=== PATIENT | female | born 1985 | race Caucasian/White ===

== ENCOUNTER 2017-11-20 08:45 | Day surgery (SDC) | payer OTHER, SELFPAY ==
[2017-11-17 14:58] LABS: Color, Urine Yellow (Yellow); Glucose, Dipstick Normal (Normal); Ketone-Dipstick 5 mg/dl (Negative); Leukocyte Esterase-Dipstick 25 /ul (Negative); Nitrite-Dipstick Negative (Negative); Occult Blood-Urine 10 /ul (Negative); Protein-Dipstick 15 mg/dl (Negative); Urine Bilirubin Dipstick Negative (Negative); Urine Clarity Cloudy (Clear); Urine Urobilinogen Normal (Normal)
[2017-11-17 15:06] LABS: Hematocrit 38.8 % (37-47); Hemoglobin 12.5 g/dl (12.0-15.0); Mean Corp Hgb Conc 32.2 g/gl (32-36); Mean Corpuscular Hgb 28.2 pg (27.0-32.0); Mean Corpuscular Volume 87.4 fL (81-99); Mean Platelet Vol. 10.4 fl (6.2-12.0); Platelet Count 273 K/mm3 (150-450); RBC Distribution Width CV 13.4 % (11.6-14.6); RBC Distribution Width SD 43.3 fl (35.1-43.9); Red Blood Count 4.44 M/mm3 (4.2-5.4); White Blood Count 5.2 K/mm3 (4.4-11.0)
[2017-11-17 15:08] LABS: Scan Indicated on CBC? Y/N NO
[2017-11-17 15:12] LABS: Mucous, Urine 2+ /hpf (<or=2+); Red Blood Cells-Urine 0-5 SEEN /hpf (0-5); Squamous Epithelial Cells - UA 50-100 SEEN /hpf (5-10); White Blood Cells 0-5 SEEN /hpf (0-5)
[2017-11-17 15:13] LABS: Bacteria 2+ /hpf (None Seen); Transitional Epithelial - Ur 0-5 SEEN /hpf (0-5)
[2017-11-17 15:26] LABS: International Normalized Ratio 1.1; Prothrombin Time (Protime)PT. 13.7 SECONDS (11.7-14.9)
[2017-11-17 15:27] LABS: Partial Thromboplast Time 31.7 Seconds (24.1-36.2)
[2017-11-17 15:48] LABS: Prolactin 8.1 ng/mL
[2017-11-17 16:19] LABS: AST(SGOT) 14 U/L (15-37); Alanine Aminotransfer ALT/SGPT 18 U/L (13-56); Albumin, Serum 4.1 g/dL (3.2-5.0); Alkaline Phosphatase 67 U/L (45-117); Bilirubin, Direct 0.12 mg/dL (0.00-0.30); Globulin 3.3 g/dL (2.2-4.2); Protein, Total 7.4 g/dL (6.4-8.2)
[2017-11-20] VITALS (7 sets, daily range): BP systolic 112–128; BP diastolic 70–87; PULSE 73–100; RESP 16–18; TEMP 36.4–36.7; O2SAT 96–100; BMI 24.3
--- NOTE | 2017-11-20 | MISC_PTH ---
PATIENT: ETHAN BAUGH LOC: [facility] [place] U[place][id number] AGE/SX: 31/F ROOM: RE11/20/[address]: Dr. Isa Robb MD : [id number] BED: DIS: 11/20/2017 SPEC #: [id number] RECD: 11/20/17 15:02 STATUS: JACQUE TIMO #: [id number] LISSA: 11/20/17 00:[address]: Isa Grimm DEPT: SURGICAL PATHOLOGY RECD BY: Antwon Romo ENTERED: 11/20/17 15:03 SP TYPE: [facility] DR: Sandy Orourke PA-C Tissues: A - Peritoneum, NOS B - Peritoneum, NOS Procedures: Surgery Specimen Level IV HEADER OPERATION: Diagnostic laparoscopy, treatment of endometriosis PRE-OP DIAGNOSIS: Suspect endometriosis TISSUE SUBMITTED: A ? Right cul-de-sac peritoneum, B ? Left uterosacral peritoneum MICROSCOPIC DIAGNOSIS A. Right cul-de-sac peritoneum, biopsy: Endometriosis. B. Left uterosacral peritoneum, biopsy: A piece of fibroadipose and fibroconnective tissue with mild chronic inflammation. Negative for endometriosis. LYUDMILA:nelson 11/21/17 MICROSCOPIC DESCRIPTION Slides are reviewed. GROSS DESCRIPTION A - Received in fixative is one container labeled with the patient's name and designated right cul-de-sac peritoneum. The specimen consists of three irregular fragments of pink-yellow soft tissue that in aggregate measure 1.5 x 1 x 0.2 cm. The specimen is totally submitted in one cassette. B - Received in fixative is one container labeled with the patient's name and designated left uterosacral peritoneum. The specimen consists of a single irregular fragment of pink-yellow soft tissue measuring 1.5 x 0.5 x 0.3 cm. The specimen is totally submitted in one cassette. / AM:nelson 11/20/17 TC:5 CPT: 13566 x2
[2017-11-20 09:06] LABS: Internal QC Validated? YES +Cl - CLEAR BKGD; Pregnancy, Urine Negative Negative
[2017-11-20] MEDS: Bupivacaine Mpf 0.5% 30 ML VIAL (11:15)
--- NOTE | 2017-11-20 11:15 | PCM.OPRPT ---
Problem List (1) Chronic pelvic pain in female Status: Acute (2) Endometriosis Status: Acute Report of Operation Date of Procedure: 11/20/17 Pre-Operative Diagnosis: Chronic pelvic pain, Dyspareunia, Endometriosis Post-Operative Diagnosis: Chronic pelvic pain, Dyspareunia, Endometriosis Surgery/Procedure Performed:: Diagnostic laparoscopy, surgical treatment of endometriosis with peritoneal biopsy woods overseer: Des Ku Type of Anesthesia:: General Anesthesiologist: Sebastián Jolley Specimen's removed: 1. Right culdesac peritoneal biopsy. 2. left uterosacral peritoneal biopsy Estimated Blood Loss (mL): 50 Fluids Replaced: 1000 mL Description of Procedure: Indications: Ms. Samuel is a 31-year-old 1 para 1001 with a history of long-standing chronic pelvic pain with acute worsening and accompanied dyspareunia. She was treated for acute pelvic inflammatory disease with partial response to antibiotics. Following counseling she opted to proceed with diagnostic laparoscopy to rule out endometriosis. Procedure: The patient was taken to the operating room and signed and was performed. She is placed in the dorsal supine position and induced under general anesthesia and intubated. She is then placed into dorsal lithotomy and her arms were tucked at her sides. An examination under anesthesia was performed. The perineum and abdomen were prepped and draped in sterile fashion. Straight catheterization of the bladder was performed. The patient was placed a high lithotomy weighted speculum placed into the vagina and the cervix visualized and grasped using single-tooth tenaculum. The uterus sounded to 9 cm. A Conn cannula was placed for uterine manipulation and secured to the tenaculum. The weighted speculum was removed from the vagina. The patient was placed into low lithotomy attention turned to the abdomen. An inferior umbilical incision was made using the scalpel. The Veress needle was placed with successful hanging drop test and no aspirate. The abdomen was insufflated to 15 mmHg. The Veress needle was removed and a 5 mm port was placed under laparoscopic guidance confirming entry to the abdomen, abdominal cavity. The patient was then placed into Trendelenburg. Her pubic incision was made followed by placement of a 5 mm port. The abdomen and pelvis were inspected. There were 2 areas of endometriotic lesions noted. First lesion in the right cul-de-sac, the second lesion at the left uterosacral ligament. I proceeded to create additional right and left lower quadrant incisions and placed 5 mm ports at those sites following transillumination. The posterior cul-de-sac was cleared of peritoneal fluid. The right posterior cul-de-sac peritoneum was grasped and incised using the laparoscopic anthony and a peritoneal biopsy was obtained with excision of the endometriotic lesion. Bleeding from the inferior excisional site was controlled using the monopolar grasper with improved hemostasis.. The specimen was removed via the 5 mm port. In similar fashion peritoneal biopsy was performed following sharp and blunt dissection of the left uterosacral lesion. There was clear visualization of the ureteric trajectory before, during and after this excision. This was also removed via a port. There was arteriole bleeding at the left excisional site which was controlled using the monopolar graspers medial to the uterosacral ligaments. The posterior cul-de-sac was irrigated and suctioned. Viki was placed at both additional sites for continued hemostasis. Laparoscopy was complete. The abdomen was desufflated the patient was given several large breaths to further expulsed the gas from the abdomen. The ports were removed from the abdomen. The skin was closed using 4-0 Monocryl followed by Steri-Strips and OpSite dressing. The right lower quadrant incision was oozing thus a total of 10 cc of 0.5% Sensorcaine was injected surrounding the site for tamponade with improvement of bleeding. An additional 10 cc were placed at the other incisions for further analgesia. She was turned to the vagina and the tenaculum was removed from the cervix and the tenaculum site was hemostatic. The patient placed into dorsal supine position, awakened, and extubated patient.. She will be transferred to the recovery room. The patient tolerated the procedure well. Sponge, needle counts were correct ?2. - Complications None - Admit VTE Documentation VTE Present on Admission: No VTE Mechan Device Prophylaxis: SCD's VTE Pharm Prophylaxis ordered?: No
--- NOTE | 2017-11-20 11:39 | PCM.DC ---
- Discharge Diagnoses Current Active Problems: Current Active and Chronic Problems Chronic pelvic pain in female (Acute) Endometriosis (Acute) Reason(s) for Visit for Discharge Instructions: Endometriosis You will use the following diet at home:: No restrictions Your food should be the consistency of: Regular Discharge Activity: Return to Normal Activity, May not drive while taking narcotic pain medications., May Shower, - - No tub bath for 1-2 weeks May resume sexual activity in: 4 weeks Lifting Restrictions: 10 lb Call your doctor if your incision/area has: Continuous Slow Oozing, Sudden Increased Bleeding, Increased Pain/ Swelling, Increased Redness Call your doctor if you observe: Fever of 101 or Higher, Inability to urinate, Inability to have a bowel movement, Using more than one pad per hour, Shortness of breath, Chest pain, Calf discomfort, Uncontrolled pain Suture Line Care: Avoid Pulling/Pushing Cleanse incision/area with: Soap & Water Additional Dressing/Incision Instructions:: Remove dressing over incisions in 24 hours. Remove steristrips on Friday11/24/17 Additional Instructions: Fill your prescription of Ibuprofen from the office. Take this every 6-8 hours for 48 hours, then take as needed according to the prescription. Allergies/Adverse Reactions: Allergies prednisone Allergy (Verified 11/14/17 09:14) Other ragweed pollen Allergy (Verified 11/14/17 09:14) Other Medications to take at Discharge Fluticasone Propionate [Flonase Allergy Relief] 9.9 ml NS DAILY 04/01/16 Omeprazole [Prilosec] 20 mg PO DAILY 04/01/16 Cetirizine HCl [Zyrtec] 10 mg PO QHS 11/14/17 Fluoxetine [Prozac] 20 mg PO QHS 11/14/17 Oxycodone [Oxyir] 5 mg PO Q6H PRN PRN 11/20/17 Primary Care Physician: Sandy Orourke PA-C [Primary Care Provider] - Please Follow Up With: Isa Kam MD When: 2-4 weeks
--- NOTE | 2017-11-20 11:44 | PCM.DC ---
- Discharge Diagnoses Current Active Problems: Current Active and Chronic Problems Chronic pelvic pain in female (Acute) Endometriosis (Acute) Reason(s) for Visit for Discharge Instructions: Endometriosis You will use the following diet at home:: No restrictions Your food should be the consistency of: Regular Discharge Activity: Return to Normal Activity, May not drive while taking narcotic pain medications., May Shower, - - No tub bath for 1-2 weeks May resume sexual activity in: 4 weeks Call your doctor if your incision/area has: Continuous Slow Oozing, Sudden Increased Bleeding, Increased Pain/ Swelling, Increased Redness Call your doctor if you observe: Fever of 101 or Higher, Inability to urinate, Inability to have a bowel movement, Using more than one pad per hour, Shortness of breath, Chest pain, Calf discomfort, Uncontrolled pain Suture Line Care: Avoid Pulling/Pushing Cleanse incision/area with: Soap & Water Additional Dressing/Incision Instructions:: Remove dressing over incisions in 24 hours. Remove steristrips on Friday11/24/17 Additional Instructions: Take your Ibuprofen, prescribed in the office, for 48 hours after surgery. Then take only as needed for pain. Allergies/Adverse Reactions: Allergies prednisone Allergy (Verified 11/14/17 09:14) Other ragweed pollen Allergy (Verified 11/14/17 09:14) Other Medications to take at Discharge Fluticasone Propionate [Flonase Allergy Relief] 9.9 ml NS DAILY 04/01/16 Omeprazole [Prilosec] 20 mg PO DAILY 04/01/16 Cetirizine HCl [Zyrtec] 10 mg PO QHS 11/14/17 Fluoxetine [Prozac] 20 mg PO QHS 11/14/17 Docusate Sodium [Colace] 100 mg PO BID PRN PRN #60 cap 11/20/17 Oxycodone [Oxyir] 5 mg PO Q6H PRN PRN 11/20/17 The following prescriptions were given: Docusate Sodium [Colace] 100 mg PO BID PRN PRN #60 cap PRN Reason: Constipation Primary Care Physician: Sandy Orourke PA-C [Primary Care Provider] - Please Follow Up With: Isa Kam MD When: 2-4 weeks
[2017-11-20] MEDS: HYDROcodone Bitartrate/Apap 5/325 Tablet PO (15:45)
== END 2017-11-20 15:53 | disposition home or self-care (01) ==
LOC: SDC 08:46 → AC 08:47
PROVIDERS: Family Provider Family Medicine; PCP Family Medicine; Visit Provider Obstetrics & Gynecology
PROC: (CPT 49320; principal; 2017-11-20 09:55)
DX: R10.2 Pelvic and perineal pain (principal); G89.29 Other chronic pain; N94.10 Unspecified dyspareunia; I10 Essential (primary) hypertension; K58.9 Irritable bowel syndrome, unspecified; K21.9 Gastro-esophageal reflux disease without esophagitis; F32.9 Major depressive disorder, single episode, unspecified; F41.9 Anxiety disorder, unspecified; Z79.899 Other long term (current) drug therapy; F17.210 Nicotine dependence, cigarettes, uncomplicated
CPT/HCPCS: 00840; 58662; 36415; 80076; 81001; 81025; 84146; 85027; 85610; 85730; 86850; 86900; 87086; 87088; 88305; J7120; J2405

== ENCOUNTER → 2018-06-11 14:32 | Outpatient (CLI) | payer SELFPAY ==
[2017-11-20 09:06] VITALS: BMI 24.3
[2018-06-11 17:54] LABS: Chlamydia Trachomatis by PCR Negative (Negative); Neisserai gonorrhoeae by PCR Negative (Negative); Probe Check PASS; Sample Adequacy Control PASS; Specimen Processing Control PASS
--- OUTSIDE RECORDS SUMMARY | 2018-08-06 20:12 | XMS RPT_ITS ---
:1985 Author Organization [place] Support Name Relationship Address Phone [facility] Unavailable [address] + [place] [address] SCADDEN, LUKE Unavailable [address] + [place] [address] MARLO QUICK Unavailable [address] + [address] [place] [address] NOT GIVEN Unavailable Unavailable Unavailable SCADDEN, LUKE Unavailable [id number] + [place] [address] SCADDEN, LUKE Unavailable [id number] [place] [address] SCADDEN, LUKE Unavailable [address] [facility] [facility] [address] + [place] [address] SPEEDY QUICK Unavailable Unavailable + [facility] Unavailable [address] + [place] [address] SCADDEN, LUKE Unavailable [address] + [place] [address] MARLO QUICK Unavailable [address] + [address] [place] [address] [facility] Unavailable [address] + [place] [address] SCADDEN, LUKE Unavailable [address] + [place] [address] MARLO QUICK Unavailable [address] + [address] [place] [address] NOT GIVEN Unavailable Unavailable Unavailable SCADDEN, LUKE Unavailable [address] + [place], [place] [phone] SCADDEN, LUKE Unavailable [address] Unavailable [place], [place] [phone] NOT GIVEN Unavailable Unavailable Unavailable SCADDEN, LUKE Unavailable [address] + [place], [place] [phone] SCADDEN, LUKE Unavailable [address] Unavailable [place] [phone] NOT GIVEN Unavailable Unavailable Unavailable SCADDEN, LUKE Unavailable [address] + [place], [place] [phone] SCADDEN, LUKE Unavailable [address] [place] [phone] NOT GIVEN Unavailable Unavailable Unavailable SCADDEN, LUKE Unavailable [address] + [place], [place] [phone] SCADDEN, LUKE Unavailable [address] Unavailable [place], [place] [phone] NOT GIVEN Unavailable Unavailable Unavailable SCADDEN, LUKE Unavailable [address] + [place], [place] [phone] SCADDEN, LUKE Unavailable [address] Unavailable [place], [place] [phone] Care Team Providers Name Role Phone WASHINGTON, SADIA Admitting Unavailable WASHINGTON, SADIA Attending Unavailable WASHINGTON, [place] Primary Care Unavailable WASHINGTON, SADIA Consulting Unavailable PROVIDER, UNKNOWN Consulting Unavailable PHIL, DR PIERRE Akbar Admitting Unavailable PHIL, DR PIERRE Akbar Attending Unavailable WASHINGTON, SADIA Referring Unavailable PHIL, DR PIERRE Akbar Primary Care Unavailable WASHINGTON, SADIA Consulting Unavailable PROVIDER, UNKNOWN Consulting Unavailable WASHINGTON, SADIA Admitting Unavailable WASHINGTON, SADIA Attending Unavailable WASHINGTON, SADIA Primary Care Unavailable WASHINGTON, SADIA Consulting Unavailable PROVIDER, UNKNOWN Consulting Unavailable WASHINGTON, SADIA Admitting Unavailable WASHINGTON, SADIA Attending Unavailable WASHINGTON, SADIA Primary Care Unavailable WASHINGTON, SADIA Consulting Unavailable PROVIDER, UNKNOWN Consulting Unavailable WASHINGTON, SADIA Admitting Unavailable WASHINGTON, SADIA Attending Unavailable WASHINGTON, SADIA Primary Care Unavailable WASHINGTON, SADIA Consulting Unavailable PROVIDER, UNKNOWN Consulting Unavailable WASHINGTON, SADIA Admitting Unavailable WASHINGTON, SADIA Attending Unavailable WASHINGTON, [place] Primary Care Unavailable HILLS, SADIA Consulting Unavailable PROVIDER, UNKNOWN Consulting Unavailable PRITCHETT, KEVIN Attending Unavailable Physician, PCP Unknown Primary Care Unavailable Isa Kam Attending Unavailable Negin, Isa Attending Unavailable Isa Kam Referring Unavailable Sadia Orourke CLIFFORD-Raffy Primary Care Unavailable Trung Olsen Attending Unavailable Sadia Orourke PA-C Primary Care Unavailable PROBLEMS PROBLEMS DATE TYPE CONDITION / CODE ATTENDING STATUS SOURCE 04/28/2018 Principle Urinary tract SADIA OROURKE Active [facility] Diagnosis infection, site [facility] not specified / Hospital N390(ICD-10) Repository 02/06/2018 Admitting Unknown / PRITCHETT, KEVIN Active [place] [facility] UNK(Unknown) Health System Repository 11/06/2017 Unknown Z39.1 - Encounter Miki Kam for care and [facility] examination of Hospital lactating mother / Repository Z39.1(ICD-10) 08/26/2017 Principle Dysuria / SADIA OROURKE Active [facility] Diagnosis R300(ICD-10) [facility] Repository 08/22/2017 Admitting Encounter for SADIA OROURKE Active [facility] Diagnosis screening [facility] mammogram for Hospital malignant neoplasm Repository of breast / Z1231(ICD-10) 08/22/2017 Principle Encounter for SADIA OROURKE Active [facility] Diagnosis screening [facility] mammogram for Hospital malignant neoplasm Repository of breast / Z1231(ICD-10) 08/01/2017 Principle Galactorrhea / SADIA OROURKE Active [facility] Diagnosis O926(ICD-10) [facility] Repository 08/01/2017 Admitting Galactorrhea / SADIA OROURKE Active [facility] Diagnosis O926(ICD-10) [facility] Repository 07/28/2017 Secondary Abdominal SADIA OROURKE Active [facility] Diagnosis distension [facility] (gaseous) / Hospital R140(ICD-10) Repository PROCEDURES PROCEDURES No Procedure Records FoundRESULTS RESULTS CT/NG [facility] BY PCR Collected: 06/11/2018 Status: F Source: [place] 1:00 PM [facility] TYPE CODE TESTS RESULT OUT OF RANGE REFERENCE UNITS LAB L8200.2100 Negative Normal Chlam Negative Trac PCR LAB L8200.2200 Negative Normal NG by Negative PCR Performed By: #### L8200.1999 #### [facility] [place], [address] Observed: 04/28/2018 Status: F Source: [place] CULTURE URINE 11:45 [facility] REPOSITORY CULTURE URINE _URINE CULTURE_ M I C R O B I O L O G Y R E P O R T FINAL Antimicrobial Susceptibility and Organism Identification Report Specimen Number : [id number] Requested : 04/28/18 Specimen Source : URINE Collected : 04/28/18 11:45 [facility] : OUTPATIENT Received : 04/28/18 11:45 Requesting Physician : PRISCILA OROURKE Patient/Specimen Tests and Comments Specimen Comments FINAL REPORT: URINE COLONY COUNT: [id number] CFU/CC >OR=TO 3 COLONY TYPES PROBABLE CONTAMINATION Tech : Source : URINE ID # : [id number] FINAL Report Date : / / : Collected : 04/28/18 11:45 05/01/18.1233.BKO. 04/30/18.1025.BKO. 05/01/18.1233.BKO.COMPLETE Performed By: #### [id number] #### [facility],[address] [place] [address] Observed: 02/14/2018 Status: F Source: [place] 8:02 PM HEALTH SYSTEM REPOSITORY [place] [address] Emergency Department Discharge Instructions DANELLE BAUGH , Please provide this information to your Primary Care/Specialist Name : DANELLE BAUGH Current Date : 02/14/2018 20:02:06 : 1985 12:00 PM Primary Care Physician: Physician, PCP Unknown Diagnosis : Hypokalemia; Seasonal allergies Follow-Up Instructions: DANELLE BAUGH has been given these follow-up instructions: FOLLOW-UP APPOINTMENTS: Provider: Specialty: Address: Date: [facility] [address] [address] (1) 3 to 4 days Comment: call for follow-up appointment. Return for fever, worsening symptoms, lightheaded dizziness, chest pain or difficulty breathing. Laboratory Orders: Name: Status: CBC with Differential Completed Basic Metabolic Panel Completed Urinalysis Manual POCT (CO) Completed Urine Test POCT (CO) Completed GFRaa Completed GFRbb Completed Radiology Orders: Name: Status: XR Chest 2 Views Completed Diagnostic Tests: Name: Status: ECG 12 Lead Completed Procedure(s) and Patient Education(s) : Allergies; Hypokalemia EMERGENCY SERVICES MEDICATION LIST Lista de Medicaciones de los Servicios de Emergencia Name DANELLE BAUGH MRN [facility]-[id number] [facility]# [id number] PLEASE READ THE FOLLOWING REGARDING YOUR MEDICATIONS Based on the information available during your visit we have given you the medication instructions below. Continue taking medications you took prior to your visit unless you have been told to change. Pl ease share this information with your own doctor. Carry a list of your medications with you in case of an emergency. Update it when medications are stopped, doses are changed, or new medications (includ ing aevp-rno-aqslitx products) are added. If you have any questions, check with your doctor. Por la informaci??n disponible eamon gerardo visita, las instrucciones de medicaci??n aparecen debajo. Favor de continuar tomando las medicaciones Ud. keven?? antes de gerardo visita por lo menos que hay cambios. Favor de compartir esta informaci??n con gerardo medico. Lleva kiah lista de medicaciones consigo por timo de emergenc??a. Actualiza la lista cuando Ud. edinson de ml las medicaciones, si cambian las dosis, o si hay nuevas medicaciones a??adidas (incluyendo medicaciones vendidas sin prescripci??n). Favor de preguntar a gerardo medico por cualquier can. THESE ARE THE MEDICATIONS YOU SHOULD BE TAKING potassium chloride (potassium chloride 10 mEq oral capsule, extended release) 1 Capsule By Mouth once a day for 5 Days. Refills: 0. MEDICATIONS GIVEN DURING MEDICAL VISIT dexamethasone 10 mg last dose given on 02/14/2018 at 17:50 Route: By Mouth Inject given Orally famotidine 20 mg last dose given on 02/14/2018 at 17:50 Route: By Mouth potassium chloride 40 mEq last dose given on 02/14/2018 at 20:00 Route: By Mouth Do Not Chew Or Crush
Take with meals and with a full glass of water or other beverage NON-MEDICATION PRESCRIPTION SCHEDULING PHONE NUMBER: MEDICATION CHANGE DETAILS (Not your Final Home Medication List) During the course of your visit, your home medication list was updated with the most current information. The details of those changes are shown below: NEW MEDICATIONS Printed Prescriptions potassium chloride (potassium chloride 10 mEq oral capsule, extended release) 1 Capsule By Mouth once a day for 5 Days. Refills: 0. Comment UPDATED MEDICATIONS None UNCHANGED MEDICATIONS None STOP TAKING THESE MEDICATIONS None DO NOT TAKE UNTIL YOU TALK TO YOUR DOCTOR None [place] [id number] Emergency Department Discharge Instructions Name: DANELLE BAUGH Current Date: 02/14/2018 20:02:06 : 1985 12:00 PM Primary Physician: Physician, PCP Unknown We would like to thank you for choosing [facility] for your emergency medical needs. We examined and treated you today on an emergency basis only. This was not a substitute for, or an effort to provide, complete medical care. In most cases, you must let your doctor (or the doctor we referred you to) check you again. Tell your doctor about any new or lasting problems. We cannot rec ognize and treat all injuries or illnesses in one emergency department visit. After you leave, you should follow the directions attached. Instructions for obtaining X-rays: When following up with your doctor, you may need to take copies of your x-rays that were done in the Emergency Department. If you didn't receive these upon your discharge from the emergency department, please call . When the final report becomes available and it is reviewed, the emergency department will attempt to contact you if there are any changes in your instructions. It is importan t that you leave accurate information with us on how to contact you. IF you cannot be contacted, YOU must contact the follow-up doctor that you were assigned to make sure that the final official x-ray r eport does not require a change in your treatment. Instructions for obtaining medical records: If you need a copy of your medical records for follow-up, please contact the Health Information Management Department at . Their office hours are 8 AM- 4:30 PM, Friday through Friday. Greg jasso note: Results are not immediately available. Please allow a minimum of 36 hours for documentation and results. If you were prescribed an antibiotic: Antibiotics are life-saving drugs and they need to be used properly. Your team might change your antibiotic because test results show that a different antibiotic would be better to treat your infection. Like all medications, antibiotics have side effects. Some can be serious. This includes the risk of getting an antibiotic-resistant infection later, which may be difficult to treat. Remember to take yo ur antibiotics as prescribed. If you have any questions please talk to your healthcare team. Seatbelts: There is no doubt that seatbelts save lives. Every day, people without seatbelts have more serious injuries. Have everyone buckle up, using age appropriate seatbelts or car seats, to reduce their risk of injury. Smoking: If you do smoke, we encourage you to stop. Smoking affects all aspects of your health and the health of those around you. Call the [employer] at 7-729-DNEY-[place] or the [employer] et[employer] at 0-164-LPI-4218 for more information. High blood pressure: Your screening blood pressure today was 122 mm Hg / . Hypertension (high blood pressure) is blood pressure over 120/80. People with hypertension should contact their primary care provider within 30 day s to follow up. Check your patient portal for additional blood pressure information. Immunizations: Immunization is a way to protect against deadly infections. Discuss this with your child's medical transcription supervisor, or Public Health Department. Your family practice doctor can determine if you need pneumonia or f alisa vaccine. The [facility] Department can be reached at . Domestic Violence: If you are a victim of domestic violence (physical, verbal, or emotional), you are not alone. Discuss this with your physician or a friend and call Choices Hotline ( for assistance and support. You are the most important factor in your recovery. Follow the provided instructions carefully. Take your medications as prescribed. Most importantly, see a doctor again as discussed. If you have problems that we have not discussed, call or visit your do ctor right away. If you do not have a primary care physician, we have provided one for you to follow up with. When you call for an appointment, please inform them that you were seen in the emergency dep artment and the date of your visit. If you are unable to reach your doctor and are still experiencing problems, return to the emergency department. For assistance finding a primary care physician, call the Physician Referral Line at . Suicide Hotline: Your mental and emotional well-being is important. If you are in a mental health crisis or are having thoughts of suicide, please call the nationwide suicide hotline, anytime day or night, at 8-780-371-ZUHN. Pharmacy Information: Below is a list of 24 hour pharmacies that we are aware of. We suggest that you call the specific pharmacy for their hours before traveling to a location. Hours may vary on holidays. [facility] [address], [place] [phone] [address] [place], [place] [address] [phone] [address], [place] [address] [phone] [address], [place] [phone] [address] [place], [place] [phone] [address], [place] [phone] [address] [place], [place] [phone] Take all medications as directed. If you need prescription assistance, contact the following agencies: ?? Partnership for Prescription Assistance at or www.pparx.org ?? [facility] at or www.[place]bestrx.org ?? www.[employer]quare.Indiegogo is a site with many valuable coupons Patient Education Materials DANELLE BAUGH has been given the following patient education materials: Allergies An allergy is an abnormal reaction to a substance by the body's defense system (immune system). Allergies can develop at any age. WHAT CAUSES ALLERGIES? An allergic reaction happens when the immune system mistakenly reacts to a normally harmless substance, called an allergen, as if it were harmful. The immune system releases antibodies to fight the subs tance. Antibodies eventually release a chemical called histamine into the bloodstream. The release of histamine is meant to protect the body from infection, but it also causes discomfort. An allergic reaction can be triggered by: ???Eating an allergen. ???Inhaling an allergen. ???Touching an allergen. WHAT TYPES OF ALLERGIES ARE THERE? There are many types of allergies. Common types include: ???Seasonal allergies. People with this type of allergy are usually allergic to substances that are only present during certain seasons, such as molds and pollens. ???Food allergies. ???Drug allergies. ???Insect allergies. ???Animal dander allergies. WHAT ARE SYMPTOMS OF ALLERGIES? Possible allergy symptoms include: ???Swelling of the lips, face, tongue, mouth, or throat. ???Sneezing, coughing, or wheezing. ???Nasal congestion. ???Tingling in the mouth. ???Rash. ???Itching. ???Itchy, red, swollen areas of skin (hives). ???Watery eyes. ???Vomiting. ???Diarrhea. ???Dizziness. ???Lightheadedness. ???Fainting. ???Trouble breathing or swallowing. ???Chest tightness. ???Rapid heartbeat. HOW ARE ALLERGIES DIAGNOSED? Allergies are diagnosed with a medical and family history and one or more of the following: ???Skin tests. ???Blood tests. ???A food diary. A food diary is a record of all the foods and drinks you have in a day and of all the symptoms you experience. ???The results of an elimination diet. An elimination diet involves eliminating foods from your diet and then adding them back in one by one to find out if a certain food causes an allergic reaction. HOW ARE ALLERGIES TREATED? There is no cure for allergies, but allergic reactions can be treated with medicine. Severe reactions usually need to be treated at a hospital. HOW CAN REACTIONS BE PREVENTED? The best way to prevent an allergic reaction is by avoiding the substance you are allergic to. Allergy shots and medicines can also help prevent reactions in some cases. People with severe allergic reac tions may be able to prevent a life-threatening reaction called anaphylaxis with a medicine given right after exposure to the allergen. This information is not intended to replace advice given to you by your health care provider. Make sure you discuss any questions you have with your health care provider. Document Released: 09/23/2003 Document Revised: 07/21/2015 Document Reviewed: 04/11/2015 [employer] Interactive Patient Education ?2015 [employer] Cardiovascular Hypokalemia Hypokalemia means that the amount of potassium in the blood is lower than normal.?Potassium is a chemical, called an electrolyte, that helps regulate the amount of fluid in the body. It also stimulates muscle contraction and helps nerves function properly.?Most of the body's potassium is inside of cells, and only a very small amount is in the blood. Because the amount in the blood is so small, minor changes can be life-threatening. CAUSES ???Antibiotics. ???Diarrhea or vomiting. ???Using laxatives too much, which can cause diarrhea. ???Chronic kidney disease. ???Water pills (diuretics). ???Eating disorders (bulimia). ???Low magnesium level. ???Sweating a lot. SIGNS AND SYMPTOMS ???Weakness. ???Constipation. ???Fatigue. ???Muscle cramps. ???Mental confusion. ???Skipped heartbeats or irregular heartbeat (palpitations). ???Tingling or numbness. DIAGNOSIS Your health care provider can diagnose hypokalemia with blood tests. In addition to checking your potassium level, your health care provider may also check other lab tests. TREATMENT Hypokalemia can be treated with potassium supplements taken by mouth or adjustments in your current medicines. If your potassium level is very low, you may need to get potassium through a vein (IV) and be monitored in the hospital. A diet high in potassium is also helpful. Foods high in potassium are: ???Nuts, such as peanuts and pistachios. ???Seeds, such as sunflower seeds and pumpkin seeds. ???Peas, lentils, and priest beans. ???Whole grain and bran cereals and breads. ???Fresh fruit and vegetables, such as apricots, avocado, bananas, cantaloupe, kiwi, oranges, tomatoes, asparagus, and potatoes. ???Ulster and tomato juices. ???Red meats. ???Fruit yogurt. HOME CARE INSTRUCTIONS ???Take all medicines as prescribed by your health care provider. ???Maintain a healthy diet by including nutritious food, such as fruits, vegetables, nuts, whole grains, and lean meats. ???If you are taking a laxative, be sure to follow the directions on the label. SEEK MEDICAL CARE IF: ???Your weakness gets worse. ???You feel your heart pounding or racing. ???You are vomiting or having diarrhea. ???You are diabetic and having trouble keeping your blood glucose in the normal range. SEEK IMMEDIATE MEDICAL CARE IF: ???You have chest pain, shortness of breath, or dizziness. ???You are vomiting or having diarrhea for more than 2 days. ???You faint. MAKE SURE YOU: ???Understand these instructions. ???Will watch your condition. ???Will get help right away if you are not doing well or get worse. This information is not intended to replace advice given to you by your health care provider. Make sure you discuss any questions you have with your health care provider. Document Released: 06/30/2006 Document Revised: 07/21/2015 Document Reviewed: 12/31/2013 [employer] Interactive Patient Education ?2016 [employer] <><><><><><><><><><><><><><><><><><><><><><><><><> Patient Visit Summary Signature DANELLE BAUGH has been given the following list of patient education materials, prescriptions and follow-up instructions: LUPIS Story ELIZABETH A, have received the above patient education materials/instructions and have verbalized understanding: Date Time Patient Signature Date Time Provider Signature DEPART SUMMARY Observed: 02/14/2018 Status: F Source: [facility] 8:02 PM HEALTH SYSTEM REPOSITORY EMERGENCY DEPARTMENT DISCHARGE SUMMARY PATIENT NAME:DANELLE BAUGH MRN: ([id number] AGE: 32 Years SEX: Female PHONE:[phone] DOS: 02/14/2018 5:05 PM : 1985 ATTENDING PHYSICIAN:Kevin Pritchett DO PCP: Physician, PCP Unknown CHIEF COMPLAINT: Possible allergic reaction x 1 week Allergies PredniSONE (Unknown) Problems No Problems Documented DISCHARGE DIAGNOSIS: Hypokalemia; Seasonal allergies DISCHARGE INSTRUCTIONS: Allergies; Hypokalemia ED PHYSICIAN DOCUMENTATION: DISPOSITION: Time of Departure From ER 02/14/2018 20:01 Discharge/Transfer From ER Home 01 MEDICATION LISTS: CURRENT MEDICATION LIST potassium chloride (potassium chloride 10 mEq oral capsule, extended release) 1 Capsule By Mouth once a day for 5 Days. Refills: 0. MEDICATIONS GIVEN DURING MEDICAL VISIT dexamethasone 10 mg last dose given on 02/14/2018 at 17:50 Route: By Mouth Inject given Orally famotidine 20 mg last dose given on 02/14/2018 at 17:50 Route: By Mouth potassium chloride 40 mEq last dose given on 02/14/2018 at 20:00 Route: By Mouth Do Not Chew Or Crush
Take with meals and with a full glass of water or other beverage LAB RESULTS: LABORATORY TESTS: Abnormal Lab Result(s): Date Order Results 02/14/2018 18:45 Specific [place] Urine POCT N 1.005 02/14/2018 18:45 pH Urine POCT N 6 02/14/2018 17:38 Potassium Level C 2.8 mMol/L 02/14/2018 17:38 BUN L 6 mg/dL 02/14/2018 17:38 Glucose Level H 180 mg/dL RADIOLOGY: RADIOLOGY RESULT(S) (Please contact Medical Records office for further information): 02/14/2018 18:03 XR Chest 2 Views EXAMINATION TYPE: XR Chest 2 Views DATE OF EXAM: 02/14/2018 6:03 PMHISTORY: ALLERGIC reaction.COMPARISON: NONENUMBER OF VIEWS: 2, FINDINGS:No focal airspace opacity. No pneumothorax. No significant pleura l effusion. The cardiomediastinal silhouette is within normal limits. Right convex curvature of the thoracic spine.IMPRESSION: No focal pulmonary consolidation or effusion.Pau Jolly thanks you for th e opportunity to care for your patient. Workstation ID: [id number] FOLLOW UP: FOLLOW-UP APPOINTMENTS: Provider: Specialty: Address: Date: [facility] [address] [address] (1) 3 to 4 days Comment: call for follow-up appointment. Return for fever, worsening symptoms, lightheaded dizziness, chest pain or difficulty breathing. XR CHEST 2 VIEWS Observed: 02/14/2018 Status: F Source: [facility] 6:03 PM HEALTH SYSTEM REPOSITORY EXAMINATION TYPE: XR Chest 2 Views DATE OF EXAM: 02/14/2018 6:03 PM HISTORY: ALLERGIC reaction. COMPARISON: NONE NUMBER OF VIEWS: 2, FINDINGS: No focal airspace opacity. No pneumothorax. No significant pleural effusion. The cardiomediastinal silhouette is within normal limits. Right convex curvature of the thoracic spine. IMPRESSION: No focal pulmonary consolidation or effusion. Pau Jolly thanks you for the opportunity to care for your patient. Workstation ID: [id number] - [id number] FINAL REPORT Dictated By: Harpal Melgar MD 02/14/2018 18:45 Assigned Physician: Harpal Melgar MD Reviewed and Electronically Signed By: Harpal Melgar MD 02/14/2018 18:47 Transcribed by: TONJA 02/14/2018 18:45 Technologist: QUOC CBC WITH DIFFERENTIAL Collected: 02/14/2018 Status: F Source: [facility] 5:38 PM HEALTH SYSTEM REPOSITORY TYPE CODE TESTS RESULT OUT OF REFERENCE UNITS RANGE LAB 18767-3(LO 40.0-70.0 % INC) Normal Neutrophil 60.3 LAB 17168-9(LO 80.0-97.0 FL INC) MCV Normal 84.8 LAB 18819-7(LO 6.2-12.1 FL INC) MPV Normal 8.8 LAB 55569-2(LO 0.0-2.0 % INC) Normal Basophil 0.6 LAB 704-7(LOIN 0.00-0.20 thou/mcL C) Normal Basophil 0.00 Absolute LAB 83144-8(LO 35.0-45.0 % INC) Normal Hematocrit 37.8 LAB 71394-2(LO 0.0-7.0 % INC) Normal Eosinophil 0.9 LAB 711-2(LOIN 0.00-0.70 thou/mcL C) Normal Eosinophil 0.10 Absolute LAB 70049-5(LO 142-424 thou/mcL INC) Normal Platelet Count 303 LAB 718-7(LOIN 12.0-16.0 gm/dL C) Normal Hemoglobin 12.8 LAB 35767-8(LO 0.0-12.0 % INC) Normal Monocyte 4.5 LAB 742-7(LOIN 0.00-0.90 thou/mcL C) Normal Monocyte 0.40 Absolute LAB 01645-7(LO 11.0-14.8 % INC) RDW Normal 13.2 LAB 12726-3(LO 22.0-44.0 % INC) Normal Lymphocyte 33.7 LAB 731-0(LOIN 1.00-4.80 thou/mcL C) Normal Lymphocyte 2.80 Absolute LAB 80517-6(LO 3.80-5.10 million/mcL INC) Red Normal Blood Cell 4.46 Count LAB 82289-5(LO 32.0-36.0 gm/dL INC) MCHC Normal 33.9 LAB 20335-5(LO 4.6-10.2 thou/mcL INC) WBC Normal Count 8.3 LAB 30351-7(LO 27.0-34.0 Picograms INC) MCH Normal 28.8 LAB 751-8(LOIN 1.80-7.70 thou/mcL C) Normal Neutrophil 5.00 Absolute Performed By: #### 08847-5 #### [facility], [address] [place] [address]. GFRAA Collected: 02/14/2018 Status: F Source: [facility] 5:38 PM HEALTH SYSTEM REPOSITORY TYPE CODE TESTS RESULT OUT OF RANGE REFERENCE UNITS LAB 29389-9(LO mL/min INC) GFR Normal Estimated >60 Result Comment: The MDRD equation has not been validated for those over 70 years, women, patients with serious co-morbid conditions, or with extremes of body size, muscle mass of nutritional status. Performed By: #### 69867-9, 17841-3d0, 47330-5 #### [facility], [address] [place] [address]. GFRBB Collected: 02/14/2018 Status: F Source: [facility] 5:38 PM HEALTH SYSTEM REPOSITORY TYPE CODE TESTS RESULT OUT OF RANGE REFERENCE UNITS LAB 06294-6(LO mL/min INC) GFR Normal Estimated Non >60 Performed By: #### 65674-5, 86627-4l8, 55612-0 #### [facility], [address] [place] [address]. BASIC METABOLIC PANEL Collected: 02/14/2018 Status: F Source: [facility] 5:38 PM HEALTH SYSTEM REPOSITORY TYPE CODE TESTS RESULT OUT OF RANGE REFERENCE UNITS LAB 2951-2(ÓSCAR 136-145 mMol/L NC) Normal Sodium Level 138 LAB 2823-3(ÓSCAR 3.6-5.1 mMol/L NC) Abnormal Alert Potassium Level 2.8 Result Comment: Critical value(s) on tests K called to and read-back by DR PERRY SAMUEL , at [place] [id number] time called 02/14/18 19:22 LAB 2075-0(LOINC) 98-107 mMol/L Chloride Normal Level 101 LAB 58068-2(LOINC) 8.9-10.3 mg/dL Calcium Normal Total 9.5 LAB 04314-5(LOINC) 70-110 mg/dL Glucose High Level 180 LAB 8-9(LOINC) 22-32 mMol/L Carbon Normal Dioxide Level 23 LAB 2160-0(LOINC) 0.66-1.30 mg/dL Normal Creatinine 0.77 LAB 98611-8(LOINC) 8-20 mg/dL Low BUN 6 LAB 61353-7(LOINC) 6.0-18.0 mMol/L Anion Normal Gap 14.0 Result Comment: PLEASE NOTE:The calculated Anion Gap(AGAP) does not include Potassium. Performed By: #### 05121-5, 39245-8l3, 62218-9 #### [facility], [address], [place]. ED PHYSICIAN NOTES Observed: 02/14/2018 Status: F Source: [facility] 5:22 PM HEALTH SYSTEM REPOSITORY Chief Complaint Possible allergic reaction x 1 week ED Assigned Provider/Time Time Seen: Perry Samuel CNP / 02/14/2018 17:08 History of Present Illness I introduced myself to the patient as the Nurse practitioner and informed the patient of my collaborating physician, Dr. Pritchett , who is available upon request. patient is a 32-year-old female who presents for evaluation of allergies. 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 For the past week she has had a scratchy throat and fullness in her ear s. She has been taking benadryl and zyrtec without relief. She has seen her PCP several days ago in regards to this. Today patient began to feel dizzy, nauseated and developed blurred vision. She fe lt as if she was going to pass out and therefore called 911. Patient states these symptoms are similar to when she has had an allergic reaction previously. EMS administered 0.2 mg of IM epi as well as 8 mg of Zofran. Patient now reports she feels jittery. She states that when she has allergic reaction like this the only thing that helps her is steroids. She denies headache, current visual changes, v omiting, chest pain, palpitations, shortness of breath, abdominal pain, dysuria, rash. She denies any swelling of the lips, tongue, or throat. She denies any difficulty breathing or difficulty swallowing. I have reviewed the nursing notes as well as social history and agree. REVIEW OF SYSTEMS Constitutional: [No fevers, chills or body aches] Eyes: [No visual changes] ENMT: [No sore throat, ear pain, runny nose, or congestion] Cardiovascular: [No palpitations] Respiratory: [No difficulty breathing or pain with inspiration. No cough] Gastrointestinal: [No abdominal pain. No nausea or vomiting. No diarrhea] Genitourinary: [No pain or burning with urination.] Musculoskeletal: [No pain or swelling in extremities] Integumentary: [No rashes] Neurological: [No numbness, tingling, or weakness] Psychological: [No depression or suicidal ideation] All other systems reviewed are negative - See HPI PHYSICAL EXAM: Vital Signs (First and Last Sets of This Visit): Date Route Temp Resp SBP/DBP Pulse O2 Sat O2 Flow O2 Delivery 02/14/18 17:11 Oral 98.8 18 146/ 90 103 100 - Room air 02/14/18 18:45 - - 16 122/ 83 88 100 - PULSE OX INTERPRETATION: The Pulse ox is [100 ], which is interpreted as [normal] Constitutional: [alert, well appearing, in no acute distress Psychiatric: Appropriate. Normal affect. Eyes: [PERRL, no scleral icterus] Ears: [TM's pearly kern bilaterally without erythema or effusion. External ear canals clear and dry] Nose: [Normal in appearance. boggy, non-erythematous nasal turbinates Mouth: [Moist mucous membranes. Normal phonation. Managing secretions. unremarkable oropharynx. No edema] Neck: [ trachea midline. No lymphadenopathy] Cardiovascular: [Regular rate and rhythm, no murmurs, rubs, gallops. No peripheral edema. Radial pulses are 3+ and equal bilaterally. Cap refill < 3 seconds] Respiratory: [Clear to auscultation bilaterally without wheezes, rhonchi, rales. Equal air exchange without accessory muscle use. No stridor or drooling] Gastrointestinal: [Soft without rigidity, guarding, or rebound tenderness. Non-distended and non-tender. No peritoneal signs] Skin: [Normal for age, no rash or lesions] Musculoskeletal: [Ambulatory without difficulty] Neurologic: [Awake, alert, answers questions appropriately without slurred speech, no focal deficits] PREVIOUS RECORDS REVIEWED: [ yes] DIFFERENTIAL DIAGNOSIS - INCLUDES BUT IS NOT LIMITED TO: [seasonal allergies, anaphylaxis, angioedema, electrolyte imbalance ] MEDICAL DECISION MAKING: [patient is a 32-year-old female who presents as detailed above. Afebrile nontoxic in appearance. No evidence of anaphylaxis or angioedema. patient is requesting steroids b ut does note a prednisone allergy. Will give Decadron. Workup pending. 02-14-2018 19:40: I reevaluated the patient. I encouraged her to continue these medications and follow-up with her PCP.he is resting comfortably. Her potassium is 2.8. She was given a dose here i n the department and will be discharged with a prescription. Her workup is unremarkable otherwise. I do not suspect acute anaphylaxis. symptoms are likely secondary to her seasonal allergies. Patient re ports she has been taking Mucinex, Benadryl, Zyrtec, Nasacort home. I encouraged her to continue these prescriptions and follow-up with her primary care provider. We discussed return precautions. Stable time of discharge and appropriate for outpatient management. DISPOSITION PLAN: Condition: [Stable]. Disposition: [Medically cleared for outpatient management], Discharged to Home Prescriptions:potassium chloride 10 mEq, By Mouth once a day, 5 Day(s), 5 Cap Patient Education: Hypokalemia, Allergies Follow up with: Provider: [facility] Specialty: Address: [address] [place] [address] (2) Date: 3 to 4 days Comment: call for follow-up appointment. Return for fever, worsening symptoms, lightheaded dizziness, chest pain or difficulty breathing. Counseled: [Patient]. FINAL DIAGNOSIS: [ 1.seasonal allergies 2. Near syncope Assessment/Plan Hypokalemia Seasonal allergies Orders: potassium chloride, Take 1 Cap, PO, Daily, # 5 Cap, 0 Refill(s) Problem List/Past Medical History Ongoing No qualifying data Historical No qualifying data Medications Home No active home medications ED Administered Medications Prescriptions No active Prescriptions Allergies PredniSONE (Unknown) Social History Tobacco No qualifying data available. Lab Results CHEMISTRY est crcl ibw (ml/min)-rx: 99.03 chloride level: 101 carbon dioxide level: 23 potassium level: 2.8 (Critical) Ref Range: 3.6 - 5.1 sodium level: 138 anion gap: 14.0 bun: 6 (Low) Ref Range: 8 - 20 glucose level: 180 (High) Ref Range: 70 - 110 creatinine: 0.77 calcium total: 9.5 gfr estimated non amer: >60 gfr estimated : >60 HEMATOLOGY wbc count: 8.3 red blood cell count: 4.46 hemoglobin: 12.8 hematocrit: 37.8 mcv: 84.8 mch: 28.8 mchc: 33.9 rdw: 13.2 platelet count: 303 mpv: 8.8 neutrophil absolute: 5.00 lymphocyte absolute: 2.80 monocyte absolute: 0.40 eosinophil absolute: 0.10 basophil absolute: 0.00 neutrophil: 60.3 lymphocyte: 33.7 monocyte: 4.5 eosinophil: 0.9 basophil: 0.6 POINT OF CARE TESTING urine clarity poct -clinic: Clear (Normal) glucose urine poct: Negative (Normal) bilirubin urine poct: Negative (Normal) ketones urine poct: Negative (Normal) specific gravity urine poct: 1.005 blood urine poct: Negative (Normal) ph urine poct: 6 protein urine poct: Negative (Normal) nitrite urine poct: Negative (Normal) leukocytes urine poct: Negative (Normal) test poct: Negative test poct -clinic: Negative urine color poct -clinic: Straw (Normal) IMAGING RESULTS: Emergency Physician Interpretation: Radiologist Xray Interpretation: Interpretation XR Chest 2 Views 18:47:30 IMPRESSION: No focal pulmonary consolidation or effusion. Pau Jolly thanks you for the opportunity to care for your patient. Workstation ID: [id number] - [id number] EKG INTERPRETATIONS: I am acting as a scribe for the EKG interpretation performed by [ ] Time: 1725 Rate: 102- since tachycardia. Normal axis. No ST or T-wave changes to suggest acute ischemia. Orders placed Laboratory CBC with Differential Jimmie GONZALEZ [facility] February 14, 2018 17:17 Completed BMP (Basic Metabolic Panel) Jimmie GONZALEZ [facility] February 14, 2018 17:17 Completed Urinalysis Manual POCT (CO) Jimmie GONZALEZ [facility] February 14, 2018 17:17 Completed POC Urine Test (CO) Jimmie GONZALEZ [facility] February 14, 2018 17:17 Completed GFRAF Jimmie GONZALEZ [facility] February 14, 2018 17:49 Completed GFRNAF Jimmie GONZALEZ [facility] February 14, 2018 17:49 Completed Xray CXR 2 Views Jimmie GONZALEZ [facility] February 14, 2018 17:18 Completed EKG / Respiratory / Ancillary EKG Jimmie GONZALEZ [facility] February 14, 2018 17:17 Completed PRE-ARRIVAL FORM Observed: 02/14/2018 Status: F Source: [facility] 5:06 PM HEALTH SYSTEM REPOSITORY Pre-Arrival Summary Name: 30, Current Date: 02/14/2018 17:06:09 EDT Gender: Date of : Age: Pre-Arrival Type: EMS ETA: 02/14/2018 17:26:00 EDT Primary Care Physician: Presenting Problem: Pre-Arrival User: Junaid Beck RN Referring Source: Location: PreArrival Emergency Department Pre Arrival Form EMS: 28 PHYSICIAN REFERRAL: Reason for Visit: 32F, allergic reaction, Vital Signs: 138/80, 120, 100% Medications Given: 0.3 epi IM, zofran 4 mg PO, Comments: DISCHARGE INSTRUCTION Observed: 11/20/2017 Status: F Source: [place] 11:45 AM [facility] [place] [facility] Medical Records Department [address] [place] [address] Instructions for Home/Discharge Instructions 11/20/17 1144 MR#: [id number] Acct: [id number] Name: DANELLE BAUGH Rep #: [id number] : 1985 31 From: Isa Robb MD PCP: Sadia Orourke PA-C Status: REG [facility]C - Discharge Diagnoses Current Active Problems: Current Active and Chronic Problems Chronic pelvic pain in female (Acute) Endometriosis (Acute) Reason(s) for Visit for Discharge Instructions: Endometriosis You will use the following diet at home:: No restrictions Your food should be the consistency of: Regular Discharge Activity: Return to Normal Activity, May not drive while taking narcotic pain medications., May Shower, - - No tub bath for 1-2 weeks May resume sexual activity in: 4 weeks Call your doctor if your incision/area has: Continuous Slow Oozing, Sudden Increased Bleeding, Increased Pain/ Swelling, Increased Redness Call your doctor if you observe: Fever of 101 or Higher, Inability to urinate, Inability to have a bowel movement, Using more than one pad per hour, Shortness of breath, Chest pain, Calf discomfort, Uncontrolled pain Suture Line Care: Avoid Pulling/Pushing Cleanse incision/area with: Soap AND Water Additional Dressing/Incision Instructions:: Remove dressing over incisions in 24 hours. Remove steristrips on Friday11/24/17 Additional Instructions: Take your Ibuprofen, prescribed in the office, for 48 hours after surgery. Then take only as needed for pain. Allergies/Adverse Reactions: Allergies prednisone Allergy (Verified 11/14/17 09:14) Other ragweed pollen Allergy (Verified 11/14/17 09:14) Other Medications to take at Discharge Fluticasone Propionate [Flonase Allergy Relief] 9.9 ml NS DAILY 04/01/16 Omeprazole [Prilosec] 20 mg PO DAILY 04/01/16 Cetirizine HCl [Zyrtec] 10 mg PO QHS 11/14/17 Fluoxetine [Prozac] 20 mg PO QHS 11/14/17 Docusate Sodium [Colace] 100 mg PO BID PRN PRN #60 cap 11/20/17 Oxycodone [Oxyir] 5 mg PO Q6H PRN PRN 11/20/17 The following prescriptions were given: Docusate Sodium [Colace] 100 mg PO BID PRN PRN #60 cap PRN Reason: Constipation Primary Care Physician: Sadia Orourke PA-C [Primary Care Provider] - Please Follow Up With: Isa Kam MD When: 2-4 weeks 11/20/17 1145 <Electronically signed by Isa Kam MD> Date Isa Kam MD CC: ZACH Orourke DISCHARGE INSTRUCTION Observed: 11/20/2017 Status: F Source: [place] 11:42 AM [facility] Medical Records Department [address] [place] [address] Instructions for Home/Discharge Instructions 11/20/17 1139 MR#: [id number] Acct: [id number] Name: DANELLE BAUGH Rep #: [id number] : 1985 31 From: Isa Robb MD PCP: Sadia Orourke PA-C Status: REG [facility] - Discharge Diagnoses Current Active Problems: Current Active and Chronic Problems Chronic pelvic pain in female (Acute) Endometriosis (Acute) Reason(s) for Visit for Discharge Instructions: Endometriosis You will use the following diet at home:: No restrictions Your food should be the consistency of: Regular Discharge Activity: Return to Normal Activity, May not drive while taking narcotic pain medications., May Shower, - - No tub bath for 1-2 weeks May resume sexual activity in: 4 weeks Lifting Restrictions: 10 lb Call your doctor if your incision/area has: Continuous Slow Oozing, Sudden Increased Bleeding, Increased Pain/ Swelling, Increased Redness Call your doctor if you observe: Fever of 101 or Higher, Inability to urinate, Inability to have a bowel movement, Using more than one pad per hour, Shortness of breath, Chest pain, Calf discomfort, Uncontrolled pain Suture Line Care: Avoid Pulling/Pushing Cleanse incision/area with: Soap AND Water Additional Dressing/Incision Instructions:: Remove dressing over incisions in 24 hours. Remove steristrips on Friday11/24/17 Additional Instructions: Fill your prescription of Ibuprofen from the office. Take this every 6-8 hours for 48 hours, then take as needed according to the prescription. Allergies/Adverse Reactions: Allergies prednisone Allergy (Verified 11/14/17 09:14) Other ragweed pollen Allergy (Verified 11/14/17 09:14) Other Medications to take at Discharge Fluticasone Propionate [Flonase Allergy Relief] 9.9 ml NS DAILY 04/01/16 Omeprazole [Prilosec] 20 mg PO DAILY 04/01/16 Cetirizine HCl [Zyrtec] 10 mg PO QHS 11/14/17 Fluoxetine [Prozac] 20 mg PO QHS 11/14/17 Oxycodone [Oxyir] 5 mg PO Q6H PRN PRN 11/20/17 Primary Care Physician: Sadia Orourke PA-C [Primary Care Provider] - Please Follow Up With: Isa Kam MD When: 2-4 weeks 11/20/17 7772 <Electronically signed by Isa Kam MD> Date Isa Kam MD CC: ZACH Orourke; Mani Quintana MD OPERATIVE REPORT Observed: 11/20/2017 Status: F Source: [place] 11:34 AM [facility] [place] [facility] Medical Records Department [address] [place] [address] Operative Report 11/20/17 1115 MR#: [id number] Acct: [id number] Name: DANELLE BAUGH Rep #: [id number] : 1985 31 From: Isa Robb MD PCP: Sadia Orourke PA-C Status: REG [facility] [place] Location: [place] [address] Problem List (1) Chronic pelvic pain in female Status: Acute (2) Endometriosis Status: Acute Report of Operation Date of Procedure: 11/20/17 Pre-Operative Diagnosis: Chronic pelvic pain, Dyspareunia, Endometriosis Post-Operative Diagnosis: Chronic pelvic pain, Dyspareunia, Endometriosis Surgery/Procedure Performed:: Diagnostic laparoscopy, surgical treatment of endometriosis with peritoneal biopsy grain receiver: Des Ku Type of Anesthesia:: General Anesthesiologist: Sebastián Jolley Specimen's removed: 1. Right culdesac peritoneal biopsy. 2. left uterosacral peritoneal biopsy Estimated Blood Loss (mL): 50 Fluids Replaced: 1000 mL Description of Procedure: Indications: Ms. Baugh is a 31-year-old 1 para 1001 with a history of long-standing chronic pelvic pain with acute worsening and accompanied dyspareunia. She was treated for acute pelvic inflammatory disease with partial response to antibiotics. Following counseling she opted to proceed with diagnostic laparoscopy to rule out endometriosis. Procedure: The patient was taken to the operating room and signed and was performed. She is placed in the dorsal supine position and induced under general anesthesia and intubated. She is then placed into dorsal lithotomy and her arms were tucked at her sides. An examination under anesthesia was performed. The perineum and abdomen were prepped and draped in sterile fashion. Straight catheterization of the bladder was performed. The patient was placed a high lithotomy weighted speculum placed into the vagina and the cervix visualized and grasped using single-tooth tenaculum. The uterus sounded to 9 cm. A Conn cannula was placed for uterine manipulation and secured to the tenaculum. The weighted speculum was removed from the vagina. The patient was placed into low lithotomy attention turned to the abdomen. An inferior umbilical incision was made using the scalpel. The Veress needle was placed with successful hanging drop test and no aspirate. The abdomen was insufflated to 15 mmHg. The Veress needle was removed and a 5 mm port was placed under laparoscopic guidance confirming entry to the abdomen, abdominal cavity. The patient was then placed into Trendelenburg. Her pubic incision was made followed by placement of a 5 mm port. The abdomen and pelvis were inspected. There were 2 areas of endometriotic lesions noted. First lesion in the right cul-de-sac, the second lesion at the left uterosacral ligament. I proceeded to create additional right and left lower quadrant incisions and placed 5 mm ports at those sites following transillumination. The posterior cul-de-sac was cleared of peritoneal fluid. The right posterior cul-de-sac peritoneum was grasped and incised using the laparoscopic anthony and a peritoneal biopsy was obtained with excision of the endometriotic lesion. Bleeding from the inferior excisional site was controlled using the monopolar grasper with improved hemostasis.. The specimen was removed via the 5 mm port. In similar fashion peritoneal biopsy was performed following sharp and blunt dissection of the left uterosacral lesion. There was clear visualization of the ureteric trajectory before, during and after this excision. This was also removed via a port. There was arteriole bleeding at the left excisional site which was controlled using the monopolar graspers medial to the uterosacral ligaments. The posterior cul-de-sac was irrigated and suctioned. Viki was placed at both additional sites for continued hemostasis. Laparoscopy was complete. The abdomen was desufflated the patient was given several large breaths to further expulsed the gas from the abdomen. The ports were removed from the abdomen. The skin was closed using 4-0 Monocryl followed by Steri-Strips and OpSite dressing. The right lower quadrant incision was oozing thus a total of 10 cc of 0.5% Sensorcaine was injected surrounding the site for tamponade with improvement of bleeding. An additional 10 cc were placed at the other incisions for further analgesia. She was turned to the vagina and the tenaculum was removed from the cervix and the tenaculum site was hemostatic. The patient placed into dorsal supine position, awakened, and extubated patient.. She will be transferred to the recovery room. The patient tolerated the procedure well. Sponge, needle counts were correct 2. - Complications None - Admit VTE Documentation VTE Present on Admission: No VTE Mechan Device Prophylaxis: SCD's VTE Pharm Prophylaxis ordered?: No 11/20/17 1134 <Electronically signed by Isa Kam MD> Date Isa Kam MD CC: ZACH Orourke; Isa Kam MD Signed ,URINE Collected: 11/20/2017 Status: F Source: [place] 8:55 AM [facility] [place] TYPE CODE TESTS RESULT OUT OF REFERENCE UNITS RANGE LAB L400.8000 Negative Normal HCGUQUAL Negative Result Comment: Very dilute urine specimens, as indicated by a low specific gravity, may not contain accounts payable representative levels of hCG. If is still suspected, a first morning urine specimen should be collected 48 hours later and tested. Performed By: #### [id number] #### [facility] [address] [place], [address] MISCELLANEOUS SPECIMEN Observed: 11/20/2017 Status: F Source: [place] 12:00 AM [facility] [place] [place] Patient: DANELLE BAUGH : 1985 (/) Acct Num: [id number] Phys: Negin BOWLES,Summer Unit Num: [id number] Loc: [facility] Specimen: [id number] Received: 11/20/17 1502 Spec Type: [facility] TISSUES TISSUES: A. Peritoneum, NOS B. Peritoneum, NOS GROSS DESCRIPTION A - Received in fixative is one container labeled with the patient's name and designated right cul-de-sac peritoneum. The specimen consists of three irregular fragments of pink-yellow soft tissue that in aggregate measure 1.5 x 1 x 0.2 cm. The specimen is totally submitted in one cassette. B - Received in fixative is one container labeled with the patient's name and designated left uterosacral peritoneum. The specimen consists of a single irregular fragment of pink-yellow soft tissue measuring 1.5 x 0.5 x 0.3 cm. The specimen is totally submitted in one cassette. / AM:nelson 11/20/17 TC:5 CPT: 87948 x2 HEADER OPERATION: Diagnostic laparoscopy, treatment of endometriosis PRE-OP DIAGNOSIS: Suspect endometriosis TISSUE SUBMITTED: A Right cul-de-sac peritoneum, B Left uterosacral peritoneum MICROSCOPIC DESCRIPTION Slides are reviewed. MICROSCOPIC DIAGNOSIS A. Right cul-de-sac peritoneum, biopsy: Endometriosis. B. Left uterosacral peritoneum, biopsy: A piece of fibroadipose and fibroconnective tissue with mild chronic inflammation. Negative for endometriosis. SJ:nelson 11/21/17 Signed Олег Alvarez 11/21/17 <signature on file> Performed By: #### PMISC #### [facility] [address] [place], [place], [address] URINALYSIS, COMPLETE Collected: 11/17/2017 Status: F Source: [place] 2:30 PM [facility] Order Comment: How was Urine Obtained? CLEAN CATCH TYPE CODE TESTS RESULT OUT OF REFERENCE UNITS RANGE LAB L400.3000 Yellow COLOR Normal Yellow LAB L400.3050 Clear CLARITY Normal Cloudy LAB L400.3200 Normal mg/dl GLUCOSE, UR Normal Normal LAB L400.3300 Negative mg/dL BILIRUBIN Normal URINE Negative LAB L400.3400 Negative mg/dl KETONE UR High 5 LAB L400.3465 1.002-1.030 SP.GR. Normal DIPSTX 1.020 LAB L400.3550 5.0 - 8.0 pH UR Normal 6.0 LAB L400.3600 Negative mg/dl PROT DIPSTX High 15 LAB L400.3700 Normal mg/dl UROBILI Normal Normal LAB L400.3750 Negative NITRITE UR Normal Negative LAB L400.3780 Negative /ul OCCULT High BLOOD-UR 10 LAB L400.3800 Negative /ul LEUK High ESTERASE 25 LAB L400.4050 0-5 /hpf WBC Normal 0-5 SEEN LAB L400.4100 0-5 /hpf RBC-UA Normal 0-5 SEEN LAB L400.4150 5-10 /hpf SQUAM EPI Normal 50-100 SEEN LAB L400.4300 None Seen /hpf BACTERIA Normal 2+ LAB L400.4350 <or=2+ /hpf MUCUS, Normal URINE 2+ LAB L400.4200 0-5 /hpf Normal TRANSITIONAL EP 0-5 SEEN Performed By: #### L400.0001 #### [facility] [address] [place], [place], [id number] CBC-COMPLETE BLOOD CNT Collected: 11/17/2017 Status: F Source: [place] DIFF 2:30 PM [facility] TYPE CODE TESTS RESULT OUT OF RANGE REFERENCE UNITS LAB L100.1000 4.4-11.0 K/mm3 Normal WBC 5.2 LAB L100.1200 4.2-5.4 M/mm3 Normal RBC 4.44 LAB L100.1300 12.0-15.0 g/dl Normal HGB 12.5 LAB L100.1400 37-47 % Normal HCT 38.8 LAB L100.1500 81-99 fL Normal MCV 87.4 LAB L100.1600 27.0-32.0 pg Normal MCH 28.2 LAB L100.1700 32-36 g/gl Normal MCHC 32.2 LAB L100.1810 11.6-14.6 % Normal RDW CV 13.4 LAB L100.1820 35.1-43.9 fl Normal RDW SD 43.3 LAB L100.1900 150-450 K/mm3 Normal PLT 273 LAB L100.2000 6.2-12.0 fl Normal MPV 10.4 Performed By: #### L100.0500 #### [facility] [address] [place], [place], [id number] PROLACTIN Collected: 11/17/2017 Status: F Source: [place] 2:30 PM [facility] Order Comment: PLEASE ADD LIVER TO BLOOD FROM 11-17-17 TYPE CODE TESTS RESULT OUT OF RANGE REFERENCE UNITS LAB L3100.5420 ng/mL Normal PROLACTIN 8.1 Result Comment: NORMAL REFERENCE RANGES FEMALE NON- 2.2 - 30.3 ng/mL 8.1 - 347.6 ng/mL POST-MENOPAUSAL 0.7 - 31.5 ng/mL MALE 2.5 - 17.4 ng/mL NEW TEST METHOD AND REFERENCE RANGES DECEMBER 02, 2011 Performed By: #### L3100.5420, L500.3400 #### [facility] [address] [place], [place], [address] LIVER PROFILE Collected: 11/17/2017 Status: F Source: [place] 2:30 PM [facility] Order Comment: PLEASE ADD LIVER TO BLOOD FROM 11-17-17 TYPE CODE TESTS RESULT OUT OF RANGE REFERENCE UNITS LAB L501.1500 6.4-8.2 g/dL Normal T PROT 7.4 LAB L501.1800 3.2-5.0 g/dL Normal ALB 4.1 LAB L501.1950 2.2-4.2 g/dL Normal GLOB 3.3 LAB L501.4100 15-37 U/L Low AST 14 LAB L501.4305 45-117 U/L Normal ALK P 67 LAB L501.4405 13-56 U/L Normal ALT 18 LAB L501.4600 0.20-1.00 mg/dL Normal T BILI 0.70 LAB L501.4700 0.00-0.30 mg/dL Normal D BILI 0.12 Performed By: #### L3100.5420, L500.3400 #### [facility] [address] [place], [place], [address] TYPE AND SCREEN Collected: 11/17/2017 Status: F Source: [place] 2:30 PM [facility] Order Comment: Surgery Date: 11/20/17 Hx of Preganancy in last 3 Months No Ever experience any problems with transfusion(s)? N Hx of Transfusion in last 3 Months N Reason for Type AND Screen/Red Cells: SURGERY SURGICAL PROCEDURE: 83010 TYPE CODE TESTS RESULT OUT OF RANGE REFERENCE UNITS LAB B10.0800 O Normal BLOOD TYPE GEL POSITIVE LAB B100.4000 Normal Antibody NEGATIVE Screen Performed By: #### B101.7475 #### [facility] [address] [facility] [place], [address] PROTHROMBIN TIME W/INR Collected: 11/17/2017 Status: F Source: [place] 2:30 PM [facility] TYPE CODE TESTS RESULT OUT OF RANGE REFERENCE UNITS LAB L300.4150 11.7-14.9 SECONDS Normal PROTIME 13.7 LAB L300.4200 Normal INR 1.1 Performed By: #### L300.3900, L300.4310 #### [facility] [address] [place], [address] PARTIAL THROMBOPLAST Collected: 11/17/2017 Status: F Source: [place] TIME 2:30 PM [facility] TYPE CODE TESTS RESULT OUT OF RANGE REFERENCE UNITS LAB L300.4310 24.1-36.2 Seconds Normal PTT 31.7 Performed By: #### L300.3900, L300.4310 #### [facility] [address] [place], [address] Observed: 11/17/2017 Status: F Source: [place] CULTURE, URINE 2:30 PM [facility] Urine Culture ORGANISM 1: Mixed Gram Positive Organisms [place] Count 11,000-25,000 MIX CULTURE Mixed contaminants. Submit a new specimen if indicated. Performed By: #### M100.0650 #### [facility] [address] [facility] [place], [address] Observed: 08/26/2017 Status: F Source: [place] CULTURE URINE 12:01 PM [facility] REPOSITORY CULTURE URINE _URINE CULTURE_ M I C R O B I O L O G Y R E P O R T FINAL Antimicrobial Susceptibility and Organism Identification Report Specimen Number : [id number] Requested : 08/26/17 Specimen Source : URINE Collected : 08/26/17 12:01 Aggarwal of Isolation : OUTPATIENT Received : 08/26/17 12:01 Requesting Physician : PRISCILA OROURKE Patient/Specimen Tests and Comments Specimen Comments FINAL REPORT: NO GROWTH AT 48 HOURS Tech : Source : URINE ID # : [id number] FINAL Report Date : / / : Collected : 08/26/17 12:01 08/29/17.1147.BKO. 08/28/17.1053.BKO. 08/29/17.1147.BKO.COMPLETE Performed By: #### [id number] #### [facility],[address] [place] [address] MAMM DIGITAL BILAT Observed: 08/22/2017 Status: F Source: [place] 10:[address] [address] Patient: DANELLE BAUGH Phone#: : 1985 Age: 31 Gender: F Pt. Type: Out Account: [id number] Location: [facility] Ordering: SADIA WASHINGTON Exam Date: 08/22/2017/9:46 Family Phys: SADIA OROURKE Charge Code: [id number] Physician: [place] Order #: [id number] DLP Dose#: PROCEDURE: MAMM BILAT DIGITAL DIAGNOSTIC WITH CAD COMPARISON: [facility], BREAST BILAT COMPLETE, 08/01/2017, 13:48. INDICATIONS: Galactorrhea BREAST COMPOSITION: Heterogeneously dense, which could obscure small masses (51-75% glandular). FINDINGS: DIAGNOSTIC CATEGORY 1--NEGATIVE ASSESSMENT. RIGHT BREAST: No significant suspicious finding. An intramammary lymph node is seen lateral breast. LEFT BREAST: No significant suspicious finding. RECOMMENDATIONS: CLINICAL EVALUATION. No abnormality to correspond to the ultrasound finding. Please refer to ultrasound report regarding six-month followup left breast ultrasound. PLEASE NOTE: A NORMAL MAMMOGRAM DOES NOT EXCLUDE THE POSSIBILITY OF BREAST CANCER. A CLINICALLY SUSPICIOUS PALPABLE LUMP SHOULD BE BIOPSIED. THIS FACILITY UTILIZES A REMINDER SYSTEM TO ENSURE THAT ALL PATIENTS RECEIVE REMINDER LETTERS FOR APPOINTMENTS. THIS INCLUDES REMINDERS FOR ROUTINE MAMMOGRAMS, DIAGNOSITC MAMMOGRAMS, OR OTHER BREAST IMAGING INTERVENTIONS WHEN APPROPRIATE. THIS PATIENT WILL BE PLACED IN THE APPROPRIATE REMINDER SYSTEM. Dictated by: Janice Gabriel MD on 08/22/2017 at 13:05 Approved by: Janice Gabriel MD on 08/22/2017 at 13:05 BREAST BILAT Observed: 08/01/2017 Status: F Source: [place] COMPLETE 2:[address] [address] Patient: DANELLE BAUGH Phone#: : 1985 Age: 31 Gender: F Pt. Type: Out Account: [id number] Location: 052 Ordering: [facility] Exam Date: 08/01/2017/13:48 Family Phys: [facility] Charge Code: [id number] Physician: [place] Order #: [id number] DLP Dose#: PROCEDURE: ULTRASOUND BREAST BILAT COMPARISON: None. INDICATIONS: Galactorrhea TECHNIQUE: Breast ultrasound was performed, with evaluation focusing on all four quadrants. FINDINGS: DIAGNOSTIC CATEGORY 3--PROBABLY BENIGN FINDING. THE FOLLOWING FINDING(S) HAS A HIGH PROBABILITY OF A BENIGN ETIOLOGY: RIGHT BREAST: Typical-appearing lymph node at the 11 o'clock position. LEFT BREAST: Solid appearing mass with likely benign morphology, hyperechoic echotexture, mid-breast depth, 17 x 10 x 21. The echo pattern is mildly heterogeneous. Etiologies include fibroadenolipoma galactocele with debris. Mammographic evaluation is indicated for differentiation and would be best obtained and the patient is no longer lactating. RECOMMENDATIONS: ADDITIONAL MAMMOGRAPHIC VIEWS REQUIRED: LEFT BREAST. This obtained with the patient is no longer lactating. SIX MONTH FOLLOW-UP ULTRASOUND: LEFT BREAST. PLEASE NOTE: A NORMAL MAMMOGRAM DOES NOT EXCLUDE THE POSSIBILITY OF BREAST CANCER. A CLINICALLY SUSPICIOUS PALPABLE LUMP SHOULD BE BIOPSIED. Dictated by: Yeny Alaniz MD on 08/01/2017 at 17:28 Continued Report - Page 2 of 2 Patient: DANELLE BAUGH Phone#: : 1985 Age: 31 Gender: F Pt. Type: Out Account: [id number] Location: 052 Ordering: [facility] Exam Date: 08/01/2017/13:48 Family Phys: SADIA HILLS Charge Code: [id number] Physician: [place] Order #: [id number] DLP Dose#: Approved by: Yeny Alaniz MD on 08/01/2017 at 17:28 EMERGENCY DEPARTMENT Observed: 07/31/2017 Status: F Source: [place] SUMMARY 3:37 PM [facility] EMERGENCY DEPARTMENT SUMMARY NAME NUMBER SEX AGE ADMIT DISC TYPE MED.RECORD# LUPIS Herrera [id number] F 31 07/23/17 07/23/17 E.RMin [id number] ROOM:ER-C DATE OF :1985 PHYSICIAN NO.:[id number] PHYSICIAN NAME:BREE Villarreal M.D. PHYSICIAN:PRISCILA OROURKE CHIEF COMPLAINT: 1. Abdominal pain. 2. Breast drainage. 3. Headache. HISTORY OF PRESENT ILLNESS: The patient states that she has not felt well for 2 to 3 days since yesterday, and particularly today has had abdominal pressure. Additionally, she is complaining of some milky breast drainage that she has had over the last couple of weeks. She has seen her family doctor, and has had negative tests both at home and at the office, but continues to complain of breast discomfort and milky drainage. She has nausea and worsening abdominal pain, though no fever. She is not complaining of diarrhea or urinary symptoms. Additionally, she has constant headache that seems to be getting a little bit worse. No cough, congestion, or shortness of breath. She saw her primary care provider recently, and she had a negative test, negative thyroid levels. She did have a prolactin level which is pending. PAST MEDICAL HISTORY: Significant for irritable bowel syndrome, otherwise negative. PAST SURGICAL HISTORY: She has had previous . ALLERGIES: Prednisone. SOCIAL HISTORY: She is and lives at home. 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 She does not smoke. REVIEW OF SYSTEMS: As mentioned above. No underlying heart or lung disease. No significant weight change. No bleeding disorders. PHYSICAL EXAMINATION: This is a 31-year-old generally healthy appearing nontoxic female who does not appear in any acute distress. Her skin is pink, warm, and dry. HEENT: All within normal limits. Neck is supple without JVD. Lungs are clear without crackles or wheezes. Cardiac exam is regular rhythm without any ectopy, murmurs, gallops, or rubs. Abdomen is soft, minimal diffuse tenderness, but no guarding or rebound. No masses. She moves all extremities appropriately without any focal weaknesses. Good peripheral pulses. Good capillary refill. Vital signs: Blood pressure 130/88, pulse 72, respirations 16, and temperature 97.8. DIAGNOSTIC DATA: A number of laboratory studies were obtained. These included negative serum test. CRP was negligible at less than 0.1. CMP was all within normal limits. Lipase was normal. Urinalysis did show 6 to 10 WBCs with 1+ bacteria with a few WBCs casts. CBC was completely normal. I did proceed to get an abdominal CT, and that was negative. EMERGENCY DEPARTMENT COURSE AND TREATMENT: O2 saturation was 98%. IV of normal saline was placed. She was given Zofran, Toradol, and morphine. She also gives a history of galactorrhea and the cause of this is quite unclear. She does have a prolactin level pending. DIAGNOSES: 1. Abdominal pain, likely secondary to urinary tract infection. 2. Galactorrhea, cause unclear. PLAN/DISPOSITION: I gave her a prescription for Bactrim and some [place] for pain, work slip to be off for the next 1 to 2 days. She is to follow up with her family doctor in 2 to 4 days for a recheck, returning if symptoms worsen. D: Pierre Villarreal MD TD: 15:30 JOB #: [id number] Electronically signed by: BREE Villarreal M.D. 07/31/17 15:37 Transcribed by: morris 07/24/2017 11:08 ELECTRONICALLY SIGNED BY: BREE Villarreal M.D. 07/31/17 15:37 CT ABDOMEN/PELVIS W Observed: 07/23/2017 Status: F Source: [facility] 2:11 PM [place] [address] Patient: DANELLE BAUGH Phone#: : 1985 Age: 31 Gender: F Pt. Type: ER Account: [id number] Location: 05 Ordering: PIERRE VILLARREAL Exam Date: 07/23/2017/13:51 Family Phys: SADIA OROURKE Charge Code: [id number] Physician: [place] Order #: [id number] DLP Dose#: PROCEDURE: CT ABDOMEN/PELVIS WITH CONTRAST COMPARISON: [facility], CT, ABDOMEN/PELVIS W CON, 04/27/2014, 1:37. INDICATIONS: Pelvic pain TECHNIQUE: After obtaining the patient's consent, CT images were created with non-ionic intravenous contrast material. All CT scans at this facility use dose modulation, iterative reconstruction, and/or weight based dosing when appropriate to reduce radiation dose to as low as reasonably achievable. IV CONTRAST: Omnipaque 350,80ml TOTAL DOSE: 10.2 CTDIvol(mGy) FINDINGS: LIVER: Normal. No enlargement, atrophy, abnormal density, or significant focal lesion. BILIARY: Normal. No visible dilatation or calcification. PANCREAS: Normal. No lesion, fluid collection, ductal dilatation, or atrophy. SPLEEN: Normal. No enlargement or focal lesion. KIDNEYS: Normal. No mass, obstruction, or calcification. ADRENALS: Normal. No mass or enlargement. AORTA/VASCULAR: Normal. No aneurysm or dissection. RETROPERITONEUM: Normal. No mass or adenopathy. BOWEL/MESENTERY: Normal. No visible mass, obstruction, or bowel wall thickening. ABDOMINAL WALL: A small umbilical hernia with fat is present. Continued Report - Page 2 of 2 Patient: DANELLE BAUGH Phone#: : 1985 Age: 31 Gender: F Pt. Type: ER Account: [id number] Location: [facility] Ordering: PIERRE VILLARREAL Exam Date: 07/23/2017/13:51 Family Phys: [facility] Charge Code: [id number] Physician: [place] Order #: [id number] DLP Dose#: URINARY BLADDER: Normal. No visible focal wall thickening, lesion, or calculus. PELVIC NODES: Normal. No adenopathy. PELVIC ORGANS: Normal. No visible mass. Pelvic organs appropriate for patient age. BONES: Mild curvature of the lumbar spine to the left is present. LUNG BASES: Normal. No visible pulmonary or pleural disease. OTHER: Negative. CONCLUSION: No acute disease. Dictated by: Yeny Alaniz MD on 07/23/2017 at 14:18 Approved by: Yeny Alaniz MD on 07/23/2017 at 14:18 URINALYSIS Collected: 07/23/2017 Status: F Source: [place] 1:13 PM [facility] REPOSITORY TYPE CODE TESTS RESULT OUT OF REFERENCE UNITS RANGE LAB URINALYSIS (LOINC) URINALYSIS Result Comment: URINALYSIS LAB Specimen Type(LOINC) Specimen Type Clean catch LAB Color(LOINC) NORMAL: YELLOW Color yellow LAB Clarity(LOINC) NORMAL: CLEAR Clarity sl.cloudy LAB ph(LOINC) NORMAL: 5.0-8.0 ph 6.5 LAB Protein(LOINC) NORMAL: NEGATIVE Protein NEG LAB Glucose(LOINC) NORMAL: NORMAL Glucose NORM LAB Ketone(LOINC) NORMAL: NEGATIVE Ketone NEG LAB Bilirubin(LOINC) NORMAL: NEGATIVE Bilirubin NEG LAB Blood(LOINC) NORMAL: NEGATIVE Blood Abnormal 10 LAB Urobilinog(LOINC) NORMAL: NORMAL Urobilinog NORM LAB Sp [place](LOINC) NORMAL: 1.010-1.030 Sp [place] 1.010 LAB Nitrite(LOINC) NORMAL: NEGATIVE Nitrite NEG LAB Leukocytes(LOINC) NORMAL: NEGATIVE Leukocytes Abnormal 100 LAB Microscopic(LOINC ) Microscopic SEE BELOW Result Comment: MICROSCOPIC LAB Wbc(LOINC) 0-5/hpf Wbc 6-10 LAB Rbc(LOINC) 0-3/hpf Rbc 0-5 LAB Casts(LOINC) Casts SEE BELOW Result Comment: FEW WBC CASTS LAB Crystals(LOINC) Crystals NONE LAB Amorphous(LOINC) NONE Amorphous LAB Bacteria(LOINC) Bacteria 1+ LAB Epi Cells(LOINC) Epi Cells MODERATE LAB Mucous(LOINC) Mucous NONE LAB Yeast(LOINC) Yeast NONE Performed By: #### [id number] #### [facility],[address] [place] [address] Observed: 07/23/2017 Status: F Source: [facility] CULTURE URINE 1:13 PM [facility] REPOSITORY CULTURE URINE _URINE CULTURE_ M I C R O B I O L O G Y R E P O R T FINAL Antimicrobial Susceptibility and Organism Identification Report Specimen Number : [id number] Requested : 07/23/17 Specimen Source : CLEAN CATCH URINE Collected : 07/23/17 13:13 Aggarwal of Isolation : Emergency Room Received : 07/23/17 13:13 Requesting Physician : WILNER CALL Patient/Specimen Tests and Comments Specimen Comments FINAL REPORT: URINE COLONY COUNT: > THAN 100,000 CFU/CC GRAM POSITIVE COCCI STREPTOCOCCUS VIRIDANS GROUP Tech : Source : CLEAN CATCH URINE ID # : [id number] FINAL Report Date : / / : Collected : 07/23/17 13:13 07/27/17.1130.BKO. 07/26/17.1110.BKO. 07/27/17.1130.BKO.COMPLETE Performed By: #### [id number] #### [facility],[address] [place] [address] CBC Collected: 07/23/2017 Status: F Source: [facility] 1:00 PM [facility] REPOSITORY TYPE CODE TESTS RESULT OUT OF RANGE REFERENCE UNITS LAB CBC(LOINC) CBC Result Comment: CBC-COMPLETE BLOOD COUNT LAB WBC(LOINC) 4.5 - 10.8 x 10EE3/UL WBC 7.4 LAB RBC(LOINC) 4.10 - x 10EE6/UL 5.30 RBC 4.57 LAB HEMOGLOBIN(LOINC) 12.0 - g/dl 16.0 HEMOGLOBIN 12.7 LAB HEMATOCRIT(LOINC) 34.0 - % 46.0 HEMATOCRIT 38.6 LAB MCV(LOINC) 80 - 99 fl MCV 84 LAB MCH(LOINC) 27 - 33 pg MCH 28 LAB MCHC(LOINC) 32 - 36 X10 3 MCHC 33 LAB RDW/CV(LOINC) 12.0 - % 15.6 RDW/CV 15.0 LAB PLATELET(LOINC) 150 - 450 x10EE3/UL PLATELET 289 LAB MPV(LOINC) 6.6 - 10.5 fl MPV 9.1 Result Comment: AUTOMATED DIFFERENTIAL LAB NEUT %(LOINC) 46.0 - 76.0 % NEUT % 59.9 LAB LYMPH %(LOINC) 20.0 - 45.0 % LYMPH % 31.8 LAB MONOS %(LOINC) 0.0 - 10.0 % MONOS % 6.4 LAB EO %(LOINC) 0.0 - 7.0 % EO % 1.0 LAB BASO %(LOINC) 0.0 - 2.0 % BASO % 0.9 LAB Lymph #(LOINC) 0.80 - 2.80 x10EE3/U L Lymph # 2.30 LAB Neut #(LOINC) 1.50 - 7.10 x10EE3/U L Neut # 4.40 LAB Pope #(LOINC) 0.20 - 1.00 x10EE3/U L Pope # 0.50 LAB EO #(LOINC) 0.00 - 0.50 x10EE3/U L EO # 0.10 LAB Baso #(LOINC) 0.00 - 0.10 x10EE3/U L Baso # 0.10 LAB MANUAL DIFF(LOINC) MANUAL DIFF N/A LAB MORPHOLOGY(LOINC ) MORPHOLOGY N/A Result Comment: {CD] Performed By: #### [id number] #### [facility],[address] [place] [address] SERUM QUAL Collected: 07/23/2017 Status: F Source: [facility] 1:00 PM [facility] REPOSITORY TYPE CODE TESTS RESULT OUT OF REFERENCE UNITS RANGE LAB NEGATIVE SER(LOINC) SER NEGATIVE LAB INTERNAL QC(LOINC) INTERNAL QC PASS LAB EXTERNAL QC DONE?(LOINC) EXTERNAL QC YES DONE? Performed By: #### [id number] #### [facility],[address] [place] [address] CMP WITH EGFR Collected: 07/23/2017 Status: F Source: [place] 1:00 PM [facility] REPOSITORY TYPE CODE TESTS RESULT OUT OF RANGE REFERENCE UNITS LAB CMP with eGFR(LOINC) CMP with eGFR Result Comment: COMPREHENSIVE METABOLIC PANEL LAB SODIUM(LOINC) 136 - 145 mmol/l SODIUM 138 LAB POTASSIUM(LOINC) 3.5 - 5.1 mmol/L POTASSIUM 3.9 LAB CHLORIDE(LOINC) 98 - 107 mmol/L CHLORIDE 102 LAB CO2(LOINC) 21.0 - mmol/L 31.0 CO2 27.4 LAB GLUCOSE(LOINC) 74 - 106 mg/dl GLUCOSE 81 LAB BUN(LOINC) 6 - 20 mg/dl BUN 11 LAB CREATININE(LOINC) 0.6 - 1.2 mg/dl CREATININE 0.7 LAB AST/SGOT(LOINC) 13 - 39 U/L AST/SGOT 13 LAB ALK PHOS(LOINC) 38 - 126 U/L ALK PHOS 55 LAB CALCIUM(LOINC) 8.6 - mg/dl 10.2 CALCIUM 8.9 LAB TOTAL 6.4 - 8.3 g/dl PROTEIN(LOINC) TOTAL PROTEIN 7.4 LAB ALBUMIN(LOINC) 3.4 - 4.8 g/dL ALBUMIN 4.7 LAB GLOBULIN(LOINC) 1.5 - 3.8 G/DL GLOBULIN 2.7 LAB A/G RATIO(LOINC) 0.9 - 1.6 A/G High RATIO 1.7 LAB TOTAL BILI(LOINC) 0.0 - 1.5 mg/dl TOTAL BILI 0.3 LAB B/C RATIO(LOINC) 0 - 30 ratio B/C RATIO 16 LAB ALT/SGPT(LOINC) 8 - 35 U/L ALT/SGPT 11 LAB ANION GAP(LOINC) 10 - 20 mmol/L ANION GAP 13 LAB AGE(LOINC) years AGE 31 LAB eGFR(LOINC) 60 - 999 ML/MINUTE eGFR >60 LAB eGFR(AA)(LOINC) 60 - 999 ML/MINUTE eGFR(AA) >60 Result Comment: ACCORDING TO THE NATIONAL KIDNEY DISEASE EDUCATION PROGRAM(NKDE), A NORMAL eGFR IS A VALUE GREATER THAN OR EQUAL TO 60 ML/MIN/1.73 SQ METERS. CHRONIC KIDNEY DISEASE: <60mL/MIN/1.73 SQ METERS KIDNEY FAILURE: <15mL/MIN/1.73 SQ METERS THIS TEST SHOULD ONLY BE USED FOR PATIENTS 18 YEARS OF AGE AND OLDER. Performed By: #### [id number] #### [place] [id number] LIPASE Collected: 07/23/2017 Status: F Source: [facility] 1:00 PM [facility] REPOSITORY TYPE CODE TESTS RESULT OUT OF REFERENCE UNITS RANGE LAB LIPASE(LOIN 18.0 - 51.0 U/L C) Low LIPASE 17.0 Performed By: #### [id number] #### [place] [id number] C-REACTIVE PROTEIN Collected: 07/23/2017 Status: F Source: [facility] 1:00 [facility] REPOSITORY TYPE CODE TESTS RESULT OUT OF RANGE REFERENCE UNITS LAB CRP(LOINC) 0.00 - 1.00 mg/dl CRP <0.10 Performed By: #### [id number] #### [address] [address] PREG SERUM QUANT Collected: 07/22/2017 Status: F Source: [place] 11:31 AM [facility] REPOSITORY TYPE CODE TESTS RESULT OUT OF REFERENCE UNITS RANGE LAB HCG mIU/mL QUANTITATI VE(LOINC) HCG QUANTITATIVE 0.52 Result Comment: Reference Range: Male: <5 Female: Non: <5 1 - 7 days : 5 - 50 1 - 2 weeks: 50 - 500 2 - 3 weeks: 100 - 5000 3 - 4 weeks: 500 - 10,000 4 - 5 weeks: 1000 - 50,000 5 - 6 weeks: 10,000 - 100,000 6 - 8 weeks: 15,000 - 200,000 2 - 3 months: 10,000 - 100,000 2ND TRIMESTER 3000-50,000 3RD TRIMESTER 1000-50,000 Performed By: #### [id number] #### [address] [address] T4-FREE (FREE Collected: 07/22/2017 Status: F Source: [facility] THYROXINE) 11:31 [facility] REPOSITORY TYPE CODE TESTS RESULT OUT OF RANGE REFERENCE UNITS LAB T4 0.61 - 1.12 ng/dl FREE(LOINC) T4 FREE 0.83 Result Comment: *SPECIMENS FROM PATIENTS WHO ARE UNDERGOING BIOTIN THERAPY AND/OR INGESTING BIOTIN SUPPLEMENTS MAY HAVE FALSE HIGH RESULTS. Performed By: #### [id number] #### [place] [address] TSH Collected: 07/22/2017 Status: F Source: [facility] 11:31 [facility] TYPE CODE TESTS RESULT OUT OF RANGE REFERENCE UNITS LAB TSH(LOINC) 0.34 - 5.60 uIU/ml TSH 0.56 Performed By: #### [id number] #### [facility],[address] [place], [place] [id number] T3, FREE Collected: 07/22/2017 Status: F Source: [facility] 11:31 [facility] TYPE CODE TESTS RESULT OUT OF RANGE REFERENCE UNITS LAB T3, FREE(LOINC) T3, FREE Result Comment: _T3, FREE_ T3, FREE Reported: 07/26/2017 02:36 Status=F TEST RESULT FLAG RANGE UNITS T3, FREE 3.0 2.3-4.2 pg/mL 07/26/17.0249.rfl.COMPLETE.AMRR .3051-0 Test Performed by [employer], [employer] [facility], [address] [place] [address] Nicko Robb M.D., Ph.D., Director of Laboratories , CLIA [id number] Performed By: #### [id number] #### [facility],[address] [place] [address] PROLACTIN Collected: 07/22/2017 Status: F Source: [place] 11:31 AM [facility] REPOSITORY TYPE CODE TESTS RESULT OUT OF REFERENCE UNITS RANGE LAB PROLACTIN( LOINC) PROLACTIN Result Comment: _PROLACTIN_ PROLACTIN Reported: 07/26/2017 02:38 Status=F TEST RESULT FLAG RANGE UNITS PROLACTIN 12.3 ng/mL 07/26/17.0251.rfl.COMPLETE.AMRR .2842-3 Unable to flag abnormal result(s), please refer to reference range(s) below: Reference range(s): Adult Males (>18 years): 2.0 - 18.0 ng/mL Adult Females (>18 years): - Non-: 3.0 - 30.0 ng/mL - : 10.0 - 209.0 ng/mL - Post-Menopausal: 2.0 - 20.0 ng/mL Test Performed by [employer], [employer] [facility], [address] [place] [address] Nicko Robb M.D., Ph.D., Director of Laboratories , CLIA [id number] Performed By: #### [id number] #### [facility],[address] [place] [address] ALLERGIES ALLERGIES DATE TYPE / CODE NAME / CODE REACTION SEVERITY SOURCE 11/14/2017 Drug prednisone/F006 Other Unknown [place] Allergy/397006571(S 097835(RXNORM) [facility] Hospital Repository 11/14/2017 Drug ragweed Other Unknown [place] Allergy/988452221(S pollen/[id number] [facility] Hospital Repository Miscellaneous No Known Drug Moderate [facility] Allergy/540626004(S Allergies (Severity [facility]) Modifier) Hospital (Qualifier Repository Value) ENCOUNTERS ENCOUNTERS ADMIT/DISCHARGE ACCOUNT NUMBER ADMITTING ENCOUNTER LOCATION SOURCE CLASS 06/11/2018 [id number] General acute hospital ding:LABSPEC Repository 04/28/2018/04/28/[id number] Repository 02/14/2018/02/15/20 [id number] Emergency [address] ng:EDS Repository 11/20/2017/11/21/[id number] ding:SDCRoom Repository : AC14 11/07/2017 [id number] General acute hospital ding:LAB.FUT Repository URE 08/26/2017/08/26/[id number] Repository 08/22/2017/08/22/[id number] Repository 08/01/2017/08/01/[id number] Repository 07/28/2017/07/28/[id number] Repository 07/23/2017/07/23/[id number] PHIL Emergency [address] [place] [address] Room: ERBed: [facility] Repository PAYERS PAYERS ENCOUNTER GUARANTOR PAYER SUBSCRIBER SOURCE 06/11/2018 DANELLE A Primary Insurance:SELF NOT GIVENUNK [place] [id number] TR PAY [address] Number: Effective Hospital [id number]: (330) Date:2018-06-11 Repository [phone] () 04/28/2018 DANELLE A Primary RONA Soria SCADDENDOB: Insurance:[facility]: [facility] [id number] [facility] [id number] Hospital [facility] Number: [address] Repository [facility], [id number] [address] [place] [address] 78[address]Zlx: Date:Plan Name:PI [id number] (HP) 02/14/2018 DANELLE A Primary Insurance:[facility] RONA SCADDENDOB: Pau Jolly SCADDENDOB: [facility] Number: [id number] [id number]: [id number] Repository Date:2018-02-11 - ()Tel: [phone] () Name:[facility] [address] [place] [phone]: 11/20/2017 DANELLE A Primary RONA SCADDENDOB: [place] [id number] SR Insurance:[facility] [id number] [address] [address]Sfl: Number: Repository [phone] [id number] [id number] () Date:[id number] [address], [place] [address]OD: 11/20/2017 Secondary NOT GIVENUNK [place] Insurance:SELF PAY [facility] Number: Effective Repository Date:2017-11-10 11/07/2017 Danelle Primary Danelle [place] [id number] Insurance:AULTCAREPoli ScaddenDOB: [address] Number: [id number], [id number] Repository in [address]Npv: Date:0061-92-06OW [address] [place] [address] () [phone]: 11/07/2017 Secondary NOT GIVENUNK [place] Insurance:SELF PAY [facility] Number: Effective Repository Date:2017-11-06 08/26/2017 DANELLE A Primary RONA Soria SCADDENDOB: Insurance:UNITED SCADDENDOB: [facility] [id number] [place] [address] [id number] Hospital SR Number: [address] [id number] 6[facility] [address]Zbh: Date:Plan Name: [id number] () 08/22/2017 DANELLE A Primary RONA Soria SCADDENDOB: Insurance:UNITED SCADDENDOB: [facility] [id number] HEALTHCARE [id number] Hospital SR OUTPATIENTPolicy [address] [place] [address], Number: [id number] [address]Wbw: [id number] Date:Plan Name:VERNON () 08/01/2017 DANELLE Herrera Primary RONA Soria SCADDENDOB: Insurance:UNITED SCADDENDOB: [facility] [id number] Hospital SR Number: [address] [place] [address] [id number] [place] [address]Uzt: Date:Plan Name:[facility] [id number] () 07/28/2017 DANELLE Herrera Primary RONA Soria SCADDENDOB: Insurance:UNITED SCADDENDOB: [facility] [id number] [place] [address] [id number] Hospital SR Number: [address], [id number] [facility] [address]Sfa: Date:Plan Name: [id number] () 07/23/2017 DANELLE Soria SCADDENDOB: Insurance:[employer]AN[employer]UC[place] SCADDENDOB: [facility] [id number] [facility] [id number] [facility] [address] Number: [address] [place] [address] [id number] [address] [place] [address]Ndz: Date:Plan Name:PI [id number] ()
== END ==
PROVIDERS: Family Provider Family Medicine; PCP Family Medicine; Visit Provider Obstetrics & Gynecology
DX: Z11.3 Encounter for screening for infections with a predominantly sexual mode of transmission (principal)
CPT/HCPCS: 87491; 87591

== ENCOUNTER → 2018-07-09 14:54 | Outpatient (CLI) | payer SELFPAY ==
[2017-11-20 09:06] VITALS: BMI 24.3
[2018-07-09 16:49] LABS: Amphetamine Urine VISTA NEGATIVE (<1000 ng/mL); Barbiturate Urine VISTA NEGATIVE (< 200 ng/mL); Benzodiazepine Urine VISTA NEGATIVE (< 200 ng/mL); Cocaine Urine VISTA NEGATIVE (< 300 ng/mL); Color, Urine Yellow (Yellow); Ecstacy Urine VISTA NEGATIVE (< 500 ng/mL); Glucose, Dipstick Normal (Normal); Ketone-Dipstick Negative (Negative); Leukocyte Esterase-Dipstick 100 /ul (Negative); Methadone Urine VISTA NEGATIVE (< 300 ng/mL); Nitrite-Dipstick Negative (Negative); Occult Blood-Urine Negative /ul (Negative); PCP Urine VISTA NEGATIVE (< 25 ng/mL); Protein-Dipstick Negative (Negative); Specific Gravity, Urine 1.005 (1.002-1.030); THC Urine VISTA NEGATIVE (< 50 ng/mL); Urine Bilirubin Dipstick Negative (Negative); Urine Clarity Cloudy (Clear); Urine Urobilinogen Normal (Normal); Vista UDS pH Range 6
[2018-07-09 16:52] LABS: Thyroid Stim Hormone (TSH) 0.22 uIU/mL (0.358-3.74)
[2018-07-09 17:04] LABS: Absolute Lymphocyte Count 2.03 X10^3/ul (0.83-4.51); Absolute Neutrophil Count 7.5 X10^3/uL (2.0-7.7); Basophil# 0.03 X10^3/uL; Basophil% 0.3 % (0-1); Eosinophil# 0.06 X10^3/uL; Eosinophils% 0.6 % (0-5); Hematocrit 38.2 % (37-47); Hemoglobin 12.8 g/dl (12.0-15.0); Lymphocyte # 2.03 X10^3/ul (4.0); Lymphocyte % 19.8 % (19-41); Mean Corp Hgb Conc 33.5 g/gl (32-36); Mean Corpuscular Hgb 28.6 pg (27.0-32.0); Mean Corpuscular Volume 85.5 fL (81-99); Mean Platelet Vol. 11.1 fl (6.2-12.0); Monocyte% 5.8 % (0-10); Neutrophil # 7.52 X10^3/uL (2.7-7.7); Neutrophil % 73.3 % (47-70); Platelet Count 310 K/mm3 (150-450); RBC Distribution Width CV 13.6 % (11.6-14.6); RBC Distribution Width SD 41.9 fl (35.1-43.9); Red Blood Count 4.47 M/mm3 (4.2-5.4); White Blood Count 10.3 K/mm3 (4.4-11.0)
[2018-07-09 17:20] LABS: POSITIVE COUNT NO; POSITIVE DIFFERENTIAL NO; POSITIVE MORPHOLOGY NO
[2018-07-09 17:51] LABS: HIV - WCH Non-Reactive (Nonreactive); Rubella IgG 125.6 IU/mL
[2018-07-10 03:23] LABS: Prenatal RPR NONREACTIVE (NONREACTIVE)
[2018-07-12 13:39] LABS: HEPATITIS B SURFACE AG Negative (Negative); Hep C Antibodies 0.2 s/co ratio (0.0-0.9)
== END ==
LOC: LABSPEC 14:54 → WOBLAB 14:59
PROVIDERS: Visit Provider Obstetrics & Gynecology
DX: Z34.81 Encounter for supervision of other normal pregnancy, first trimester (principal)
CPT/HCPCS: 36415; 80307; 81002; 84443; 85025; 86703; 86762; 86803; 87340

== ENCOUNTER → 2018-09-28 15:14 | Outpatient (CLI) | payer SELFPAY | PROVIDERS: Visit Provider Obstetrics & Gynecology | DX: O23.42 Unspecified infection of urinary tract in pregnancy, second trimester (principal); Z3A.00 Weeks of gestation of pregnancy not specified | CPT/HCPCS: 87086; 87088 ==

== ENCOUNTER → 2018-11-16 15:18 | Outpatient (CLI) | payer SELFPAY ==
[2017-11-20 09:06] VITALS: BMI 24.3
[2018-11-16 15:43] LABS: Hematocrit 33.9 % (37-47); Hemoglobin 10.8 g/dl (12.0-15.0); Mean Corp Hgb Conc 31.9 g/gl (32-36); Mean Corpuscular Hgb 27.1 pg (27.0-32.0); Mean Corpuscular Volume 85.2 fL (81-99); Mean Platelet Vol. 10.3 fl (6.2-12.0); Platelet Count 268 K/mm3 (150-450); RBC Distribution Width CV 13.9 % (11.6-14.6); RBC Distribution Width SD 42.1 fl (35.1-43.9); Red Blood Count 3.98 M/mm3 (4.2-5.4); White Blood Count 11.3 K/mm3 (4.4-11.0)
[2018-11-16 15:44] LABS: Scan Indicated on CBC? Y/N NO
[2018-11-16 16:06] LABS: Glucose Challenge Gest 1H 50g 118 mg/dL (70-140)
[2018-11-16 16:45] LABS: Fetal Fibronectin POSITIVE
== END ==
PROVIDERS: Visit Provider Obstetrics & Gynecology
DX: Z34.83 Encounter for supervision of other normal pregnancy, third trimester (principal)
CPT/HCPCS: 36415; 82731; 82950; 85027

== ENCOUNTER 2019-02-03 06:20 | Inpatient (IN) | payer MEDICAID, SELFPAY ==
[2019-02-02 22:38] VITALS: BMI 37.1
[2019-02-02] MEDS: 0.9% Saline Lock 10 ML Syringe IV (23:57)
[2019-02-03] VITALS (19 sets, daily range): BP systolic 119–139; BP diastolic 61–94; PULSE 81–112; RESP 14–16; TEMP 36.1–36.4; O2SAT 96–100
[2019-02-03] MEDS: Acetaminophen 500 MG Tablet 1000 MG PO (00:15)
[2019-02-03 00:25] LABS: Hematocrit 34.3 % (37-47); Mean Corp Hgb Conc 32.1 g/dL (32-36); Mean Corpuscular Hgb 26.8 pg (27.0-32.0); Mean Corpuscular Volume 83.7 fL (81-99); Mean Platelet Vol. 11.1 fl (6.2-12.0); Platelet Count 236 K/mm3 (150-450); RBC Distribution Width CV 15.9 % (11.6-14.6); RBC Distribution Width SD 47.3 fl (35.1-43.9); White Blood Count 12.3 K/mm3 (4.4-11.0)
[2019-02-03 00:27] LABS: Partial Thromboplast Time 26.4 Seconds (24.1-36.2); Prothrombin Time (Protime)PT. 13.1 SECONDS (11.7-14.9)
[2019-02-03 00:29] LABS: AST(SGOT) 14 U/L (15-37); Alanine Aminotransfer ALT/SGPT 13 U/L (13-56); Creatinine, Serum 0.56 mg/dL (0.55-1.02); EST Glomerular Filtration Rate 135 mL/min (>60); Est Glom Filt Rate - Afr Amer 164 mL/min (>60); Estimated Creatinine Clearance 141.55 ml/min; Uric Acid 5.6 mg/dL (2.6-6.0)
[2019-02-03 01:50] LABS: Protein, Urine (Random) 7.4 mg/dL (<11.9); Protein:Creat Ratio 265 mg/g CRE (0-200)
[2019-02-03] MEDS: Lactated Ringers 1,000 ML 999 ML IV (06:59)
[2019-02-03] MEDS: Lactated Ringers 1,000 ML 150 ML IV (08:04)
[2019-02-03] MEDS: Sodium Citrate/Citric Acid 30 ML UDC PO (08:05)
--- NOTE | 2019-02-03 09:23 | OP.PCM_ITS ---
Delivery Classification: MARGOT Final TERRA: 02/13/19 Gestational age: 38 Weeks and 4 Days Indications: -Induced Hypertension, Prior Section Description of Procedure: Surgeon: Trung Olsen MD, FACOG Finisher Special Stocks: WESTLEY Ding Anesthesia: Luzma Ortiz CRNA Anesthesia: Spinal with Duramorph Pre-op Diagnosis: -Induced Hypertension, Prior Section Post-Op Diagnosis: -Induced Hypertension, Prior Section Procedure: Repeat Low Transverse Cervical Caesarean Section Findings: Viable female with Apgars of 9/9 in occiput anterior presentation with clear amniotic fluid and normal three-vessel placenta. Indication: This is a 33-year-old who presents for her second at 38w4d weeks gestation. care has otherwise been remarkable for a prior with severe -induced hypertension. She presented to labor and delivery last evening with neurologic symptoms and elevated blood pressure which normalized after observation. However, her neurologic symptoms of ringing the ears and headache improved but still persisted. PIH labs were okay except uric acid was elevated. Given these symptoms it was decided to proceed with mara arean section today rather than as scheduled next Friday. The patient has been counseled regarding the risk and indications of this procedure including the possibility of bleeding infection and injury to surrounding structures such as bowel bladder. All questions were answered. Procedure: Patient was taken to the operating room where after spinal anesthesia was placed, the patient was prepped and draped in usual sterile fashion and a Toribio catheter was placed. The abdomen was entered through the patient's prior Pfannenstiel incision and peritoneum was entered bluntly. After developing a b ladder flap on the lower uterine segment a low transverse incision was made on the uterus and head was easily delivered onto the operative field the nose mouth and oropharynx were bulb suctioned. Subsequently a viable female infant was born with Apgars of 9/9. The was noted to cry move all extremities vigorously on the operative field. The umbilical cord was doubly clamped and ligated and infant handed to the nursery personnel who were present for the delivery. Placenta was delivered and noted to be 3 vessels and normal. Uterus was exteriorized and remaining placental tissue was removed. The uterus was then closed in 2 layers first with running locked 0 Vicryl suture followed by a second imbricating layer with 0 Vicryl suture. 0 Vicryl suture was then used in a horizontal mattress interrupted fashion to affect final hemostasis of the uterine incision line. Normal fallopian tubes and ovaries were visualized and the uterus was returned to the pelvis. Hemostasis was noted and rectus abdominis muscles were reapproximated in the midline with interrupted Number 0 Vicryl suture in a horizontal mattress fashion. Fascia was closed with running Number 1 PDS Strata fix suture. Subcutaneous tissue was irrigated with copious amounts of saline solution and then closed with running 3-0 Vicryl suture. Skin was closed with 4-0 monocryl suture in a running subcuticular fashion. Steri strips, telfa, and tape were placed across the incision. The patient tolerated the procedure well and was taken to the recovery room in satisfactory condition. Sponge, needle, and instrument counts were all reportedly correct. EBL was less than 500 cc. Cefotan 2 gms IV was given prior to the procedure. Spicemen to Pathology: None Complications: None Amniotic Fluid Description: Clear Placenta Disposition: [facility] Drain: Toribio to straight drain Fluids Replaced: Crystalloid Cord Entanglement: None Cord Vessel Description: 3 Vessels Esitmated Blood Loss (ml): 500 cc Pre-op Antibiotic Given: Cefotan 2gm IV x1 Pt instructed on risks of surgery: Bleeding, Infection, Injury to surrounding structure(s) including bowel and bladder Complications: None - Admit VTE Documentation VTE Present on Admission: Yes VTE Mechan Device Prophylaxis: SCD's
--- NOTE | 2019-02-03 09:28 | DCINST_ITS ---
Discharge Diet: No Restrictions Discharge Activity: May not drive while taking narcotic pain medications., May Shower, May Take a Tub Bath May resume sexual activity in: 4-6 weeks Lifting Restrictions: 20 pounds Additional Activity Instructions:: Nothing in the vagina for 4-6 weeks. You may return to work/school in 6 weeks. Call your doctor if your incision/area has: Continuous Slow Oozing, Sudden Increased Bleeding, Increased Pain/ Swelling, Increased Redness, Foul Smelling Discharge Call your doctor if you observe: Fever of 101 or Higher, Inability to urinate, Inability to have a bowel movement, Using more than one pad per hour Additional Instructions: If you experience any of the following, contact your healthcare provider. * Bleeding that soaks a pad every hour for 2 hours * Fever 100.4 or higher * Unrelieved incision or abdominal pain * Swelling, redness, discharge or bleeding from your incision or episiotomy site * Your incision begins to separate * Problems urinating (including inability to urinate or burning while urinating). * Visual changes * Severe headache * Flu-like symptoms * Pain or redness in one of both of your breasts * Pain, warmth, tenderness or swelling in your legs, especially the calf area * Frequent nausea and vomiting * Symptoms of depression or anxiety If you experience any of the following, call 911 or go to the nearest Emergency Room. * Chest pain * Problems breathing * Seizure activity * Partial or complete paralysis of a body part, slurred speech, weakness or drooping of the face, or a sudden inability to walk or hold your balance Allergies/Adverse Reactions: Allergies prednisone Allergy (Verified 02/02/19 22:39) Swelling hallucinations, swelling ragweed pollen Allergy (Verified 02/02/19 22:39) Other carries epi pen, shuts down my brain. Medications to take at Discharge Fluticasone Propionate [Flonase Allergy Relief] 9.9 ml NS DAILY 04/01/16 Omeprazole [Prilosec] 20 mg PO DAILY 04/01/16 Fluoxetine [Prozac] 20 mg PO QHS 11/14/17 Amoxicillin 500 mg PO BID 02/02/19 DiphenhydrAMINE [Benadryl] 25 mg PO QHS PRN PRN 02/02/19 Vits [Prenatabs FA] 1 tab PO DAILY 07/23/19 Docusate Sodium [Colace] 100 mg PO BID PRN PRN #60 cap 02/03/19 Oxycodone [Oxyir] 5 mg PO Q6H PRN PRN 7 Days #20 tab 02/03/19 The following prescriptions were given: Docusate Sodium [Colace] 100 mg PO BID PRN PRN #60 cap PRN Reason: Constipation Prescription Printed Oxycodone [Oxyir] 5 mg PO Q6H PRN PRN 7 Days #20 tab PRN Reason: Severe Pain (6-04/22) Prescription Printed Follow-Up: Call to make an appointment with your doctor for an incision check in 1-2 weeks. You will also need a 6 week post- follow up appointment. Test results from this visit will be discussed in further detail at your follow- up appointment, if applicable. Please Follow Up With: Trung Olsen MD - [phone] When: Call to make an appointment for an incision check in 2 weeks.
[2019-02-03] MEDS: Oxytocin 30 units/NS 500 ml 30 UNITS/500 ML IV.SOLN 167 UNITS IV (09:49)
[2019-02-03] MEDS: Lactated Ringers 1,000 ML 100 ML IV ×2 (13:13→23:36)
[2019-02-03] MEDS: DiphenhydrAMINE 25 MG Capsule PO (13:54)
[2019-02-03] MEDS: Ondansetron 4 MG/2 ML Vial IV (14:54)
[2019-02-03] MEDS: Ketorolac 30 MG/ML Syringe IV ×2 (16:44→22:09)
[2019-02-03] MEDS: FLUoxetine 20 MG Capsule PO (22:15)
[2019-02-04] VITALS (9 sets, daily range): BP systolic 120–151; BP diastolic 72–82; PULSE 88–107; RESP 16–18; TEMP 36.1–36.9; O2SAT 97–100
[2019-02-04] MEDS: Acetaminophen 500 MG Tablet 1000 MG PO (01:04)
[2019-02-04] MEDS: Ketorolac 30 MG/ML Syringe IV ×4 (03:36→21:50)
[2019-02-04] MEDS: DiphenhydrAMINE 25 MG Capsule PO (03:36)
[2019-02-04 04:51] LABS: Hematocrit 29.7 % (37-47); Hemoglobin 9.7 g/dL (12.0-15.0); Mean Corp Hgb Conc 32.7 g/dL (32-36); Mean Corpuscular Hgb 27.3 pg (27.0-32.0); Mean Corpuscular Volume 83.7 fL (81-99); Mean Platelet Vol. 10.8 fl (6.2-12.0); Platelet Count 191 K/mm3 (150-450); RBC Distribution Width CV 16.3 % (11.6-14.6); RBC Distribution Width SD 48.8 fl (35.1-43.9); Red Blood Count 3.55 M/mm3 (4.2-5.4); White Blood Count 12.5 K/mm3 (4.4-11.0)
[2019-02-04] MEDS: Fluticasone 0.05% 1 SPRAY NASAL.SRY 2 SPRAY NASAL (09:52)
[2019-02-04] MEDS: Pantoprazole Sodium 20 MG Tablet PO (09:52)
--- NOTE | 2019-02-04 12:05 | CASEMGMT ---
Social Work Assessment Labor and Delivery Unit Date of Referral: 02/04/19 Time of Referral: 7:50am Referred by: Dr. Trung Olsen Date of Intervention: 02/04/19 Time of Intervention: 11:30am Reason for referral: hx PPD History obtained from: FORena, VILMA Household Composition: SANAZ ESPARZA, son Jean Claude who is almost 3 and 2 dogs, and now Joseph, daughter born yesterday Parent/Guardian status: VILMA and SANAZ have custody of both children Medical History: MOB: chronic pelvic pain, endometriosis, induced hypertension, para 4, 3. Son born in 2016. Baby: Born 02/03/19, 9:52am, 38.4 weeks, 3585 grams. Apgars 9 and 9. 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 SANAZ was in [employer]. Financial Status: VILMA has not worked for about a year but does plan to go back to work, thinking about getting real estate license. SANAZ works in the [employer]. He has not been working the last few months--last worked in [place], was sent home and told they would call him back in a couple of weeks as they were running out of money. They did not call him to return. SANAZ does have an opportunity in [place] coming up soon but is hoping a job in [place] or [place] comes up first. SANAZ reports they have savings and do not have financial concerns. Their biggest concern was insurance and they have [place] at this time. Supplies: Parents report having all supplies including crib, pack n play, diapers, care seat, clothing, bottles, formula. Parents plan to bottle feed and use soy due to milk allergies. Childcare/Caregivers: Parents care for their children, have a lot of support of extended family as well. Though SANAZ does travel for work, this does not seem to add stress, as this has been the norm for the family for years. Programs/Agencies involved: JFS for insurance. They do not have WIC, do not qualify for it and do not feel they need it either. Children Services/Legal Issues: Parents report no involvement with Children's Services, no legal issues at this time. Behavioral Health Issues: Mental Health History: VILMA reports depression after last , is on Prozac and an antianxiety med and these have helped her, did not go off of them during and she states feels better already after having this child compared to after having Gunbryce in 2016. MOB not in counseling and does not feel she needs it at this time. MOB and FOB report that SANAZ's mom actually works at [employer] and is a counselor. FOB reports no mental health concerns. MOB reports to have a lot of support now and this she feels is very helpful. Substance Abuse History: MOB and FOB deny any substance abuse issues. No tox screens on MOB or baby completed Safety: No safety concerns at this time. Family/Social Stressors: Other than SANAZ being unemployed at present, MOB and FOB report no stressors at this time. Support Systems: MOB reports her mother is supportive, FOB reports his parents are supportive. MOB explains they live in [place] and it's a small community, they have multiple friends also who are very supportive. Depression and Anxiety/Shaken baby/Safe Sleeping: SW gave information on all of these topics and reviewed w/parents. SW emphasized information on and reviewed symptoms to be aware of, as VILMA had after her last baby was born. Again, MOB reports to already be feeling better compared to after giving last time. She reports staying on meds has probably been helpful. SW reiterated if she is having more symptoms that counseling may be an option for her--gave her a list of counseling agencies and a [facility] Resource list. SW explained that [facility] does have a 24 hour hotline if needed. Because ASNAZ's mother works at [employer] she seemed hesitant to get involved with [facility]. SW explained that they are two different agencies, however [facility] is another agency that could be considered if needed, if counseling needed and she doesn't want [facility]. MOB states understanding. Assessment: SW spoke w/both MOB and FOB. MOB holding baby, appropriate, seems capable of caring for baby. Both had good eye contact, easily engaged in conversation, appropriate. FOB and MOB both seem very aware of risk of and seem aware of warning signs. In addition to information listed, SW also gave parents information on [facility] and parent support groups. Plan: Baby Jake to go home w/MOB and FOB at discharge. No further social service concerns, SW available should any concerns arise. YUMI Lantigua
[2019-02-04] MEDS: oxyCODONE 5 MG Tablet PO ×2 (12:49→18:11)
--- NOTE | 2019-02-04 18:14 | PCM.PN.OB ---
Subjective: Patient without complaints. Tolerating diet well. Positive flatus. Pain well controlled. - Physical Exam Vital Signs Temp Pulse Resp BP Pulse Ox 97.6 F L 95 18 151/82 H 98 02/04/19 13:45 02/04/19 13:45 02/04/19 13:45 02/04/19 13:45 02/04/19 13:45 Oxygen Delivery Method Room Air Weight: 237 lb 7.005 oz Body Mass Index (BMI) 37.1 Intake and Output for Last 24 Hours 02/02/19 02/03/19 02/04/19 23:59 23:59 23:59 Intake Total 1500 / 1500 2714 / 2714 Output Total 800 / 800 3250 / 3250 Balance 700 / 700 -536 / -536 Laboratory Tests Past 24 Hrs 02/04/19 04:40 WBC 12.5 H RBC 3.55 L Hgb 9.7 L Hct 29.7 L MCV 83.7 MCH 27.3 MCHC 32.7 RDW Std Deviation 48.8 H RDW Coeff of Masha 16.3 H Plt Count 191 MPV 10.8 Wound is clean, dry, intact. Good urine output. Minimal vaginal bleeding. Medical Necessity - Tobacco Use Smoking Status: Former smoker Assessment/Plan Doing well postoperative day #1 status post repeat . Continuing present care. Denies any -induced hypertension symptoms.
[2019-02-04] MEDS: 0.9% Saline Lock 10 ML Syringe IV ×2 (21:50→21:52)
[2019-02-04] MEDS: FLUoxetine 20 MG Capsule PO (21:50)
[2019-02-05] VITALS: BP 130/64
[2019-02-05] MEDS: oxyCODONE 5 MG Tablet PO ×3 (00:03→11:27)
[2019-02-05 02:00] VITALS: BP 135/84; PULSE 88; RESP 18; TEMP 36.6
[2019-02-05] MEDS: Ketorolac 30 MG/ML Syringe IV ×2 (04:03→09:46)
[2019-02-05] MEDS: 0.9% Saline Lock 10 ML Syringe IV ×3 (04:03→09:46)
--- NOTE | 2019-02-05 08:02 | PCM.PN.OB ---
Subjective: Patient without complaints. Tolerating diet well. Pain well controlled. Positive flatus. Ready to go home today. - Physical Exam Vital Signs Temp Pulse Resp BP Pulse Ox 97.9 F 88 18 135/84 H 98 02/05/19 02:00 02/05/19 02:00 02/05/19 02:00 02/05/19 02:00 02/04/19 13:45 Oxygen Delivery Method Room Air Weight: 237 lb 7.005 oz Body Mass Index (BMI) 37.1 Intake and Output for Last 24 Hours 02/03/19 02/04/19 02/05/19 23:59 23:59 23:59 Intake Total 1500 / 1500 2714 / 2714 Output Total 800 / 800 3250 / 3250 Balance 700 / 700 -536 / -536 Wound is clean, dry, intact. Good urine output. Blood pressures have remained stable. No PIH signs. Medical Necessity - Tobacco Use Smoking Status: Former smoker Assessment/Plan Doing well postoperative day #2 status post repeat for PIH. Will release to home with routine instructions. Patient to call with any PIH symptoms or increasing blood pressures per her own monitoring. Follow-up in 2 weeks in 6 weeks.
[2019-02-05 08:27] VITALS: BP 123/75; PULSE 93; RESP 16; TEMP 36.4; O2SAT 96
[2019-02-05] MEDS: Fluticasone 0.05% 1 SPRAY NASAL.SRY 2 SPRAY NASAL (08:40)
[2019-02-05] MEDS: Acetaminophen 500 MG Tablet 1000 MG PO (08:41)
[2019-02-05] MEDS: Pantoprazole Sodium 20 MG Tablet PO (08:41)
[2019-02-05] MEDS: Ondansetron ODT 4 MG Tablet PO (11:26)
--- NOTE | 2019-02-10 16:04 | NURSING ---
On follow up phone call mother states has had headache and some blurred vision. She had history of elevated bp. She was instructed to call Dr Olsen office and go in to get bp checked.
== END 2019-02-05 11:55 | disposition home or self-care (01) | DRG 540 ==
LOC: WPOUT 06:23
PROVIDERS: Admitting Provider Obstetrics & Gynecology; Visit Provider Obstetrics & Gynecology
DX: O34.211 Maternal care for low transverse scar from previous cesarean delivery (principal); O13.4 Gestational [pregnancy-induced] hypertension without significant proteinuria, complicating childbirth; O99.344 Other mental disorders complicating childbirth; F32.9 Major depressive disorder, single episode, unspecified; Z87.891 Personal history of nicotine dependence; Z87.440 Personal history of urinary (tract) infections; Z86.2 Personal history of diseases of the blood and blood-forming organs and certain disorders involving the immune mechanism; Z79.899 Other long term (current) drug therapy; Z3A.38 38 weeks gestation of pregnancy; Z37.0 Single live birth
CPT/HCPCS: 36415; 59025; 59050; 82565; 82570; 84156; 84450; 84460; 84550; 85027; 85610; 85730; 86850; 86900; 99218; J7120; A4216; G0378; J2405

== ENCOUNTER → 2019-03-16 16:00 | Outpatient (CLI) | payer MEDICAID, SELFPAY ==
[2019-02-02 22:38] VITALS: BMI 37.1
[2019-03-19 12:07] LABS: HPV Reflexed? NOT INDICATED
== END ==
PROVIDERS: Visit Provider Obstetrics & Gynecology
DX: Z12.4 Encounter for screening for malignant neoplasm of cervix (principal)
CPT/HCPCS: 87624; 88175; G0145

== ENCOUNTER → 2019-06-03 13:46 | Outpatient (CLI) | payer MEDICAID, BC, SELFPAY ==
[2019-02-02 22:38] VITALS: BMI 37.1
== END ==
PROVIDERS: Visit Provider Obstetrics & Gynecology
DX: R30.0 Dysuria (principal)
CPT/HCPCS: 87086

== ENCOUNTER 2019-07-12 08:28 | Day surgery (SDC) | payer BC, MEDICAID, SELFPAY ==
[2019-02-02 22:38] VITALS: BMI 37.1
--- NOTE | 2019-07-05 15:37 | EKG12_ITS ---
Test Reason : PRE OP Blood Pressure : / mmHG Vent. Rate : 078 BPM Atrial Rate : 078 BPM P-R Int : 160 ms QRS Dur : 086 ms QT Int : 416 ms P-R-T Axes : 035 017 016 degrees QTc Int : 474 ms Normal sinus rhythm Normal ECG Confirmed by BRITTANY BOWLES, EDSON ([id number]), greeting card editor TATUM HAYDEN ([id number]) on 07/06/2019 9:44:10 AM Referred By: Trung Olsen Confirmed By:EDSON SOTO MD
[2019-07-05 15:52] LABS: Hematocrit 37.4 % (37-47); Hemoglobin 11.9 g/dL (12.0-15.0); Mean Corp Hgb Conc 31.8 g/dL (32-36); Mean Corpuscular Hgb 27.2 pg (27.0-32.0); Mean Corpuscular Volume 85.6 fL (81-99); Mean Platelet Vol. 10.9 fl (6.2-12.0); Platelet Count 293 K/mm3 (150-450); RBC Distribution Width CV 13.2 % (11.6-14.6); RBC Distribution Width SD 41.2 fl (35.1-43.9); Red Blood Count 4.37 M/mm3 (4.2-5.4); White Blood Count 7.5 K/mm3 (4.4-11.0)
[2019-07-05 16:00] LABS: Internal QC Validated? YES +Cl - CLEAR BKGD; Pregnancy, Serum, hCG Quali. NEGATIVE Negative
[2019-07-05 16:02] LABS: International Normalized Ratio 1.1; Prothrombin Time (Protime)PT. 13.5 SECONDS (11.7-14.9)
[2019-07-05 16:03] LABS: Partial Thromboplast Time 30.6 Seconds (24.1-36.2)
[2019-07-05 16:07] LABS: AST(SGOT) 18 U/L (15-37); Alanine Aminotransfer ALT/SGPT 28 U/L (13-56); Albumin, Serum 4.5 g/dL (3.2-5.0); Alkaline Phosphatase 86 U/L (45-117); Anion Gap 6 (5-15); BUN 7 mg/dL (7-18); BUN/Creat Ratio 11.1 RATIO (10-20); Bilirubin, Direct 0.09 mg/dL (0.00-0.30); Calcium,Total 9.6 mg/dL (8.5-10.1); Chloride 106 mmol/L (98-107); Creatinine, Serum 0.63 mg/dL (0.55-1.02); EST Glomerular Filtration Rate 116 mL/min (>60); Est Glom Filt Rate - Afr Amer 141 mL/min (>60); Globulin 3.3 g/dL (2.2-4.2); Glucose 96 mg/dL (74-106); Potassium 3.8 mmol/L (3.5-5.1); Protein, Total 7.8 g/dL (6.4-8.2); Sodium Level 140 mmol/L (136-145)
--- NOTE | 2019-07-10 10:27 | PCM.HP.BLA ---
History and Physical Date of Admission: 07/12/19 Surgical History and Physical Danelle Samuel, a 33 year old female 2 0 0 0 2, presents for RAVH/BSO on July 12, 2019 at 10:40. -- Dyspareunia; Lower Pelvic Discomfort; Endometriosis -- Raw feeling in vulva area and pelvic pain/discomfort. Adds she feels bloated alot and all these symptoms seem to be around the time of her menses. Reports this seems to be a recurrent problem and she is so tired of it. She is having a lot of pain. Pain radiates down her legs. Endometriosis pain/discomfort she has been dealing with since she was 16 yrs old. Menometrorrhagia, and dyspareunia which has been ongoing for yrs. Pt relates the pain is excruciating with intercourse. Recurrent pelvic/vaginal pain and bloating and extreme pain with intercourse. Danelle characterizes the quality sharp pelvic pain pain w/intercourse. Severity is moderate and not improving. MEDICATIONS HISTORY: Current medications prescribed by our practice are: 1. tramadol 50 mg tablet, 1 po q 6 hr prn severe pain Patient is also takin. Prozac 40 mg capsule, One pill by mouth once a day ALLERGIES: Nkda, NKDA, Prednisone, Depression, Oxycodone, Shortness of breath, ragweed pollen and Anaphylaxis Infections - Recurrent UTI, and Vaginal infections and Chicken pox childhood Illnesses - depression, anxiety, IBS, gastritis, hiatal hernia Accidents - no injuries of consequence Hospitalizations - see surgery and Childbirth Review of Systems: GENERAL - Denies fever, or chills SKIN - Denies skin changes EYES - Denies visual changes EARS - Denies difficulty hearing NOSE - Denies nasal congestion or bleeding MOUTH - Denies sore throat or difficulty swallowing NECK - Denies pain or swelling RESPIRATORY - Denies shortness of breath or wheezing CARDIOVASCULAR - Denies palpitations or chest pain GASTROINTESTINAL - Denies nausea, vomiting, diarrhea, constipation GENITOURINARY - Denies dysuria, frequency of urination, incontinence of urine MUSCULOSKELETAL - Denies joint or muscle pain NEUROLOGICAL - Denies localized numbness or weakness PSYCHIATRIC - Denies depression or anxiety ENDOCRINE - Denies heat or cold intolerance, weight loss or gain HEMATO-IMMUNOLOGIC - Denies excesive bleeding with cuts SOCIAL HISTORY: Alcohol Use - denies drinking Smoking - occasional--advised to quit Diet - balanced Diet Lifestyle - moderate stress lifestyle and Exercise - active Seat Belt Use - always Employer - [employer] Illicit Drug Use - denies use of street drugs Sexual Activity - Residence - lives with Place of - [place], [place] Spouse-Sig Other Name - Maverick Samuel Spouse-Sig Other Occupation - [employer] Spouse-Sig Other Phone No - [phone] cell Children Name(s) - Jean Claude(16), Jake ('19) Control - Vasectomy FAMILY HISTORY: Mother: DM II. Maternal Grandmother: Brain cancer. Maternal Grandfather: Bladder cancer. MENSTRUAL HISTORY: LMP Known?- YesAmount/Duration - excess amount, Regularity - Irregular, Frequency - variable days, LMP - 06/14/19, Age Onset Menarche - 19 PAST PREGNANCIES: Total Pregnancies - 2; Full Term Pregnancies - 2; Premature - 0; Abortions, Induced - 0; Abortions, Spontaneous - 0; Ectopics - 0; Multiple Births - 0; Living Children - 2 SURGICAL HISTORY: 1. endoscopy, colonoscopy 2. [place] Teeth extraction, 2010 3. 04/03/2016 ; Sirisha Rosa M.D. 4. 02/03/2019 ; Trung Olsen M.D. 5. 11/20/2017 Dx laparoscopy, surgical treatment of endometriosis with peritoneal biopsy ; Isa Robb MD - PHYSICAL EXAM BP- 120/90 Sitting, Right arm, regular cuff Temp- 97.9 Taken Orally Weight- 183.42810 lbs Height- 67.00 inch BMI:28.82 CONSTITUTIONAL - NAD, well nourished, and well developed SKIN - No rash, lesions, or ulcers HEENT - normocephalic, atraumatic, sclerae anicteric LUNGS - CTA x2 without wheezes, crackles or rales CARDIAC - Regular rate and rhythm without rubs, murmurs, or gallops BREAST - No dominant masses, no tenderness, no axillary adenopathy, no nipple discharge, no skin changes ABDOMEN - Without hepatosplenomegaly, distention, masses, rebound, or guarding; normal bowel sounds; no hernias, + lower abdominal tenderness EXTREMITIES - No edema or calf tenderness NEUROLOGICAL - normal gait, normal balance, normal motor PSYCHIATRIC - A and O to time, place, person, mood and affect External Genital Vagina - non-tender without lesions Urethra/Urethral Meatus - non-tender Bladder - non-tender Vagina - vaginal ortega are pink and moist without loss of rugae and no evidence of atropy Cervix - +cervical motion tenderness with uterosacral tenderness has normal size and features without evident lesions Uterus - 5-6 cm in size, mobile and tender Adnexa - clear without masses or tenderness ASSESSMENT/PLAN: Endometriosis, Unspecified Severe and recurrent endometriosis. Multiple options for treatment already tried such as OCPs, IUD, surgery, . Done with childbearing and desires to proceed with hysterectomy. Plan RAVH/BSO. Discussed RBAs including need for superintendent terminal HRT and possibility of surgery not helping with her pain and dyspareunia.
[2019-07-12] VITALS (11 sets, daily range): BP systolic 108–128; BP diastolic 64–78; PULSE 73–107; RESP 15–24; TEMP 36.8–37.3; O2SAT 93–100; BMI 28.6
[2019-07-12 08:56] LABS: Internal QC Validated? YES +Cl - CLEAR BKGD; Pregnancy, Urine Negative Negative
[2019-07-12] MEDS: Lactated Ringers 1,000 ML 100 ML IV ×2 (09:08→09:10)
--- NOTE | 2019-07-12 10:11 | PCM.OPRPT ---
Report of Operation Date of Procedure: 07/12/19 Pre-Operative Diagnosis: Dyspareunia; Lower Pelvic Discomfort; Endometriosis Post-Operative Diagnosis: Dyspareunia; Lower Pelvic Discomfort; Endometriosis Surgery/Procedure Performed:: Robotic Assisted Vaginal Hysterectomy and Bilateral Salpingo-Oophorectomy Description of Surgical Findings:: 10 cm uterus with normal-appearing fallopian tubes and ovaries. 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 She has known endometriosis. The patient does not desire future childbearing. Conservative measures have not been helpful. The patient has been counseled regarding the risks, benefits and alternatives of this procedure including the possibility of bleeding, infection, and injury to surrounding structures such as bowel bladder and all questions were answered. She understands that with BSO she may need to be on HRT for an indefinite period of time. Procedure: Pt taken to the operating room where, after induction of general anesthesia, the patient was prepped and draped in the usual sterile fashion and placed on a non-slip Huggy-u-vac device. Trendelenburg test was satisfactory. Bladder was drained of urine with a Toribio catheter which was left in place. Anterior cervix grasped and cervix was dilated to about 3-4 mm. Uterus sounded to 9 cms. 0-Vicryl suture was placed at the 3:00 and 9:00 position of the cervix. A small Advincula Senior Sales Associate Uterine Manipulator was then placed in the uterus and attention was turned to the laparoscopic portion of the procedure. Ropivocaine 0.5% was injected approximately 2-3 cm superior to the umbilicus and an 8 mm robotic camera port was introduced directly with intraperitoneal placement confirmed with CO2 insufflation. 8 mm robotic side ports were introduced under direct visualization approximately 11 cm lateral and 2 cm inferior to the umbilical port. A 5 mm left upper quadrant port was introduced and airseal insufflation with CO2 was started. The above findings were noted. Robot was docked without difficulty and attention turned to the robotic portion of the procedure. Approximately 30 cc of Ropivicaine was used. Bilateral infundibulopelvic ligaments/mesosalpinx were ligated with 35 jordan bipolar coagulation to the level of the round ligament. The posterior aspect of the cervix was identified and then opened for about 1 cm using 25 watt monopolar cautery identifying the uterine manipulating device which had been placed vaginally. Bladder flap was opened and divided to the level of the round ligaments using monopolar cautery. Progressive bites were then ligated on each side of the cervix with 35 jordan bipolar cautery to the uterine arteries. The anterior vaginal mucosa was entered and cervix circumscribed with monopolar cautery. Uterus and attached tubes and ovaries were removed through the vagina. Vaginal cuff was closed first with 0-Vicryl Vesta stitches placed at each angle followed by closure of the mid-cuff with 0-Monocryl V-lock suture in two layers. Pelvis was copiously irrigated with saline and the right and left ureter was noted to peristalse. Some Viki was placed across the vaginal cuff to help with postoperative hemostasis due to some oozing especially on the left side. Robot was undocked and trocars were removed with as much gas as possible. Incisions were closed with 4-0 Monocryl subcuticular sutures and incisions covered with steri-strips. The patient tolerated the procedure well and was taken to the recovery room in satisfactory condition. Sponge, instruments and needle counts were all correct. There were no apparent complications of the surgery. Cefotan 2 gms IV was given prior to the procedure. Estimated Blood Loss: Minimal Specimen to Pathology: Uterus and bilateral fallopian tubes and ovaries Grafts/Implants Used: None - Complications None - Admit VTE Documentation VTE Present on Admission: Yes VTE Mechan Device Prophylaxis: SCD's VTE Pharm Prophylaxis ordered?: Yes
--- NOTE | 2019-07-12 10:40 | HYST_PTH ---
PATIENT: ETHAN BAUGH LOC: [facility] [place] U#:[id number] AGE/SX: 33/F ROOM: RE07/12/[address]: Dr. Trung Olsen MD : 1985 BED: DIS: 07/13/2019 SPEC #: [id number] RECD: 07/12/19 13:53 STATUS: JACQUE REQ #: [id number] LISSA: 07/12/19 10:[address]: Trung Olsen DEPT: SURGICAL PATHOLOGY RECD BY: Kelly Francisco ENTERED: 07/12/19 14:21 SP TYPE: HYSTERECT OTHR DR: MD Sandy Ryan PA-C Tissues: Uterus, NOS Procedures: Surgery Specimen Level V HEADER OPERATION: Robotic assisted vaginal hysterectomy, bilateral salpingo-oophorectomy PRE-OP DIAGNOSIS: Dyspareunia, lower pelvic discomfort, endometriosis TISSUE SUBMITTED: Uterus, cervix, bilateral fallopian tubes, bilateral ovaries MICROSCOPIC DIAGNOSIS Uterus, hysterectomy: Cervix - mild chronic inflammation. Endometrium - secretory endometrium. Myometrium - no pathologic change. Right ovary - hemorrhagic corpus luteal cysts. Right fallopian tube - benign paratubal cyst. Left ovary and fallopian tube - tubo-ovarian adhesions and follicular and corpus luteal cysts. AM:nelson 07/13/19 MICROSCOPIC DESCRIPTION Slides are reviewed. GROSS DESCRIPTION Received in fixative is one container labeled with the patient's name and designated uterus. The specimen consists of a uterus with attached cervix and attached right and left fallopian tubes and ovaries. The uterus with cervix measures 9 x 6 x 4 cm and weighs 90 gm. The ectocervix is oval in contour. The endocervical canal measures 3.8 cm in length and is grossly unremarkable. The triangular endometrial cavity measures 4 x 3.3 cm. The velvety, light de la cruz endometrium measures up to 0.2 cm in thickness. The myometrium measures 2 cm in average thickness and is free of mass lesions. A smooth, glistening right cystic ovary measures 3.8 x 3.5 x 2.5 cm. The external surface does not contain excrescences or papillations. The external surface is inked in black ink. Serial sections reveal multiple cysts ranging in size from 0.2 to 1.5 cm and containing clear to bloody fluid. The adjacent right fallopian tube measures 6.5 cm in length and 0.7 cm in average diameter. A normal fimbriated end is present. No tubo-ovarian adhesions are seen. The left ovary is similar in appearance to the right ovary and measures 3.5 x 2 x 2 cm. The fallopian tube is similar in appearance to the right fallopian tube measuring 5.5 cm in length and 0.5 cm in average diameter. The fallopian tube is adherent to the ovary along greater than 90% of its length. A normal fimbriated end of the fallopian tube is visible. The external surface of the ovary and the adherent fallopian tube is inked in blue ink. Serial sections of the ovary likewise reveal multiple cysts containing clear to bloody fluid. The cysts range in size from 0.2 to 0.8 cm in greatest dimension. Complaint Clerk sections are submitted in ten cassettes as follows: 1 - anterior cervix, 2 - posterior cervix, 3 & 4 - anterior endometrium/myometrium wall, 5 & 6 - posterior endometrium/myometrium, 7 & 8 - right ovary and fallopian tube, 9 & 10 - left ovary and fallopian tube. / AM:nelson 07/12/19 TC:5 CPT: 39167
[2019-07-12] MEDS: Ropivacaine 0.5% 30 ML Vial (10:55)
--- NOTE | 2019-07-12 12:20 | PCM.DC.VHY ---
Discharge Diet: No Restrictions Discharge Activity: Return to Normal Activity, May not drive while taking narcotic pain medications., May Shower, May Take a Tub Bath May resume sexual activity in: 6-8 weeks Call your doctor if your incision/area has: Continuous Slow Oozing, Sudden Increased Bleeding, Increased Pain/ Swelling, Increased Redness, Foul Smelling Discharge Call your doctor if you observe: Fever of 101 or Higher, Inability to urinate, Inability to have a bowel movement, Using more than one pad per hour Allergies/Adverse Reactions: Allergies lactose Allergy (Verified 07/12/19 08:48) Food Allergy prednisone Allergy (Verified 07/12/19 08:48) Swelling hallucinations, swelling ragweed pollen Allergy (Verified 07/12/19 08:48) Other carries epi pen, shuts down my brain. Medications to take at Discharge Fluoxetine [Prozac] 40 mg PO QHS 11/14/17 DiphenhydrAMINE [Benadryl] 25 mg PO QHS PRN PRN 02/02/19 Vits [Prenatabs FA] 1 tab PO DAILY 02/02/19 Pantoprazole Sodium [Protonix] 40 mg PO BID 07/05/19 Phenylephrine HCl [Sudafed PE] 10 mg PO PRN PRN 07/05/19 Docusate Sodium [Colace] 100 mg PO BID PRN PRN 1 Days #60 cap 07/12/19 Estradiol 2 mg PO DAILY #100 tab 07/12/19 Oxycodone [Oxyir] 5 mg PO Q6H PRN PRN 7 Days #14 tab 07/12/19 The following prescriptions were given: Docusate Sodium [Colace] 100 mg PO BID PRN PRN 1 Days #60 cap PRN Reason: Constipation Transmission Status: Received by [facility] Estradiol 2 mg PO DAILY #100 tab Transmission Status: Received by [facility] Oxycodone [Oxyir] 5 mg PO Q6H PRN PRN 7 Days #14 tab PRN Reason: Pain Score 6-10/10 Transmission Status: Received by [facility] Primary Care Physician: Sandy Orourke PA-C [Primary Care Provider] - Test Results: Test results from this visit will be discussed in further detail at your follow-up appointment, if applicable. Please Follow Up With: Trung Olsen MD When: 2-3 weeks
[2019-07-12] MEDS: Dextrose 5%-Lactated Ringers 1,000 ML 150 ML IV ×2 (14:54→21:40)
[2019-07-12] MEDS: Ketorolac 30 MG/ML Syringe IV ×2 (15:04→20:23)
[2019-07-12] MEDS: Pantoprazole Sodium 40 MG Tablet PO ×2 (15:36→21:40)
[2019-07-12] MEDS: oxyCODONE 5 MG Tablet PO ×2 (15:37→20:23)
[2019-07-12] MEDS: Ondansetron 4 MG/2 ML Vial IV (17:45)
[2019-07-12] MEDS: Enoxaparin 30 MG/0.3 ML Syringe SC (18:41)
[2019-07-12] MEDS: 0.9% Saline Lock 10 ML Syringe IV ×2 (20:23→22:01)
[2019-07-12] MEDS: FLUoxetine 20 MG Capsule 40 MG PO (21:39)
[2019-07-12] MEDS: HYDROmorphone 0.5 MG/0.5 ML SYRINGE IV (22:01)
[2019-07-12] MEDS: DiphenhydrAMINE 25 MG Capsule PO (23:48)
[2019-07-13] MEDS: Ketorolac 30 MG/ML Syringe IV ×2 (01:50→08:09)
[2019-07-13] MEDS: oxyCODONE 5 MG Tablet PO ×3 (01:50→11:56)
[2019-07-13 04:00] VITALS: BP 137/85; PULSE 90; RESP 16; TEMP 37.3; O2SAT 97
[2019-07-13] MEDS: 0.9% Saline Lock 10 ML Syringe IV (05:05)
[2019-07-13] MEDS: HYDROmorphone 0.5 MG/0.5 ML SYRINGE IV (05:05)
[2019-07-13 05:14] LABS: Hematocrit 33.2 % (37-47); Hemoglobin 10.7 g/dL (12.0-15.0); Mean Corp Hgb Conc 32.2 g/dL (32-36); Mean Corpuscular Hgb 27.9 pg (27.0-32.0); Mean Corpuscular Volume 86.7 fL (81-99); Mean Platelet Vol. 10.3 fl (6.2-12.0); Platelet Count 209 K/mm3 (150-450); RBC Distribution Width CV 13.9 % (11.6-14.6); RBC Distribution Width SD 43.5 fl (35.1-43.9); Red Blood Count 3.83 M/mm3 (4.2-5.4); White Blood Count 10.8 K/mm3 (4.4-11.0)
[2019-07-13 05:28] LABS: Creatinine, Serum 0.73 mg/dL (0.55-1.02); EST Glomerular Filtration Rate 99 mL/min (>60); Est Glom Filt Rate - Afr Amer 120 mL/min (>60); Estimated Creatinine Clearance 108.59 ml/min
[2019-07-13 07:00] VITALS: O2SAT 97
--- NOTE | 2019-07-13 07:29 | PN.OBGYN_ITS ---
Subjective: Patient without complaints. Tolerating diet well. Positive flatus. Pain marginally controlled per patient. - Physical Exam Vitals/I&O's: Vital Signs Temp Pulse Resp BP Pulse Ox 99.1 F 90 16 137/85 H 97 07/13/19 04:00 07/13/19 04:00 07/13/19 04:00 07/13/19 04:00 07/13/19 04:00 Oxygen Flow Rate (L/min) 2 Oxygen Delivery Method Room Air Weight: 182 lb 15.739 oz Body Mass Index (BMI) 28.6 Intake and Output for Last 24 Hours 07/11/19 07/12/19 07/13/19 23:59 23:59 23:59 Intake Total 6223.33 / 7063.33 2040 / 2040 Output Total 1350 / 3550 2700 / 2700 Balance 4873.33 / 3513.33 -660 / -660 Comment: Wound CDI. Good urine output. Hemoglobin and creatinine okay. Laboratory Results 07/12/19 08:45: Urine Test Negative 07/13/19 05:05: WBC 10.8, RBC 3.83 L, Hgb 10.7 L, Hct 33.2 L, MCV 86.7, MCH 27.9, MCHC 32.2, RDW Std Deviation 43.5, RDW Coeff of Masha 13.9, Plt Count 209, MPV 10.3 07/13/19 05:05: Creatinine 0.73, Estim Creat Clear Calc 108.59, Est GFR (MDRD) Af Amer 120, Est GFR (MDRD) Non-Af 99 Current Medications Acetaminophen (Tylenol) 1,000 mg PO Q8H PRN PRN PRN Reason: Pain Score 1-3/10 or Fever Diphenhydramine HCl (Benadryl) 25 mg PO QHS PRN PRN PRN Reason: ALLERGIES Last Admin: 07/12/19 23:48 Dose: 25 mg Documented by: Docusate Sodium (Colace) 100 mg PO BID PRN PRN PRN Reason: Constipation Estrogens Conjugated (Premarin) 1.25 mg PO DAILYCM LUIS E Fluoxetine HCl (Prozac) 40 mg PO QHS LUIS E Last Admin: 07/12/19 21:39 Dose: 40 mg Documented by: Hydromorphone HCl (Dilaudid Inj) 0.5 mg IV Q3H PRN PRN PRN Reason: PAIN 4-10/10 Last Admin: 07/13/19 05:05 Dose: 0.5 mg Documented by: Sodium Chloride () 250 mls @ 15 mls/hr IV .[id number] PRN PRN Reason: Saline Flush Ketorolac Tromethamine (Toradol) 30 mg IV Q6H [facility] Stop: 07/17/19 14:01 Last Admin: 07/13/19 01:50 Dose: 30 mg Documented by: Non-Formulary Medication (Phenylephrine Hcl [Sudafed Pe]) 10 mg PO PRN PRN PRN Reason: CONGESTION Ondansetron HCl (Zofran) 4 mg IV Q4H PRN PRN PRN Reason: NAUSEA Last Admin: 07/12/19 17:45 Dose: 4 mg Documented by: Oxycodone HCl (Oxyir) 5 mg PO Q4H PRN PRN PRN Reason: Pain Score 4-10/10 Last Admin: 07/13/19 01:50 Dose: 5 mg Documented by: Pantoprazole Sodium (Protonix) 40 mg PO BID [facility] Last Admin: 07/12/19 21:40 Dose: 40 mg Documented by: Simethicone (Mylicon) 80 mg PO PCHS [facility] Last Admin: 07/12/19 21:44 Dose: 80 mg Documented by: Sodium Chloride () 10 - 40 ml IV UD PRN PRN Reason: SALINE FLUSH Last Admin: 07/13/19 05:05 Dose: 20 ml Documented by: Medical Necessity - Tobacco Use Smoking Status: Current some day smoker Tobacco Use: Cigarettes Assessment/Plan Doing well postoperative day #1 status post robotic assisted vaginal hysterectomy and bilateral salpingo-oophorectomy. Will release to home with routine instructions.
[2019-07-13] MEDS: Estrogens,Conj. 1.25 MG Tablet PO (08:09)
[2019-07-13 10:00] VITALS: BP 120/74; PULSE 96; RESP 16; TEMP 36.6; O2SAT 99
[2019-07-13] MEDS: Pantoprazole Sodium 40 MG Tablet PO (10:39)
[2019-07-13] MEDS: Acetaminophen 500 MG Tablet 1000 MG PO (10:44)
== END 2019-07-13 12:45 | disposition home or self-care (01) ==
LOC: SDC 08:29 → AC 08:29 → ICU 07-13 10:41
PROVIDERS: Anesthesiology; Family Provider Family Medicine; PCP Family Medicine; Referring Provider Obstetrics & Gynecology; Visit Provider Obstetrics & Gynecology
PROC: 0UT94ZZ Resection of Uterus, Percutaneous Endoscopic Approach (ICD-10-PCS; CPT 58571; principal; 2019-07-12 10:20)
DX: N72 Inflammatory disease of cervix uteri (principal); N80.9 Endometriosis, unspecified; N92.1 Excessive and frequent menstruation with irregular cycle; N83.8 Other noninflammatory disorders of ovary, fallopian tube and broad ligament; N83.11 Corpus luteum cyst of right ovary; N83.12 Corpus luteum cyst of left ovary; N94.10 Unspecified dyspareunia; K58.9 Irritable bowel syndrome, unspecified; G25.81 Restless legs syndrome; F32.9 Major depressive disorder, single episode, unspecified; F41.9 Anxiety disorder, unspecified; F17.210 Nicotine dependence, cigarettes, uncomplicated; Z88.5 Allergy status to narcotic agent; Z88.8 Allergy status to other drugs, medicaments and biological substances; Z79.899 Other long term (current) drug therapy; Z87.440 Personal history of urinary (tract) infections
CPT/HCPCS: 00840; 58571; 36415; 80048; 80076; 81025; 82565; 84703; 85027; 85610; 85730; 86850; 86900; 86901; 88307; 93005; 99251; J7120; A4216; G0463; J2405

== ENCOUNTER → 2019-09-06 16:43 | Outpatient (CLI) | payer BC, MEDICAID, SELFPAY ==
[2019-07-12 14:30] VITALS: BMI 28.6
== END ==
PROVIDERS: PCP Family Medicine; Referring Provider Obstetrics & Gynecology; Visit Provider Obstetrics & Gynecology
DX: N39.0 Urinary tract infection, site not specified (principal)
CPT/HCPCS: 87077; 87086; 87088; 87186

== ENCOUNTER → 2020-09-28 14:04 | Outpatient (CLI) | payer BC, MEDICAID, SELFPAY ==
[2019-07-12 14:30] VITALS: BMI 28.6
== END ==
LOC: WOBLAB 14:07
PROVIDERS: PCP Family Medicine; Visit Provider Obstetrics & Gynecology
DX: R30.0 Dysuria (principal)
CPT/HCPCS: 87086; 87088

== ENCOUNTER → 2021-07-03 | Outpatient (CLI) | payer BC, MEDICAID, SELFPAY | END | disposition home or self-care (01) | LOC: LABSPEC 16:05 | PROVIDERS: PCP Family Medicine; Visit Provider Obstetrics & Gynecology | DX: Z11.3 Encounter for screening for infections with a predominantly sexual mode of transmission (principal) ==

== ENCOUNTER → 2022-01-10 | Outpatient (CLI) | payer MEDICAID, SELFPAY | END | disposition home or self-care (01) | PROVIDERS: PCP Family Medicine; Visit Provider Obstetrics & Gynecology | DX: N76.0 Acute vaginitis (principal) ==

== ENCOUNTER → 2024-01-19 | Outpatient (CLI) | payer OTHER, SELFPAY | END | disposition home or self-care (01) | LOC: LABSPEC 16:19 | PROVIDERS: PCP Family Medicine; Referring Provider Physician Assistant; Visit Provider Physician Assistant | DX: N89.8 Other specified noninflammatory disorders of vagina (principal) | CPT/HCPCS: 87491; 87591 ==

== ENCOUNTER 2025-02-17 20:49 | Emergency (ER) | payer BC, SELFPAY ==
[2025-02-17 20:50] VITALS: BP 131/80; PULSE 94; RESP 18; TEMP 36.6; O2SAT 100; BMI 25.7
--- NOTE | 2025-02-17 22:47 | EX.ED.DYSGE1 ---
HPI History of Present Illness Chief Complaint: Numb/Ting Narrative Narrative: Patient is a 39-year-old female with no known significant past medical history who presents to the emergency department chief complaint of right shoulder and arm pain. States that back on January 14 she fell on a slip and slide and injured herself. States that she developed a hematoma and had to have evacuation surgery. States that she had a large hematoma behind her pec muscle on the right and her left implant flipped. States that her implants were intact however noted that they evacuated the hematoma repair at her pec muscle and noted that she has had some pain in the right arm. States that originally she had an ultrasound scheduled of her right upper extremity however the person in [place] was unable to perform this until Friday she talked with her surgeon and they advised her to go to the emergency department to have this performed as they are concerned there could be a clot in her right upper arm. Patient denies any history of this. PFSH PFSH Home Medications ?Medication ?Instructions ?Recorded ?Last Taken ?Type fluoxetine 20 mg capsule 40 mg PO QHS anxiety 11/14/17 02/02/19 18:00 History 20 mg diphenhydramine HCl 25 mg capsule 25 mg PO QHS PRN PRN Allergies 02/02/19 02/02/19 18:00 History 25 mg vits,calcium no.78-iron 1 tab PO DAILY vitamin 02/02/19 02/02/19 18:00 History fumarate-folic acid 29 mg-1 mg 1 tab tablet pantoprazole 40 mg tablet,delayed 40 mg PO BID GERD 07/05/19 Unknown History release phenylephrine HCl 10 mg tablet 10 mg PO PRN PRN Congestion 07/05/19 Unknown History estradiol 2 mg tablet 2 mg PO DAILY #100 tabs 07/12/19 Unknown Rx cefixime 400 mg capsule 800 mg (2 x 400 mg) PO ONCE #2 caps 01/19/24 Unknown Rx Allergy/AdvReac Type Severity Reaction Status Date / Time lactose Allergy Food Verified 02/17/25 20:52 Allergy prednisone Allergy Swelling Verified 02/17/25 20:52 ragweed pollen Allergy Other Verified 02/17/25 20:52 Social History Smoking Status: Current some day smoker ROS ROS ED ROS Narrative Constitutional: Denies any fevers, chills, headache Eyes: Denies change in vision double vision blurry vision Cardiovascular: Denies chest pain Respiratory: Denies shortness of breath Abdomen: Denies nausea vomit diarrhea Neurological: Complains of right upper extremity numbness and tingling states this has been going on however is progressively worsening Musculoskeletal: Complains of right arm pain/shoulder pain Skin: Denies any new rashes or lesions states that she has been checking her incisions daily twice a day and these are healing well EXAM Physical Exam Narrative Exam Narrative: General: Patient lying in bed rest comfortably did not appear to be acute distress Head: Atraumatic, normocephalic Eyes: PERRL bilaterally, EOMI bilaterally, no conjunctival injection noted Neck: Soft, supple, trachea midline Cardiovascular: Regular rate and rhythm Respiratory: Clear to auscultation bilaterally Abdomen: Soft, nondistended, nontender to palpation Musculoskeletal: Compartments soft and compressible in the bilateral upper extremities Extremities: +4/5 strength noted in the right upper extremity when compared to the left however states that this secondary to her pain, radial pulses +2/4 in the bilateral extremities Neurological: Patient following commands knew that she was at [facility] year is 2024 sensation slightly diminished in her median, ulnar, radial and axillary nerve distribution in the right when compared to the left states that this is not new has been going on Skin: Warm, dry, Const Vital Signs: 02/17/25 20:50 Temperature 98 F Temperature Source Oral Pulse Rate 94 Respiratory Rate 18 Blood Pressure 131/80 H Blood Pressure Mean 97 Pulse Ox 100 Oxygen Delivery Method Room Air MDM MDM MDM Narrative Medical decision making narrative: Patient is a 39-year-old female who presented to the emergency department the chief complaint of right shoulder pain, numbness and tingling in the right upper extremity and concern for a blood clot in her arm as noted above. On the differential diagnosis include but not limited to cervical radiculopathy, proximal humerus fracture, rotator cuff tear, superficial venous thrombosis, DVT. Ultrasound was ordered however ultrasound called and notified me that they are not trained in upper extremities and this has to be done in the outpatient setting. Patient's x-ray of her shoulder and cervical spine reviewed by myself and by radiology which showed no acute fractures or dislocations or listhesis. Went in and discussed results with the patient she will be given a prescription/order for outpatient ultrasound of her right upper extremity. She is advised that she will need to return for this. Patient is requesting something for pain as she is on Percocet scheduled and states that she has not had any of her pain medication while she is given [place] here in the emergency department. She was advised to return with worsening symptoms or concerns. She is agreeable this plan all question concerns answered she was discharged home in stable condition. Radiography Diagnostic Testing: Clinical Impression(s) from Imaging Studies Cervical Spine X-Ray 02/17/25 22:55 IMPRESSION: No acute findings Disclaimer: Reading Location: [place] [address] Shoulder X-Ray 02/17/25 22:55 IMPRESSION: No acute findings Reading Location: [place] [address] Discharge Plan Triage Chief Complaint: Numb/Ting ED Provider: Semaj Odell Dx/Rx/DC Orders Clinical Impression: Pain in right shoulder, History of repair of pectoralis muscle tear, History of breast augmentation Prescriptions: No Action cefixime 400 mg capsule 800 mg PO ONCE Qty: 2 0RF fluoxetine 20 MG capsule 40 mg PO QHS diphenhydramine HCl 25 MG capsule 25 mg PO QHS PRN PRN (Reason: Allergies) [id number] 1 TABLET tablet 1 tab PO DAILY pantoprazole 40 MG tablet 40 mg PO BID phenylephrine HCl 10 MG tablet 10 mg PO PRN PRN (Reason: Congestion) estradiol 2 MG tablet 2 mg PO DAILY Qty: 100 4RF Other Ambulatory Orders: Venous Duplex US, Unilateral (Stat) Facility: [facility] - Location: [facility] Ordered By: Dr. Semaj Odell Primary Care Provider: Sandy Orourke Referrals: Sandy Orourke PA-C [Primary Care Provider] - Activity Restrictions/Additional Instructions: Return to the hospital for your duplex ultrasound of your arm to rule out any blood clots. Your x-rays of your neck and shoulder do not show any acute findings. Return with worsening symptoms or any concerns. Print Language: Bel[place]ian Disposition Disposition: Home, Self Care
[2025-02-17 22:49] VITALS: PULSE 75; RESP 14; O2SAT 98
--- NOTE | 2025-02-17 22:55 | RAD_ITS ---
PROCEDURE: SHOULDER MIN 2 VIEWS 02/17/2025 REASON FOR EXAM: PAIN TECHNIQUE: SHOULDER MIN 2 VIEWS Laterality: Right COMPARISON: No FINDINGS: No fracture, dislocation, soft tissue injury. RAD/Shoulder min 2 Views IMPRESSION: No acute findings Reading Location: [place] [address]
--- NOTE | 2025-02-17 22:55 | RAD_ITS ---
PROCEDURE: CERV SPINE 4 OR 5 VIEWS 02/17/2025 REASON FOR EXAM: FALL, PAIN TECHNIQUE: CERV SPINE 4 OR 5 VIEWS COMPARISON: No FINDINGS: Mild cervicothoracic scoliosis. No fracture or dislocation. No soft tissue or apical pathology. RAD/Cerv Spine 4 or 5 Views IMPRESSION: No acute findings Disclaimer: Reading Location: [place] [address]
--- OUTSIDE RECORDS SUMMARY | 2025-02-17 23:15 | XMS RPT_ITS | CCD ---
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 Name Role Phone Herscher PA-, [place] Primary Care Provider SPIKE WILHELM Referring Unavailable [facility] Primary Care Unavailable BRE BROWN Attending Unavailable SELF, SELF Referring Unavailable [facility] Primary Care Unavailable BRE BROWN Attending Unavailable NAYELI IRVIN Admitting Unavailable [facility] Primary Care Unavailable IRVINNAYELI Referring Unavailable NAYELI IRVIN Attending Unavailable [facility] Primary Care Unavailable BRE BROWN Referring Unavailable [facility] Referring Unavailable [facility] Primary Care Unavailable Nimesh Smith Attending Unavailable Bienvenido PA, Nimesh Attending Unavailable [facility] Primary Care Unavailable Nimesh Smith Referring Unavailable NONE NONE, NONE~[id number] NONE Consulting Unavailable CLARY NOEL MD Admitting Unavailable [facility]~[id number], [facility] Primary Care Unavailable CLARY NOEL MD Attending Unavailable NONE, NONE Consulting Unavailable CLARY NOEL MD Consulting Unavailable BERT BOWLES, DR MEANS Consulting Unavaila [facility], SANDY Crandall Consulting [id number] Primary Care Unavailable BERT BOWLES DR~[id number] CLARY Admitting Unavailable BERT BOWLES, ~[id number] CLARY Attending Unavailable [place] PA-C, SANDY Crandall Consulting Unavailab DR CLARY Brown MD Consulting Unavaila radha NOEL MD, DR MEANS Consulting Unavaila [facility] PA-C~[id number], [facility] Primary Care Unavailable BERT BOWLES DR~[id number] CLARY Admitting Unavailable BERT BOWLES DR~[id number] CLARY Attending Unavailable DR CLARY NOEL MD Consulting Unavailpaula NOEL MD, DR MEANS Consulting Unavaila ble FREDY DOTACO Consulting Unavailabl e [place] PA-C~[id number], [facility] Primary Care Unavailable PRITCHETT DO~[id number], PIRTCHETT LAURA K Attending Unavailable PRITCHETT DO~[id number], PRITCHETT LAURA K Admitting Unavailable FREDY DOTACO Consulting Unavailabl e [place] PA-C, SANDY Crandall Consulting Unavailab le [place] PA-C, SANDY Crandall Consulting Unavailab le PRITCHETT DO, LAURA K Consulting Unavailable PRITCHETT DO, LAURA K Consulting Unavailable [facility]~[id number], [facility] Primary Care Unavailable CLARY NOEL MD Admitting Unavailable NONE NONE, NONE~[id number] NONE Consulting Unavailable CLARY NOEL MD Attending Unavailable NONE, NONE Consulting Unavailable CLARY NOEL MD Consulting Unavailable BERT BOWLES, DR MEANS Consulting UnavailCLARY Hester MD Admitting Unavailable [facility]~[id number], [facility] Karley Primary Care Unavailable CLARY NOEL MD Attending Unavailable [facility], SANDY Crandall Consulting Unavailab [facility] PA-C, SANDY Crandall Consulting UnavailCLARY Galvan MD Consulting Unavailable DR CLARY NOEL MD Consulting Unavaila ble NONE NONE, NONE~[id number] NONE Consulting Unavailable CLARY NOEL MD Admitting Unavailable CLARY NOEL MD Attending Unavailable [facility] [place]~[id number], [facility] [place] Primary Care Unavailable NONE, NONE Consulting Unavailable CLARY NOEL MD Consulting Unavailable DR CLARY NOEL MD Consulting Unavaila ble [facility]~[id number], [place] SANDY D Primary Care Unavailable AMENA NEWTON CRNA Consulting Unavailab le BERNIE DO~[id number], BERNIE Castro Admitting Unavailable BERNIE DO~[id number], BERNIE Castro Attending Unavailable AMENA NEWTON CRNA Consulting Unavailab eliz MCNEAL MD, RICH Miguel Consulting Unavailable FREDIS BOWLES, RICH Miguel Consulting Unavailable [place] PA-C, SANDY Crandall Consulting Unavailab le [place] PA-C, SANDY Crandall Consulting Unavailab le BERNIE DO, BRITTANY L Consulting Unavailable BERNIE DO, BRITTANY L Consulting Unavailable CLARY NOEL MD Consulting Unavailable BERT BOWLES, DR MEANS Consulting Unavaila JAN Soto MD Admitting Unavailable JAN CESPEDES MD Primary Care Unavailable JAN CESPEDES MD Attending Unavailable DELPHIA, SANDY Consulting Unavailable DELPHIA, SANDY Referring Unavailable PROVIDER, UNKNOWN Consulting Unavailable [place]IA, SANDY Admitting Unavailable DELPHIA, SANDY Primary Care Unavailable DELPHIA, SANDY Consulting Unavailable DELPHIA, SANDY Attending Unavailable PROVIDER, UNKNOWN Consulting Unavailable DELPHIA, SANDY Admitting Unavailable [place], SANDY Primary Care Unavailable DELPHIA, SANDY Consulting Unavailable DELPHIA, SANDY Attending Unavailable PROVIDER, UNKNOWN Consulting Unavailable ERNESTO CARDONA DO Admitting Unavailable ERNESTO CARDONA DO Primary Care Unavailable ERNESTO CARDONA DO Attending Unavailable DELPHIA, SANDY Consulting Unavailable [place], SANDY Referring Unavailable PROVIDER, UNKNOWN Consulting Unavailable Herscher Sandy SERRANO Primary Care Provider UBALDO BETANCOURT Attending [facility] [place] Primary Care Unavailable RIVERA RING Admitting Unavailable Allergies Allergy Classification Reported Allergen(s) Allergy Type Date of Onset Reaction(s) Facility (1 source) Lactose Drug Allergy 07-12-20 19 Food Allergy [facility] Work Phone: (5 sources) predniSONE; Translations: [PREDNISONE] Drug Allergy 07-12-20 19 Hallucinations [facility] (2 sources) Ragweed pollen; Translations: [ragweed pollen] Allergy to substance 07-12-20 19 Other [facility] Repository (2 sources) prednisoLONE Drug Allergy 09-20-19 23 Shortness of Breath, Hallucination [facility] (1 source) Lactose Drug Allergy 01-19-20 24 [facility] Rep[facility] (1 source) predniSONE Drug Allergy 01-19-20 24 [facility] Repository (1 source) predniSONE Drug Allergy [facility] Repository (1 source) prednisoLONE Drug Allergy [facility] Repository Medications Current Medications Medication Drug Class(es) Dates Sig (Normalized) Sig (Original) 8 hr acetaminophen 650 mg extended release oral tablet (2 sources) Start: 11-06-2022 End: 11-10-2022 take 1 tablet by mouth every six hours acetaminophen 650 MG Tab CR Take 1 tablet by mouth every 6 hours for 16 doses. Alternate with ibuprofen doses every 3 hours. 16 tablet 0 11/06/2022 11/10/2022 Active Start: 11-06-2022 End: 11-06-2022 take 1 tablet by mouth every four hours as needed Acetaminophen (TYLENOL) tablet 650 mg acetaminophen 325 mg / HYDROcodone bitartrate 5 mg oral tablet (3 sources) Opioid Agonist take 1 tablet by mouth every four hours as needed for pain HYDROcodone-acetaminophen (NORCO) 5-325 mg per tablet Take 1 (one) tablet by mouth every 4 (four) hours as needed for pain . Active [id number] actuat albuterol 0.09 mg/actuat metered dose inhaler (1 source) beta2-Adrenergi c Agonist take 1 puff(s) by inhalation every six hours as needed Albuterol 108 (90 Base) MCG/ACT Aero Soln inhaler Inhale 1 puff every 6 hours as needed for Shortness of Breath. 0 Active apple cider vinegar 1000 mg oral tablet (1 source) take 1000 mg by mouth at bedtime APPLE CIDER VINEGAR PO Take 1,000 mg by mouth at bedtime. 0 Active diindolylmethane-her bal drugs 50-50 mg cap (3 sources) take 1 capsule by mouth once daily in the evening diindolylmethane-herbal drugs 50-50 mg cap Take 1 capsule by mouth every evening . Active diphenhydrAMINE hydrochloride 25 mg oral capsule (4 sources) Histamine-1 Receptor Antagonist Start : 02-02 take 1 capsule by mouth once daily as needed diphenhydrAMINE (BENADRYL) 25 mg capsule Take 1 (one) capsule (25 mg total) by mouth nightly as needed . 02/02/2019 Active estradiol 2 mg oral tablet (3 sources) Estrogen Start : 07-12 take 2 mg by mouth once daily Estradiol Active 2 MG PO DAILY July 12, 2019 1:00am FLUoxetine 40 mg oral capsule (3 sources) Serotonin Reuptake Inhibitor Start : 09-28 take 1 capsule by mouth at bedtime FLUoxetine 40 MG capsule Take 1 capsule by mouth at bedtime. 0 09/28/2022 Active Start: 11-14-2017 take 40 mg by mouth at bedtime Fluoxetine Active 40 MG PO AT BEDTIME November 14, 2017 12:00am fluticasone propionate 0.05 mg/actuat metered dose nasal spray (1 source) Corticosteroid fluticasone 50 MCG/ACT Suspension nasal spray 2 sprays by Nasal route at bedtime. 0 Active ibuprofen 600 mg oral tablet (1 source) Nonsteroidal Anti-inflammatory Drug Start: 11-07-19 End: 11-11-19 take 1 tablet by mouth every six hours Ibuprofen 600 MG tablet Take 1 tablet by mouth every 6 hours for 16 doses. Alternate with acetaminophen doses every 3 hours. 16 tablet 0 11/06/2022 11/10/2022 Active Misc. Devices Misc (1 source) oxyCODONE hydrochloride 5 mg oral tablet (4 sources) Opioid Agonist Start: 11-07-19 End: 11-10-19 take 1 tablet by mouth every six hours as needed for pain oxyCODONE 5 MG tablet Indications: Umbilical hernia without obstruction and without gangrene Take 1 tablet by mouth every 6 hours as needed for Severe Pain for up to 3 days. 6 tablet 0 11/06/2022 11/09/2022 Active Start: 11-06-2022 End: 11-06-2022 take 1 tablet by mouth every four hours as needed oxyCODONE (ROXICODONE) tablet 5 mg Start: 07-12-2019 End: 07-19-2019 take 5 mg by mouth every six hours as needed Oxycodone Discontinued 5 MG PO EVERY 6 HOURS NEEDED 14 7 July 12, 2019 July 19, 2019 1:08am Start: 02-03-2019 End: 02-13-2019 take 5 mg by mouth every six hours as needed Oxycodone Discontinued 5 MG PO EVERY 6 HOURS NEEDED 20 7 February 03, 2019 February 13, 2019 12:08am pantoprazole 40 mg delayed release oral tablet (3 sources) Proton Pump Inhibitor Start: 08-18-2022 Pantoprazole [address] tablet DR 1 tablet at bedtime. 0 08/18/2022 Active Start: 07-05-2019 take 40 mg by mouth twice daily Pantoprazole Active 40 MG PO TWICE A DAY July 05, 2019 1:00am phenylephrine hydrochloride 10 mg oral tablet (1 source) alpha-1 Adrenergic Agonist Start: 07-05-2019 Phenylephrine Hcl Active 10 MG PO NEEDED July 05, 2019 1:00am Vit,Flqf56-Cogb-Lwj ic (1 source) Start: 02-02-2019 take 1 tablet by mouth once daily Vit,Sptc27-Lwby-Mq lic Active 1 TABLET PO DAILY February 02, 2019 12:00am progesterone 200 mg oral capsule (3 sources) Progesterone take 1 capsule by mouth once daily progesterone (PROMETRIUM) 200 MG capsule Take 1 (one) capsule (200 mg total) by mouth nightly . Active 24 hr venlafaxine 37.5 mg extended release oral capsule (3 sources) Serotonin and Norepinephrine Reuptake Inhibitor Start: 01-12-2025 take 1 capsule by mouth once daily in the evening venlafaxine (EFFEXOR-XR) 37.5 MG 24 hr capsule Take 1 (one) capsule (37.5 mg total) by mouth every evening . 01/12/2025 Active Completed/Discontinued Medications Medication Drug Class(es) Dates Sig (Normalized) Sig (Original) Acetaminophen / oxyCODONE (1 source) Opioid Agonist Start: 11-06-2022 End: 11-06-2022 take 1 tablet by mouth every four hours as needed oxyCODONE-acetamin ophen (PERCOCET) 5-325 MG per tablet 1 tablet calcium chloride 0.0014 meq/ml / potassium chloride 0.004 meq/ml / sodium chloride 0.103 meq/ml / sodium lactate 0.028 meq/ml injectable solution (1 source) Start: 11-06-2022 End: 11-06-2022 Lactated ringers IV solution docusate sodium 100 mg oral capsule (1 source) Start: 07-12-2019 End: 07-13-2019 take 100 mg by mouth twice daily as needed Docusate Sodium Discontinued 100 MG PO TWICE DAILY NEEDED 60 1 July 12, 2019 1:00am July 13, 2019 1:08am 1 ml fentaNYL 0.05 mg/ml injection (1 source) Opioid Agonist Start: 11-06-2022 End: 11-06-2022 fentaNYL Citrate (PF) (SUBLIMAZE) injection 25 mcg HYDROmorphone (DILAUDID) injection 0.2 mg (1 source) Start: 11-06-2022 End: 11-06-2022 HYDROmorphone (DILAUDID) injection 0.2 mg HYDROmorphone (DILAUDID) injection 0.5 mg (1 source) Start: 11-06-2022 End: 11-06-2022 take 0.5 mg intravenously every three hours as needed HYDROmorphone (DILAUDID) injection 0.5 mg 2 ml ondansetron 2 mg/ml injection (2 sources) Serotonin-3 Receptor Antagonist Start: 11-06-2022 End: 11-06-2022 take 4 mg intravenously every four hours as needed Ondansetron 4mg/2ml (ZOFRAN) injection 4 mg 1 ml promethazine hydrochloride 25 mg/ml injection (1 source) Phenothiazine Start: 11-06-2022 End: 11-06-2022 take 12.5 mg intravenously every six hours as needed Promethazine (PHENERGAN) injection 12.5 mg traMADol hydrochloride 50 mg oral tablet (1 source) Opioid Agonist Start: 07-05-2019 End: 07-12-2019 take 50 mg by mouth every six hours as needed Tramadol Discontinued 50 MG PO EVERY 6 HOURS NEEDED July 05, 2019 1:00am July 12, 2019 1:18pm Problems Active Problems Problem Classification Problem Date Documented Da te Episodic/Chronic Endometriosis (1 source) Endometriosis (clinical); Translations: [Endometriosis, unspecified] Chronic Menopausal disorders (3 sources) Menopausal and female climacteric states; Translations: [MENOPAUSAL FE CLIMACTERIC STATES] Onset: 04-13-2024 Chronic Nonmalignant breast conditions (5 sources) Hematoma of right breast; Translations: [Other specified disorders of breast] Onset: 02-08-2025 02-08-2025 Episodic Other female genital disorders (1 source) Other specified noninflammatory disorders of vagina; Translations: [Other specified noninflammatory disorders of vagina] Onset: 01-29-2024 Episodic Other gastrointestinal disorders (1 source) Disorder of abdominal wall; Translations: [Intra-abdominal and pelvic swelling, mass and lump, unspecified site] Episodic Unclassified (1 source) ENDOMETR RT UTEROSACRAL LG UNS DEP; Translations: [ENDOMETR RT UTEROSACRAL LG UNS DEP] Onset: 10-03-2023 Urinary tract infections (3 sources) Urinary tract infection, site not specified; Translations: [UTI SITE NOT SPECIFIED] Onset: 01-29-2024 Episodic Past or Other Problems Problem Classification Problem Date Documented Da te Episodic/Chronic Abdominal hernia (4 sources) Umbilical hernia; Translations: [Umbilical hernia without obstruction or gangrene] Onset: 11-28-2022 Episodic Abdominal pain (4 sources) Chronic pelvic pain of female; Translations: [Pelvic and perineal pain] Onset: 08-18-2023 Episodic Appendicitis and other appendiceal conditions (1 source) Appendicular concretions; Translations: [APPENDICULAR CONCRETIONS] Onset: 10-03-2023 Episodic Genitourinary symptoms and ill-defined conditions (1 source) Unspecified symptoms and signs involving the genitourinary system; Translations: [Unspecified symptoms and signs involving the genitourinary system] Onset: 08-30-2024 Episodic Immunizations and screening for infectious disease (1 source) Encounter for screening for human papillomavirus (HPV); Translations: [ENC SCREENING HUMAN PAPILLOMAVIRUS] Onset: 08-29-2023 Episodic Other aftercare (2 sources) Encounter for other specified surgical aftercare; Translations: [Encounter for other specified surgical aftercare] Onset: 11-28-2022 Episodic Other gastrointestinal disorders (2 sources) Intra-abdominal and pelvic swelling, mass and lump, unspecified site; Translations: [Intra-abdominal and pelvic swelling, mass and lump, unspecified site] Onset: 10-10-2022 Episodic Other screening for suspected conditions (not mental disorders or infectious disease) (7 sources) Encounter for screening mammogram for malignant neoplasm of breast; Translations: [Other specified abnormal findings of blood chemistry] Onset: 08-28-2023 Episodic Results Test Name Value Interpretation Reference Range Facility CBCon 02-08-2025 AUTO NRBC 0.0 % Normal [facility] Comment on above: Performed By: #### [id number] #### [facility] [address] [place], [place] [id number] Vinny Dennis M.D. [id number] AUTO NRBC ABS COUNT 0.00 K/mcL Normal 0.00-0.00 [facility] Comment on above: Performed By: #### [id number] #### [facility] [address] [place], [place] [id number] Vinny Dennis M.D. [id number] Erythrocyte distribution width (RBC) [Ratio] 13.3 % Normal 11.6-14.8 [facility] Comment on above: Performed By: #### [id number] #### [facility] [address] [place], [place] [id number] Vinny Dennis M.D. [id number] Hematocrit (Bld) [Volume fraction] 40.7 % Normal 36.0-46.0 [facility] Comment on above: Performed By: #### [id number] #### [facility] [address] [place] [address] Vinny Dennis M.D. [id number] Hemoglobin (Bld) [Mass/Vol] 13.0 g/dL Normal 12.0-16.0 [facility] Comment on above: Performed By: #### [id number] #### [facility] [address] [place] [address] Vinny Dennis M.D. [id number] MCH (RBC) [Entitic mass] 29.7 pg Normal 26.0-34.0 [facility] Comment on above: Performed By: #### [id number] #### [facility] [address] [place], [place] [id number] Vinny Dennis M.D. [id number] MCV (RBC) [Entitic vol] 92.9 fL Normal 80.0-100.0 [facility] Comment on above: Performed By: #### [id number] #### [facility] [address] [place] [address] Vinny Dennis M.D. [id number] MEAN CORPUSCULAR HEMOGLOBIN CONC 31.9 g/dL Normal 31.0-37.0 [facility] Comment on above: Performed By: #### [id number] #### [facility] [address] [place], [place] [id number] Vinny Dennis M.D. [id number] Platelet mean volume (Bld) [Entitic vol] 10.3 fL Normal 9.4-12.4 [facility] Comment on above: Performed By: #### [id number] #### [facility] [address] [place] [id number] Vinny Dennis M.D. [id number] Platelets (Bld) [#/Vol] 324 10*3/uL Normal 150-400 [facility] Comment on above: Performed By: #### [id number] #### [facility] [address] [place] [address] Vinny Dennis M.D. [id number] RBC (Bld) [#/Vol] 4.38 10*6/uL Normal 4.00-5.20 [facility] Comment on above: Performed By: #### [id number] #### [facility] [address] [place] [address] Vinny Dennis M.D. [id number] WBC (Bld) [#/Vol] 7.13 10*3/uL Normal 4.50-11.00 [facility] Comment on above: Performed By: #### [id number] #### [facility] [address] [place] [address] Vinny Dennis M.D. [id number] CBC panel Auto (Bld)on 02-08 Erythrocyte distribution width (RBC) [Entitic vol] 13.3 % 11.6 - 14.8 % [facility] Hematocrit (Bld) [Volume fraction] 40.7 % 36.0 - 46.0 % [facility] Hemoglobin (Bld) [Mass/Vol] 13 g/dL 12.0 - 16.0 g/dL [facility] MCH (RBC) [Entitic mass] 29.7 pg 26.0 - 34.0 pg [facility] MCHC (RBC) [Mass/Vol] 31.9 g/dL 31.0 - 37.0 g/dL [facility] MCV (RBC) [Entitic vol] 92.9 fL 80.0 - 100.0 fL [facility] Nucleated RBC (Bld) [#/Vol] 0 10*3/uL [facility] Nucleated RBC/100 WBC (Bld) [Ratio] 0 % [facility] Platelet mean volume (Bld) [Entitic vol] 10.3 fL 9.4 - 12.4 fL [facility] Platelets (Bld) [#/Vol] 324 10*3/uL [facility] RBC (Bld) [#/Vol] 4.38 10*6/uL [facility] WBC (Bld) [#/Vol] 7.13 10*3/uL [facility] H AND Enrique 02-08-2025 H AND P Danelle Baugh 1985 Encounter Diagnoses Name Primary? Hematoma of right breast Yes Pre-op examination Preop cardiovascular exam Procedure: Right Breast Exploration and Evacuation of Hematoma, Possible Implant Replacement Surgeon: Dr. Ring PCP: Sandy Orourke PA-C Cardiology: None Date of Procedure: 02/09/25 PREOPERATIVE HISTORY AND PHYSICAL EXAMINATION DATE OF SERVICE 02/08/2025 ASSESSMENT 1. Right breast hematoma. 2. Asthma. 3. Environmental allergies. 4. History of -induced hypertension. 5. Scoliosis. 6. Migraine headaches. 7. Gastroesophageal reflux disease. 8. Constipation. 9. Depression. 10. Anxiety. 11. Postoperative nausea and vomiting. 12. Previous tobacco use. 1. ASA = 2 . 2. RCRI = 0 (Score/Risk of Major Cardiac Outcomes - 0/0.4%, 1/0.9%, 2/2.4%, 3 or more/>5.4%. This may overestimate the cardiac risks in lower risk procedures and underestimate the risks in vascular procedures. This study has been externally validated.) with 0 modified risk factors. 3. Caprini Score = 5 . (Score/Risk of Symptomatic VTE = 0/<0.5%, 1-2/1.5%, 3-4/3.0%, 5 or greater/6% or greater). 4. Apfel Score = . (Score/Risk of PONV = 0/10%, 1/21%, 2/39%, 3/61%, 4/79%) This score has been externally validated. Plan: 1. The patient falls into an acceptable cardiac risk for category for their planned procedure per 2023 ACC Guidelines and Recommendations. 2. Endocarditis prophylaxis is not required per 2017 ACC/AHA Guidelines and Recommendations. 3. Avoid/limit perioperative hypothermia. 4. Perioperative thromboembolic prophylaxis is recommended per the 2019 [place] [employer] Hemat[employer] Guidelines for Management of VTE: Prevention of VTE in Surgical Hospitalized Patients (or 2019 ACCP Guidelines and Recommendations, or 2011 AAOS Guidelines for orthopedic procedures, or 2008 RIANA Guidelines for neurosurgical procedures). 5. The patient's head of the bed should be elevated to 30 degrees post-operatively unless contraindicated by the procedure. 6. The patient has been advised to discontinue NSAID's and alternative medicines (Vitamins, herbals, etc.) seven days prior to surgery. Perioperative management of the patient's antiplatelet therapy is recommended per the 2023 ACC/AHA Guidelines - Focused Update on Duration of Dual Antiplatelet Therapy in Patient's With Coronary Artery Disease or in accordance with their grounds restoration specialist's recommendations. 7. The patient may use appropriate amounts of acetaminophen pre-operatively for pain management if not allergic and if no history of liver disease. 8. The patient was advised to follow the current [facility] guidelines regarding fluid intake after midnight and to take any recommended medications on the morning of surgery with a sip of water. 9. Ordered laboratory tests will be reviewed pre-operatively and any pertinent abnormalities needing to be addressed will be communicated through Quick Notes. 10. Post-operative spirometry/volurex, deep breathing maneuvers, and early ambulation is recommended if not contraindicated by the procedure. 11. This report will be made available to the requesting surgeon through the electronic medical records. 1. The patient does not meet criteria for the initiation of perioperative beta-blockers per 2017 ACC Guidelines and Recommendations. 1. The patient denies . 1. The patient was advised to alert anesthesia on the day of surgery of their tendency toward post-operative nausea and vomiting/motion sickness. 2. Perioperative nebulizers can be used as needed. PREOPERATIVE HISTORY AND PHYSICAL EXAMINATION DATE OF SERVICE 02/08/2025 HISTORY OF PRESENT ILLNESS Ms. Baugh is a very pleasant, non, 39-year-old white female with multiple medical problems who presents today for a preoperative consultation and risk stratification at the request of Dr. Ring for a planned right breast exploration with evacuation of hematoma and possible implant replacement on 02/09/2025. The patient reports she is not . The patient denies a history of hypertension, hyperlipidemia, diabetes, renal insufficiency, cerebrovascular disease, coronary artery disease, peripheral vascular disease, or valvular heart disease. The patient reports having a history of -induced hypertension but has not had any issues since that point in time. The patient states she is not known to snore excessively when she sleeps and does not necessarily appear to be at risk for sleep apnea based on her statements today. The patient denies a history of MASLD. Not listed in her medical history below is a history of allergies and allergy-induced asthma. The patient states she has not required the use of steroids nor has she been hospitalized for asthma within the last year. The patient's lung exam is clear today with a room air pulse oximeter of 99%. The patient states she did smoke up (more content not included)... Normal [facility] ED MED ADMINISTRATION DETAIL on 01-15-2025 ED MED ADMINISTRATION DETAIL Personal Secretary Medication Administration Record [address] [place] [address] [id number] 01/14/2025 Patient: DANELLE BAUGH Sex: Female : 1985 Age: 39y MEASUREMENTS: Wt: 69.4 kg, Ht/Filiberto: 67.0 in, BMI: 23.96 ALLERGIES: Amoxicillin, Levaquin, prednisone Medication Ordered Medication Administration Date/Time IV NS 0.9 % 1000 21:01/14 IV NS 0.9 % 1000 mL started in bag#1 1000 mL at Started mL at 125 mL/hr 125 mL/hr via Site# 1. Allergies verified and confirmed 5 rights. Via 21:01/14/2025 (NOW x1) IV pump. IV patency established. IV site checked: no pain, redness, Michelle Chase R.N. or swelling. IV flushed thoroughly pre-medication administration. Stopped Information reviewed with patient including reason for taking this 02:01/15/2025 medication, signs of allergic reaction and precautions. Verbalizes Sheri Chapman R.N. understanding. - 21: Michelle Chase R.N. Scanned 02:01/15 Medication Discontinued: bag #1 infused upon discharge. Total amount infused: 1000 mL. IV patency established. IV site checked: no pain, redness, or swelling. IV flushed thoroughly post-medication administration. - 02:04 Sheri Chapman R.N. HYDROmorphone 21:01/14 HYDROmorphone (Dilaudid) IVP 0.5 mg given via Given (Dilaudid) IVP 0.5 Site# 1. Allergies verified and confirmed 5 rights. IV patency 21:01/14/2025 mg (NOW x1, HIGH established. IV site checked: no pain, redness, or swelling. IV Michelle Chase R.N. ALERT flushed thoroughly pre-medication administration. Information Scanned MEDICATION) reviewed with patient including reason for taking this medication, signs of allergic reaction and precautions. Verbalizes understanding. Medication Wastage: 0.5 mg wasted. - 21:07 Michelle Chase R.N. 1 of 3 Personal Secretary Medication Ordered Medication Administration Date/Time Ondansetron IVP 4 21:01/14 Ondansetron IVP 4 mg given via Site# 1. Allergies Given mg (NOW x1) verified and confirmed 5 rights. IV patency established. IV site 21:01/14/2025 checked: no pain, redness, or swelling. IV flushed thoroughly Michelle Chase R.N. pre-medication administration. Information reviewed with patient Scanned including reason for taking this medication, signs of allergic reaction and precautions. Verbalizes understanding. - 21: Michelle Chase R.N. HYDROmorphone 22:01/14 HYDROmorphone (Dilaudid) IVP 0.5 mg given via Given (Dilaudid) IVP 0.5 Site# 1. Allergies verified and confirmed 5 rights. IV patency 22:01/14/2025 mg (NOW x1, HIGH established. IV site checked: no pain, redness, or swelling. IV Michelle Chase R.N. ALERT flushed thoroughly pre-medication administration. Information Scanned MEDICATION) reviewed with patient including reason for taking this medication, signs of allergic reaction and precautions. Verbalizes understanding. Medication Wastage: 0.5 mg wasted. - 22:11 Michelle Chase R.N. HYDROmorphone 22:58 01/14 HYDROmorphone (Dilaudid) IVP 0.5 mg given via Given (Dilaudid) IVP 0.5 Site# 1. Allergies verified and confirmed 5 rights. IV patency 22:58 01/14/2025 mg (NOW x1, HIGH established. IV site checked: no pain, redness, or swelling. IV Michelle Chase R.N. ALERT flushed thoroughly pre-medication administration. Information Scanned MEDICATION) reviewed with patient including reason for taking this medication, signs of allergic reaction and precautions. Verbalizes understanding. Medication Wastage: 0.5 mg wasted. - 22:59 Michelle Chase R.N. KetorOLAC 23:40 01/14 KetorOLAC (Toradol) IVP 15 mg given via Site# 1. Given (Toradol) IVP 15 mg Allergies verified and confirmed 5 rights. IV patency established. IV 23:40 01/14/2025 (NOW x1) site checked: no pain, redness, or swelling. IV flushed thoroughly Sheri Chapman R.N. pre-medication administration. IVP given by nurse. Information Scanned reviewed with patient. Verbalizes understanding. Medication Wastage: 15 mg wasted. - 23:41 Sheri Chapman R.N. 2 of 3 Personal Secretary Medication Ordered Medication Administration Date/Time HYDROmorphone 00:09 01/15 HYDROmorphone (Dilaudid) IVP 1 mg given via Site# Given (Dilaudid) IVP 1 mg 1. Allergies verified and confirmed 5 rights. IV patency established. 00:09 01/15/2025 (NOW x1, HIGH IV site checked: no pain, redness, or swelling. IV flushed thoroughly Campbell Quinonez R.N. ALERT pre-medication administration. IVP given by nurse. Information Scanned MEDICATION) reviewed with patient including reason for taking this medication. Verbalizes understanding. - 00:14 Campbell Quinonez R.N. Ondansetron IVP 4 01:31 01/15 Ondansetron IVP 4 mg given via Site# 1. Allergies Given mg (NOW x1) verified and confirmed 5 rights. IV patency established. IV site 01:01/15/2025 checked: no pain, redness, or swelling. IV flushed thoroughly Sheri Chapman R.N. pre-medication administration. IVP (more content not included)... Normal [facility] ED NURSES CLINICAL NOTEon ED NURSES CLINICAL NOTE Nurse Narrative Nurse Clinical Narrative [facility] [address] [place] [address] [id number] 01/14/2025 20:38:00 [id number] Sex[facility] Female : 1985 Age: 39y Disposition: Discharge to Home Disposition Decision Time: 01:20 01/15/2025 Departure Time: 03:12 01/15/2025 TRIAGE Arrived by private vehicle. Historian: (patient). Primary physician (Danyell Orourke). Triage time: 20:42 01/14/2025. Acuity: LEVEL 3. Chief Complaint: (Patient believes that her popped her right breast implant.). This started today. Onset. (Approximately 1.5hrs ago). ( Patient jumped down a slip and slid and felt her implant rupture.). SEPSIS SCREEN: NEGATIVE. SIRS criteria negative: heart rate greater than 90. -- 20:49 01/14/25 EDT Michelle Chase R.N. 20:45 01/14/25. BP: 165/103 MAP: 124. HR: 103. RR: 16. O2 saturation: 96% on room air. Temperature: 97.6 F (oral). Pain level now 10/10. Describes the pain as throbbing. (Right Breast). -- 20:45 01/14/25 EDT Michelle Chase R.N. Measurements: 20:48 01/14/25 Wt: 69.4 kg, Ht/Filiberto: 67.0 in, BMI: 23.96 -- 20:48 01/14/25 RIGOT Michelle Chase R.N. Medications: Progesterone SR Capsule: TAKE ONE CAPSULE BY MOUTH NIGHTLY AT THE same time WITH a full GLASS of water -- 20:50 01/14/25 RIGOT Michelle Chase R.N. 1 of 5 Nurse Narrative venlafaxine ER 37.5 mg capsule,extended release 24 hr -- 20:50 01/14/25 RIGOT Michelle Chase R.N. Allergies: prednisone -- 20:44 01/14/25 EDT Michelle Chase R.N. Levaquin -- 20:44 01/14/25 EDT Michelle Chase R.N. Amoxicillin -- 20:44 01/14/25 EDT Michelle Chase R.N. Problems: Hypertension -- 20:46 01/14/25 EDT Michelle Chase R.N. Endometriosis -- 20:46 01/14/25 EDT Michelle Chase R.N. Asthma -- 20:46 01/14/25 EDT Michelle Chase R.N. Surgeries: -- 20:44 01/14/25 EDT Michelle Chase R.N. Hysterectomy -- 20:44 01/14/25 EDT Michelle Chase R.N. Breast Augmentation -- 20:44 01/14/25 EDT Michelle Chase R.N. Appendectomy -- 20:47 01/14/25 EDT Michelle Chase R.N. Cholecystectomy -- 20:47 01/14/25 EDT Michelle Chase R.N. History 20:42 01/14/25. SOCIAL HX: Light tobacco smoker (cigarette)- less than 1/2 a pack per day. Occasional drug use: marijuana. Recently used drugs days ago. No alcohol use. The patient has not traveled outside the [place] Infectious disease exposure: No infectious disease exposure. ABUSE ASSESSMENT: The patient answered yes to the question(s) Do you feel safe in your home? and no to the question(s) Are you afraid to go home?. SELF HARM ASSESSMENT: Self harm assessment was performed. The patient answered no to the question(s) Have you recently felt down, depressed, or hopeless? and Do you have thoughts of harming or killing yourself?. FALL RISK ASSESSMENT: Fall risk assessment completed. No risk factors identified. -- 20:49 01/14/25 EDT Michelle Chase R.N. 2 of 5 Nurse Narrative Interventions 20:42 01/14/25. Advanced care plan discussed with patient. Patient does not have advanced directive. -- 20:49 01/14/25 SAVI Chase R.N. PHYSICAL ASSESSMENT 21:10 01/14/25. GENERAL / NEURO / PSYCH: Alert. Oriented X 4. Appears in no acute distress. HEENT: Pupils equal, round and reactive to light. RESPIRATORY: Respirations not labored. Breath sounds within normal limits. CVS: Right breast area : swelling (Measured at 31cm x 35cm). Normal sinus rhythm noted. GI / : Abdomen soft and nontender. SKIN: Skin intact. Skin is warm and dry. -- 21:44 01/14/25 EDT Michelle Chase R.N. NURSING PROGRESS NOTES 21:01/14/25. IV NS 0.9 % 1000 mL started in bag#1 1000 mL at 125 mL/hr via Site# 1. Allergies verified and confirmed 5 rights. Via IV pump. IV patency established. IV site checked: no pain, redness, or swelling. IV flushed thoroughly pre-medication administration. Information reviewed with patient including reason for taking this medication, signs of allergic reaction and precautions. Verbalizes understanding. -- 21:01/14/25 EDT Michelle Chase R.N. 21:01/14/25. Ondansetron IVP 4 mg given via Site# 1. Allergies verified and confirmed 5 rights. IV patency established. IV site checked: no pain, redness, or swelling. IV flushed thoroughly pre-medication administration. Information reviewed with patient including reason for taking this medication, signs of allergic reaction and precautions. Verbalizes understanding. -- :01/14/25 EDT Michelle Chase R.N. 21:01/14/25. HYDROmorphone (Dilaudid) IVP 0.5 mg given via Site# 1. Allergies verified and confirmed 5 rights. IV patency established. IV site checked: no pain, redness, or swelling. IV flushed thoroughly pre-medication administration. Information reviewed with patient including reason for taking this medication, signs of allergic reaction and precautions. Verbalizes understanding. Medication Wastage: 0.5 mg (more content not included)... Normal [facility] ED ORDER SHEET (CPOE ONLY)on 01-15-2025 ED ORDER SHEET (CPOE ONLY) Order Sheet Order Sheet [address] [place] [address] [id number] 01/14/2025 Patient: DANELLE BAUGH Sex: Female : 1985 Age: 39y MEASUREMENTS: Wt: 69.4 kg, Ht/Filiberto: 67.0 in, BMI: 23.96 ALLERGIES: Amoxicillin, Levaquin, prednisone MEDICATION/IV/DRIP/FLUID ORDERS Order Description Priority Entered Acknowledged Completed IV NS 0.9 %1000 mL at 125 20:53 01/14/2025 20:54 21:05 mL/hr (NOW x1) Ernesto Cardona D.O. 01/14/2025 01/14/2025 Michelle Gallardo, R.N. R.N. HYDROmorphone (Dilaudid) 20:54 01/14/2025 20:55 21:07 IVP0.5 mg (NOW x1, HIGH Karley Abdul.O. 01/14/2025 01/14/2025 ALERT MEDICATION) Michelle Gallardo, Vickie.N. R.N. Ondansetron IVP4 mg (NOW x1) 20:54 01/14/2025 20:55 21:07 Danyell AbdulO. 01/14/2025 01/14/2025 Michelle Gallardo, R.N. R.N. HYDROmorphone (Dilaudid) 21:59 01/14/2025 22:00 22:11 IVP0.5 mg (NOW x1, HIGH Karley Abdul.O. 01/14/2025 01/14/2025 ALERT MEDICATION) Michelle Gallardo, Vickie.N. R.N. 1 of 3 Order Sheet Reason for ordering with alerts: Clinical consideration given --21:59 01/14/2025 Danyell AbdulOMin HYDROmorphone (Dilaudid) 22:54 01/14/2025 22:55 22:59 IVP0.5 mg (NOW x1, HIGH Karley Abdul.O. 01/14/2025 01/14/2025 ALERT MEDICATION) Michelle Gallardo, Vickie.N. R.N. Reason for ordering with alerts: Clinical consideration given --22:54 01/14/2025 Karley Abdul.O. KetorOLAC (Toradol) IVP15 mg 23:35 01/14/2025 23:41 (NOW x1) Ernesto Cardona D.O. 01/14/2025 Sheri Chapman R.N. Reason for ordering with alerts: Clinical consideration given --23:35 01/14/2025 Ernesto Cardona D.O. HYDROmorphone (Dilaudid) 00:04 01/15/2025 00:06 00:14 IVP1 mg (NOW x1, HIGH ALERT Ernesto Cardona D.O. 01/15/2025 01/15/2025 MEDICATION) Campbell Dash R.N. RMinNMin Reason for ordering with alerts: Clinical consideration given --00:04 01/15/2025 Ernesto Cardona D.O. Ondansetron IVP4 mg (NOW x1) 01:28 01/15/2025 01:33 Ernesto Cardona D.O. 01/15/2025 Sheri Chapman R.N. Reason for ordering with alerts: Clinical consideration given --01:28 01/15/2025 Ernesto Cardona D.O. OxyCODONE-APAP 5-325 01:57 01/15/2025 02:03 (Percocet) PO1 tab (NOW x1, Ernesto Cardona D.O. 01/15/2025 HIGH ALERT MEDICATION) Sheri Chapman R.N. Reason for ordering with alerts: Clinical consideration given --01:57 01/15/2025 Ernesto Cardona D.O. LAB ORDERS 2 of 3 Order Sheet Order Description Priority Entered Acknowledged Collected Completed CBC w Diff Stat Stat 20:53 01/14/2025 20:53 01/14/2025 21:29 01/14/2025 John Abdul Katelyn Horst, Parth. R.N. CMP Stat Stat 20:53 01/14/2025 20:53 01/14/2025 21:29 01/14/2025 John Abdul Katelyn Horst, R.N. R.N. HCG, Qual Serum Stat Stat 20:53 01/14/2025 20:53 01/14/2025 21:29 01/14/2025 John Abdul Katelyn Horst, R.NMin RKristal DIAGNOSTIC STUDY ORDERS Order Description Priority Entered Acknowledged Completed CT Chest/Abd/Pelvis w Cont Stat 20:53 01/14/2025 20:53 22:00 Stat Ernesto Cardona D.O. 01/14/2025 01/14/2025 Michelle Gallardo R.N. RKristal Order Comments: 20:53 01/14/2025: Status: Not . Ernesto Cardona D.O. Reason for Study: Trauma/Injury STAFF ORDERS Order Description Priority Entered Acknowledged Collected Completed [Electronically signed by Ernesto Cardnoa D.O. (01/15/2025 04:02 EDT)] 3 of 3 Normal [facility] ED PHYSICIAN CLINICAL REPORT on 01-15-2025 ED PHYSICIAN CLINICAL REPORT Narrative Physician Clinical Narrative [address] [place] [address] [id number] 01/14/2025 20:38:00 Patient: DANELLE BAUGH Sex: Female : 1985 Age: 39y Disposition: Discharge to Home Disposition Decision Time: 01:20 01/15/2025 Departure Time: 03:12 01/15/2025 Measurements Wt: 69.4 kg, Ht/Filiberto: 67.0 in, BMI: 23.96 Initial Vital Sign Measured Time BP MAP HR RR O2Sat ETCO2 Temp Pain GCS RTS 20:45 01/14/2025 165/103 124 103 16 96% RA 97.6 F 10 Time Seen: 20:40 01/14/2025. Arrived- By private vehicle. Historian- patient. HISTORY OF PRESENT ILLNESS Chief Complaint: Injury to CHEST. Location of injuries- chest (Struck right chest going down the slip and slide today.). The injury occurred today. [place]. The patient complains of moderate pain. REVIEW OF SYSTEMS SKIN: No laceration. : No bladder dysfunction. GI: No nausea or vomiting. RESPIRATORY: No difficulty breathing. EYES: No loss of vision. CVS: The patient has had chest pain. EARS: No hearing loss. NEUROLOGICAL: No numbness, weakness or headache. Status: Not . 1 of 10 Narrative PAST HISTORY See nurses notes. Asthma Endometriosis Hypertension Surgeries: Appendectomy Breast Augmentation Cholecystectomy Hysterectomy Medications: Progesterone SR Capsule: TAKE ONE CAPSULE BY MOUTH NIGHTLY AT THE same time WITH a full GLASS of water venlafaxine ER 37.5 mg capsule,extended release 24 hr Allergies: Amoxicillin Levaquin prednisone SOCIAL HISTORY Never smoker. No alcohol use or drug use. ADDITIONAL NOTES The nursing notes have been reviewed. PHYSICAL EXAM Appearance: Alert. Oriented X3. No acute distress. Head: Head non-tender. No swelling of head. Eyes: Pupils equal, round and reactive to light. EOM intact. 2 of 10 Narrative ENT: No dental injury. Pharynx normal. Neck: Painless ROM. Non-tender. CVS: Heart sounds normal. Pulses normal. Abdomen: No visible injury. Soft and nontender. Bowel sounds normal. No mass. Back: No tenderness. ROM normal. Skin: Skin warm and dry. Extremities: Normal inspection. Pelvis stable. Extremities atraumatic. No lower extremity edema. Neuro: Oriented X 3. No motor deficit. No sensory deficit. LABS, X-RAYS, AND EKG Chest CT: (Moderate sized hematoma noted to surround the right breast implant. Stranding identified in the soft tissue surrounding hematoma consistent with post traumatic edema. The right breast implant appears intact. The left breast implant also appears intact. No pulmonary contusion. Intact thoracic aorta. No thoracic aortic aneurysm or dissection. No pulmonary embolus. No pneumomediastinum. Minimal atelectasis at the right lung base. No acute fracture dislocation.). The study was interpreted by the radiologist. Interpretation time: 00:41 01/15/2025. CT Abdomen, Pelvis: No solid organ injury identified in the abdomen and pelvis. Cholecystectomy. Fluid-filled distended bladder. Fatty infiltration of the liver. No acute process seen in the spleen pancreas adrenal glands and kidneys. Surgical clips in the right lower quadrant suggestive of prior appendectomy. Hysterectomy. No free air or free fluid. No abscess or hematoma of the peritoneal cavity. No acute foreign body. Abdomen - pelvic CT performed with IV contrast. The study was interpreted by the radiologist. Interpretation time: 00:41 01/15/2025. Laboratory Tests: CBC + DIFF Final LISSA: 01/14/2025 19:05:00 EDT MsgRcvd: 01/14/2025 21:51 EDT Lab Test Result Reference Status Received Comments 01/14/2025 21:51 CBC-COMPLETE CBC + DIFF Final EDT BLOOD COUNT 01/14/2025 21:51 WBC 9.3 x 10/UL 4.5 - 10.8 Final EDT 3 of 10 Narrative Lab Test Result Reference Status Received Comments 01/14/2025 21:51 RBC 4.40 x 10/UL 4.10 - 5.30 Final EDT 01/14/2025 21:51 HEMOGLOBIN 13.8 g/dl 12.0 - 16.0 Final EDT 01/14/2025 21:51 HEMATOCRIT 38.8 % 34.0 - 46.0 Final EDT 01/14/2025 21:51 MCV 88 fl 80 - 99 Final EDT 01/14/2025 21:51 MCH 31 pg 27 - 33 Final EDT 01/14/2025 21:51 MCHC 36 X10 3 32 - 36 Final EDT 01/14/2025 21:51 RDW/CV 13.5 % 12.0 - 15.6 Final EDT 01/14/2025 21:51 PLATELET 299 x10/UL 150 - 450 Final EDT 01/14/2025 21:51 AUTOMATED MPV 8.1 fl 6.6 - 10.5 Final EDT DIFFERENTIAL 01/14/2025 21:51 NEUT % 69.7 % 46.0 - 76.0 Final EDT 01/14/2025 21:51 LYMPH % 23.6 % 20.0 - 45.0 Final EDT 01/14/2025 21:51 MONOS % 5.5 % 0.0 - 10.0 Final EDT 01/14/2025 21:51 EO % 1.0 % 0.0 - 7.0 Final EDT 4 of 10 Narrative Lab Test Result Reference Status Received Comments 01/14/2025 21:51 BASO % 0.3 % 0.0 - 2.0 Final EDT 01/14/2025 21:51 Lymph # 2.18 x10/UL 0.80 - 2.80 Final EDT 01/15/20 (more content not included)... Normal [facility] ED SUPER BILLon 01-15-2025 ED SUPER BILL Superbill [address] [address] [id number] 01/14/2025 Patient: DANELLE BAUGH Sex: Female : 1985 Age: 39y Facility Professional Category Item Description Code Code Quantity Fee Total Drugs Normal Saline 740680 1 $0.00 $0.00 1000cc (477584) Nurse/E/M EMERGENCY 200196 1 $0.00 $0.00 DEPT VISIT HIGH SEVERITYFUNCJ (41592-94) Nurse/IV/IM/Infusions Hydration 197199 5 $0.00 $0.00 additional hour (09432) Nurse/IV/IM/Infusions IVP additional 291851 2 $0.00 $0.00 push (43648) Nurse/IV/IM/Infusions IVP initial (77583) 702709 1 $0.00 $0.00 Nurse/IV/IM/Infusions IVP same med 829577 4 $0.00 $0.00 (31 min apart) (24318) Grand $0.00 Total Providers 1 of 2 [facility] Ernesto Cardona D.O. Chief Complaint Injury to CHEST. Principal Diagnosis Single hematoma to the right breast. Discharge instructions for. ICD-10 Codes S20.01xA: Contusion of right breast, initial encounter 2 of 2 [facility] ED VISIT SUMMARYon ED VISIT SUMMARY Visit Overview Visit Overview [address] [address] [id number] 01/14/2025 Patient: DANELLE BAUGH Sex: Female : 1985 Age: 39y 01/15/2025 07:08 AM EDT ED Arrival:20:38 01/14/2025 EDT Status:not Recent Travel:no Language:eng Adv Directive:No Isolation Status: Ethnicity:N Fall Risk:no risk Infectious Disease Exposure:no Measurements:5'7 / 170.2 Self-Harm Status:risk Sepsis Screen:negative cm 153.0 lb / 69.4 kg Chief Complaint:(Approximately 1.5hrs ago), (Danyell Herscher), (Patient believes that her popped her right breast implant.), and (Patient jumped down a slip and slid and felt her implant rupture.) ALLERGIES Amoxicillin Levaquin prednisone HOME MEDICATIONS 3 Visit Overview Progesterone SR Capsule: TAKE ONE CAPSULE BY MOUTH NIGHTLY AT THE same time WITH a full GLASS of water venlafaxine ER 37.5 mg capsule,extended release 24 hr PAST MEDICAL HISTORY / PROBLEMS Asthma Endometriosis Hypertension See nurses notes PAST SURGICAL HISTORY Appendectomy Breast Augmentation Cholecystectomy Hysterectomy SOCIAL HISTORY Smoking status: Yes Alcohol use: No Drug use: Yes ED COURSE MEDICATIONS GIVEN IN EMERGENCY DEPARTMENT 21:03 01/14/25 IV NS 0.9 % 1000 mL 125 mL/hr 21:05 01/14/25 Ondansetron IVP 4 mg 21:07 01/14/25 HYDROmorphone (Dilaudid) IVP 0.5 mg 22:11 01/14/25 HYDROmorphone (Dilaudid) IVP 0.5 mg 22:58 01/14/25 HYDROmorphone (Dilaudid) IVP 0.5 mg 23:40 01/14/25 KetorOLAC (Toradol) IVP 15 mg 00:09 01/15/25 HYDROmorphone (Dilaudid) IVP 1 mg 01:31 01/15/25 Ondansetron IVP 4 mg 02:02 01/15/25 OxyCODONE-APAP 5-325 (Percocet) PO 1 tab IV SITE INFORMATION 2 of 3 Visit Overview INTAKE OUTPUT Total Urine 1000 mL TOTAL OUTPUT 1000 mL REASSESMENT (most recent) 21:42 01/14/25. ( Patient given warm blanket). VITAL SIGNS First Vitals Last Vitals Temp 20:45 01/14/25 97.6 F Temp 01:01/15/25 BP 20:45 01/14/25 165/103 BP 01:01/15/25 121/71 HR 20:45 01/14/25 103 HR 01:01/15/25 98 RR 20:01/14/25 16 RR 01:01/15/25 O2 Sat 20:01/14/25 96% RA O2 Sat 01:01/15/25 Pain 20:45 01/14/25 10 Pain 01:01/15/25 ETCO2 20:45 01/14/25 ETCO2 01:23 01/15/25 GCS 20:45 01/14/25 GCS 01:23 01/15/25 RTS 20:45 01/14/25 RTS 01:23 01/15/25 PROCEDURES NURSING INTERVENTIONS LABS / STUDIES LABS / STUDIES ORDERED CBC w Diff CMP CT Chest/Abd/Pelvis w Cont HCG, Qual Serum CLINICAL IMPRESSION SINGLE HEMATOMA TO THE RIGHT BREAST. DISCHARGE INSTRUCTIONS FOR 3 of 3 Normal [facility] ED VITALS FLOW SHEETon 01-15 ED VITALS FLOW SHEET Vitals Vital Sign Flow Sheet [facility] [address] [place] [address] [id number] 01/14/2025 Patient: DANELLE BAUGH Sex: Female : 1985 Age: 39y Measurements Wt: 69.4 kg, Ht/Filiberto: 67.0 in, BMI: 23.96 Measured Time BP MAP HR RR O2Sat ETCO2 Temp Pain GCS RTS 01:23 01/15/2025 121/71 87 98 01:08 01/15/2025 123/85 97 103 00:53 01/15/2025 124/78 87 105 00:38 01/15/2025 123/79 85 92 00:23 01/15/2025 121/78 86 88 00:23 01/15/2025 92 100% 00:18 01/15/2025 94 100% 00:13 01/15/2025 105 100% 00:08 01/15/2025 113/75 84 90 00:08 01/15/2025 91 98% 00:03 01/15/2025 88 98% 23:58 01/14/2025 92 99% 23:53 01/14/2025 112/70 84 89 23:53 01/14/2025 90 97% 23:48 01/14/2025 93 99% 1 of 3 Vitals Measured Time BP MAP HR RR O2Sat ETCO2 Temp Pain GCS RTS 23:43 01/14/2025 103 99% 23:38 01/14/2025 131/87 95 109 23:38 01/14/2025 107 96% 23:33 01/14/2025 99 99% 23:28 01/14/2025 97 99% 23:23 01/14/2025 106/71 82 91 23:23 01/14/2025 93 98% 23:18 01/14/2025 96 98% 23:13 01/14/2025 98 99% 23:08 01/14/2025 129/82 91 92 23:08 01/14/2025 93 97% 23:03 01/14/2025 96 97% 22:58 01/14/2025 99 99% 22:57 01/14/2025 123/89 96 96 22:53 01/14/2025 90 97% 22:38 01/14/2025 130/89 98 108 22:38 01/14/2025 109 99% 22:33 01/14/2025 104 98% 22:28 01/14/2025 102 98% 22:23 01/14/2025 146/87 94 101 22:23 01/14/2025 96 95% 22:18 01/14/2025 101 98% 22:13 01/14/2025 100 98% 21:43 01/14/2025 96 95% 21:38 01/14/2025 136/88 104 94 2 of 3 Vitals Measured Time BP MAP HR RR O2Sat ETCO2 Temp Pain GCS RTS 21:38 01/14/2025 97 96% 21:33 01/14/2025 95 100% 21:23 01/14/2025 164/104 115 99 21:23 01/14/2025 98 100% 21:18 01/14/2025 103 97% 21:13 01/14/2025 99 97% 20:45 01/14/2025 165/103 124 103 16 96% RA 97.6 F 10 3 of 3 Normal [facility] CBC + DIFFon 01-14-2025 Baso # 0.02 x10EE3/UL Normal 0.00 - 0.10 [facility] Comment on above: Performed By: #### [id number] #### [facility],[address] [place] [address] Basophils/100 WBC (Bld) 0.3 % Normal 0.0 - 2.0 [facility] Comment on above: Performed By: #### [id number] #### [facility],[address] [place] [id number] CBC + DIFF Normal [facility] Comment on above: Result Comment: CBC- COMPLETE BLOOD COUNT Performed By: #### [id number] #### [facility],[address] [place] [id number] EO # 0.09 x10EE3/UL Normal 0.00 - 0.50 [facility] Comment on above: Performed By: #### [id number] #### [facility],[address] [place] [id number] Eosinophils/100 WBC (Bld) 1.0 % Normal 0.0 - 7.0 [facility] Comment on above: Performed By: #### 2 14220 #### [facility],[address] [place], [place] [id number] Erythrocyte distribution width (RBC) [Ratio] 13.5 % Normal 12.0 - 15.6 [facility] Comment on above: Performed By: #### 2 81853 #### [facility],[address] [place] [address] 84861 Hematocrit (Bld) [Volume fraction] 38.8 % Normal 34.0 - 46.0 [facility] Comment on above: Performed By: #### 2 56391 #### [facility],[address] [place] [address] 64630 Hemoglobin (Bld) [Mass/Vol] 13.8 g/dL Normal 12.0 - 16.0 [facility] Comment on above: Performed By: #### 2 38685 #### [facility],[address] [place] [address] 94090 Lymph # 2.18 x10EE3/UL Normal 0.80 - 2.80 [facility] Comment on above: Performed By: #### 2 95670 #### [facility],[address] [place] [address] 20727 Lymphocytes/100 WBC (Bld) 23.6 % Normal 20.0 - 45.0 [facility] Comment on above: Performed By: #### 2 07848 #### [facility],[address] [place] [address] MANUAL DIFF N/A Normal [facility] Comment on above: Performed By: #### 2 32655 #### [facility],[address] [place] [address] MCH (RBC) [Entitic mass] 31 pg Normal 27 - 33 [facility] Comment on above: Performed By: #### 2 13561 #### [facility],[address] [place] [address] MCHC 36 X10 3 Normal 32 - 36 [facility] Comment on above: Performed By: #### 2 65924 #### [facility],[address] [place] [address] MCV (RBC) [Entitic vol] 88 fL Normal 80 - 99 [facility] Comment on above: Performed By: #### 2 40214 #### [facility],[address] [place] [address] [place]osa # 0.51 x10EE3/UL Normal 0.20 - 1.00 [facility] Comment on above: Performed By: #### 2 24987 #### [facility],[address] [place] [address] MONOS % 5.5 % Normal 0.0 - 10.0 [facility] Comment on above: Performed By: #### 2 66914 #### [facility],[address] [place], [place] [id number] Morphology Tai (Bld) [Interp] N/A Normal [facility] Comment on above: Performed By: #### 2 50654 #### [facility],[address] [place] [address] Neut # 6.44 x10EE3/UL Normal 1.50 - 7.10 [facility] Comment on above: Performed By: #### 2 02716 #### [facility],[address] [place] [address] 11442 Neutrophils/100 WBC (Bld) 69.7 % Normal 46.0 - 76.0 [facility] Comment on above: Performed By: #### 2 39750 #### [facility],[address] [place] [address] 93841 PLATELET 299 x10EE3/UL Normal 150 - 450 [facility] Comment on above: Performed By: #### 2 59452 #### [facility],[address] [place] [address] 00233 Platelet mean volume (Bld) [Entitic vol] 8.1 fL Normal 6.6 - 10.5 [facility] Comment on above: Result Comment: AUTO MATED DIFFERENTIAL Performed By: #### 2 23859 #### [facility],[address] [place] [address] 28812 RBC 4.40 x 10EE6/UL Normal 4.10 - 5.30 [facility] Comment on above: Performed By: #### 2 95879 #### [facility],[address] [place] [address] 12273 WBC 9.3 x 10EE3/UL Normal 4.5 - 10.8 [facility] Comment on above: Performed By: #### 2 77667 #### [facility],[address] [place] [address] 67759 CMP with eGFRon 01-14-2025 AGE 39 years Normal [facility] Comment on above: Performed By: #### 2 75702 #### [facility],[address] [place] [address] 01774 Albumin [Mass/Vol] 4.4 g/dL Normal 3.4 - 5.0 [facility] Comment on above: Performed By: #### 2 59556 #### [facility],[address] [place] [address] 88675 Albumin/Globulin [Mass ratio] 1.4 {ratio} Normal 0.9 - 1.6 [facility] Comment on above: Performed By: #### 2 99318 #### [facility],[address] [place] [address] 01714 ALK PHOS 59 U/L Normal 46 - 116 [facility] Comment on above: Performed By: #### 2 87752 #### [facility],[address] [place] [address] 61228 ALT [Catalytic activity/Vol] 26 U/L Normal 16 - 63 [facility] Comment on above: Performed By: #### 2 19084 #### [facility],[address] [place] [address] 69377 Anion gap [Moles/Vol] 17 mmol/L Normal 10 - 20 [facility] Comment on above: Performed By: #### 2 80255 #### [facility],[address] [place], [place] [id number] AST [Catalytic activity/Vol] 14 U/L Normal 13 - 39 [facility] Comment on above: Performed By: #### 2 19053 #### [facility],[address] [place] [address] 22733 B/C RATIO 13 ratio Normal 0 - 30 [facility] Comment on above: Performed By: #### 2 19963 #### [facility],[address] [place] [address] 28312 Bilirubin [Mass/Vol] 0.7 mg/dL Normal 0.2 - 1.0 [facility] Comment on above: Performed By: #### 2 11889 #### [facility],[address] [place] [address] 27098 Calcium [Mass/Vol] 8.9 mg/dL Normal 8.5 - 10.1 [facility] Comment on above: Performed By: #### 2 88499 #### [facility],[address] [place] [address] 81230 Chloride [Moles/Vol] 95 mmol/L Low 98 - 107 [facility] Comment on above: Performed By: #### 2 17133 #### [facility],[address] [place] [address] 31380 CMP with eGFR Normal [facility] Comment on above: Result Comment: COMP REHENSIVE METABOLIC PANEL Performed By: #### 2 76275 #### [facility],[address] [place], [place] [id number] CO2 [Moles/Vol] 24.7 mmol/L Normal 21.0 - 32.0 [facility] Comment on above: Performed By: #### 2 03774 #### [place] [id number] Creatinine [Mass/Vol] 0.60 mg/dL Normal 0.55 - 1.02 [facility] Comment on above: Performed By: #### 2 55932 #### [facility],[address] [place], [place] [address] GFR/1.73 sq M.predicted among non-blacks MDRD (S/P/Bld) [Vol rate/Area] mL/min/{1.73_m2} Normal 60 - 999 [facility] Comment on above: Performed By: #### 2 58550 #### [place] [id number] Result Comment: ACCO RDING TO THE NATIONAL KIDNEY DISEASE EDUCATION PROGRAM(NKDE), A NORMAL eGFR IS A VALUE GREATER THAN OR EQUAL TO 60 ML/MIN/1.73 SQ METERS. CHRONIC KIDNEY DISEASE: <60mL/MIN/1.73 SQ METERS KIDNEY FAILURE: <15mL/MIN/1.73 SQ METERS THIS TEST SHOULD ONLY BE USED FOR PATIENTS 18 YEARS OF AGE AND OLDER. Globulin (S) [Mass/Vol] 3.2 g/dL Normal 1.5 - 3.8 [facility] Comment on above: Performed By: #### 2 52160 #### [place] [id number] Glucose [Mass/Vol] 84 mg/dL Normal 74 - 106 [facility] Comment on above: Performed By: #### 2 03671 #### [facility],[address] [place] [address] 66069 Potassium [Moles/Vol] 3.2 mmol/L Low 3.5 - 5.1 [facility] Comment on above: Performed By: #### 2 49217 #### [facility],[address] [place] [address] 03499 Protein [Mass/Vol] 7.6 g/dL Normal 6.4 - 8.2 [facility] Comment on above: Performed By: #### 2 19431 #### [facility],[address] [place] [address] 12570 Sodium [Moles/Vol] 133 mmol/L Low 136 - 145 [facility] Comment on above: Performed By: #### 2 81775 #### [facility],[address] [place] [address] 84017 Urea nitrogen [Mass/Vol] 8 mg/dL Normal 7 - 18 [facility] Comment on above: Performed By: #### 2 11302 #### [facility],[address] [place] [address] CHEST/ABD/PELVIS C+on CT CHEST/ABD/PELVIS C+ [place] [address] Patient: DANELLE BAUGH Phone#: : 1985 Age: 39 Gender: F Pt. Type: ER Account: [id number] Location: 2 Ordering: ERNESTO CARDONA Exam Date: 01/14/2025/21:53 Family Phys: SANDY OROURKE Charge Code: [id number] Physician: Coryell Order #: [id number] Dose#: 13.8 PROCEDURE: CT CHEST/ABD/PELVIS W COMPARISON: None. INDICATIONS: Right breast injury. TECHNIQUE: After obtaining the patient's consent, CT images were obtained with intravenous contrast material. All CT scans at this facility use dose modulation, iterative reconstruction, and/or weight based dosing when appropriate to reduce radiation dose to as low as reasonably achievable. IV CONTRAST: Omnipaque 350,ml CHEST DOSE: 6.5 CTDIvol(mGy) ABDOMEN DOSE: 7.3 CTDIvol(mGy) FINDINGS: LUNGS: Normal. No visible pulmonary disease. VASCULATURE: Normal. No visible pulmonary arterial thrombus or attenuation. ONESIMO: Normal. No mass or adenopathy. MEDIASTINUM: Normal. No mass or adenopathy. CARDIAC: Normal. No enlargement, pericardial thickening, or significant calcification. PLEURA: Normal. No mass or effusion. CHEST WALL: Bilateral breast implants are present. Implants appear to be intact. There is large hematoma surrounding the right breast implant. Subcutaneous fat stranding is present. LIVER: Normal. No enlargement, atrophy, abnormal density, or significant focal lesion. BILIARY: Normal. No visible dilatation or calcification. PANCREAS: Normal. No lesion, fluid collection, ductal dilatation, or atrophy. SPLEEN: Normal. No enlargement or focal lesion. KIDNEYS: Normal. No mass, obstruction, or calcification. ADRENALS: Normal. No mass or enlargement. AORTA/VASCULAR: Normal. No aneurysm or dissection. RETROPERITONEUM: Normal. No mass or adenopathy. Continued Report - Page 2 of 2 Patient: DANELLE BAUGH Phone#: : 1985 Age: 39 Gender: F Pt. Type: ER Account: [id number] Location: 052 Ordering: ERNESTO CARDONA Exam Date: 01/14/2025/21:53 Family Phys: [facility] Charge Code: [id number] Physician: Coryell Order #: [id number] Dose#: 13.8 BOWEL/MESENTERY: Normal. No visible mass, obstruction, or bowel wall thickening. ABDOMINAL WALL: Normal. No mass or hernia. URINARY BLADDER: Normal. No visible focal wall thickening, lesion, or calculus. PELVIC NODES: Normal. No adenopathy. PELVIC ORGANS: Normal. No visible mass. Pelvic organs appropriate for patient age. BONES: Normal. No bony lesion or fracture. OTHER: Negative. CONCLUSION: 1. Bilateral breast implants. Large hematoma is present surrounding the right breast implant. Subcutaneous fat stranding is present. Dictated by: Yeny Alaniz MD on 01/15/2025 at 11:19 Approved by: Yeny Alaniz MD on 01/15/2025 at 11:22 [facility] SERUM QUALon 01-14 EXTERNAL QC DONE? YES Normal [facility] Comment on above: Performed By: #### 2 20753 #### [place] [address] INTERNAL QC PASS Normal [facility] Comment on above: Performed By: #### 2 26504 #### [place] [address] SER Negative Normal NEGATIVE [facility] Comment on above: Performed By: #### 2 54869 #### [place] [address] URINE CULTURE [CCL]on 2024 Bacteria identified Cx Nom (U) URCUL See Results Below See Below CULTURE, URINE NORMAL UROGENITAL AMIE 10,000 -<50,000 CFU/ml Normal urogenital amie SOURCE: Urine (Nonspecific) [facility] [address] [place] [address] Homero Brenner III, M.D. [id number] SEND TO IC NO Normal [facility] Comment on above: Performed By: #### 2 12648 #### [place] [id number] CBC (NO DIFF)on 04-14-2024 CBC panel Auto (Bld) Normal [facility] Comment on above: Result Comment: CBC( WITHOUT DIFFERENTIAL) Performed By: #### 2 29773 #### [facility],[address] [place], [place] [id number] Erythrocyte distribution width (RBC) [Ratio] 14.0 % Normal 12.0 - 15.6 [facility] Comment on above: Performed By: #### 2 34854 #### [facility],[address] [place] [address] Hematocrit (Bld) [Volume fraction] 41.8 % Normal 34.0 - 46.0 [facility] Comment on above: Performed By: #### 2 96744 #### [facility],[address] [place] [address] Hemoglobin (Bld) [Mass/Vol] 13.8 g/dL Normal 12.0 - 16.0 [facility] Comment on above: Performed By: #### 2 88432 #### [facility],[address] [place] [address] MCH (RBC) [Entitic mass] 29 pg Normal 27 - 33 [facility] Comment on above: Performed By: #### 2 89566 #### [facility],[address] [place] [address] MCHC 33 X10 3 Normal 32 - 36 [facility] Comment on above: Performed By: #### 2 04682 #### [facility],[address] [place], [place] [id number] MCV (RBC) [Entitic vol] 88 fL Normal 80 - 99 [facility] Comment on above: Performed By: #### 2 58397 #### [facility],[address] [place], [place] [id number] PLATELET 312 x10EE3/UL Normal 150 - 450 [facility] Comment on above: Performed By: #### 2 83850 #### [facility],[address] [place], [place] [id number] Platelet mean volume (Bld) [Entitic vol] 8.1 fL Normal 6.6 - 10.5 [facility] Comment on above: Performed By: #### 2 95080 #### [facility],[address] [place], [place] [address] RBC 4.77 x 10EE6/UL Normal 4.10 - 5.30 [facility] Comment on above: Performed By: #### 2 12543 #### [facility],[address] [place] [address] 30629 WBC 7.8 x 10EE3/UL Normal 4.5 - 10.8 [facility] Comment on above: Performed By: #### 2 34641 #### [facility],[address] [place] [address] 07891 CMP with eGFRon 04-14-2024 AGE 38 years Normal [facility] Comment on above: Performed By: #### 2 75277 #### [facility],[address] [place] [address] 35341 Albumin [Mass/Vol] 4.2 g/dL Normal 3.4 - 5.0 [facility] Comment on above: Performed By: #### 2 03206 #### [facility],[address] [place] [address] 23689 Albumin/Globulin [Mass ratio] 1.2 {ratio} Normal 0.9 - 1.6 [facility] Comment on above: Performed By: #### 2 08879 #### [facility],[address] [place] [address] 91450 ALK PHOS 68 U/L Normal 46 - 116 [facility] Comment on above: Performed By: #### 2 10287 #### [facility],[address] [place] [address] 80753 ALT [Catalytic activity/Vol] 18 U/L Normal 16 - 63 [facility] Comment on above: Performed By: #### 2 55025 #### [facility],[address] [place] [address] 17217 Anion gap [Moles/Vol] 12 mmol/L Normal 10 - 20 [facility] Comment on above: Performed By: #### 2 54089 #### [facility],[address] [place] [address] 19059 AST [Catalytic activity/Vol] 10 U/L Low 13 - 39 [facility] Comment on above: Performed By: #### 2 48303 #### [facility],[address] [place] [address] 06749 B/C RATIO 15 ratio Normal 0 - 30 [facility] Comment on above: Performed By: #### 2 40082 #### [facility],[address] [place] [address] 50943 Bilirubin [Mass/Vol] 0.3 mg/dL Normal 0.2 - 1.0 [facility] Comment on above: Performed By: #### 2 21424 #### [facility],[address] [place] [address] 67298 Calcium [Mass/Vol] 8.9 mg/dL Normal 8.5 - 10.1 [facility] Comment on above: Performed By: #### 2 13290 #### [facility],[address] [place] [address] 42540 Chloride [Moles/Vol] 100 mmol/L Normal 98 - 107 [facility] Comment on above: Performed By: #### 2 19945 #### [facility],[address] [place] [address] 86245 CMP with eGFR Normal [facility] Comment on above: Result Comment: COMP REHENSIVE METABOLIC PANEL Performed By: #### 2 22613 #### [facility],[address] [place] [address] 00568 CO2 [Moles/Vol] 28.8 mmol/L Normal 21.0 - 32.0 [facility] Comment on above: Performed By: #### 2 69685 #### [facility],[address] [place] [address] 06498 Creatinine [Mass/Vol] 0.59 mg/dL Normal 0.55 - 1.02 [facility] Comment on above: Performed By: #### 2 81849 #### [facility],[address] [place] [address] 46138 GFR/1.73 sq M.predicted among non-blacks MDRD (S/P/Bld) [Vol rate/Area] mL/min/{1.73_m2} Normal 60 - 999 [facility] Comment on above: Performed By: #### 2 31557 #### [facility],[address] [place] [address] 58464 Result Comment: ACCO RDING TO THE NATIONAL KIDNEY DISEASE EDUCATION PROGRAM(NKDE), A NORMAL eGFR IS A VALUE GREATER THAN OR EQUAL TO 60 ML/MIN/1.73 SQ METERS. CHRONIC KIDNEY DISEASE: <60mL/MIN/1.73 SQ METERS KIDNEY FAILURE: <15mL/MIN/1.73 SQ METERS THIS TEST SHOULD ONLY BE USED FOR PATIENTS 18 YEARS OF AGE AND OLDER. Globulin (S) [Mass/Vol] 3.6 g/dL Normal 1.5 - 3.8 [facility] Comment on above: Performed By: #### 2 08117 #### [facility],[address] [place] [address] 58546 Glucose [Mass/Vol] 100 mg/dL Normal 74 - 106 [facility] Comment on above: Performed By: #### 2 50320 #### [facility],[address] [place] [address] 70720 Potassium [Moles/Vol] 3.5 mmol/L Normal 3.5 - 5.1 [facility] Comment on above: Performed By: #### 2 40791 #### [facility],[address] [place] [address] 46830 Protein [Mass/Vol] 7.8 g/dL Normal 6.4 - 8.2 [facility] Comment on above: Performed By: #### 2 18003 #### [facility],[address] [place] [address] 08213 Sodium [Moles/Vol] 137 mmol/L Normal 136 - 145 [facility] Comment on above: Performed By: #### 2 37901 #### [facility],[address] [place] [address] 18892 Urea nitrogen [Mass/Vol] 9 mg/dL Normal 7 - 18 [facility] Comment on above: Performed By: #### 2 95126 #### [facility],[address] [place] [address] 41095 CORONAVIRUS (SARS) ANTIGEN T ESTon 04-14-2024 EXTERNAL QC DONE? YES Normal [facility] Comment on above: Performed By: #### 2 76222 #### [facility],[address] [place] [address] 23487 INTERNAL CONTROL PASS Normal [facility] Comment on above: Performed By: #### 2 28000 #### [facility],[address] [place] [address] 97814 SARS ANTIGEN Negative Normal NORMAL: NEGATIVE [facility] Comment on above: Performed By: #### 2 21825 #### [facility],[address] [place] [address] 60876 SEND TO ? NO Normal [facility] Comment on above: Result Comment: SARS -CoV-2 THIS TEST IS BEING USED UNDER THE FDA EUA PROCEDURE. THIS ASSAY HAS BEEN VALIDATED AT [facility] FOR USE WITH NASAL AND NASOPHARYNGEAL SWAB SPECIMENS. INTERPRETIVE DATA TEST RESULTS SHOULD ALWAYS BE CONSIDERED IN THE CONTEXT OF CLINICAL OBSERVATIONS AND EPIDEMIOLOGICAL DATA IN MAKING FINAL DIAGNOSIS AND PATIENT MANAGEMENT DECISIONS. PATIENT MANAGEMENT SHOULD FOLLOW CURRENT CDC GUIDELINES. THE [place] SARS ANTIGEN GRIFFIN DOES NOT DIFFERENTIATE BETWEEN SARS-CoV & SARS-CoV-2. A POSITIVE TEST RESULT INDICATES THE PRESENCE OF SARS-CoV-2 NUCLEOCAPSID PROTEIN ANTIGEN, AND THE PATIENT IS INFECTED WITH THE VIRUS AND PRESUMED TO BE CONTAGIOUS. A NEGATIVE TEST RESULT FOR THIS TEST MEANS THAT SARS-CoV-2 NUCLEOCAPSID PROTEIN ANTIGEN WAS NOT PRESENT IN THE SPECIMEN ABOVE THE LIMIT OF DETECTION. HOWEVER, A NEGATIVE RESULT DOES NOT RULE OUT COVID-19 AND SHOULD NOT BE USED THE SOLE BASIS FOR TREATMENT OR PATIENT MANAGEMENT DECISIONS. A NEGATIVE RESULT DOES NOT EXCLUDE THE POSSIBILITY OF COVID-19. NEGATIVE RESULTS, FROM PATIENTS WITH SYMPTOM ONSET BEYOND FIVE DAYS, SHOULD BE TREATED PRESUMPTIVE AND CONFIRMATION WITH A MOLECULAR ASSAY, IF NECESSARY, FOR PATIENT MANAGEMENT, MAY BE PERFORMED. WHEN DIAGNOSTIC TESTING IS NEGATIVE, THE POSSIBLILTY OF A FALSE NEGATIVE RESULT SHOULD BE CONSIDERED IN THE CONTEXT OF A PATIENT'S RECENT EXPOSURES AND THE PRESENCE OF CLINICAL SIGNS AND SYMPTOMS CONSISTENT WITH COVID-19. THE POSSIBILITY OF A FALSE NEGATIVE RESULT SHOULD ESPECIALLY BE CONSIDERED IF THE PATIENT'S RECENT EXPOSURES OR CLINICAL PRESENTATION INDICATE THAT COVID-19 IS LIKELY, AND DIAGNOSTIC TESTS FOR OTHER CAUSES OF ILLNESS (e.g., OTHER RESPIRATORY ILLNESS) ARE NEGATIVE. IF COVID-19 IS STILL SUSPECTED BASED ON EXPOSURE HISTORY TOGETHER WITH OTHER CLINICAL FINDINGS, RE-TESTING SHOULD BE CONSIDERED BY HEALTHCARE PROVIDERS IN CONSULTATION WITH PUBLIC HEALTH AUTHORITIES. Performed By: #### 2 00774 #### [facility],[address] [place] [address] CT BRAIN W/O CONTRASTon 10-0 CT BRAIN W/O CONTRAST [place] [address] Patient: DANELLE BAUGH Phone#: : 1985 Age: 38 Gender: F Pt. Type: ER Account: [id number] Location: 052 Ordering: DR. JAN CESPEDES Exam Date: 04/14/202419:01 Family Phys: [facility] Charge Code: [id number] Physician: Coryell Order #: [id number] Dose#: 52.3 PROCEDURE: CT BRAIN WITHOUT CONTRAST COMPARISON: None. INDICATIONS: Headache. TECHNIQUE: CT images were obtained without contrast material. All CT scans at this facility use dose modulation, iterative reconstruction, and/or weight based dosing when appropriate to reduce radiation dose to as low as reasonably achievable. IV CONTRAST: No IV contrast used,0ml TOTAL DOSE: 52.3 CTDIvol(mGy) FINDINGS: CEREBRUM: No edema, hemorrhage, mass, or inappropriate atrophy. CEREBELLUM: No edema, hemorrhage, mass, or inappropriate atrophy. BRAINSTEM: No edema, hemorrhage, mass, or inappropriate atrophy. CSF SPACES: Ventricles, cisterns, and sulci are appropriate for age. No hydrocephalus, subarachnoid hemorrhage, or mass. SKULL: No mass or other significant visible lesion. SINUSES: Limited views demonstrate no significant mucosal thickening or fluid. ORBITS: Limited views are unremarkable. OTHER: Negative. CONCLUSION: 1. No appreciable acute intracranial abnormality. Note: An acute ischemic event may not be initially evident on CT. Dictated by: Janice Garrido MD on 04/15/2024 at 9:22 Approved by: Janice Garrido MD on 04/15/2024 at 9:27 Normal [facility] DHEA SULFATEon 04-14-2024 DHEA-Sulfate 164.0 ug/dL Normal 57.3-279.2 [facility] Comment on above: Performed By: #### U GEEE #### [facility] [address] [place] [address] [employer] - [facility] CLIA [id number] ESTRADIOLon 04-14-2024 Estradiol 97.5 pg/mL Normal [facility] Comment on above: Result Comment: Adul t Female Range Follicular phase 12.5 - 166.0 Ovulation phase 85.8 - 498.0 Luteal phase 43.8 - 211.0 Postmenopausal <6.0 - 54.7 1st trimester 215.0 - >4300.0 [facility] ECLIA methodology Performed By: #### U KAMINI #### [facility] [address] [address] [employer] - [facility] CLIA [id number] RESPIRATORY PANEL PCR (POM)o n 04-14-2024 ADENOVIRUS Negative Normal NORMAL: NEGATIVE [facility] Comment on above: Performed By: #### 2 33659 #### [facility],[address] [place] [address] B. HOLMESII Negative Normal NORMAL: NEGATIVE [facility] Comment on above: Performed By: #### 2 78602 #### [facility],[address] [place] [address]677 B. PARAPERTUSSIS Negative Normal NORMAL: NEGATIVE [facility] Comment on above: Performed By: #### 2 61205 #### [facility],[address] [place] [address]8732 B. PERTUSSIS Negative Normal NORMAL: NEGATIVE [facility] Comment on above: Performed By: #### 2 21963 #### [facility],[address] [place] [address] 21107 H. METAPNEUMOVIRUS Negative Normal NORMAL: NEGATIVE [facility] Comment on above: Performed By: #### 2 57561 #### [facility],[address] [place] [address] 52172 Influenza A Negative Normal NORMAL: NEGATIVE [facility] Comment on above: Performed By: #### 2 33361 #### [facility],[address] [place] [address] 80126 INFLUENZA A H1 Negative Normal NORMAL: NEGATIVE [facility] Comment on above: Performed By: #### 2 72647 #### [facility],[address] [place] [address],[facility] [address] INFLUENZA A H3 Negative Normal NORMAL: NEGATIVE [facility] Comment on above: Performed By: #### 2 54853 #### [facility],[address] [place] [address] 95789 Influenza B Negative Normal NORMAL: NEGATIVE [facility] Comment on above: Performed By: #### 2 26831 #### [facility],1 [facility] [address] PARAINFLUENZA 1 Negative Normal NORMAL: NEGATIVE [facility] Comment on above: Performed By: #### 2 81710 #### [facility],1 [facility] [place] [address] PARAINFLUENZA 2 Negative Normal NORMAL: NEGATIVE [facility] Comment on above: Performed By: #### 2 46614 #### [facility],1 [facility] [place] [address] PARAINFLUENZA 3 Negative Normal NORMAL: NEGATIVE [facility] Comment on above: Performed By: #### 2 45532 #### [facility],[address] [place] [address] [place] [address] PARAINFLUENZA 4 Negative Normal NORMAL: NEGATIVE [facility] Comment on above: Performed By: #### 2 30184 #### [facility],[address] [place] [address]153 RESPIRATORY PANEL PCR (POM) Normal [facility] Comment on above: Result Comment: RESP IRATORY PANEL FLEX PCR Performed By: #### 2 74315 #### [facility],[address] [place] [address] RHINOVIRUS Negative Normal NORMAL: NEGATIVE [facility] Comment on above: Performed By: #### 2 55137 #### [facility],[address] [place] [address] 45415 RSV A Negative Normal NORMAL: NEGATIVE [facility] Comment on above: Performed By: #### 2 27710 #### [facility],[address] [place] [address] 54171 RSV B Negative Normal NORMAL: NEGATIVE [facility] Comment on above: Performed By: #### 2 74710 #### [facility],[address] [place] [address] 52311 SEND TO ? NO Normal [facility] Comment on above: Result Comment: THIS ASSAY HAS BEEN VALIDATED IN THE [facility] FOR USE WITH NASOPHARYNGEAL SPECIMENS IN [facility]. INTERPRETIVE DATA THE [employer] RESPIRATORY PATHOGENS FLEX NUCLEIC ACID TEST (RP FLEX) IS A MULTIPLEXED QUALITATIVE TEST INTENDED FOR THE SIMULTANEOUS DETECTION AND IDENTIFICATION OF MULTIPLE VIRAL AND BACTERIAL NUCLEIC ACIDS IN NASOPHARYNGEAL SWABS (SODIUM CHLORITE OPERATOR) OBTAINED FROM INDIVIDUALS SUSPECTED OF RESPIRATORY TRACT INFECTION. THE TEST IS PERFORMED ON THE AUTOMATED [employer] SYSTEM UTILIZING REVERSE PHYSICIAN GENERAL PRACTICE (RT), POLYMERASE CHAIN REACTION (PCR), AND MICROARRAY HYBRIDIZATION TO DETECT GENE SEQUENCES OF THE FOLLOWING ORGANISM TYPES AND SUBTYPES: ADENOVIRUS, HUMAN METAPNEUMOVIRUS,INFLUENZA A,INFLUENZA A (SUBTYPE H1), INFLUENZA A (SUBTYPE H3), INFLUENZA B,PARAINFLUENZA 1,PARAINFLUENZA 2, PARAINFLUENZA 3, PARAINFLUENZA 4, RESPIRATORY SYNCYTIAL VIRUS A,RESPIRATORY SYNCYTIAL VIRUS B, RHINOVIRUS,BORDETELLA PARAPERTUSSIS/BRONCHISEPTICA,BORDETELLA HOLMESII,AND BORDETELLA PERTUSSIS. DETECTING AND IDENTIFYING SPECIFIC VIRAL AND BACTERIAL NUCLEIC ACIDS FROM INDIVIDUALS EXHIBITING SIGNS AND SYMPTOMS OF RESPIRATORY INFECTION AIDS IN THE DIAGNOSIS OF RESPIRATORY INFECTION, IF USED IN CONJUNCTION WITH OTHER CLINICAL AND LABORATORY FINDINGS. THE RESULTS OF THIS TEST SHOULD NOT BE USED THE SOLE BASIS FOR DIAGNOSIS, TREATMENT, OR PATIENT MANAGEMENT DECISIONS. NEGATIVE RESULTS IN THE PRESENCE OF A RESPIRATORY ILLNESS DO NOT PRECLUDE RESPIRATORY INFECTION AND MAY BE DUE TO INFECTION WITH PATHOGENS THAT ARE NOT DETECTED BY THIS TEST OR LOWER RESPIRATORY TRACT INFECTION THAT IS NOT DETECTED BY AN SODIUM CHLORITE OPERATOR SPECIMEN. CONVERSELY, POSITIVE RESULTS DO NOT RULE-OUT INFECTION OR CO-INFECTION WITH ORGANISMS NOT DETECTED BY RP FLEX. THE AGENT(S) DETECTED MAY NOT BE THE DEFINITE CAUSE OF DISEASE. THE USE OF ADDITIONAL LABORATORY TESTING AND CLINICAL PRESENTATION MAY BE NECESSARY TO ESTABLISH A FINAL DIAGNOSIS OF RESPIRATORY INFECTION. CLINICAL EVALUATION INDICATES A LOWER SENSITIVITY SPECIFIC TO RP FLEX FOR THE DETECTION OF RHINOVIRUS. IF INFECTION WITH RHINOVIRUS IS SUSPECTED, NEGATIVE SAMPLES SHOULD BE CONFIRMED USING AN ALTERNATIVE METHOD. PERFORMANCE CHARACTERISTICS FOR INFLUENZA A WERE ESTABLISHED WHEN INFLUENZA A/H1 (2008 PANDEMIC) AND A/H3 WERE THE PREDOMINANT INFLUENZA A VIRUSES IN CIRCULATION. RP FLEX MAY NOT DETECT NOVEL INFLUENZA A STRAINS. IF INFECTION WITH A NOVEL INFLUENZA A VIRUS IS SUSPECTED BASED ON CURRENT CLINICAL AND EPIDEMIOLOGICAL SCREENING CRITERIA RECOMMENDED BY PUBLIC HEALTH AUTHORITIES, SPECIMENS SHOULD BE COLLECTED WITH APPROPRIATE INFECTION CONTROL PRECAUTIONS USED SPECIFICALLY FOR NOVEL VIRULENT INFLUENZA VIRUSES AND SENT TO APPROPRIATE HEALTH AUTHORITIES FOR TESTING. VIRAL CULTURE SHOULD NOT BE ATTEMPTED IN THESE CASES UNLESS A BIOSAFETY LEVEL (BSL) 3+ FACILITY IS AVAILABLE TO RECEIVE AND CULTURE SPECIMENS. Performed By: #### 2 70935 #### [facility],[address] [place] [address] 41612 T3, FREE [CCL]on 04-14-2024 Free T3 [Mass/Vol] 2.8 pg/mL Normal 2.3-4.1 [facility] Comment on above: Result Comment: [facility] [address] [place] [address] Homero Brenner III, M.D. [id number] Performed By: #### 2 28596 #### [facility],[address] [place] [address] 17050 TESTOSTERONE, TOTALon 2023 Testosterone [Mass/Vol] 142 ng/dL High 8-60 [facility] Comment on above: Performed By: #### U KAMINI #### [facility] [address] [place] [address] [employer] - [employer] OWEN [id number] THYROGLOBULIN AB [CCL]on Thyroglobulin Ab, Serum <0.9 Normal <4.0 [facility] Comment on above: Result Comment: The Thyroglobulin Antibody test was performed using the [employer] DXI paramagnetic particle chemiluminescent immunoassay method. Results obtained with different assay methods or kits cannot be used interchangeably. [facility] [address] [place] [address] Homero Brenner III, M.D. [id number] Performed By: #### 2 44592 #### [facility],[address] [place] [address] 62295 THYROID PEROXIDASE Abon Thyroid Peroxidase (TPO) Ab <9 Normal 0-34 [facility] Comment on above: Performed By: #### U KAMINI #### [facility] [address] [facility] [place] [address] [employer] - [facility] [id number] TROPONIN I, HIGH SENSITIVITY on 04-14-2024 HS TROPONIN <4.0 Normal 0.0 - 51.4 [facility] Comment on above: Performed By: #### 2 98454 #### [facility],[address] [place] [address] 79475 TSHon 04-14-2024 TSH Qn 0.52 m[IU]/L Normal 0.35 - 3.74 [facility] Comment on above: Performed By: #### 2 63600 #### [facility],[address] [place] [address] 73033 FREE T4on 04-13-2024 Free T4 [Mass/Vol] 1.18 ng/dL Normal 0.76-1.46 [facility] Comment on above: Performed By: #### U KAMINI #### [facility] [address] [place] [address] [employer] - [employer] MARTINEZIA [id number] GLUCOSEon 04-13-2024 Glucose [Mass/Vol] 82 mg/dL Normal 74-106 [facility] Comment on above: Performed By: #### U RINE #### [facility] [address] [facility] [place] [address] [employer] - [employer] OWEN [id number] HbA1c Calc (Bld) [Mass fract ion]on 04-13-2024 Average glucose Estimated from glycated hemoglobin (Bld) [Mass/Vol] 103 mg/dL Normal 68-125 [facility] Comment on above: Performed By: #### U RINE #### [address] [place] [address] [employer] - [employer] OWEN [id number] HA1C A1C INTERPRETATION % A1c (NGSP) Interpretation 3.8 - 6.4 Non-Diabetic Range 5.7 - 6.4 Prediabetic >6.5 Action Suggested The eAG (estimated average glucose) is an estimation of one?s average blood glucose level, calculated based on A1C test results, reported using the same units (mg/dL) seen on blood glucose meters. Normal [facility] Comment on above: Performed By: #### U RINE #### [address] [place] [address] [employer] - [employer] OWEN [id number] HbA1c (Bld) [Mass fraction] 5.2 %A1C Normal 4.2-6.3 [facility] Comment on above: Performed By: #### U RINE #### [address] [place] [address] [employer] - [employer] OWEN [id number] TSH DL <= 0.05 mIU/L Qnon TSH Qn 0.412 uIU/mL Normal 0.358-3.740 [facility] Comment on above: Performed By: #### U RINE #### [address] [place] [address] [employer] - [employer] OWEN [id number] T4-FREE (FREE THYROXINE)on 0 04-12-2024 Free T4 [Mass/Vol] 0.84 ng/dL Normal 0.76 - 1.46 [facility] Comment on above: Result Comment: P otential of falsely elevated results when biotin concentrations are > 10 ng/mL. Performed By: #### 2 78584 #### [facility],[address] [place] [address] TSHon 04-12-2024 TSH Qn 0.54 m[IU]/L Normal 0.35 - 3.74 [facility] Comment on above: Performed By: #### 2 85706 #### [facility],[address] [place] [address] CHLAM GONORRHEA and TRICH NA Aon 02-03-2024 Chlamydia by MELVI Negative Normal Negative [facility] Comment on above: Performed By: #### U RINE #### [place] [address] [employer] [facility] [place] [id number] Gonococcus by MELVI Negative Normal Negative [facility] Comment on above: Performed By: #### U RINE #### [address] [place] [address] [employer] - [facility] BRAYDEN [id number] Trich vag by MELVI Negative Normal Negative [facility] Comment on above: Performed By: #### U RINE #### [address] [place] [address] [employer] - [employer] Womackjose cruz OWEN [id number] CULTURE URINEon 01-31-2024 CULTURE URINE COLONY COUNT = ZERO COLONY FORMING UNITS, ML ISOL NO GROWTH OBSERVED AFTER 1 DAY NO PATHOGENS GROWN AFTER 2 DAYS Normal [facility] Comment on above: Performed By: #### U RINE #### [address] [address] [employer] - [employer] CLIA [id number] URINALYSISon 01-29-2024 Bacteria LM Ql (Urine sed) Normal TRACE [facility] Comment on above: Performed By: #### U RINE #### [address] [place] [address] [employer] [facility] CLIA [id number] Bilirubin (U) [Mass/Vol] Negative Normal NEGATIVE [facility] Comment on above: Performed By: #### U RINE #### [facility] [address] [address] [employer] - [place] [id number] Clarity (U) CLEAR Normal CLEAR [facility] Comment on above: Performed By: #### U RINE #### [facility] [address] [address] [employer] - [place] [id number] Color (U) YELLOW Normal YELLOW [facility] Comment on above: Performed By: #### U RINE #### [facility] [address] [address] [employer] - [place] [id number] Glucose Test strip (U) [Mass/Vol] Negative Normal NEGATIVE [facility] Comment on above: Performed By: #### U RINE #### [facility] [address] [place] [address] [employer] - [place] [id number] HMICRO MICROSCOPIC Normal [facility] Comment on above: Performed By: #### U RINE #### [facility] [address] [address] [employer] - [facility] [id number] Hyaline casts (Urine sed) [#/Area] Normal 0-8 [facility] Comment on above: Performed By: #### U RINE #### [facility] [address] [address] [employer] - [facility] [id number] Ketones (U) [Mass/Vol] Negative Normal NEGATIVE [facility] Comment on above: Performed By: #### U RINE #### [facility] [address] [address] [employer] - [place] [id number] Leukocyte esterase Qn (U) Negative Normal TRACE [facility] Comment on above: Performed By: #### U RINE #### [facility] [address] [address] [employer] - [employer] MARTINEZIA [id number] Nitrite Ql (U) Negative Normal NEGATIVE [facility] Comment on above: Performed By: #### U RINE #### [facility] [address] [facility] [place] [address] [employer] - [employer]ilin OWEN [id number] pH (U) 7.0 [pH] Normal 5.5-7.5 [facility] Comment on above: Performed By: #### U RINE #### [place] [address] [facility]. [place] [address] [employer] - [employer]ilin MARTINEZIA [id number] Protein (U) [Mass/Vol] Negative Normal NEGATIVE [facility] Comment on above: Performed By: #### U RINE #### [address] [place] [address] [employer] - [employer]ilin MARTINEZIA [id number] RBC (U) [#/Vol] Negative Normal NEGATIVE [facility] Comment on above: Performed By: #### U RINE #### [facility] [address] [facility] [place] [address] [employer] - [employer] OWEN [id number] RBC LM.HPF (Urine sed) [#/Area] Normal 0-4 [facility] Comment on above: Performed By: #### U RINE #### [facility] [address] [facility] [place] [address] [employer] - [employer] MARTINEZIA [id number] Specific gravity (U) [Rel density] 1.020 Normal 1.010-1.035 [facility] Comment on above: Performed By: #### U RINE #### [facility] [address] [facility] [place] [address] [employer] - [employer] OWEN [id number] SQUAMOUS EPITHELIALS Normal 0-5 [facility] Comment on above: Performed By: #### U RINE #### [facility] [address] [facility] [place] [address] [employer] - [employer]ilin MARTINEZIA [id number] Urobilinogen Qn (U) 0.2 {Joselito'U}/dL Normal <=1.0 [facility] Comment on above: Performed By: #### U RINE #### [facility] [address] [place] [address] [employer] - Ailin Womackjose cruz OWEN [id number] WBC LM.HPF (Urine sed) [#/Area] Normal 0-5 [facility] Comment on above: Performed By: #### U RINE #### [facility] [address] [facility] [place] [address] [employer] - [employer]ilin OWEN [id number] M8200.2100on 01-19-2024 M8200.2100 Negative Normal [facility] Comment on above: Performed By: #### M 8200.2200, M8200.2100 #### [facility] [address] [facility] [address] M8200.2200on 01-19-2024 M8200.2200 Negative Normal [facility] Comment on above: Performed By: #### M 8200.2200, M8200.2100 #### [facility] [address] [facility] [address]15[address] Urgent Care Visit Reporton 0 01-19-2024 Urgent Care Visit Report [facility] [address] [facility], [address] [place], [place] [address] OFFICE VISIT Date of Service: 01/19/24 MR#: [id number] Acct: [id number] Name: DANELLE BAUGH Rep #: [id number] : 1985 Provider: CLIFFORD Weems Age/Sex: 38/F Location: [facility] Status: Signed Intake Vital Signs 01/19/24 07:27 Height 1.7 m Weight: 75.296 kg BMI 25.9 BP 117/79 Blood Pressure Location Lt brachial Position Sitting Pulse 74 Pulse Source Monitor Temp 98.2 F Temp Source Temporal Pulse Oximetry (%) 99 Intake Visit Reasons: STD CHECK Chief Complaint: urethral discharge Allergies lactose Allergy (Verified 01/19/24 07:28) Food Allergy prednisone Allergy (Verified 01/19/24 07:28) Swelling ragweed pollen Allergy (Verified 01/19/24 07:28) Other Medications ???Medication ???Instructions ???Recorded ???Confirmed ???Type fluoxetine 20 mg capsule 40 mg PO QHS anxiety 11/14/17 01/19/24 History diphenhydramine HCl 25 mg capsule 25 mg PO QHS PRN PRN Allergies 02/02/19 01/19/24 History vits,calcium no.78-iron 1 tab PO DAILY vitamin 02/02/19 01/19/24 History fumarate-folic acid 29 mg-1 mg tablet pantoprazole 40 mg tablet,delayed 40 mg PO BID GERD 07/05/19 01/19/24 History release phenylephrine HCl 10 mg tablet 10 mg PO PRN PRN Congestion 07/05/19 01/19/24 History estradiol 2 mg tablet 2 mg PO DAILY #100 tabs 07/12/19 01/19/24 Rx cefixime 400 mg capsule 800 mg (2 x 400 mg) PO ONCE #2 caps 01/19/24 01/19/24 Rx doxycycline hyclate 100 mg capsule 100 mg PO Q12H 7 days #14 caps 01/19/24 01/19/24 Rx PFSH Social History Smoking Status: Current some day smoker HPI HPI Chief Complaint: urethral discharge Details: DANELLE BAUGH, is a 38 F who presents to the office today for urethral discharge. She is here with her who has similar symptoms. These began after they had a new sex partner. She primarily complains of urethral burning all the time, not with urination, and yellow discharge. She has no rashes or lesions. She has some chills, no fever. She also has a cough and sore throat. The new partner has no known STIs but has had some abnormal vaginal bleeding. ROS Const Constitutional: Positive for chills; No fatigue or fever(s) ENT ENT: Positive for sore throat Resp Respiratory: Positive for cough Genitourinary-Female: Positive for other (urethral burning, discharge); No genital lesions or genital itching Endo Endocrine: No fatigue Exam Const General: cooperative, healthy appearing, comfortable, no acute distress, well developed and well groomed Nutritional Appearance: average body habitus and well nourished Orientation: alert, awake and oriented x3 HENMT Throat: posterior oropharynx normal, tonsils normal and uvula midline Resp Effort Inspection: normal respiratory effort, able to speak in complete sentences, symmetric chest movement and cough Auscultation: Bilateral: Clear to Auscultation Cardio Rate: regular rate Rhythm: regular rhythm Heart Sounds: no murmurs Coding Level of Care Code Off vis,new,level 3 Diagnoses Urethral discharge R36.9 Assessment and Plan Assessment and Plan (1) Urethral discharge: Status: Acute Plan: has similar symptoms and both began after they had a new sex partner. At this time send out urine for GC/CT testing. I have explained that we do not do pelvic exams here. is also hav ing a urethral swab for Trich. At this time Start doxy / cefixime. If trich comes back positive will start flagyl. F/u [facility] for screening for other STIs. Orders: Orders Chlamydia/Neisseria PCR Today N89.8 - Other specified noninflammatory disorders of vagina Medications: New doxycycline hyclate 100 mg PO Q12H 7 days 14 caps 0RF cefixime 800 mg (2 x 400 mg) PO ONCE 2 caps 0RF 01/19/24 0841 Date Nimesh Bienvenido Guzmanignyelitza Signature: Date (if applicable) CC: Normal [facility] SURG PATH REQUESTon 09-26-19 Case Report Normal [facility] Comment on above: Result Comment: Surg ical Pathology Report Case: [id number] Authorizing Provider: Brittany Kingston DO Collected: 09/26/2023 10:18 AM Ordering Location: [facility] Received: 09/26/2023 11:22 AM Pathologist: Ailin Tanner DO Specimen: APPENDIX Performed By: #### S URGP #### [facility] (DEFAULT) [address] [address] Clinical History Clinical History: Ri ght lower quadrant pain, fecalith of appendix. [facility] Comment on above: Performed By: #### S URGP #### [facility] (DEFAULT) [address] [address] [address] [facility] Comment on above: Result Comment: The specimen is received in one properly labeled container with the patient's name and accession number. A. The specimen is designated appendix and consists of a vermiform appendix that measures 5.7 cm in length and ranges from 0.9 cm proximally to 0.5 cm distally. The proximal margin is stapled. A small amount of attached lobulated adipose tissue is identified on the outer surface of the appendix. Cut sections through the appendix show dilation of the proximal third of the appendix by impacted fecal material that spans the length of 1.8 cm of the appendix. No evidence of an appendiceal mass or fecalith is identified by gross examination. RS 2 Summary of Cassettes: A1, bisected appendiceal tip and shaved appendiceal margin; A2, outside medical sales representative cross sections of proximal and mid portions of the appendix Lab Use Only: JobID [id number] Grosser for this case was: Sammy Arias MD Performed By: #### S URGP #### [facility] (DEFAULT) [address] [address] Microscopic Description A microscopic examination was performed. [facility] Comment on above: Performed By: #### S URGP #### [facility] (DEFAULT) [address] [address] Pathologic Diagnosis [facility] Comment on above: Result Comment: A. A ppendix, appendectomy: Benign appendix without active inflammation Fibrous obliteration of the appendiceal tip Performed By: #### S URGP #### [facility] (DEFAULT) [address] [address] Professional Interpretation Performed at: [facility] Comment on above: Result Comment: [place] [address] - [facility] For Immediate Release [facility] Yes 1330 [address] [place], [place] [address] Performed By: #### S URGP #### [facility] ([facility]) [address] [place] [address] THIN PREP with HPVon 024 . . Normal [facility] Comment on above: Result Comment: Perf ormed at: WB Performed By: #### T PH #### Performed for [facility] [address] [place] [address] DIAGNOSIS: Comment Normal [facility] Comment on above: Result Comment: NEGA TIVE FOR INTRAEPITHELIAL LESION OR MALIGNANCY. Performed at: WB Performed By: #### T PH #### Performed for [place] [address] [place] [address] HPV Aptima Negative Normal Negative [facility] Comment on above: Result Comment: This nucleic acid amplification test detects fourteen high-risk HPV types (16,18,31,33,35,39,45,51,52,56,58,59,66,68) without differentiation. Performed at: =G Performed By: #### T PH #### Performed for [address] [place] [address] Note: Comment Normal [facility] Comment on above: Result Comment: The Pap smear is a screening test designed to aid in the detection of premalignant and malignant conditions of the uterine cervix. It is not a diagnostic procedure and should not be used as the sole means of detecting cervical cancer. Both false-positive and false-negative reports do occur. . Performed at: WB Performed By: #### T PH #### Performed for [place] [address] [place] [address] Performed by: Comment Normal [facility] Comment on above: Result Comment: Smita Moncada, Patient Admitting Clerk (ASCP) Performed at: WB Performed By: #### T PH #### Performed for [address] [place] [address] Specimen adequacy: Comment Normal [facility] Comment on above: Result Comment: Sati sfactory for evaluation. No endocervical component is identified. Performed at: WB Performed By: #### T PH #### Performed for [facility] [address] [place], [place] [address] Test Methodology: Comment Normal [facility] Comment on above: Result Comment: This liquid based ThinPrep(R) pap test was screened with the use of an image guided system. Performed at: WB Performed By: #### T PH #### Performed for [facility] [address] [place], [place] [address] ESTRADIOLon 08-29-2023 Estradiol 110.0 pg/mL Normal [facility] Comment on above: Result Comment: Adul t Female Range Follicular phase 12.5 - 166.0 Ovulation phase 85.8 - 498.0 Luteal phase 43.8 - 211.0 Postmenopausal <6.0 - 54.7 1st trimester 215.0 - >4300.0 Padma ECLIA methodology Performed By: #### 5 7021-8 #### [facility] [address] [place] [address] [employer] CLIA [id number] PROGESTERONEon 08-29-2023 Progesterone 1.3 ng/mL Normal [facility] Comment on above: Result Comment: Foll icular phase 0.1 - 0.9 Luteal phase 1.8 - 23.9 Ovulation phase 0.1 - 12.0 First trimester 11.0 - 44.3 Second trimester 25.4 - 83.3 Third trimester 58.7 - 214.0 Postmenopausal 0.0 - 0.1 Performed By: #### 5 7021-8 #### [facility] [address] [place] [address] [employer] CLIA [id number] PROLACTINon 08-29-2023 Prolactin 9.1 ng/mL Normal 4.8-33.4 [facility] Comment on above: Performed By: #### 5 7021-8 #### [facility] [address] [place] [address] [employer] CLIA [id number] TESTOSTERONE, TOTALon 2023 Testosterone [Mass/Vol] 219 ng/dL High 8-60 [facility] Comment on above: Performed By: #### 5 7021-8 #### [facility] [address] [place] [address] [employer] [id number] FREE T4on 08-28-2023 Free T4 [Mass/Vol] 0.85 ng/dL Normal 0.76-1.46 [facility] Comment on above: Performed By: #### 3 024-7, 22487-6 #### [facility] [address] [place] [address] [employer] [id number] TSH DL <= 0.05 mIU/L Qnon TSH Qn 0.731 uIU/mL Normal 0.358-3.740 [facility] Comment on above: Performed By: #### 3 024-7, 67932-0 #### [address] [place] [address] [employer] [id number] CBC W Auto Differential pane l (Bld)on 08-11-2023 Basophils (Bld) [#/Vol] 0.05 10*3/uL Normal <=0.70 [facility] Comment on above: Performed By: #### 5 7021-8 #### [address] [place] [address] [employer] [id number] Basophils/100 WBC (Bld) 0.9 % Normal <=2.0 [facility] Comment on above: Performed By: #### 5 7021-8 #### [facility] [address] [place] [address] [employer] MARTINE[employer]IA [id number] Eosinophils (Bld) [#/Vol] 0.07 10*3/uL Normal <=0.70 [facility] Comment on above: Performed By: #### 5 7021-8 #### [address] [place] [address] [employer] [id number] Eosinophils/100 WBC (Bld) 1.3 % Normal <=10.0 [facility] Comment on above: Performed By: #### 5 7021-8 #### [facility] [address] [facility] [place] [address] [employer] [id number] Erythrocyte distribution width (RBC) [Entitic vol] 41.1 fL Normal 36.4-46.3 [facility] Comment on above: Performed By: #### 5 7021-8 #### [address] [place] [address] [employer] [id number] Hematocrit (Bld) [Volume fraction] 40.3 % Normal 37.0-47.0 [facility] Comment on above: Performed By: #### 5 7021-8 #### [address] [place] [address] [employer] CLIA [id number] Hemoglobin (Bld) [Mass/Vol] 13.8 g/dL Normal 12.0-16.0 [facility] Comment on above: Performed By: #### 5 7021-8 #### [address] [place] [address] [employer] CLIA [id number] Immature granulocytes (Bld) [#/Vol] 0.02 10*3/uL Normal <=0.10 [facility] Comment on above: Performed By: #### 5 7021-8 #### [address] [place] [address] [employer] CLIA [id number] Immature granulocytes/100 WBC (Bld) 0.40 % Normal <=1.50 [facility] Comment on above: Performed By: #### 5 7021-8 #### [address] [place] [address] [employer] CLIA [id number] Lymphocytes (Bld) [#/Vol] 1.92 10*3/uL Normal 1.20-3.40 [facility] Comment on above: Performed By: #### 5 7021-8 #### [address] [place] [address] [employer] [id number] Lymphocytes/100 WBC (Bld) 36.4 % Normal 20.0-40.0 [facility] Comment on above: Performed By: #### 5 7021-8 #### [address] [place] [address] [employer] [id number] MCH (RBC) [Entitic mass] 28.6 pg Normal 27.0-31.0 [facility] Comment on above: Performed By: #### 5 7021-8 #### [address] [place] [address] [employer] [id number] MCHC (RBC) [Mass/Vol] 34.2 g/dL Normal 32.0-36.0 [facility] Comment on above: Performed By: #### 5 7021-8 #### [address] [place] [address] [employer] [id number] MCV (RBC) [Entitic vol] 83.6 fL Normal 80.0-100.0 [facility] Comment on above: Performed By: #### 5 7021-8 #### [address] [place] [address] [employer] [id number] Monocytes (Bld) [#/Vol] 0.39 10*3/uL Normal 0.10-0.60 [facility] Comment on above: Performed By: #### 5 7021-8 #### [address] [place] [address] [employer] [id number] Monocytes/100 WBC (Bld) 7.4 % Normal <=8.0 [facility] Comment on above: Performed By: #### 5 7021-8 #### [address] [place] [address] [employer] [id number] Neutrophils (Bld) [#/Vol] 2.83 10*3/uL Normal 1.40-6.50 [facility] Comment on above: Performed By: #### 5 7021-8 #### [facility] [address] [place] [address] [employer] [id number] Neutrophils/100 WBC (Bld) 53.6 % Normal 50.0-70.0 [facility] Comment on above: Performed By: #### 5 7021-8 #### [facility] [address] [place] [address] [employer] [id number] Nucleated RBC (Bld) [#/Vol] 0.00 10*3/uL Normal <=0.10 [facility] Comment on above: Performed By: #### 5 7021-8 #### [facility] [address] [place] [address] [employer] [id number] Platelet mean volume (Bld) [Entitic vol] 10.5 fL Normal 9.0-13.0 [facility] Comment on above: Performed By: #### 5 7021-8 #### [facility] [address] [place] [address] [employer] [id number] Platelets (Bld) [#/Vol] 293 10*3/uL Normal 130-400 [facility] Comment on above: Performed By: #### 5 7021-8 #### [facility] [address] [place] [address] [employer] [id number] RBC (Bld) [#/Vol] 4.82 10*6/uL Normal 4.00-6.30 [facility] Comment on above: Performed By: #### 5 7021-8 #### [facility] [address] [place] [address] [employer] [id number] WBC (Bld) [#/Vol] 5.28 10*3/uL Normal 4.80-10.80 [facility] Comment on above: Performed By: #### 5 7021-8 #### [facility] [address] [place], [place] [address] [employer] [id number] CT [facility] ABDOMEN AND PELVIS WITH CONTRAST EXAM: CT ABDOMEN AND PELVIS WITH CONTRAST REASON FOR EXAM: Female, 37 years, Right lower quadrant pain. TECHNIQUE: Computed tomography of the abdomen and pelvis is performed in the axial projection from the lung bases to the pubic symphysis. Sagittal and coronal reconstructed images are performed. Dose reduction techniques were achieved by using automated exposure control and/or adjustment of mA and/or KVP according to patient size and/or use of iterative reconstruction technique. A total of 75 mL Isovue-370 IV contrast was given. Study was performed without oral contrast. COMPARISON: None. FINDINGS: Lung bases: The lung bases are clear. There is no pleural effusion. The visualized portions of the heart are unremarkable. There is partial visualization of bilateral breast prostheses. Liver: The liver is normal. Gallbladder: The gallbladder has been removed. Spleen: The spleen is normal. Pancreas: The pancreas is normal. Adrenal glands: The adrenal glands are normal bilaterally. Right kidney: The kidney is normal in size. There is no renal calculus or hydronephrosis. Left kidney: The kidney is normal in size. There is no renal calculus or hydronephrosis. Stomach: The stomach is normal. Small bowel: The small bowel is normal. Large bowel: The colon is normal. Appendix: There is a 3 to 4 mm appendicolith at the appendiceal base. The remainder of the appendix is unremarkable. No periappendiceal inflammatory changes. Aorta: The aorta is normal. IVC: The IVC is normal. Retroperitoneum: Normal retroperitoneum. Bladder: The bladder is normal. Pelvic organs: The uterus is absent, consistent with hysterectomy. Abdominal wall: Normal abdominal wall. Osseous structures: Normal bony structures. IMPRESSION: No bowel obstruction or acute renal pathology. Postoperative changes of cholecystectomy and hysterectomy. There is a 3 to 4 mm appendicolith at the base of the appendix. No evidence for acute appendicitis. Normal [facility] Comprehensive metabolic 2000 panelon 08-11-2023 Albumin [Mass/Vol] 4.1 g/dL Normal 3.4-5.0 [facility] Comment on above: Performed By: #### 2 4323-8, LIPASE #### [facility] [address] [place] [address] [employer] CLIA [id number] ALP [Catalytic activity/Vol] 75 U/L Normal 50-136 [facility] Comment on above: Performed By: #### 2 4323-8, LIPASE #### [facility] [address] [place] [address] [employer] CLIA [id number] ALT [Catalytic activity/Vol] 19 U/L Normal 14-59 [facility] Comment on above: Performed By: #### 2 4323-8, LIPASE #### [place] [address] [place] [address] [employer] CLIA [id number] Anion gap [Moles/Vol] 3.0 mmol/L Normal <=15.0 [facility] Comment on above: Performed By: #### 2 4323-8, LIPASE #### [facility] [address] [place] [address] [employer] CLIA [id number] AST [Catalytic activity/Vol] 10 U/L Low 15-37 [facility] Comment on above: Performed By: #### 2 4323-8, LIPASE #### [facility] [address] [place] [address] [employer] CLIA [id number] Bilirubin [Mass/Vol] 0.4 mg/dL Normal 0.2-1.0 [facility] Comment on above: Performed By: #### 2 4323-8, LIPASE #### [facility] [address] [place] [address] [employer] CLIA [id number] Calcium [Mass/Vol] 9.2 mg/dL Normal 8.5-10.1 [facility] Comment on above: Performed By: #### 2 4323-8, LIPASE #### [facility] [address] [place] [address] [employer] CLIA [id number] Chloride [Moles/Vol] 105 mmol/L Normal 98-107 [facility] Comment on above: Performed By: #### 2 4323-8, LIPASE #### [facility] [address] [place] [address] [employer] CLIA [id number] CO2 [Moles/Vol] 29 mmol/L Normal 21-32 [facility] Comment on above: Performed By: #### 2 4323-8, LIPASE #### [facility] [address] [place] [address] [employer] [id number] Creatinine [Mass/Vol] 0.66 mg/dL Normal 0.51-0.95 [facility] Comment on above: Performed By: #### 2 4323-8, LIPASE #### [facility] [address] [place] [address] [employer] [id number] GFR/1.73 sq M.predicted MDRD (S/P/Bld) [Vol rate/Area] mL/min/{1.73_m2} Normal >=59 [facility] Comment on above: Performed By: #### 2 4323-8, LIPASE #### [facility] [address] [place] [address] [employer] CLIA [id number] Glucose [Mass/Vol] 101 mg/dL Normal 74-106 [facility] Comment on above: Performed By: #### 2 4323-8, LIPASE #### [facility] [address] [place] [address] [employer] [id number] HGFR GLOMERULAR FILTRATIO N RATE INTERPRETATION~The eGFR is calculated using the MDRD equation.~This equation has been validated in patients with chronic kidney disease;~however, it underestimates the GFR in healthy patients with GFR's over 60 mL/min.~The equation is not valid in children under the age of 18.~NOTE: Criteria for Chronic Kidney Disease:~ ~1. Kidney damage for at least three months, as defined~by structural or functional abnormalities of the kidney,~with or without decreased glomerular filtration rate, manifested by either:~* Pathological abnormalities or~* Markers of Kidney damage, including abnormalities in~the composition of the blood or urine or abnormalities in imaging tests.~ ~2. GFR <60 mL/min/1.73 m squared for at least three months, with or without kidney damage.~ Normal [facility] Comment on above: Performed By: #### 2 4323-8, LIPASE #### [facility] [address] [place] [address] [employer] CLIA [id number] Potassium [Moles/Vol] 3.6 mmol/L Normal 3.5-5.1 [facility] Comment on above: Performed By: #### 2 4323-8, LIPASE #### [facility] [address] [place] [address] [employer] [id number] Protein [Mass/Vol] 7.5 g/dL Normal 6.4-8.2 [facility] Comment on above: Performed By: #### 2 4323-8, LIPASE #### [facility] [address] [place] [address] [employer] [id number] Sodium [Moles/Vol] 137 mmol/L Normal 136-145 [facility] Comment on above: Performed By: #### 2 4323-8, LIPASE #### [facility] [address] [place] [address] [employer] CLIA [id number] Urea nitrogen [Mass/Vol] 7 mg/dL Normal 7-17 [facility] Comment on above: Performed By: #### 2 4323-8, LIPASE #### [facility] [address] [place] [address] [employer] [facility] CLIA [id number] LIPASEon 08-11-2023 LIPASES 19 U/L Normal 13-75 [facility] Comment on above: Performed By: #### 2 4323-8, LIPASE #### [facility] [address] [place] [address] [employer] [id number] URINALYSIS with reflex to CU LTUREon 08-11-2023 Bacteria LM Ql (Urine sed) Normal TRACE [facility] Comment on above: Performed By: #### U AR #### [facility] [address] [place] [address] [employer] [id number] Performed for [facility] [address] [place] [address] Bilirubin (U) [Mass/Vol] Negative Normal NEGATIVE [facility] Comment on above: Performed By: #### U AR #### [facility] [address] [place] [address] [employer] [id number] Performed for [facility] [address] [place] [address] Clarity (U) Slightly Cloudy Abnormal CLEAR [facility] Comment on above: Performed By: #### U AR #### [facility] [address] [place] [address] [employer] [id number] Performed for [facility] [address] [place] [address] Color (U) YELLOW Normal YELLOW [facility] Comment on above: Performed By: #### U AR #### [facility] [address] [place] [address] [employer] [id number] Performed for [facility] [address] [place] [address] Glucose Test strip (U) [Mass/Vol] Negative Normal NEGATIVE [facility] Comment on above: Performed By: #### U AR #### [facility] [address] [place] [address] [employer] [id number] Performed for [facility] [address] [place], [place] [address] HMICRO MICROSCOPIC Normal [facility] Comment on above: Performed By: #### U AR #### [facility] [address] [place], [place] [address] [employer] [id number] Performed for [facility] [address] [place], [place] [address] Hyaline casts (Urine sed) [#/Area] Normal 0-8 [facility] Comment on above: Performed By: #### U AR #### [facility] [address] [place], [place] [address] [employer] [id number] Performed for [facility] [address] [place], [place] [address] Ketones (U) [Mass/Vol] Negative Normal NEGATIVE [facility] Comment on above: Performed By: #### U AR #### [facility] [address] [place], [place] [address] [employer] [id number] Performed for [facility] [address] [place], [place] [address] Leukocyte esterase Qn (U) Negative Normal TRACE [facility] Comment on above: Performed By: #### U AR #### [facility] [address] [place], [place] [address] [employer] [id number] Performed for [facility] [address] [place], [place] [address] Nitrite Ql (U) Negative Normal NEGATIVE [facility] Comment on above: Performed By: #### U AR #### [facility] [address] [place], [place] [address] [employer] [id number] Performed for [facility] [address] [place], [place] [address] pH (U) 6.5 [pH] Normal 5.5-7.5 [facility] Comment on above: Performed By: #### U AR #### [facility] [address] [place] [address] [employer] [id number] Performed for [facility] [address] [place], [place] [address] Protein (U) [Mass/Vol] Negative Normal NEGATIVE [facility] Comment on above: Performed By: #### U AR #### [facility] [address] [place], [place] [address] [employer] [id number] Performed for [facility] [address] [place], [place] [address] RBC (U) [#/Vol] Negative Normal NEGATIVE [facility] Comment on above: Performed By: #### U AR #### [facility] [address] [place], [place] [address] [employer] [id number] Performed for [facility] [address] [place], [place] [address] RBC LM.HPF (Urine sed) [#/Area] Normal 0-4 [facility] Comment on above: Performed By: #### U AR #### [facility] [address] [place], [place] [address] [employer] [id number] Performed for [facility] [address] [place], [place] [address] Specific gravity (U) [Rel density] 1.019 Normal 1.010-1.035 [facility] Comment on above: Performed By: #### U AR #### [facility] [address] [place], [place] [address] [employer] [id number] Performed for [facility] [address] [place], [place] [address] SQUAMOUS EPITHELIALS Normal 0-5 [facility] Comment on above: Performed By: #### U AR #### [facility] [facility] [address] [place], [place] [address] Crib Pad Maker - Ailin OWEN [id number] Performed for [facility] [address] [place], [place] [address] Urobilinogen Qn (U) 0.2 {Joselito'U}/dL Normal <=1.0 [facility] Comment on above: Performed By: #### U AR #### [facility] [address] [place], [place] [address] Crib Pad Maker - Ailin MARTINEZIA [id number] Performed for [facility] [address] [place], [place] [address] WBC LM.HPF (Urine sed) [#/Area] Normal 0-5 [facility] Comment on above: Performed By: #### U AR #### [facility] [address] [place] [address] Crib Pad Maker - Ailin MARTINEZIA [id number] Performed for [facility] [address] [place] [address] VIRAL RESPIRATORY PANELon Adenovirus Not detected Normal NOT DETECTED [facility] Comment on above: Performed By: #### R ESPIRA #### [facility] [address] [place] [address] Crib Pad Maker - Ailin MARTINEZIA [id number] Performed for [facility] [address] [place] [address] B parapertussis Not detected Normal NOT DETECTED [facility] Comment on above: Performed By: #### R ESPIRA #### [facility] [address] [place] [address] Crib Pad Maker - Ailin OWEN [id number] Performed for [facility] [address] [place], [place] [address] B pertussis Not detected Normal NOT DETECTED [facility] Comment on above: Performed By: #### R ESPIRA #### [facility] [address] [place] [address] Crib Pad Maker - Ailin MARTINEZIA [id number] Performed for [facility] [address] [place] [address] Chlamydia pneumoniae Not detected Normal NOT DETECTED [facility] Comment on above: Performed By: #### R ESPIRA #### [facility] [address] [place] [address] Crib Pad Maker - Ailin Womack CLIA [id number] Performed for [facility] [address] [place], [place] [address] CORONAVIRUS 229E Not detected Normal NOT DETECTED [facility] Comment on above: Performed By: #### R ESPIRA #### [facility] [address] [place], [place] [address] Crib Pad Maker [facility] CLIA [id number] Performed for [facility] [address] [place], [place] [address] CORONAVIRUS HKU1 Not detected Normal NOT DETECTED [facility] Comment on above: Performed By: #### R ESPIRA #### [facility] [address] [place], [place] [address] Crib Pad Maker [facility] CLIA [id number] Performed for [facility] [address] [place], [place] [address] CORONAVIRUS NL63 Not detected Normal NOT DETECTED [facility] Comment on above: Performed By: #### R ESPIRA #### [facility] [address] [place], [place] [address] Crib Pad Maker - Ailin MARTINEZIA [id number] Performed for [facility] [address] [place], [place] [address] CORONAVIRUS OC43 Not detected Normal NOT DETECTED [facility] Comment on above: Performed By: #### R ESPIRA #### [facility] [address] [place], [place] [address] Crib Pad Maker - Ailin MARTINEZIA [id number] Performed for [facility] [address] [place], [place] [address] HPCR TESTING PERFORMED BY PCR METHODOLOGY Normal [facility] Comment on above: Performed By: #### R ESPIRA #### [facility] [address] [place], [place] [address] Crib Pad Maker [facility] CLIA [id number] Performed for [facility] [address] [place], [place] [address] HPCRB TEST PERFORMED USING BIOFIRE Normal [facility] Comment on above: Performed By: #### R ESPIRA #### [facility] [address] [place], [place] [address] Crib Pad Maker - Ailin MARTINEZIA [id number] Performed for [facility] [address] [place], [place] [address] Human Metapneumoviru Not detected Normal NOT DETECTED [facility] Comment on above: Performed By: #### R ESPIRA #### [facility] [address] [place], [place] [address] Crib Pad Maker - Ailin Womack CLIA [id number] Performed for [facility] [address] [place], [place] [address] Influenza A Not detected Normal NOT DETECTED [facility] Comment on above: Performed By: #### R ESPIRA #### [facility] [address] [place], [place] [address] Crib Pad Maker - Ailinmendez Womack CLIA [id number] Performed for [facility] [address] [place], [place] [address] Influenza A / H1 Normal NOT DETECTED [facility] Comment on above: Performed By: #### R ESPIRA #### [facility] [address] [place], [place] [address] Crib Pad Maker - Ailin Womack CLIA [id number] Performed for [facility] [address] [place], [place] [address] Influenza A / H3 Normal NOT DETECTED [facility] Comment on above: Performed By: #### R ESPIRA #### [facility] [address] [place], [place] [address] Crib Pad Maker - Ailin Womack CLIA [id number] Performed for [facility] [address] [place], [place] [address] Influenza A H1-2009 Normal NOT DETECTED [facility] Comment on above: Performed By: #### R ESPIRA #### [facility] [address] [place], [place] [address] Crib Pad Maker - Ailin Womack CLIA [id number] Performed for [facility] [address] [place], [place] [address] Influenza B Not detected Normal NOT DETECTED [facility] Comment on above: Performed By: #### R ESPIRA #### [facility] [address] [place], [place] [address] Crib Pad Maker - Ailin MARTINEZIA [id number] Performed for [facility] [address] [place], [place] [address] Mycoplasma pneumonia Not detected Normal NOT DETECTED [facility] Comment on above: Performed By: #### R ESPIRA #### [facility] [address] [place], [place] [address] Crib Pad Maker - Ailin MARTINEZIA [id number] Performed for [facility] [address] [place], [place] [address] Parainfluenza 1 Not detected Normal NOT DETECTED [facility] Comment on above: Performed By: #### R ESPIRA #### [facility] [address] [place] [address] Crib Pad Maker - Ailin MARTINEZIA [id number] Performed for [facility] [address] [place] [address] Parainfluenza 2 Not detected Normal NOT DETECTED [facility] Comment on above: Performed By: #### R ESPIRA #### [facility] [address] [place] [address] Crib Pad Maker - Ailin Womack CLIA [id number] Performed for [facility] [address] [place], [place] [address] Parainfluenza 3 Not detected Normal NOT DETECTED [facility] Comment on above: Performed By: #### R ESPIRA #### [facility] [address] [place], [place] [address] Crib Pad Maker - Aliin Womack CLIA [id number] Performed for [facility] [address] [place], [place] [address] Parainfluenza 4 Not detected Normal NOT DETECTED [facility] Comment on above: Performed By: #### R ESPIRA #### [facility] [address] [place], [place] [address] Crib Pad Maker - SmartRx[employer] CLIA [id number] Performed for [facility] [address] [place], [place] [address] Rhinovirus Not detected Normal NOT DETECTED [facility] Comment on above: Performed By: #### R ESPIRA #### [facility] [address] [place], [place] [address] Crib Pad Maker - Ailin MARTINEZIA [id number] Performed for [facility] [address] [place], [place] [address] RSV Ag Ql (Nose) Not detected Normal NOT DETECTED [facility] Comment on above: Performed By: #### R ESPIRA #### [facility] [address] [place], [place] [address] Crib Pad Maker - Ailin OWEN [id number] Performed for [facility] [address] [place], [place] [address] SARS-CoV-2 (COVID-19) RNA MELVI+probe Ql (Unsp spec) Not detected Normal NOT DETECTED [facility] Comment on above: Performed By: #### R ESPIRA #### [facility] [address] [place], [place] [address] Crib Pad Maker - Ailin OWEN [id number] Performed for [facility] [address] [place], [place] [address] Final Surgical Pathology Rep [facility] 06-17-2022 Final Surgical Pathology Report . Pathology Reports Accession: Collected Date/Time: Received Date/Time: Pathologist: [id number] 06/12/2022 14:23 EST 06/13/2022 14:23 EST LELO LESTER MD Final Surgical Pathology Report DIAGNOSIS: GALLBLADDER, CHOLECYSTECTOMY SPECIMEN - MILD CHRONIC CHOLECYSTITIS. COMMENT: [facility] - [id number] CLINICAL INFORMATION: BILIARY DYSKINESIA Procedure: LAPAROSCOPIC CHOLECYSTECTOMY & INDICATED PROCEDURES SPECIMEN: A GALLBLADDER GROSS DESCRIPTION: A. Received in formalin, labeled with the patients name, Case #[id number], and gallbladder Dimensions-6.2 x 3 x 2 cm Cystic duct/pericystic duct lymph node-patent, no lymph node Serosal surface-green, smooth Luminal contents-dark green liquid bile and no calculi Mucosal surface-green stained, velvety Wall thickness-0.2 -0.3 cm RS- 1 Dictated by RIVERA BARRON MICROSCOPIC DESCRIPTION: Slides reviewed. Electronically Signed by Pathology Report verified by [facility] LELO LESTER Sign out Date: 06/17/2022 11:18 Performing Lab: [facility], [address] [place] [id number] [facility] Pathology Dept Normal [facility] ([place]) No Panel Informationon 01-10 Miscellaneous Test See comment [facility] [place]: Comment on above: TEST RESULT LIMITSNu Swab Vaginitis (VG)Bacterial Vaginosis, NAAAtopobium vaginae Low - 0 ScoreBVAB 2 Low - 0 ScoreMegasphaera 1 Low - 0 ScoreTotal Score, add three scores Calculate total score by adding the 3 individual bacterialvaginosis (BV) marker scores together. Total score isinterpreted as follows:Total score 0-1: Indicates the absence of BV.Total score 2: Indeterminate for BV. Additional clinical data should be evaluated to establish a diagnosis.Total score 3-6: Indicates the presence of BV.This test was developed and its performance characteristicsdetermined by [facility]. It has not been cleared or approvedby the Food and Drug Administration.Tiff albicans, MELVI A, Negative NegativeCandida glabrata, MELVI A, Negative NegativeTrich vag by EMLVI Negative NegativeCommentsA: This test was developed and its performance characteristics determined by [facility]. It has not been cleared or approved by the Food and DrugAdministration. TESTING PERFORMED AT [facility]. ORIGINAL REPORT ON FILE IN LAB CONTAINS ADDITIONAL TEST SITE INFORMATION. __ SARS CoV 2 RNA(COVID 19), QU ALITATIVE [facility] 02-28-2021 SARS CoV 2 RNA Not detected Normal NOT DETECTED [facility] Comment on above: Result Comment: A Not Detected result means that SARS-CoV-2 RNA was not present in the specimen above the limit of detection. A Not Detected result does not rule out the possibility of COVID-19 and should not be used as the sole basis for treatment or patient management decisions. If COVID-19 is still suspected, based on exposure history together with other clinical findings, re-testing should be considered in the context of clinical observations and epidemiological data for patient management decisions. Test Method: Nucleic Acid Amplification Test including reverse agricultural equipment design engineer polymerase chain reaction (RT-PCR and agricultural equipment design engineer mediated amplification (TMA). The test method meets the [place] Centers for Disease Control and prevention (CDC) pre departure and arrival requirement for viral test for COVID-19 dated August 10, 2020. Testing requirements for traveling may change with time. The patient is responsible for determining the test requirements for each nation while they are traveling. This test has been authorized by the FDA under an Emergency Use Authorization (EUA) for use by authorized laboratories. Please review the Fact Sheets and FDA authorized labeling available for health care providers and patients using the following websites: https://www.[employer]/home/Covid-19/HCP/NAAT/fact-sheet2 https://www.[employer]/home/Covid-19/Patients/NAAT/ fact-sheet2 Due to the current public health emergency, [facility] is accepting samples from appropriate clinical sources collected using wide variety of swabs and transport media for COVID-19. Not detected test results derived from specimens received in non- commercially manufactured viral collection kits or those not yet authorized by FDA for COVID-19 testing should be cautiously evaluated and take extra precautions such as such as additional clinical monitoring, including collection of an additional specimen. Additional information about COVID-19 can be found at the [employer] [facility] website: [email or web address]. Performed By: #### 3 [id number] #### [facility] [address] Crib Pad Maker: Slade Soto MD CBC (INCLUDES DIFF/PLT)on Basophils (Bld) [#/Vol] 0.069 10*3/uL Normal 0-200 [facility] Comment on above: Performed By: #### 8 10, 479, 2475, 04247, 30689 #### [facility], [address] [place], [place] [id number] Crib Pad Maker: Slade Soto MD Basophils/100 WBC (Bld) 0.9 % Normal [facility] Comment on above: Performed By: #### 8 97, 899, 4799, 60860, 69890 #### [facility] [address], [address] [place] [address] Crib Pad Maker: Slade Soto MD Eosinophils (Bld) [#/Vol] 0.031 10*3/uL Normal 15-500 [facility] Comment on above: Performed By: #### 8 66, 899, 6399, 82061, 78527 #### [facility]-[place] [address], [address] [place] [address] Crib Pad Maker: Slade Soto MD Eosinophils/100 WBC (Bld) 0.4 % Normal [facility] Comment on above: Performed By: #### 8 66, 899, 6399, 66595, 56186 #### [facility]-[place] [address], [address] [place] [address] Crib Pad Maker: Slade Soto MD Erythrocyte distribution width (RBC) [Ratio] 13.4 % Normal 11.0-15.0 [facility] Comment on above: Performed By: #### 8 66, 899, 6399, 48326, 01337 #### [facility]-[place] [address] [address] , [address] [place] [address] Crib Pad Maker: Slade Soto MD Hematocrit (Bld) [Volume fraction] 38.7 % Normal 35.0-45.0 [facility] Comment on above: Performed By: #### 8 66, 899, 6399, 91638, 48920 #### [facility]-[place] [address] [address] , [address] [place] [address] Crib Pad Maker: Slade Soto MD Hemoglobin (Bld) [Mass/Vol] 12.9 g/dL Normal 11.7-15.5 [facility] Comment on above: Performed By: #### 8 66, 899, 6399, 38013, 83096 #### [facility]-[place] [address], [address] [place] [address] Crib Pad Maker: Slade Soto MD Lymphocytes (Bld) [#/Vol] 1.771 10*3/uL Normal 850-3900 [facility] Comment on above: Performed By: #### 8 66, 899, 6399, 55906, 606[address] #### [facility] [address], [address] [place] [address] Crib Pad Maker: Slade Soto MD Lymphocytes/100 WBC (Bld) 23.0 % Normal [facility] Comment on above: Performed By: #### 8 66, 899, 6399, 11626, 95417 #### [facility] [address], [address] [place] [address] Crib Pad Maker: Slade Soto MD MCH (RBC) [Entitic mass] 28.2 pg Normal 27.0-33.0 [facility] Comment on above: Performed By: #### 8 66, 899, 6399, 99805, 18243 #### [facility] [address], [address] [place] [address] Crib Pad Maker: Slade Soto MD MCHC (RBC) [Mass/Vol] 33.3 g/dL Normal 32.0-36.0 [facility] Comment on above: Performed By: #### 8 66, 899, 6399, 22017, 03927 #### [facility] [address], [address] [place] [address] Crib Pad Maker: Slade Soto MD MCV (RBC) [Entitic vol] 84.7 fL Normal 80.0-100.0 [facility] Comment on above: Performed By: #### 8 66, 899, 6399, 89881, 59167 #### [facility] [address], [address] [place] [address] Crib Pad Maker: Slade Soto MD Monocytes (Bld) [#/Vol] 0.339 10*3/uL Normal 200-950 [facility] Comment on above: Performed By: #### 8 66, 899, 6399, 92789, 87544 #### [facility] [address], [address] [place] [address] Crib Pad Maker: Slade Soto MD Monocytes/100 WBC (Bld) 4.4 % Normal [facility] Comment on above: Performed By: #### 8 66, 899, 6399, 87129, 24085 #### [facility] [address], [address] [place] [address] Crib Pad Maker: Slade Soto MD Neutrophils (Bld) [#/Vol] 5.49 10*3/uL Normal 8336-4568 [facility] Comment on above: Performed By: #### 8 66, 899, 6399, 78011, 02033 #### [facility]-[place] [address] , [address] [place] [address] Crib Pad Maker: Slade Soto MD Neutrophils/100 WBC (Bld) 71.3 % Normal [facility] Comment on above: Performed By: #### 8 66, 899, 6399, 83443, 17224 #### [facility]-[address] , [address] [place] [address] Crib Pad Maker: Slade Soto MD Platelet mean volume (Bld) [Entitic vol] 11.0 fL Normal 7.5-12.5 [facility] Comment on above: Performed By: #### 8 66, 899, 6399, 68150, 33163 #### [facility]-[place] [address] , [address] [place] [address] Crib Pad Maker: Slade Soto MD Platelets (Bld) [#/Vol] 317 10*3/uL Normal 140-400 [facility] Comment on above: Performed By: #### 8 66, 899, 6399, 81385, 70954 #### [facility] [address] , [address] [place] [address] Crib Pad Maker: Slade Soto MD RBC (Bld) [#/Vol] 4.57 10*6/uL Normal 3.80-5.10 [facility] Comment on above: Performed By: #### 8 66, 899, 6399, 72767, 44086 #### [facility]-[place] [address], [address] [place] [address] Crib Pad Maker: Slade Soto MD WBC (Bld) [#/Vol] 7.7 10*3/uL Normal 3.8-10.8 [facility] Comment on above: Performed By: #### 8 66, 899, 6399, 75015, 25832 #### [facility]-[address], [address] [place] [address] Crib Pad Maker: Slade Soto MD T3, FREE 07-06-2020 Free T3 [Mass/Vol] 2.6 pg/mL Normal 2.3-4.2 [facility] Comment on above: Performed By: #### 8 66, 899, 6399, 93462, 99876 #### [facility]-[address], [address] [place] [address] Crib Pad Maker: lSade Soto MD T4, FREE 07-06-2020 Free T4 [Mass/Vol] 1.0 ng/dL Normal 0.8-1.8 [facility] Comment on above: Performed By: #### 8 66, 899, 6399, 10932, 11857 #### [facility]-[address], [address] [place] [address] Crib Pad Maker: Slade Soto MD THYROID PEROXIDASE ANTIBODIE [facility] 07-06-2020 THYROID PEROXIDASE ANTIBODIES <1 Normal <9 [facility] Comment on above: Performed By: #### 8 66, 899, 6399, 05908, 07533 #### [facility] [address] Crib Pad Maker: Slade Soto MD TSHon 07-06-2020 TSH Qn 0.91 m[IU]/L Normal [facility] Comment on above: Result Comment: Refe rence Range > or = 20 Years 0.40-4.50 Ranges First trimester 0.26-2.66 Second trimester 0.55-2.73 Third trimester 0.43-2.91 Performed By: #### 8 66, 899, 6399, 52853, 64444 #### [facility] [address] Crib Pad Maker: Slade Soto MD VITAMIN B12on 07-06-2020 Cobalamin (Vitamin B12) [Mass/Vol] 354 pg/mL Normal 200-1100 [facility] Comment on above: Result Comment: Please Note: Although the reference range for vitamin B12 is 200-1100 pg/mL, it has been reported that between 5 and 10% of patients with values between 200 and 400 pg/mL may experience neuropsychiatric and hematologic abnormalities due to occult B12 deficiency; less than 1% of patients with values above 400 pg/mL will have symptoms. Performed By: #### 9 27 #### [facility], [address] [place] [id number] Crib Pad Maker: Slade Soto MD VITAMIN D,25-OH,TOTAL,IAon 1 09-06-2019 VITAMIN D,25-OH,TOTAL,IA 22 ng/mL Low 30-100 [facility] Comment on above: Result Comment: Cheryl min D Status 25-OH Vitamin D: Deficiency: <20 ng/mL Insufficiency: 20 - 29 ng/mL Optimal: > or = 30 ng/mL For 25-OH Vitamin D testing on patients on D2-supplementation and patients for whom quantitation of D2 and D3 fractions is required, the Quest[facility]ure[facility](TM) 25-OH VIT D, (D2,D3), LC/MS/MS is recommended: order code 81241 (patients >2yrs). See Note 1 Note 1 For additional information, please refer to http://education.KeyEffx/faq/QHC284 (This link is being provided for informational/ educational purposes only.) Performed By: #### 8 66, 899, 3073, 15304, 46419 #### [facility]-[address], [address] [place] [address] Crib Pad Maker: Slade Soto MD Coronavirus 2019on 0 COVID 19 Result TOP WADDY Normal Negative for COVID19 (SARS CoV2) by PCR. [facility] Comment on above: Result Comment: Nega tive for This test was developed and its performance characteristics determined by [facility]'s [facility]. [facility] [place]. This test has been authorized by FDA under an Emergency Use Authorization (EUA). This test has been validated in accordance with the FDA's Guidance Document Policy for Diagnostics Testing in Laboratories Certified to Perform High Complexity Testing under CLIA prior to Emergency use Authorization for Coronavirus Disease 2019 during the Public Health Emergency issued on September 11, 2019. COVID19 (SARS This test was developed and its performance characteristics determined [facility] [place]. This test has been authorized by FDA under an Emergency Use Authorization (EUA). This test has been validated in accordance with the FDA's Guidance Document Policy for Diagnostics Testing in Laboratories Certified to Perform High Complexity Testing under CLIA prior to Emergency use Authorization for Coronavirus Disease 2019 during the Public Health Emergency issued on September 11, 2019. CoV2) by PCR. This test was developed and its performance characteristics determined by [facility] [facility] Pathology and Laboratory Medicine [place]. This test has been authorized by FDA under an Emergency Use Authorization (EUA). This test has been validated in accordance with the FDA's Guidance Document Policy for Diagnostics Testing in Laboratories Certified to Perform High Complexity Testing under CLIA prior to Emergency use Authorization for Coronavirus Disease 2019 during the Public Health Emergency issued on September 11, 2019. COVID 19 Source TOP WADDY Normal [facility] Reference Lab Comment on above: Result Comment: Naso pharyngeal Corrected on 02/10 AT 0744: Previously reported as TOP WADDY SWAB Swab Corrected on 02/10 AT 0744: Previously reported as TOP WADDY SWAB Vital Signs Date Time Vital Sign Value Performing Clinician Facility 02-08-2025 07:38-0400 Body height 170.2 cm Ubaldo Betancourt DO Work Phone: [facility] 02-08-2025 07:38-0400 Body mass index (BMI) [Ratio] 24.4 kg/m2 Ubaldo Betancourt DO Work Phone: [facility] 02-08-2025 07:38-0400 Body temperature 98.4 [degF] Ubaldo Betancourt DO Work Phone: [facility] 02-08-2025 07:38-0400 Body weight 70.67 kg Ubaldo Betancourt DO Work Phone: [facility] 02-08-2025 07:38-0400 Diastolic blood pressure 81 mm[Hg] Ubaldo Betancourt DO Work Phone: [facility] 02-08-2025 07:38-0400 Heart rate 80 /min Ubaldo Betancourt DO Work Phone: [facility] 02-08-2025 07:38-0400 Respiratory rate 14 /min Ubaldo Betancourt DO Work Phone: [facility] 02-08-2025 07:38-0400 SaO2% (BldA) [Mass fraction] 99 % Ubaldo Betancourt DO Work Phone: [facility] 02-08-2025 07:38-0400 Systolic blood pressure 114 mm[Hg] Ubaldo Betancourt DO Work Phone: [facility] 11-06-2022 13:30-0400 Body temperature 97.11 [degF] Nayeli Irvin MD Work Phone: [facility] 11-06-2022 13:30-0400 Diastolic blood pressure 89 mm[Hg] Nayeli Irvin MD Work Phone: [facility] 11-06-2022 13:30-0400 Heart rate 76 /min Nayeli Irvin MD Work Phone: [facility] 11-06-2022 13:30-0400 Respiratory rate 16 /min Nayeli Irvin MD Work Phone: [facility] 11-06-2022 13:30-0400 SaO2% (BldA) [Mass fraction] 100 % Nayeli Irvin MD Work Phone: [facility] 11-06-2022 13:30-0400 Systolic blood pressure 138 mm[Hg] Nayeli Irvin MD Work Phone: [facility] 11-06-2022 10:18-0400 Body height 170.2 cm Nayeli Irvin MD Work Phone: [facility] 11-06-2022 10:18-0400 Body mass index (BMI) [Ratio] 26.53 kg/m2 Nayeli Irvin MD Work Phone: [facility] 11-06-2022 10:18-0400 Body weight 76.84 kg Nayeli Irvin MD Work Phone: [facility] 10-10-2022 10:36-0400 Body height 170.2 cm Bre Brown APRN-MOPHEAD TRIMMER AND WRAPPER Work Phone: [facility] 10-10-2022 10:36-0400 Body mass index (BMI) [Ratio] 27.1 kg/m2 Bre Brown APRN-MOPHEAD TRIMMER AND WRAPPER Work Phone: [facility] 10-10-2022 10:36-0400 Body temperature 98.2 [degF] Bre Brown APRN-MOPHEAD TRIMMER AND WRAPPER Work Phone: [facility] 10-10-2022 10:36-0400 Body weight 78.47 kg Bre Brown APRN-MOPHEAD TRIMMER AND WRAPPER Work Phone: [facility] 10-10-2022 10:36-0400 Diastolic blood pressure 90 mm[Hg] Bre Brown APRN-MOPHEAD TRIMMER AND WRAPPER Work Phone: [facility] 10-10-2022 10:36-0400 Heart rate 82 /min Bre Brown APRN-MOPHEAD TRIMMER AND WRAPPER Work Phone: [facility] 10-10-2022 10:36-0400 SaO2% (BldA) [Mass fraction] 98 % Bre Brown APRN-MOPHEAD TRIMMER AND WRAPPER Work Phone: [facility] 10-10-2022 10:36-0400 Systolic blood pressure 127 mm[Hg] Bre Brown APRN-MOPHEAD TRIMMER AND WRAPPER Work Phone: [facility] Encounters Encounter Date Encounter Type Care Provider Facility Start: 02-08-2025 End: 02-12-2025 ambulatory [facility] Start: 02-08-2025 End: 02-12-2025 Encounter for other preprocedural examination [facility] Start: 02-08-2025 End: 02-12-2025 Encounter for preprocedural cardiovascular examination [facility] Start: 02-08-2025 End: 02-08-2025 Office consultation new/estab patient 60 min Rivera Ring MD Work Phone: [facility] Preadmission Testing Comment on above: Hematoma of right br east (Primary Dx); Pre-op examination; Preop cardiovascular exam Start: 02-08-2025 End: 02-08-2025 Patient encounter status Rivera Ring MD Work Phone: [facility] Start: 02-08-2025 End: 02-08-2025 Preprocedural examination done Rivera Ring MD Work Phone: [facility] Start: 01-14-2025 End: 01-15-2025 Emergency department patient visit ERNESTO LE [facility] Start: 08-30-2024 End: 08-30-2024 ambulatory [facility] Start: 04-14-2024 End: 04-14-2024 Emergency department patient visit JAN BOWLES [facility] Start: 04-13-2024 End: 04-13-2024 ambulatory SANDY OROURKE PA-C Facility:[facility] Start: 04-12-2024 End: 04-12-2024 ambulatory [facility] Start: 01-29-2024 End: 01-29-2024 ambulatory NONE~[id number] NONE NONE NONE Facility:[facility] Start: 01-19-2024 End: 01-19-2024 ambulatory [place] Facility:[facility] Start: 01-19-2024 End: 01-19-2024 ambulatory Nimesh OHRTON Facility:[facility] Start: 09-26-2023 End: 09-26-2023 ambulatory DELPHIA SANDY OROURKE PA-C~[id number] Facility:[facility] Start: 08-29-2023 Encounter for gynecological examination (general) (routine) without abnormal findings CLARY NOEL MD [facility] Start: 08-28-2023 End: 08-28-2023 ambulatory NONE~[id number] NONE NONE NONE Facility:[facility] Start: 08-28-2023 End: 08-28-2023 Encounter for gynecological examination (general) (routine) without abnormal findings CLARY NOEL MD Facility:[facility] Start: 08-11-2023 End: 08-12-2023 ambulatory TACO DANIEL DO Facility:[facility] Start: 11-28-2022 ambulatory SELF SELF Facility:[facility] Start: 11-06-2022 End: 11-06-2022 ambulatory NAYELI IRVIN Facility:[facility] Start: 11-06-2022 End: 11-06-2022 Subsequent hospital visit by physician Nayeli Irvin MD Work Phone: [facility] Comment on above: Umbilical hernia wit hout obstruction and without gangrene Start: 10-30-2022 ambulatory [facility] Facility :[facility] Start: 10-30-2022 Encounter for other preprocedural examination [facility] Facility:[facility] Start: 10-10-2022 ambulatory [facility] Facility:[facility] Start: 10-10-2022 End: 10-10-2022 Office consultation new/estab patient 30 min Bre Brown MANDARIN TEACHER-MOPHEAD TRIMMER AND WRAPPER Work Phone: [facility] [place] Comment on above: Umbilical hernia wit hout obstruction and without gangrene (Primary Dx); Abdominal wall bulge Start: 01-10-2022 End: 01-10-2022 Patient encounter procedure [facility], Specimen Procedures Date Procedure Procedure Detail Performing Clinician Start: 02-08-2025 Blood count complete automated Rivera Ring MD Work Phone: Plan of Treatment Date Care Activity Detail Author Start: 03-14-2025 Influenza vaccination Influenza Vaccine (#1) [facility] Start: 03-14-2024 COVID-19 Vaccine ( season) COVID-19 Vaccine ( season) [facility] Start: 03-14-2023 Influenza vaccination INFLUENZA VACCINE (Season Ended) [facility] Start: 12-12-2022 End: 12-12-2022 Patient encounter procedure 12/12/2022 Office Visit General Surgery Bre Brown, MANDARIN TEACHER-MOPHEAD TRIMMER AND WRAPPER [address] [place] [address] [facility] [place] Start: 11-28-2022 End: 11-28-2022 Admission to same day surgery center 11/28/2022 Surgery Multispecialty Nayeli Irvin MD [address] [place] [id number] Open primary umbilical hernia repair [facility] Comment on above: Open primary umbilical hernia repair Start: 11-28-2022 End: 11-28-2022 REPAIR HERNIA ABDOMINAL INITIAL REDUCIBLE LESS THAN 3 CM OPEN REPAIR HERNIA ABDOMINAL INITIAL REDUCIBLE LESS THAN 3 CM OPEN Umbilical hernia without obstruction and without gangrene 11/28/2022 1:10 PM EDT [facility] Start: 11-28-2022 End: 11-28-2022 Patient encounter procedure 11/28/2022 Office Visit General Surgery Bre Brown, MANDARIN TEACHER-MOPHEAD TRIMMER AND WRAPPER [address] [place] [id number] [facility] [place] Start: 11-28-2022 Subsequent hospital visit by physician 11/28/2022 Hospital Encounter Multispecialty Nayeli Irvin MD [address] [place] [address] Umbilical hernia without obstruction and without gangrene [facility] Comment on above: Umbilical hernia without obstruction and without gangrene Start: 11-14-2022 End: 11-14-2022 ambulatory 11/14/2022 Pre-Operative Nurse Assessment [facility] Start: 11-06-2022 End: 11-06-2022 REPAIR HERNIA ABDOMINAL INITIAL REDUCIBLE LESS THAN 3 CM OPEN REPAIR HERNIA ABDOMINAL INITIAL REDUCIBLE LESS THAN 3 CM OPEN Umbilical hernia without obstruction and without gangrene 11/06/2022 11:46 AM EDT [facility] Start: 03-14-2022 Influenza vaccination INFLUENZA VACCINE (#1) [facility] Start: 12-08-2017 Screening for malignant neoplasm of cervix [facility] Start: 12-08-2008 Screening for malignant neoplasm of cervix [facility] Start: 12-08-2006 Third diphtheria, tetanus and acellular pertussis (DTaP) vaccination TDAP (ADULT) [facility] Start: 12-08-2005 Hepatitis C screening Hepatitis C Screening [facility] Start: 12-08-2002 HIV screening [facility] Start: 1999 Depression screening using PHQ-9 (Patient Health Questionnaire 9) score Depression Screening/Follow-Up (PHQ-2/9) [facility] Start: 12-08-1990 History and physical examination, annual for health maintenance Wellness Visit [facility] Start: 06-10-1988 COVID-19 VACCINE (#1) COVID-19 VACCINE (#1) [facility] Start: 1987 Hepatitis C screening HEPATITIS C VIRUS SCREENING [facility] Start: 1987 Tetanus vaccination [facility] CBC panel - Blood by Automated count CBC Lab Routine Pre-op examination 02/08/2025 8:20 AM EDT [facility] Work Phone: End: 11-06-2022 US Unspecified body region during surgery US IMAGING OR Imaging Routine One Time for 1 Occurrences starting 11/06/2022 until 11/06/2022 [facility] Work Phone: Comment on above: One Time for 1 Occurrences starting 10/13 until 11/06/2022 Immunizations Immunization Date Immunization Notes Care Provider Ct [place] 04-04-2016 measles, mumps and rubella virus vaccine [facility] Work Phone: Payers Date Payer Category Payer [facility] JOSE GARCIA UE/PREF/HMO/PPO [id number] 2024 Unknown [id number] 2024 Self-pay [id number] 2022 Unknown [id number] 2022 Unknown [facility] [id number] 2022-Present [address] [place] [address] [id number] 2012 Unknown [facility] [id number] 1987 Unknown [id number] [id number]. 594 1987 Unknown [id number] 2.840.1.989647.3.579.2. 594 1987 Unknown [id number] 2.0.1.771291.3.579.2. 594 1987 Unknown [id number] 2.840.1.807824.3.579.2. 419 1987 Unknown [id number] 2.840.1.517161.3.579.2. 419 1987 Unknown [id number] 2.16840.1.564841.3.579.2. 419 1987 Unknown [id number] 2.16840.1.699325.3.579.2. 419 1987 Unknown [id number] 2.16840.1.258562.3.579.2. 419 1987 Unknown [id number] 2.16.840.1.057808.3.579.2. 419 1987 Unknown [id number] 2.16.840.1.945499.3.579.2. 419 1987 Unknown [id number] 2.16.840.1.894853.3.579.2. 419 1987 Unknown [id number] 2.16.840.1.005956.3.579.2. 419 1987 Unknown [id number] 2.16.840.1.754394.3.579.2. 651 1987 Unknown [id number] 2.16.840.1.815803.3.579.2. 651 1987 Unknown [id number] 2.16.840.1.733276.3.579.2. 651 1987 Unknown [id number] 2.16.840.1.157507.3.579.2. 651 1987 Unknown [id number] 2.16.840.1.650676.3.579.2. 900 1959 Private Health Insurance [id number] 1959 Unknown [id number] Private Health Insurance [facility] [id number] Unknown [facility] [id number] Unknown [id number] 2.16.840.1.160137.3.579.2. 462 Unknown [id number] 2.16840.1.259570.3.579.2. 462 Social History Date Type Detail Facility Start: 07-13-2019 Tobacco smoking stat [facility] Unknown if ever smoked [facility] Work Phone: Start: 07-13-2019 [facility]ig[facility] Work [facility]: Start: 1985 Sex Assigned At Female [facility] Work Phone: Start: 10-10-2022 End: 02-08-2025 Tobacco smoking status NHIS Ex-smoker [facility] Start: 07-14-2017 End: 07-14-2024 History of tobacco use Current smoker [facility] Start: 07-14-2017 End: 07-14-2024 History of tobacco use Cigarette Smoker [facility] Start: 10-10-2022 End: 02-08-2025 Tobacco use and exposure Smokeless tobacco non-user [facility] Start: 10-10-2022 End: 11-06-2022 Alcohol intake Ex-drinker (finding) [facility] Start: 10-10-2022 Alcohol Comment Socially [facility] Start: 1987 Sex Assigned At Not on file [facility] Start: 10-30-2022 End: 02-08-2025 Cigarettes smoked current (pack per day) - Reported 0.1 [facility] Start: 02-08-2025 Alcoholic beverage intake Current drinker of alcohol (finding) [facility] Start: 02-08-2025 Tobacco use panel [facility] Medical Equipment Procedure Code Equipment Code Equipment Origin al Text Equipment Identifier Dates Robot-assisted total abdominal hysterectomy with bilateral salpingo-oophorectomy (TARYN LALITA 3GRM HEMOSTAT ABS FDA Start: 07-12-2019 LALITA 3GRM HEMOSTAT ABS FDA Start: 11-20-2017 Clinical Notes 10-10-2022 to 02-08-2025 Ubaldo Betancourt, DO - 02/08/2025 8:29 AM EDUbaldo Carlson, DO - 02/08/2025 8:29 AM EDTPatient InstructionsPatient Oliva Prasad RN - 11/06/2022 12:19 PM EDT Note Date & Type Note Facility 02-08-2025 History and physical note Danelle Baugh 1985 Encounter Diagnoses Name Primary? Hematoma of right breast Yes Pre-op examination Preop cardiovascular exam Procedure: Right Breast Exploration and Evacuation of Hematoma, Possible Implant Replacement Surgeon: Dr. Ring PCP: Sandy Orourke PA-C Cardiology: None Date of Procedure: 02/09/25 PREOPERATIVE HISTORY AND PHYSICAL EXAMINATION DATE OF SERVICE 02/08/2025 ASSESSMENT 1. Right breast hematoma. 2. Asthma. 3. Environmental allergies. 4. History of -induced hypertension. 5. Scoliosis. 6. Migraine headaches. 7. Gastroesophageal reflux disease. 8. Constipation. 9. Depression. 10. Anxiety. 11. Postoperative nausea and vomiting. 12. Previous tobacco use. 1. ASA = 2 . 2. RCRI = 0 (Score/Risk of Major Cardiac Outcomes - 0/0.4%, 1/0.9%, 2/2.4%, 3 or more/>5.4%. This may overestimate the cardiac risks in lower risk procedures and underestimate the risks in vascular procedures. This study has been externally validated.) with 0 modified risk factors. 3. Caprini Score = 5 . (Score/Risk of Symptomatic VTE = 0/<0.5%, 1-2/1.5%, 3-4/3.0%, 5 or greater/6% or greater). 4. Apfel Score = . (Score/Risk of PONV = 0/10%, 1/21%, 2/39%, 3/61%, 4/79%) This score has been externally validated. Plan: 1. The patient falls into an acceptable cardiac risk for category for their planned procedure per 2023 ACC Guidelines and Recommendations. 2. Endocarditis prophylaxis is not required per 2017 ACC/AHA Guidelines and Recommendations. 3. Avoid/limit perioperative hypothermia. 4. Perioperative thromboembolic prophylaxis is recommended per the 2019 [place] Society of Hematology Guidelines for Management of VTE: Prevention of VTE in Surgical Hospitalized Patients (or 2019 ACCP Guidelines and Recommendations, or 2011 AAOS Guidelines for orthopedic procedures, or 2009 RIANA Guidelines for neurosurgical procedures). 5. The patient s head of the bed should be elevated to 30 degrees post-operatively unless contraindicated by the procedure. 6. The patient has been advised to discontinue NSAID s and alternative medicines (Vitamins, herbals, etc.) seven days prior to surgery. Perioperative management of the patient's antiplatelet therapy is recommended per the 2023 ACC/AHA Guidelines - Focused Update on Duration of Dual Antiplatelet Therapy in Patient's With Coronary Artery Disease or in accordance with their grounds restoration specialist's recommendations. 7. The patient may use appropriate amounts of acetaminophen pre-operatively for pain management if not allergic and if no history of liver disease. 8. The patient was advised to follow the current [facility] guidelines regarding fluid intake after midnight and to take any recommended medications on the morning of surgery with a sip of water. 9. Ordered laboratory tests will be reviewed pre-operatively and any pertinent abnormalities needing to be addressed will be communicated through Quick Notes. 10. Post-operative spirometry/volurex, deep breathing maneuvers, and early ambulation is recommended if not contraindicated by the procedure. 11. This report will be made available to the requesting surgeon through the electronic medical records. 1. The patient does not meet criteria for the initiation of perioperative beta-blockers per 2017 ACC Guidelines and Recommendations. 1. The patient denies . 1. The patient was advised to alert anesthesia on the day of surgery of their tendency toward post-operative nausea and vomiting/motion sickness. 2. Perioperative nebulizers can be used as needed. PREOPERATIVE HISTORY AND PHYSICAL EXAMINATION DATE OF SERVICE 02/08/2025 HISTORY OF PRESENT ILLNESS Ms. Baugh is a very pleasant, non, 39-year-old white female with multiple medical problems who presents today for a preoperative consultation and risk stratification at the request of Dr. Ring for a planned right breast exploration with evacuation of hematoma and possible implant replacement on 02/09/2025. The patient reports she is not . The patient denies a history of hypertension, hyperlipidemia, diabetes, renal insufficiency, cerebrovascular disease, coronary artery disease, peripheral vascular disease, or valvular heart disease. The patient reports having a history of -induced hypertension but has not had any issues since that point in time. The patient states she is not known to snore excessively when she sleeps and does not necessarily appear to be at risk for sleep apnea based on her statements today. The patient denies a history of MASLD. Not listed in her medical history below is a history of allergies and allergy-induced asthma. The patient states she has not required the use of steroids nor has she been hospitalized for asthma within the last year. The patient's lung exam is clear today with a room air pulse oximeter of 99%. The patient states she did smoke up until 2024. The patient does not report a history of COPD or emphysema. The patient has had several surgeries in the past, all of which were uneventful from a cardiac and anesthesia standpoint except for postoperative nausea and vomiting. The patient was advised to mention this to Anesthesia on the day of the upcoming procedure. The patient reports she is able to easily walk up 2 flights of stairs and does this several times throughout her day. At a functional capacity of 4 METs, the patient is not reporting any active cardiac symptoms such as chest pain, atypical chest pain, palpitations, syncope, near syncope, orthopnea, PND, lower extremity edema, claudication, dyspnea on exertion, or shortness of breath. The patient denies any significant cardiac disease in her family history. The patient denies any personal or family history significant for bleeding diathesis or thromboembolic disease. The patient has no other acute complaints currently. Allergies[1] Active Home Medications Medication Sig Take Last Dose On Take Morning of Surgery Comment(s) diindolylmethane-herbal drugs 50-50 mg cap Take 1 capsule by mouth every evening . diphenhydrAMINE (BENADRYL) 25 mg capsule Take 1 (one) capsule (25 mg total) by mouth nightly as needed . HYDROcodone-acetaminophen (NORCO) 5-325 mg per tablet Take 1 (one) tablet by mouth every 4 (four) hours as needed for pain . progesterone (PROMETRIUM) 200 MG capsule Take 1 (one) capsule (200 mg total) by mouth nightly . venlafaxine (EFFEXOR-XR) 37.5 MG 24 hr capsule Take 1 (one) capsule (37.5 mg total) by mouth every evening . Past Medical History: Diagnosis Date Anxiety Cholelithiasis removed Constipation Depression GERD (gastroesophageal reflux disease) Headache migraines Hypertension gestational Irritable bowel syndrome PONV (postoperative nausea and vomiting) Scoliosis Past Surgical History: Procedure Laterality Date APPENDECTOMY BREAST SURGERY SECTION x2 CHOLECYSTECTOMY COLONOSCOPY ESOPHAGOGASTRODUODENOSCOPY x3 EXPLORATORY LAPAROTOMY HERNIA REPAIR TYMPANOSTOMY TUBE PLACEMENT WISDOM TOOTH EXTRACTION Social History [2] History reviewed. No pertinent family history. Review of Systems Constitutional: Negative for chills, decreased appetite, diaphoresis, fever, malaise/fatigue, night sweats, weight gain and weight loss. HENT: Negative. Negative for congestion, ear discharge, ear pain, hearing loss, hoarse voice, nosebleeds, odynophagia, sore throat, stridor and tinnitus. Eyes: Negative for blurred vision, discharge, double vision, pain, photophobia, redness, vision loss in left eye, vision loss in right eye, visual disturbance and visual halos. Cardiovascular: Negative. Negative for chest pain, claudication, cyanosis, dyspnea on exertion, irregular heartbeat, leg swelling, near-syncope, orthopnea, palpitations, paroxysmal nocturnal dyspnea and syncope. Respiratory: Negative. Negative for cough, hemoptysis, shortness of breath, sleep disturbances due to breathing, snoring, sputum production and wheezing. Endocrine: Negative for cold intolerance, heat intolerance, polydipsia, polyphagia and polyuria. Hematologic/Lymphatic: Negative for adenopathy and bleeding problem. Does not bruise/bleed easily. Skin: Negative. Negative for color change, dry skin, flushing, itching, nail changes, poor wound healing, rash, skin cancer, suspicious lesions and unusual hair distribution. Musculoskeletal: Positive for back pain. Negative for arthritis, falls, gout, joint pain, joint swelling, muscle cramps, muscle weakness, myalgias and stiffness. Gastrointestinal: Positive for constipation and heartburn. Negative for bloating, abdominal pain, anorexia, change in bowel habit, bowel incontinence, diarrhea, dysphagia, excessive appetite, flatus, hematemesis, hematochezia, hemorrhoids, jaundice, melena, nausea and vomiting. Genitourinary: Negative for bladder incontinence, decreased libido, dysuria, flank pain, frequency, genital sores, hematuria, hesitancy, incomplete emptying, menorrhagia, missed menses, nocturia, non-menstrual bleeding, pelvic pain and urgency. Neurological: Positive for headaches. Negative for aphonia, brief paralysis, difficulty with concentration, disturbances in coordination, excessive daytime sleepiness, dizziness, focal weakness, light-headedness, loss of balance, numbness, paresthesias, seizures, sensory change, tremors, vertigo and weakness. Psychiatric/Behavioral: Positive for depression. Negative for altered mental status, hallucinations, hypervigilance, memory loss, substance abuse, suicidal ideas and thoughts of violence. The patient is nervous/anxious. The patient does not have insomnia. Allergic/Immunologic: Negative for environmental allergies, HIV exposure, hives and persistent infections. Vitals: 02/08/25 0738 BP: 114/81 Pulse: 80 Resp: 14 Temp: 98.4 F (36.9 C) SpO2: 99% Weight: 70.7 kg (155 lb 12.8 oz) Height: 5' 7 Physical Exam Vitals and nursing note reviewed. Constitutional: General: She is not in acute distress. Appearance: She is well-developed. She is not diaphoretic. Comments: Patient examined fully dressed HENT: Head: Normocephalic and atraumatic. Right Ear: External ear normal. Left Ear: External ear normal. Nose: Nose normal. Mouth/Throat: Pharynx: No oropharyngeal exudate. Eyes: General: No scleral icterus. Right eye: No discharge. Left eye: No discharge. Conjunctiva/sclera: Conjunctivae normal. Pupils: Pupils are equal, round, and reactive to light. Neck: Thyroid: No thyromegaly. Vascular: No JVD. Trachea: No tracheal deviation. Cardiovascular: Rate and Rhythm: Normal rate and regular rhythm. Heart sounds: Normal heart sounds. No murmur heard. No friction rub. No gallop. Pulmonary: Effort: Pulmonary effort is normal. No respiratory distress. Breath sounds: Normal breath sounds. No stridor. No wheezing or rales. Chest: Chest wall: No tenderness. Abdominal: General: Bowel sounds are normal. There is no distension. Palpations: Abdomen is soft. There is no mass. Tenderness: There is no abdominal tenderness. There is no guarding or rebound. Hernia: No hernia is present. Musculoskeletal: General: No tenderness. Normal range of motion. Cervical back: Normal range of motion and neck supple. Lymphadenopathy: Cervical: No cervical adenopathy. Skin: General: Skin is warm and dry. Coloration: Skin is not pale. Findings: No erythema or rash. Neurological: Mental Status: She is alert and oriented to person, place, and time. Cranial Nerves: No cranial nerve deficit. Motor: No abnormal muscle tone. Coordination: Coordination normal. Deep Tendon Reflexes: Reflexes are normal and symmetric. Reflexes normal. Psychiatric: Behavior: Behavior normal. Thought Content: Thought content normal. Judgment: Judgment normal. Ubaldo Betancourt DO [1] Allergies Allergen Reactions Prednisone Hallucinations [2] Social History Socioeconomic History Marital status: Tobacco Use Smoking status: Former Current packs/day: 0.00 Average packs/day: 0.3 packs/day for 7.0 years (1.8 ttl pk-yrs) Types: Cigarettes Start date: 2017 Quit date: 2024 Years since quittin.5 Smokeless tobacco: Never Vaping Use Vaping status: Never Used Substance and Sexual Activity Alcohol use: Yes Alcohol/week: 3.0 - 4.0 standard drinks of alcohol Types: 3 - 4 Standard drinks or equivalent per week Drug use: Never [facility] 02-08-2025 History and physical note Danelle Baugh 1985 Encounter Diagnoses Name Primary? Hematoma of right breast Yes Pre-op examination Preop cardiovascular exam Procedure: Right Breast Exploration and Evacuation of Hematoma, Possible Implant Replacement Surgeon: Dr. Ring PCP: Sandy Orourke PA-C Cardiology: None Date of Procedure: 02/09/25 PREOPERATIVE HISTORY AND PHYSICAL EXAMINATION DATE OF SERVICE 02/08/2025 ASSESSMENT 1. Right breast hematoma. 2. Asthma. 3. Environmental allergies. 4. History of -induced hypertension. 5. Scoliosis. 6. Migraine headaches. 7. Gastroesophageal reflux disease. 8. Constipation. 9. Depression. 10. Anxiety. 11. Postoperative nausea and vomiting. 12. Previous tobacco use. 1. ASA = 2 . 2. RCRI = 0 (Score/Risk of Major Cardiac Outcomes - 0/0.4%, 1/0.9%, 2/2.4%, 3 or more/>5.4%. This may overestimate the cardiac risks in lower risk procedures and underestimate the risks in vascular procedures. This study has been externally validated.) with 0 modified risk factors. 3. Caprini Score = 5 . (Score/Risk of Symptomatic VTE = 0/<0.5%, 1-2/1.5%, 3-4/3.0%, 5 or greater/6% or greater). 4. Apfel Score = . (Score/Risk of PONV = 0/10%, 1/21%, 2/39%, 3/61%, 4/79%) This score has been externally validated. Plan: 1. The patient falls into an acceptable cardiac risk for category for their planned procedure per 2023 ACC Guidelines and Recommendations. 2. Endocarditis prophylaxis is not required per 2017 ACC/AHA Guidelines and Recommendations. 3. Avoid/limit perioperative hypothermia. 4. Perioperative thromboembolic prophylaxis is recommended per the 2019 [place] [employer] Guidelines for Management of VTE: Prevention of VTE in Surgical Hospitalized Patients (or 2019 ACCP Guidelines and Recommendations, or 2010 AAOS Guidelines for orthopedic procedures, or 2008 RIANA Guidelines for neurosurgical procedures). 5. The patient s head of the bed should be elevated to 30 degrees post-operatively unless contraindicated by the procedure. 6. The patient has been advised to discontinue NSAID s and alternative medicines (Vitamins, herbals, etc.) seven days prior to surgery. Perioperative management of the patient's antiplatelet therapy is recommended per the 2023 ACC/AHA Guidelines - Focused Update on Duration of Dual Antiplatelet Therapy in Patient's With Coronary Artery Disease or in accordance with their grounds restoration specialist's recommendations. 7. The patient may use appropriate amounts of acetaminophen pre-operatively for pain management if not allergic and if no history of liver disease. 8. The patient was advised to follow the current [facility] guidelines regarding fluid intake after midnight and to take any recommended medications on the morning of surgery with a sip of water. 9. Ordered laboratory tests will be reviewed pre-operatively and any pertinent abnormalities needing to be addressed will be communicated through Quick Notes. 10. Post-operative spirometry/volurex, deep breathing maneuvers, and early ambulation is recommended if not contraindicated by the procedure. 11. This report will be made available to the requesting surgeon through the electronic medical records. 1. The patient does not meet criteria for the initiation of perioperative beta-blockers per 2017 ACC Guidelines and Recommendations. 1. The patient denies . 1. The patient was advised to alert anesthesia on the day of surgery of their tendency toward post-operative nausea and vomiting/motion sickness. 2. Perioperative nebulizers can be used as needed. PREOPERATIVE HISTORY AND PHYSICAL EXAMINATION DATE OF SERVICE 02/08/2025 HISTORY OF PRESENT ILLNESS Ms. Baugh is a very pleasant, non, 39-year-old white female with multiple medical problems who presents today for a preoperative consultation and risk stratification at the request of Dr. Ring for a planned right breast exploration with evacuation of hematoma and possible implant replacement on 02/09/2025. The patient reports she is not . The patient denies a history of hypertension, hyperlipidemia, diabetes, renal insufficiency, cerebrovascular disease, coronary artery disease, peripheral vascular disease, or valvular heart disease. The patient reports having a history of -induced hypertension but has not had any issues since that point in time. The patient states she is not known to snore excessively when she sleeps and does not necessarily appear to be at risk for sleep apnea based on her statements today. The patient denies a history of MASLD. Not listed in her medical history below is a history of allergies and allergy-induced asthma. The patient states she has not required the use of steroids nor has she been hospitalized for asthma within the last year. The patient's lung exam is clear today with a room air pulse oximeter of 99%. The patient states she did smoke up until 2024. The patient does not report a history of COPD or emphysema. The patient has had several surgeries in the past, all of which were uneventful from a cardiac and anesthesia standpoint except for postoperative nausea and vomiting. The patient was advised to mention this to Anesthesia on the day of the upcoming procedure. The patient reports she is able to easily walk up 2 flights of stairs and does this several times throughout her day. At a functional capacity of 4 METs, the patient is not reporting any active cardiac symptoms such as chest pain, atypical chest pain, palpitations, syncope, near syncope, orthopnea, PND, lower extremity edema, claudication, dyspnea on exertion, or shortness of breath. The patient denies any significant cardiac disease in her family history. The patient denies any personal or family history significant for bleeding diathesis or thromboembolic disease. The patient has no other acute complaints currently. Allergies[1] Active Home Medications Medication Sig Take Last Dose On Take Morning of Surgery Comment(s) diindolylmethane-herbal drugs 50-50 mg cap Take 1 capsule by mouth every evening . diphenhydrAMINE (BENADRYL) 25 mg capsule Take 1 (one) capsule (25 mg total) by mouth nightly as needed . HYDROcodone-acetaminophen (NORCO) 5-325 mg per tablet Take 1 (one) tablet by mouth every 4 (four) hours as needed for pain . progesterone (PROMETRIUM) 200 MG capsule Take 1 (one) capsule (200 mg total) by mouth nightly . venlafaxine (EFFEXOR-XR) 37.5 MG 24 hr capsule Take 1 (one) capsule (37.5 mg total) by mouth every evening . Past Medical History: Diagnosis Date Anxiety Cholelithiasis removed Constipation Depression GERD (gastroesophageal reflux disease) Headache migraines Hypertension gestational Irritable bowel syndrome PONV (postoperative nausea and vomiting) Scoliosis Past Surgical History: Procedure Laterality Date APPENDECTOMY BREAST SURGERY SECTION x2 CHOLECYSTECTOMY COLONOSCOPY ESOPHAGOGASTRODUODENOSCOPY x3 EXPLORATORY LAPAROTOMY HERNIA REPAIR TYMPANOSTOMY TUBE PLACEMENT WISDOM TOOTH EXTRACTION Social History [2] History reviewed. No pertinent family history. Review of Systems Constitutional: Negative for chills, decreased appetite, diaphoresis, fever, malaise/fatigue, night sweats, weight gain and weight loss. HENT: Negative. Negative for congestion, ear discharge, ear pain, hearing loss, hoarse voice, nosebleeds, odynophagia, sore throat, stridor and tinnitus. Eyes: Negative for blurred vision, discharge, double vision, pain, photophobia, redness, vision loss in left eye, vision loss in right eye, visual disturbance and visual halos. Cardiovascular: Negative. Negative for chest pain, claudication, cyanosis, dyspnea on exertion, irregular heartbeat, leg swelling, near-syncope, orthopnea, palpitations, paroxysmal nocturnal dyspnea and syncope. Respiratory: Negative. Negative for cough, hemoptysis, shortness of breath, sleep disturbances due to breathing, snoring, sputum production and wheezing. Endocrine: Negative for cold intolerance, heat intolerance, polydipsia, polyphagia and polyuria. Hematologic/Lymphatic: Negative for adenopathy and bleeding problem. Does not bruise/bleed easily. Skin: Negative. Negative for color change, dry skin, flushing, itching, nail changes, poor wound healing, rash, skin cancer, suspicious lesions and unusual hair distribution. Musculoskeletal: Positive for back pain. Negative for arthritis, falls, gout, joint pain, joint swelling, muscle cramps, muscle weakness, myalgias and stiffness. Gastrointestinal: Positive for constipation and heartburn. Negative for bloating, abdominal pain, anorexia, change in bowel habit, bowel incontinence, diarrhea, dysphagia, excessive appetite, flatus, hematemesis, hematochezia, hemorrhoids, jaundice, melena, nausea and vomiting. Genitourinary: Negative for bladder incontinence, decreased libido, dysuria, flank pain, frequency, genital sores, hematuria, hesitancy, incomplete emptying, menorrhagia, missed menses, nocturia, non-menstrual bleeding, pelvic pain and urgency. Neurological: Positive for headaches. Negative for aphonia, brief paralysis, difficulty with concentration, disturbances in coordination, excessive daytime sleepiness, dizziness, focal weakness, light-headedness, loss of balance, numbness, paresthesias, seizures, sensory change, tremors, vertigo and weakness. Psychiatric/Behavioral: Positive for depression. Negative for altered mental status, hallucinations, hypervigilance, memory loss, substance abuse, suicidal ideas and thoughts of violence. The patient is nervous/anxious. The patient does not have insomnia. Allergic/Immunologic: Negative for environmental allergies, HIV exposure, hives and persistent infections. Vitals: 02/08/25 0738 BP: 114/81 Pulse: 80 Resp: 14 Temp: 98.4 F (36.9 C) SpO2: 99% Weight: 70.7 kg (155 lb 12.8 oz) Height: 5' 7 Physical Exam Vitals and nursing note reviewed. Constitutional: General: She is not in acute distress. Appearance: She is well-developed. She is not diaphoretic. Comments: Patient examined fully dressed HENT: Head: Normocephalic and atraumatic. Right Ear: External ear normal. Left Ear: External ear normal. Nose: Nose normal. Mouth/Throat: Pharynx: No oropharyngeal exudate. Eyes: General: No scleral icterus. Right eye: No discharge. Left eye: No discharge. Conjunctiva/sclera: Conjunctivae normal. Pupils: Pupils are equal, round, and reactive to light. Neck: Thyroid: No thyromegaly. Vascular: No JVD. Trachea: No tracheal deviation. Cardiovascular: Rate and Rhythm: Normal rate and regular rhythm. Heart sounds: Normal heart sounds. No murmur heard. No friction rub. No gallop. Pulmonary: Effort: Pulmonary effort is normal. No respiratory distress. Breath sounds: Normal breath sounds. No stridor. No wheezing or rales. Chest: Chest wall: No tenderness. Abdominal: General: Bowel sounds are normal. There is no distension. Palpations: Abdomen is soft. There is no mass. Tenderness: There is no abdominal tenderness. There is no guarding or rebound. Hernia: No hernia is present. Musculoskeletal: General: No tenderness. Normal range of motion. Cervical back: Normal range of motion and neck supple. Lymphadenopathy: Cervical: No cervical adenopathy. Skin: General: Skin is warm and dry. Coloration: Skin is not pale. Findings: No erythema or rash. Neurological: Mental Status: She is alert and oriented to person, place, and time. Cranial Nerves: No cranial nerve deficit. Motor: No abnormal muscle tone. Coordination: Coordination normal. Deep Tendon Reflexes: Reflexes are normal and symmetric. Reflexes normal. Psychiatric: Behavior: Behavior normal. Thought Content: Thought content normal. Judgment: Judgment normal. Ubaldo Betancourt DO [1] Allergies Allergen Reactions Prednisone Hallucinations [2] Social History Socioeconomic History Marital status: Tobacco Use Smoking status: Former Current packs/day: 0.00 Average packs/day: 0.3 packs/day for 7.0 years (1.8 ttl pk-yrs) Types: Cigarettes Start date: 2017 Quit date: 2024 Years since quittin.5 Smokeless tobacco: Never Vaping Use Vaping status: Never Used Substance and Sexual Activity Alcohol use: Yes Alcohol/week: 3.0 - 4.0 standard drinks of alcohol Types: 3 - 4 Standard drinks or equivalent per week Drug use: Never documented in this encounter [facility] 02-08-2025 Instructions Ubaldo Betancourt DO - 02/08/2025 8:28 AM EDT Preoperative Medication Instructions In preparation for surgery please continue all of your current medications with the following changes: It is very important to follow these medication recommendations in order to prevent or limit potential adverse reactions associated with certain medications around the time of your surgery. If you are not able to follow the recommendations for any reason, including due to the timing of your procedure, please notify your surgeon. Active Home Medications Medication Sig Take Last Dose On Take Morning of Surgery Comment(s) diindolylmethane-herbal drugs 50-50 mg cap Take 1 capsule by mouth every evening . 02/01/25 diphenhydrAMINE (BENADRYL) 25 mg capsule Take 1 (one) capsule (25 mg total) by mouth nightly as needed . no HYDROcodone-acetaminophen (NORCO) 5-325 mg per tablet Take 1 (one) tablet by mouth every 4 (four) hours as needed for pain . Only if needed or if taking routinely progesterone (PROMETRIUM) 200 MG capsule Take 1 (one) capsule (200 mg total) by mouth nightly . no venlafaxine (EFFEXOR-XR) 37.5 MG 24 hr capsule Take 1 (one) capsule (37.5 mg total) by mouth every evening . no STOP Aspirin (and medications that contain aspirin, such as Joceline Irrigon, Pepto-Bismol, Anacin), antiinflammatory medications such as Advil, Motrin, Ibuprofen, Naproxen, Aleve, Joceline Irrigon, Pepto-Bismol, Anacin, Diclofenac, Voltaren, Daypro, Etodolac, Ketoprofen, Meloxicam, Piroxicam, Relafen, Nabumetone, etc. Also discontinue Vitamin C, Vitamin E, Girdwood-3 Fatty Acid, Fish Oil or Lovaza, as well as all herbal medications and supplements. Take last dose on 02/01/25 Tylenol (acetaminophen) is acceptable, but be careful to follow the label directions. On the morning of surgery, with a small amount of water, take ONLY the medications listed above in the column Take the morning of surgery. If you are using Eye Drops or Inhalers, please bring them to the hospital. If you have sleep apnea and have a CPAP/BIPAP device, please bring it with you on the day of surgery. documented in this encounter [facility] 02-08-2025 Instructions Ubaldo Betancourt DO - 02/08/2025 8:28 AM EDT Preoperative Medication Instructions In preparation for surgery please continue all of your current medications with the following changes: It is very important to follow these medication recommendations in order to prevent or limit potential adverse reactions associated with certain medications around the time of your surgery. If you are not able to follow the recommendations for any reason, including due to the timing of your procedure, please notify your surgeon. Active Home Medications Medication Sig Take Last Dose On Take Morning of Surgery Comment(s) diindolylmethane-herbal drugs 50-50 mg cap Take 1 capsule by mouth every evening . 02/01/25 diphenhydrAMINE (BENADRYL) 25 mg capsule Take 1 (one) capsule (25 mg total) by mouth nightly as needed . no HYDROcodone-acetaminophen (NORCO) 5-325 mg per tablet Take 1 (one) tablet by mouth every 4 (four) hours as needed for pain . Only if needed or if taking routinely progesterone (PROMETRIUM) 200 MG capsule Take 1 (one) capsule (200 mg total) by mouth nightly . no venlafaxine (EFFEXOR-XR) 37.5 MG 24 hr capsule Take 1 (one) capsule (37.5 mg total) by mouth every evening . no STOP Aspirin (and medications that contain aspirin, such as Joceline Irrigon, Pepto-Bismol, Anacin), antiinflammatory medications such as Advil, Motrin, Ibuprofen, Naproxen, Aleve, Joceline Irrigon, Pepto-Bismol, Anacin, Diclofenac, Voltaren, Daypro, Etodolac, Ketoprofen, Meloxicam, Piroxicam, Relafen, Nabumetone, etc. Also discontinue Vitamin C, Vitamin E, Girdwood-3 Fatty Acid, Fish Oil or Lovaza, as well as all herbal medications and supplements. Take last dose on 02/01/25 Tylenol (acetaminophen) is acceptable, but be careful to follow the label directions. On the morning of surgery, with a small amount of water, take ONLY the medications listed above in the column Take the morning of surgery. If you are using Eye Drops or Inhalers, please bring them to the hospital. If you have sleep apnea and have a CPAP/BIPAP device, please bring it with you on the day of surgery. documented in this encounter [facility] 02-08-2025 Instructions Formatting of th is note might be different from the original. Patient Instructions for OFF SITE SURGERY Prior to surgery: Please contact your surgeon's office for the scheduled time of your surgery. If your surgeon has given you special guidelines for eating and drinking prior to surgery, follow their instructions. If no instructions were provided, follow these instructions. The evening before surgery you may eat a low-fat meal up. You may eat and drink until midnight. Do not eat or drink anything, including gum, cough drops, hard candy, or mints after midnight. Take only the morning pills that you have been instructed to take with sips of water, unless otherwise instructed by your doctor. If you have questions about how to take your medication on the day of surgery, contact your surgeon. Shower using antibacterial soap or as advised by your surgeon's office. You may brush your teeth on the morning of surgery but avoid swallowing any excess water. Do not apply any makeup, lotions, powders, or deodorants. Wear loose-fitting, washable clothing that will not interfere with your incision or dressing. Wear comfortable shoes that are easy to get on and off (tennis shoes, non-skid shoes, slippers, etc.). Please remove all jewelry and piercings, including wedding rings. All nail [place] must be removed from your fingernails and toenails. Remove artificial nails from your fingernails. Please leave all valuable items at home. Do not smoke, vape, or chew tobacco or marijuana for 24 hours before surgery. Do not drink alcoholic beverages for 24 hours before surgery. Please remember to bring both your insurance card and a photo ID with you on the day of surgery. After your surgery: Arrange for a responsible adult (18 years or older) to drive you to and from the your care site if you are having an outpatient procedure. You are not permitted to drive until instructed by your surgeon. The expectation is that this delivery truck driver will remain at the care site for the duration of your procedure. You are advised to have someone stay with you for at least 24 hours after being under anesthesia. [facility] 02-08-2025 Miscellaneous Notes Patient Instructions for OFF SITE SURGERY Prior to surgery: Please contact your surgeon's office for the scheduled time of your surgery. If your surgeon has given you special guidelines for eating and drinking prior to surgery, follow their instructions. If no instructions were provided, follow these instructions. The evening before surgery you may eat a low-fat meal up. You may eat and drink until midnight. Do not eat or drink anything, including gum, cough drops, hard candy, or mints after midnight. Take only the morning pills that you have been instructed to take with sips of water, unless otherwise instructed by your doctor. If you have questions about how to take your medication on the day of surgery, contact your surgeon. Shower using antibacterial soap or as advised by your surgeon's office. You may brush your teeth on the morning of surgery but avoid swallowing any excess water. Do not apply any makeup, lotions, powders, or deodorants. Wear loose-fitting, washable clothing that will not interfere with your incision or dressing. Wear comfortable shoes that are easy to get on and off (tennis shoes, non-skid shoes, slippers, etc.). Please remove all jewelry and piercings, including wedding rings. All nail [place] must be removed from your fingernails and toenails. Remove artificial nails from your fingernails. Please leave all valuable items at home. Do not smoke, vape, or chew tobacco or marijuana for 24 hours before surgery. Do not drink alcoholic beverages for 24 hours before surgery. Please remember to bring both your insurance card and a photo ID with you on the day of surgery. After your surgery: Arrange for a responsible adult (18 years or older) to drive you to and from the your care site if you are having an outpatient procedure. You are not permitted to drive until instructed by your surgeon. The expectation is that this delivery truck driver will remain at the care site for the duration of your procedure. You are advised to have someone stay with you for at least 24 hours after being under anesthesia. documented in this encounter [facility] 02-08-2025 Miscellaneous Notes Patient Instructions for OFF SITE SURGERY Prior to surgery: Please contact your surgeon's office for the scheduled time of your surgery. If your surgeon has given you special guidelines for eating and drinking prior to surgery, follow their instructions. If no instructions were provided, follow these instructions. The evening before surgery you may eat a low-fat meal up. You may eat and drink until midnight. Do not eat or drink anything, including gum, cough drops, hard candy, or mints after midnight. Take only the morning pills that you have been instructed to take with sips of water, unless otherwise instructed by your doctor. If you have questions about how to take your medication on the day of surgery, contact your surgeon. Shower using antibacterial soap or as advised by your surgeon's office. You may brush your teeth on the morning of surgery but avoid swallowing any excess water. Do not apply any makeup, lotions, powders, or deodorants. Wear loose-fitting, washable clothing that will not interfere with your incision or dressing. Wear comfortable shoes that are easy to get on and off (tennis shoes, non-skid shoes, slippers, etc.). Please remove all jewelry and piercings, including wedding rings. All nail puerto [place] must be removed from your fingernails and toenails. Remove artificial nails from your fingernails. Please leave all valuable items at home. Do not smoke, vape, or chew tobacco or marijuana for 24 hours before surgery. Do not drink alcoholic beverages for 24 hours before surgery. Please remember to bring both your insurance card and a photo ID with you on the day of surgery. After your surgery: Arrange for a responsible adult (18 years or older) to drive you to and from the your care site if you are having an outpatient procedure. You are not permitted to drive until instructed by your surgeon. The expectation is that this delivery truck driver will remain at the care site for the duration of your procedure. You are advised to have someone stay with you for at least 24 hours after being under anesthesia. documented in this encounter [facility] 11-06-2022 Nurse Surgical operation note ISBAR given to COST ESTIMATING ENGINEER at this time. All questions answered at this time [facility] 11-06-2022 Nurse Note ISBAR given to COST ESTIMATING ENGINEER at this time. All questions answered at this time documented in this encounter [facility] 11-06-2022 Note Formatting of this n ote might be different from the original. ISBAR handoff procedure completed with anesthesia staff and surgery RN. Patient stable, no distress, transferred to surgery with OR personnel. [facility] 11-06-2022 Miscellaneous Notes ISBAR handoff procedure completed with anesthesia staff and surgery RN. Patient stable, no distress, transferred to surgery with OR personnel. Danelle Baugh ([id number]) PRE OPERATIVE DIAGNOSIS Umbilical hernia without obstruction and without gangrene [K42.9] POST OPERATIVE DIAGNOSIS Post-Op Diagnosis Codes: * Umbilical hernia without obstruction and without gangrene [K42.9] PROCEDURE PERFORMED Procedure(s) (LRB): Open primary umbilical hernia repair (N/A) PRIMARY CLOSURE Yes INTRAOPERATIVE FINDINGS Umbilical hernia defect <1cm SURGEON Surgeon(s) and Role: * Nayeli Irvin MD - Primary ANESTHESIOLOGIST Anesthesiologist: Campbell Fisher III, MD PRINT LINE INSPECTOR: Quentin Reynolds Jr., MANDARIN TEACHER-PRINT LINE INSPECTOR SURGICAL STAFF Tufting Machine Operator: Domi Prasad RN Scrub Person: Campbell Rodriguez Resident Assisting: Ailin Gomez MD COMPLICATIONS None ESTIMATED BLOOD LOSS Minimal SPECIMENS * No specimens in log * Ailin Gomez MD November 06, 2022 11:29 AM documented in this encounter [facility] 11-06-2022 Hospital Discharge instructions Ailin Gomez MD - 11/06/2022 11:35 AM EDT Images from the original note were not included. Home Care After Hernia Repair Activity Limit activity for the first 24 hours, then you may return to normal daily activities. Returning to normal daily activities as soon as you can following surgery will enhance recovery time. No heavy lifting pushing or pulling, anything heavier than 10 pounds (gallon of milk weighs approx. 8.8 pounds) for 4-6 weeks from surgery date. Do not mow the lawn, use a vacuum mold sheet cleaner, or do any other strenuous activities without first consulting your surgical team. Climb stairs slowly and watch your step. Walk as often as you feel able to increase strength and endurance. No driving or operating heavy machinery within 24 hours of taking narcotic pain medication. Abdominal Core Rehab if referral placed for you. If you think you could benefit from rehab please talk with your surgeon. For additional information about your recovery and activities you can do to help you recover, please download the [facility] ([facility]) jennifer to your phone and follow the instructions. The jennifer can be found by clicking one of the links below, by entering '[facility]' in your Appstore, or by opening your camera jennifer and following one of the links in the QR codes below: APPLE Click here to install Apple [facility] jennifer ANDROID Click here to install Android [facility] jennifer Diet Drink plenty of fluids and eat a light meal on the night of surgery. Some patients may find their appetite is poor for a week or two after surgery. This is a normal result of the stress of surgery-your appetite will return in time. There are no specific diet restrictions after surgery. Dressings and Wound Care Keep your wound or incision site clean and dry. You may have different types of dressings covering your incisions depending on your operation and your surgeon: Dermabond/Durabond (skin glue): This will usually remain in place for 10-14 days, then naturally fall off your skin. You may take a shower 24 hrs after surgery, carefully wash, not scrub the incision site with a mild non-scented soap. Pat dry with a soft towel. Do not pick or peel skin glue off. You can shower and let the water fall on the dressings above. Do not soak or submerge your incision(s) in a bath tub, hot tub, or swimming pool, until your doctor says it is ok to do so or the incision(s) have completely healed, usually about 2-4 weeks. Do not use creams, powder, salves or balms on your incision(s). What to Expect After Surgery Moderate discomfort controlled with medications Minimal drainage from incision You may feel pain in one or both shoulders. This pain comes from the gas still left in your belly after the surgery, if you had laparoscopic surgery (several small incisions). The pain should ease over several days to a week. Ambulation will help with this pain. Belly swelling Feeling fatigue and weak Constipation after surgery is common. Drink plenty fluids and eat a high fiber diet. Swelling - In some patients might feel that their hernia has returned after surgery-DO NOT Worry this is normal. Swelling may be due to the development of a seroma. Seroma is fluid that has built up where the hernia was repaired this is a normal result after surgery and it will slowly reabsorb back into your body over the next several weeks. Pain Control: Prescribed Non-Narcotic Pain Medication You will be given three prescriptions. Two of them will be for prescription strength ibuprofen (i.e. Advil) and prescription strength acetaminophen (i.e. Tylenol). The vast majority of patients will just need these two medications. One prescription will be for a 'rescue' prescription of an oral narcotic (oxycodone). You may fill this if needed. You will alternate taking the ibuprofen (600mg) every 6 hours and also the acetaminophen (650mg) every 6 hours so that you are taking one of those medications every 3 hours. For example: 0800 - take ibuprofen 600mg 1100 - take acetaminophen 650mg 1400 - take ibuprofen 600mg 1700 - take acetaminophen 650mg Etc Continue taking this alternating pattern of ibuprofen and acetaminophen for 3 days If you cannot take one or the other of these medications, just take the one you can every 6 hours. If you are comfortable at night, you don't have to wake up and take a medication. If you are still uncomfortable after taking either ibuprofen or acetaminophen, try gentle stretching exercise and ice packs (a bag of frozen vegetables works great). If you are still uncomfortable, you may fill the narcotic prescription of Oxycodone and take as directed. Once you have completed these prescriptions, your pain level should be low enough to stop taking medications altogether or just use an over the counter medication (ibuprofen or acetaminophen) as needed. Pain Control: Over the Counter Medications to take as needed: Colace/Docusate: May be prescribed by your surgeon to prevent constipation caused by the combination of narcotics, effects of anesthesia, and decreased ambulation. Hold for loose stools or diarrhea. Take 100 mg 1-2 times a day starting tonight. Fiber: High fiber foods, extra liquids (water 9-13 cups/day) can also assist with constipation. Examples of high fiber foods are fruit, bran. Prune juice and water are also good liquids to drink. Milk of Magnesia/Miralax: If constipated despite take the over the counter stool softeners, you may take Milk of Magnesia or Miralax as directed on bottle to assist with constipation. Pepcid/Famotidine: May be prescribed while taking naproxen (Aleve) or other NSAIDs such as ibuprofen (Motrin/Advil) to prevent stomach upset or Acid-reflux symptoms. Take 1 tablet 1-2 times a day. Constipation: The first bowel movement may occur anywhere between 1-5 days after surgery. As long as you are not nauseated or not having significant abdominal pain this variation is acceptable. Narcotic pain medications can cause constipation increasing discomfort; early discontinuation will assist with bowel management.If constipated despite taking stool softeners, you may take Milk of Magnesia or Miralax as directed on the bottle. Home medications: You may restart your home medications as directed by your respective Primary Care Physician or Surgeon. When to notify your Doctor or Healthcare Team: Sign of Wound Infection Fever over 100 degrees. Wound becomes extremely swollen, shows red streaks, warm to the touch, and/or drainage from the incision site or foul-smelling drainage. Wound edges separate or opens up Bleeding or bruising If you have bleeding, apply pressure to the site and hold the pressure firmly for 5 minutes. If the bleeding continues, apply pressure again and call 911. If the bleeding stopped, call your doctor to report it. Call your doctor or nurse if you have increased bleeding from your site and increased bruising or a lump forms or gets larger under your skin at the site. Unrelieved Pain Call your doctor or nurse if your pain gets worse or is not eased 1 hour after taking your pain medicine, or if it is severe and uncontrolled. Nausea and Vomiting Call your doctor or nurse if you have nausea and vomiting that continues more than 24 hours, will not let you keep medicine down and will not let you keep fluids down Fever, Flu-like symptoms Fever over 100 degrees and/or chills Gastrointestinal Bleeding Symptoms Black tarry bowel movements. This can be normal after surgery on the stomach, but should resolve in a day or two. Call 213 if you suddenly have signs of blood loss such as: Vomiting blood Fast heart rate Feeling faint, sweaty, or blacking out Passing bright red blood from your rectum Blood Clot Symptoms Tender, swollen or reddened areas in your calf muscle or thighs. Numbness or tingling in your lower leg or calf, or at the top of your leg or groin Skin on your leg looks pale or blue or feels cold to touch Chest pain or have trouble breathing, lightheadedness, fast heart rate Sudden Onset of Symptoms Call [phone] if you suddenly have: Leg weakness and spasm Loss of bladder or bowel function Seizure Confusion, severe headache, dizziness or feeling unsteady, problems talking, difficulty swallowing, and/or numbness or muscle weakness as these could be signs of a stroke. Follow up Appointment Your follow up appointment should be scheduled 2-3 weeks after your surgery date. If you have not previously scheduled for a follow-up visit you can be scheduled by contacting [phone]. Questions/Concerns/Contacts During normal business hours 8am-4pm: Call [phone]. After 4pm weekdays and on weekends: Call the [phone] for the on-call General Surgery Resident. A good option for most issues (especially after surgery) is to be seen at [facility] in [place] at [address] [facility] (1st floor, [address]), [place] [address]. This facility is open seven days a week from 10am-9:30pm. Call [phone] for additional information. If you are unable to reach your doctor and it is a medical emergency, dial 911 or report to the nearest Emergency Department for evaluation. [facility] General Surgery [place] [address] [place] [id number] [facility] General Surgery 11th Floor [address] [place] [address] [facility] Outpatient [facility] Surgery [address] [place] [address] documented in this encounter [facility] 11-06-2022 Note Formatting of this n ote is different from the original. Danelle Baugh ([id number]) PRE OPERATIVE DIAGNOSIS Umbilical hernia without obstruction and without gangrene [K42.9] POST OPERATIVE DIAGNOSIS Post-Op Diagnosis Codes: * Umbilical hernia without obstruction and without gangrene [K42.9] PROCEDURE PERFORMED Procedure(s) (LRB): Open primary umbilical hernia repair (N/A) PRIMARY CLOSURE Yes INTRAOPERATIVE FINDINGS Umbilical hernia defect <1cm SURGEON Surgeon(s) and Role: * Nayeli Irvin MD - Primary ANESTHESIOLOGIST Anesthesiologist: Campbell Fisher III, MD PRINT LINE INSPECTOR: Quentin Reynolds Jr., MANDARIN TEACHER-PRINT LINE INSPECTOR SURGICAL STAFF Tufting Machine Operator: Domi Prasad RN Scrub Person: Campbell Rodriguez Resident Assisting: Ailin Gomez MD COMPLICATIONS None ESTIMATED BLOOD LOSS Minimal SPECIMENS * No specimens in log * Ailin Gomez MD November 06, 2022 11:29 AM [facility] 11-06-2022 Attending History and physical note I have examined the patient and reviewed the previous H&P completed on date 10/10/2022 and there are no changes. Nayeli Irvin MD, 11/06/2022, 10:45 AM. Source Note - Bre Brown, DIANNE-MOPHEAD TRIMMER AND WRAPPER - 10/10/2022 10:30 AM EDT Images from the original note were not included. ++++++++++++++++++++++++++++++++ +++++++++++++++++++++++++ HPI ++++++++++++++++++++++++++++++++ +++++++++++++++++++++++++ Chief Complaint Patient presents with New Patient Umbilical hernia, Hx of abdominal surgery Ms. Baugh is a 36 y.o. who is being evaluated for an umbilical hernia and abdominal bulging. They have had this bulge for months. The patient admits to supraumbilical and umbilical pain. The bulge is more prominent and more painful with strenuous activity and pressed against. There is not associated nausea and vomiting. The patient has a current medication list which includes the following prescription(s): estradiol, fluoxetine, and pantoprazole. The patient is allergic to prednisolone. The patient has a past medical history of GERD (gastroesophageal reflux disease) and Umbilical hernia. Past Surgical History: Procedure Laterality Date CHOLECYSTECTOMY LAPAROSCOPIC 06/12/2022 Dr. Weinberg ABDOMINOPLASTY AUGMENTATION BREAST SECTION x2 HYSTERECTOMY The patient's family history includes Hypertension in her mother; Liver Disease in her mother. The patient reports that she has quit smoking. Her smoking use included cigarettes. She has never used smokeless tobacco. She reports that she does not currently use alcohol. She reports that she does not currently use drugs. I have reviewed the patient's medical history in detail and updated the computerized patient record. ++++++++++++++++++++++++++++++++ +++++++++++++++++++++++++ REVIEW OF SYSTEMS ++++++++++++++++++++++++++++++++ +++++++++++++++++++++++++ Constitutional: She is well-developed, well-nourished, and in no distress. Normal Mood/Affect Normal Orientation X 3 CONSTITUTIONAL > >Negative for abnormal weight gain or weight loss. EYES > > > >Negative for recent eyesight changes. HEENT > > > >Negative CARDIOVASCULAR > >Negative for chest pain, palpitations. RESPIRATORY > > >Negative for SOB, cough. GASTROINTESTINAL > >Positive for umbilical pain and supraumbilical bulging. PHILLIP > > > >Negative INTEGUMENTARY > >Negative MUSCULOSKELETAL > >Negative for abnormal muscle aches or pains. NEUROLOGICAL > > >Negative for numbness / tingling in hands / feet. HEMAT/LYMPH > > >Negative for easy bruising. Denies anticoagulant use. ALL/IMMUN > > >Reviewed PSYCHIATRIC > > >Negative ENDOCRINE > > >Negative for DM Type II. ALL OTHERS > > >Normal ++++++++++++++++++++++++++++++++ +++++++++++++++++++++++++ PHYSICAL EXAM ++++++++++++++++++++++++++++++++ +++++++++++++++++++++++++ BP 127/90 (BP Location: Right arm, BP Position: Sitting) Pulse 82 Temp 98.2 F (36.8 C) (Infrared) Ht 1.702 m (5' 7) Wt 78.5 kg (173 lb) SpO2 98% BMI 27.10 kg/m Smoking Status Former Body mass index is 27.1 kg/m . GENERAL Ms. Baugh is a well nourished and healthy appearing in no acute distress. EYES PERRLA > > > > >Normal EOMI > > > > >Normal HEENT External Ears and Nose > > >Normal NECK No masses, symmetry, no crepitus >Normal RESPIRATORY Respiratory Effort > > > >Normal Auscultation > > > >CTA B No W/R/R CARDIOVASCULAR Palpitation > > > > >Normal Ausculation shows no MRG > >RRR No M/C/R/G CCE > > > > >Normal ABDOMEN Masses or Tenderness > > >Abdomen soft, supraumbilical and umbilical tenderness on palpation. BS normal. No masses, organomegaly. Hepatosplenomegaly > >No Hernias > > > > >small umbilical hernia reducible; Supraumbilical bulging without a hernia. MUSCULOSKELETAL Gait and Station > > > >Ambulates normally in clinic. SKIN Inspection and Palpitation > > >Normal NEUROLOGIC Cranial Nerves 1-12 > > >Normal Sensory Exam > > > >Normal PSYCHIATRIC Alert > > > > >Normal Oriented to person, time and place >Normal TESTS/IMAGING CT SCAN-A/P outside 08/01/2022 - small fat containing umbilical hernia, ~1.5 cm ASSESSMENT Ms. Baugh is a 36 y.o. with a symptomatic reducible, 1.5-2 cm umbilical hernia. Symptoms associated with the hernia include pain. No evidence of an acute abdomen on exam. There is no history of bowel obstruction or strangulation r/t hernia. The patient has supraumbilical bulging without evidence of a hernia on physical exam or on imaging. The bulging may be 2/2 to weak or decrease rectus abdominis muscle wall strength. The umbilical hernia is amenable to primary repair. The abdominal bulging would be benefit from abdominal core rehab for strengthening. DIAGNOSIS: ICD-10-CM 1. Umbilical hernia without obstruction and without gangrene K42.9 PLAN I recommend proceeding with open primary umbilical hernia repair. Treatment alternatives were discussed. Discussed aspects of surgical intervention, methods, risks (including by not limited to infection, bleeding, hematoma, and perforation of the intestings or solid organs), benefits, alternatives and the risks of general anesthetic including CA, CVA, sudden or even reaction to anesthetic medications. The patient understands the risks, any and all questions were answered to the patient's satisfaction. Patient does wish to proceed with surgery. Written consent will be obtained the DOS. I discussed the small chance of incarceration or strangulation and educated the patient regarding the signs and symptoms of this, namely, fevers, chills, nausea, vomiting, worsening pain at the hernia site. I also instructed that should any of these symptoms be experienced, medical treatment should be sought immediately. I also discussed that it is difficult to predict in whom or when episodes such as this may occur. The patient voiced understanding. Referral to Physical Therapy for abdominal core rehab Electronically Signed By: SIENNA Ha [facility], Division of General & Gastrointestinal Surgery 11th Floor [place], [address] [place] [address] [address] [address] Office 10/10/2022 10:49 AM [facility] Work Phone: 11-06-2022 History and physical note I have examined the patient and reviewed the previous H&P completed on date 10/10/2022 and there are no changes. Nayeli Irvin MD, 11/06/2022, 10:45 AM. Source Note - SIENNA Ball - 10/10/2022 10:30 AM EDT Images from the original note were not included. ++++++++++++++++++++++++++++++++ +++++++++++++++++++++++++ HPI ++++++++++++++++++++++++++++++++ +++++++++++++++++++++++++ Chief Complaint Patient presents with New Patient Umbilical hernia, Hx of abdominal surgery Ms. Baugh is a 36 y.o. who is being evaluated for an umbilical hernia and abdominal bulging. They have had this bulge for months. The patient admits to supraumbilical and umbilical pain. The bulge is more prominent and more painful with strenuous activity and pressed against. There is not associated nausea and vomiting. The patient has a current medication list which includes the following prescription(s): estradiol, fluoxetine, and pantoprazole. The patient is allergic to prednisolone. The patient has a past medical history of GERD (gastroesophageal reflux disease) and Umbilical hernia. Past Surgical History: Procedure Laterality Date CHOLECYSTECTOMY LAPAROSCOPIC 06/12/2022 Dr. Weinberg ABDOMINOPLASTY AUGMENTATION BREAST SECTION x2 HYSTERECTOMY The patient's family history includes Hypertension in her mother; Liver Disease in her mother. The patient reports that she has quit smoking. Her smoking use included cigarettes. She has never used smokeless tobacco. She reports that she does not currently use alcohol. She reports that she does not currently use drugs. I have reviewed the patient's medical history in detail and updated the computerized patient record. ++++++++++++++++++++++++++++++++ +++++++++++++++++++++++++ REVIEW OF SYSTEMS ++++++++++++++++++++++++++++++++ +++++++++++++++++++++++++ Constitutional: She is well-developed, well-nourished, and in no distress. Normal Mood/Affect Normal Orientation X 3 CONSTITUTIONAL > >Negative for abnormal weight gain or weight loss. EYES > > > >Negative for recent eyesight changes. HEENT > > > >Negative CARDIOVASCULAR > >Negative for chest pain, palpitations. RESPIRATORY > > >Negative for SOB, cough. GASTROINTESTINAL > >Positive for umbilical pain and supraumbilical bulging. PHILLIP > > > >Negative INTEGUMENTARY > >Negative MUSCULOSKELETAL > >Negative for abnormal muscle aches or pains. NEUROLOGICAL > > >Negative for numbness / tingling in hands / feet. HEMAT/LYMPH > > >Negative for easy bruising. Denies anticoagulant use. ALL/IMMUN > > >Reviewed PSYCHIATRIC > > >Negative ENDOCRINE > > >Negative for DM Type II. ALL OTHERS > > >Normal ++++++++++++++++++++++++++++++++ +++++++++++++++++++++++++ PHYSICAL EXAM ++++++++++++++++++++++++++++++++ +++++++++++++++++++++++++ BP 127/90 (BP Location: Right arm, BP Position: Sitting) Pulse 82 Temp 98.2 F (36.8 C) (Infrared) Ht 1.702 m (5' 7) Wt 78.5 kg (173 lb) SpO2 98% BMI 27.10 kg/m Smoking Status Former Body mass index is 27.1 kg/m . GENERAL Ms. Baugh is a well nourished and healthy appearing in no acute distress. EYES PERRLA > > > > >Normal EOMI > > > > >Normal HEENT External Ears and Nose > > >Normal NECK No masses, symmetry, no crepitus >Normal RESPIRATORY Respiratory Effort > > > >Normal Auscultation > > > >CTA B No W/R/R CARDIOVASCULAR Palpitation > > > > >Normal Ausculation shows no MRG > >RRR No M/C/R/G CCE > > > > >Normal ABDOMEN Masses or Tenderness > > >Abdomen soft, supraumbilical and umbilical tenderness on palpation. BS normal. No masses, organomegaly. Hepatosplenomegaly > >No Hernias > > > > >small umbilical hernia reducible; Supraumbilical bulging without a hernia. MUSCULOSKELETAL Gait and Station > > > >Ambulates normally in clinic. SKIN Inspection and Palpitation > > >Normal NEUROLOGIC Cranial Nerves 1-12 > > >Normal Sensory Exam > > > >Normal PSYCHIATRIC Alert > > > > >Normal Oriented to person, time and place >Normal TESTS/IMAGING CT SCAN-A/P outside 08/01/2022 - small fat containing umbilical hernia, ~1.5 cm ASSESSMENT Ms. Baugh is a 36 y.o. with a symptomatic reducible, 1.5-2 cm umbilical hernia. Symptoms associated with the hernia include pain. No evidence of an acute abdomen on exam. There is no history of bowel obstruction or strangulation r/t hernia. The patient has supraumbilical bulging without evidence of a hernia on physical exam or on imaging. The bulging may be 2/2 to weak or decrease rectus abdominis muscle wall strength. The umbilical hernia is amenable to primary repair. The abdominal bulging would be benefit from abdominal core rehab for strengthening. DIAGNOSIS: ICD-10-CM 1. Umbilical hernia without obstruction and without gangrene K42.9 PLAN I recommend proceeding with open primary umbilical hernia repair. Treatment alternatives were discussed. Discussed aspects of surgical intervention, methods, risks (including by not limited to infection, bleeding, hematoma, and perforation of the intestings or solid organs), benefits, alternatives and the risks of general anesthetic including CA, CVA, sudden or even reaction to anesthetic medications. The patient understands the risks, any and all questions were answered to the patient's satisfaction. Patient does wish to proceed with surgery. Written consent will be obtained the DOS. I discussed the small chance of incarceration or strangulation and educated the patient regarding the signs and symptoms of this, namely, fevers, chills, nausea, vomiting, worsening pain at the hernia site. I also instructed that should any of these symptoms be experienced, medical treatment should be sought immediately. I also discussed that it is difficult to predict in whom or when episodes such as this may occur. The patient voiced understanding. Referral to Physical Therapy for abdominal core rehab Electronically Signed By: SIENNA Ha [facility], Division of General & Gastrointestinal Surgery 11th Floor [place], [address] [facility] [address] [id number] Office 10/10/2022 10:49 AM documented in this encounter [facility] 10-10-2022 History and physical note Images from the original note were not included. ++++++++++++++++++++++++++++++++ +++++++++++++++++++++++++ HPI ++++++++++++++++++++++++++++++++ +++++++++++++++++++++++++ Chief Complaint Patient presents with New Patient Umbilical hernia, Hx of abdominal surgery Ms. Baugh is a 36 y.o. who is being evaluated for an umbilical hernia and abdominal bulging. They have had this bulge for months. The patient admits to supraumbilical and umbilical pain. The bulge is more prominent and more painful with strenuous activity and pressed against. There is not associated nausea and vomiting. The patient has a current medication list which includes the following prescription(s): estradiol, fluoxetine, and pantoprazole. The patient is allergic to prednisolone. The patient has a past medical history of GERD (gastroesophageal reflux disease) and Umbilical hernia. Past Surgical History: Procedure Laterality Date CHOLECYSTECTOMY LAPAROSCOPIC 06/12/2022 Dr. Weinberg ABDOMINOPLASTY AUGMENTATION BREAST SECTION x2 HYSTERECTOMY The patient's family history includes Hypertension in her mother; Liver Disease in her mother. The patient reports that she has quit smoking. Her smoking use included cigarettes. She has never used smokeless tobacco. She reports that she does not currently use alcohol. She reports that she does not currently use drugs. I have reviewed the patient's medical history in detail and updated the computerized patient record. ++++++++++++++++++++++++++++++++ +++++++++++++++++++++++++ REVIEW OF SYSTEMS ++++++++++++++++++++++++++++++++ +++++++++++++++++++++++++ Constitutional: She is well-developed, well-nourished, and in no distress. Normal Mood/Affect Normal Orientation X 3 CONSTITUTIONAL > >Negative for abnormal weight gain or weight loss. EYES > > > >Negative for recent eyesight changes. HEENT > > > >Negative CARDIOVASCULAR > >Negative for chest pain, palpitations. RESPIRATORY > > >Negative for SOB, cough. GASTROINTESTINAL > >Positive for umbilical pain and supraumbilical bulging. PHILLIP > > > >Negative INTEGUMENTARY > >Negative MUSCULOSKELETAL > >Negative for abnormal muscle aches or pains. NEUROLOGICAL > > >Negative for numbness / tingling in hands / feet. HEMAT/LYMPH > > >Negative for easy bruising. Denies anticoagulant use. ALL/IMMUN > > >Reviewed PSYCHIATRIC > > >Negative ENDOCRINE > > >Negative for DM Type II. ALL OTHERS > > >Normal ++++++++++++++++++++++++++++++++ +++++++++++++++++++++++++ PHYSICAL EXAM ++++++++++++++++++++++++++++++++ +++++++++++++++++++++++++ BP 127/90 (BP Location: Right arm, BP Position: Sitting) Pulse 82 Temp 98.2 F (36.8 C) (Infrared) Ht 1.702 m (5' 7) Wt 78.5 kg (173 lb) SpO2 98% BMI 27.10 kg/m Smoking Status Former Body mass index is 27.1 kg/m . GENERAL Ms. Baugh is a well nourished and healthy appearing in no acute distress. EYES PERRLA > > > > >Normal EOMI > > > > >Normal HEENT External Ears and Nose > > >Normal NECK No masses, symmetry, no crepitus >Normal RESPIRATORY Respiratory Effort > > > >Normal Auscultation > > > >CTA B No W/R/R CARDIOVASCULAR Palpitation > > > > >Normal Ausculation shows no MRG > >RRR No M/C/R/G CCE > > > > >Normal ABDOMEN Masses or Tenderness > > >Abdomen soft, supraumbilical and umbilical tenderness on palpation. BS normal. No masses, organomegaly. Hepatosplenomegaly > >No Hernias > > > > >small umbilical hernia reducible; Supraumbilical bulging without a hernia. MUSCULOSKELETAL Gait and Station > > > >Ambulates normally in clinic. SKIN Inspection and Palpitation > > >Normal NEUROLOGIC Cranial Nerves 1-12 > > >Normal Sensory Exam > > > >Normal PSYCHIATRIC Alert > > > > >Normal Oriented to person, time and place >Normal TESTS/IMAGING CT SCAN-A/P outside 08/01/2022 - small fat containing umbilical hernia, ~1.5 cm ASSESSMENT Ms. Baugh is a 36 y.o. with a symptomatic reducible, 1.5-2 cm umbilical hernia. Symptoms associated with the hernia include pain. No evidence of an acute abdomen on exam. There is no history of bowel obstruction or strangulation r/t hernia. The patient has supraumbilical bulging without evidence of a hernia on physical exam or on imaging. The bulging may be 2/2 to weak or decrease rectus abdominis muscle wall strength. The umbilical hernia is amenable to primary repair. The abdominal bulging would be benefit from abdominal core rehab for strengthening. DIAGNOSIS: ICD-10-CM 1. Umbilical hernia without obstruction and without gangrene K42.9 PLAN I recommend proceeding with open primary umbilical hernia repair. Treatment alternatives were discussed. Discussed aspects of surgical intervention, methods, risks (including by not limited to infection, bleeding, hematoma, and perforation of the intestings or solid organs), benefits, alternatives and the risks of general anesthetic including CA, CVA, sudden or even reaction to anesthetic medications. The patient understands the risks, any and all questions were answered to the patient's satisfaction. Patient does wish to proceed with surgery. Written consent will be obtained the DOS. I discussed the small chance of incarceration or strangulation and educated the patient regarding the signs and symptoms of this, namely, fevers, chills, nausea, vomiting, worsening pain at the hernia site. I also instructed that should any of these symptoms be experienced, medical treatment should be sought immediately. I also discussed that it is difficult to predict in whom or when episodes such as this may occur. The patient voiced understanding. Referral to Physical Therapy for abdominal core rehab Electronically Signed By: SIENNA Ha [facility], Division of General & Gastrointestinal Surgery 11th Floor [place], [address] [facility] [address], [place] [id number] Office 10/10/2022 10:49 AM [facility] 10-10-2022 History and physical note Images from the original note were not included. ++++++++++++++++++++++++++++++++ +++++++++++++++++++++++++ HPI ++++++++++++++++++++++++++++++++ +++++++++++++++++++++++++ Chief Complaint Patient presents with New Patient Umbilical hernia, Hx of abdominal surgery Ms. Baugh is a 36 y.o. who is being evaluated for an umbilical hernia and abdominal bulging. They have had this bulge for months. The patient admits to supraumbilical and umbilical pain. The bulge is more prominent and more painful with strenuous activity and pressed against. There is not associated nausea and vomiting. The patient has a current medication list which includes the following prescription(s): estradiol, fluoxetine, and pantoprazole. The patient is allergic to prednisolone. The patient has a past medical history of GERD (gastroesophageal reflux disease) and Umbilical hernia. Past Surgical History: Procedure Laterality Date CHOLECYSTECTOMY LAPAROSCOPIC 06/12/2022 Dr. Weinberg ABDOMINOPLASTY AUGMENTATION BREAST SECTION x2 HYSTERECTOMY The patient's family history includes Hypertension in her mother; Liver Disease in her mother. The patient reports that she has quit smoking. Her smoking use included cigarettes. She has never used smokeless tobacco. She reports that she does not currently use alcohol. She reports that she does not currently use drugs. I have reviewed the patient's medical history in detail and updated the computerized patient record. ++++++++++++++++++++++++++++++++ +++++++++++++++++++++++++ REVIEW OF SYSTEMS ++++++++++++++++++++++++++++++++ +++++++++++++++++++++++++ Constitutional: She is well-developed, well-nourished, and in no distress. Normal Mood/Affect Normal Orientation X 3 CONSTITUTIONAL > >Negative for abnormal weight gain or weight loss. EYES > > > >Negative for recent eyesight changes. HEENT > > > >Negative CARDIOVASCULAR > >Negative for chest pain, palpitations. RESPIRATORY > > >Negative for SOB, cough. GASTROINTESTINAL > >Positive for umbilical pain and supraumbilical bulging. PHILLIP > > > >Negative INTEGUMENTARY > >Negative MUSCULOSKELETAL > >Negative for abnormal muscle aches or pains. NEUROLOGICAL > > >Negative for numbness / tingling in hands / feet. HEMAT/LYMPH > > >Negative for easy bruising. Denies anticoagulant use. ALL/IMMUN > > >Reviewed PSYCHIATRIC > > >Negative ENDOCRINE > > >Negative for DM Type II. ALL OTHERS > > >Normal ++++++++++++++++++++++++++++++++ +++++++++++++++++++++++++ PHYSICAL EXAM ++++++++++++++++++++++++++++++++ +++++++++++++++++++++++++ BP 127/90 (BP Location: Right arm, BP Position: Sitting) Pulse 82 Temp 98.2 F (36.8 C) (Infrared) Ht 1.702 m (5' 7) Wt 78.5 kg (173 lb) SpO2 98% BMI 27.10 kg/m Smoking Status Former Body mass index is 27.1 kg/m . GENERAL Ms. Baugh is a well nourished and healthy appearing in no acute distress. EYES PERRLA > > > > >Normal EOMI > > > > >Normal HEENT External Ears and Nose > > >Normal NECK No masses, symmetry, no crepitus >Normal RESPIRATORY Respiratory Effort > > > >Normal Auscultation > > > >CTA B No W/R/R CARDIOVASCULAR Palpitation > > > > >Normal Ausculation shows no MRG > >RRR No M/C/R/G CCE > > > > >Normal ABDOMEN Masses or Tenderness > > >Abdomen soft, supraumbilical and umbilical tenderness on palpation. BS normal. No masses, organomegaly. Hepatosplenomegaly > >No Hernias > > > > >small umbilical hernia reducible; Supraumbilical bulging without a hernia. MUSCULOSKELETAL Gait and Station > > > >Ambulates normally in clinic. SKIN Inspection and Palpitation > > >Normal NEUROLOGIC Cranial Nerves 1-12 > > >Normal Sensory Exam > > > >Normal PSYCHIATRIC Alert > > > > >Normal Oriented to person, time and place >Normal TESTS/IMAGING CT SCAN-A/P outside 08/01/2022 - small fat containing umbilical hernia, ~1.5 cm ASSESSMENT Ms. Baugh is a 36 y.o. with a symptomatic reducible, 1.5-2 cm umbilical hernia. Symptoms associated with the hernia include pain. No evidence of an acute abdomen on exam. There is no history of bowel obstruction or strangulation r/t hernia. The patient has supraumbilical bulging without evidence of a hernia on physical exam or on imaging. The bulging may be 2/2 to weak or decrease rectus abdominis muscle wall strength. The umbilical hernia is amenable to primary repair. The abdominal bulging would be benefit from abdominal core rehab for strengthening. DIAGNOSIS: ICD-10-CM 1. Umbilical hernia without obstruction and without gangrene K42.9 PLAN I recommend proceeding with open primary umbilical hernia repair. Treatment alternatives were discussed. Discussed aspects of surgical intervention, methods, risks (including by not limited to infection, bleeding, hematoma, and perforation of the intestings or solid organs), benefits, alternatives and the risks of general anesthetic including CA, CVA, sudden or even reaction to anesthetic medications. The patient understands the risks, any and all questions were answered to the patient's satisfaction. Patient does wish to proceed with surgery. Written consent will be obtained the DOS. I discussed the small chance of incarceration or strangulation and educated the patient regarding the signs and symptoms of this, namely, fevers, chills, nausea, vomiting, worsening pain at the hernia site. I also instructed that should any of these symptoms be experienced, medical treatment should be sought immediately. I also discussed that it is difficult to predict in whom or when episodes such as this may occur. The patient voiced understanding. Referral to Physical Therapy for abdominal core rehab Electronically Signed By: SIENNA Ha [facility], Division of General & Gastrointestinal Surgery 11th [address] [place], [address] [facility] [address], [place] [address] Office 10/10/2022 10:49 AM documented in this encounter [facility] 10-10-2022 Instructions Sybil Josue - 10/10/2022 10:30 AM EDT Images from the original note were not included. BEFORE SURGERY: PRE-PROCEDURE PREPARATION (COMPAC) (PHONE CALL) Date: 11/14/2022 Call Time: 9:00 am == this call must be completed before having surgery == DAY OF SURGERY: SURGERY SCHEDULE : Your surgery is scheduled on 11/28/2022 The location: [facility] [phone] [facility] [place] [address] If you have any questions about your surgery, medicines, transportation or other issues, or need to cancel or reschedule, please call the surgery location at the number listed. If you need to reschedule please call [phone] If you would like to sign up for text messages for [facility] appointment reminders text [facility] TO [phone]. You will receive a response within a few minutes after sending to verify [facility] paperwork can be faxed to [phone] BEFORE SURGERY: PRE-PROCEDURE PREPARATION (COMPAC) (PHONE CALL) Patients who are scheduled for a surgical or other procedure at [facility] may be required to complete a pre-operative phone call. A nurse will collect information about your health, fitness, previous operations, allergies and more. This helps prepare the surgeon, the anesthesiologist and you by identifying any potential anesthetic, surgical or post-operative complications. If applicable, you may be referred to undergo an electrocardiogram (ECG), blood or urine tests or other tests. You will also receive pre- and post-surgery instructions to help ensure you are completely informed about what to expect. DAY OF SURGERY: You will be receiving an automated call 2 days prior to the surgery with pertinent information you will need regarding your procedure. It will be confirming your surgery and arrival time as well. If you do not receive this call please call [phone] CURRENT COVID VISITOR POLICY: These visitor policy changes for hospital inpatients only are effective 09/06: 1. Hospital inpatients, including COVID-19 positive and suspected patients, can have two named visitors of the patient s choice per day as identified in the patient s electronic medical record. 2. Visitors are required to wear a wristband or visitor badge with the date and visitor s name. 3. Visitation is permitted between 8 a.m. to 7 p.m., seven days a week. 4. Visitors must have no COVID-19 symptoms or recently known exposures. 5. Visitors must have no COVID-19 symptoms or recent known exposures and adhere to these protocols: 6. Show a government-issued photo ID upon arrival. 7. Wear a hospital-provided mask over nose AND mouth at all times in all health care settings, including the patient's room, regardless of vaccination status. 8. Practice good hand hygiene. 9. Existing visitor exceptions remain in place for: 10. Emergency departments 11. Surgery/Procedures 12. End of life/Goals of care 13. Outpatient obstetrics 14. Maternity YOU WILL RECEIVE A CALL TWO DAYS BEFORE SURGERY CONFIRMING YOUR SURGERY AND ARRIVAL TIME. PLEASE CALL [phone] IF YOU DO NOT RECEIVE A CALL. NOTHING TO EAT OR DRINK AFTER MIDNIGHT. PLEASE HAVE YOUR TRANSPORTATION AVAILABLE AT ANY TIME. Arrange to have an adult to drive you to the hospital and be there to take you home after the surgery. If you are taking a cab, bus or medical transportation service home, an adult, other than the delivery truck driver, needs to ride with you for your safety. This person will also be responsible for communicating post-operative instructions to you. If you have any forms that will need to be completed by the surgeon, please remember to bring these with you when you come for office visits. You will need to have the patient portion completed before the Physician/office can complete & sign the form. Forms will be completed within 7-10 business days. Getting Your Skin Ready for Surgery You are scheduled to have a surgery that involves cutting through the skin. Because germs live on everyone's skin, there is a greater chance of getting an infection. To lessen your chance of getting an infection, you need to take special care of your skin before the surgery. Follow These Instructions: You may be given or you will need to buy a special soap called 4% chlorhexidine gluconate or CHG. Common brand names for this soap are Hex-A-Clens or Hibiclens. You will need 2 of the 4-ounce bottles or Hibiclens Foam wash. There may be a store brand that is less costly. Ask your pharmacist where to find it in the drug store. It is often with first aid supplies. You may want to call ahead to check that they have the CHG soap in the store. Do not shave near the site where your doctor will be making the cut for your surgery for at least 48 hours before surgery. You need to shower with the CHG soap two times before your surgery within 48 hours Cleaning Your Skin with CHG * 1. Start by washing your hair as usual with your normal shampoo and wash your body with regular soap. Rinse your hair and body very well to remove any shampoo or soap that might be on your skin. 2. Wet a clean washcloth and turn off the shower. 3. Put the CHG soap on the wet clean washcloth. 4. Apply the CHG soap to your whole body from the neck down only. Do not use CHG soap on your face and be careful not to get the CHG in your eyes or ears. CHG soap does not lather well. Put more CHG on the cloth as you cover more of your body. You should use about 4 ounces or 1/2 cup of CHG with each shower. Note: If you are using the Hibiclens (chlorhexidine) Foam wash, then apply 3 pumps of wash directly onto your skin and lather your body from the neck down. 5. Wash your body gently for 5 minutes, paying special attention to the part on your body where the surgery will be done. Be sure to wash the back of your neck, under your arms, your belly button, private parts and your legs down to your toes. Do not scrub too hard. 6. Turn the shower back on and rinse well to get the CHG soap off your body. 7. Pat yourself dry with a clean, dry towel. 8. Do not use any lotions, moisturizer, make-up or other products on the skin near the part of your body that will be cut for surgery. 9. Put on clean clothes. *Special Notes If you do not have a shower or you are not able to get into the shower, do a sponge bath each time. Do not wash your hair unless you are to have a cut into your scalp. First, bathe with a washcloth and regular soap. Rinse with clean water. Then get a clean washcloth and use the CHG to wash your body. Rinse with another clean washcloth and plain water. Dry with a clean towel. If you have any questions about cleaning your skin, call your doctor s office. Medicines to prevent blood clots If you are taking aspirin to prevent blood clots because you have a stent, or you have had a heart attack or stroke, continue to take your aspirin up to, and even on the day of a surgery . If you have a stent, read the Protect Your Stent handout to learn more. The medicines listed below thin the blood to prevent blood clots. Taking them decreases the chance of heart attack, stroke and blood clots. However, taking them before a surgery can also increase the chance of bleeding. Apixiban (Eliquis) Clopidogrel (Plavix) Dabigatran (Pradaxa) Dalteparin (Fragmin) Enoxaparin (Lovenox) Fondaparinux (Arixtra) Prasugrel (Effient) Rivaroxaban (Xarelto) Ticagrelor (Brilinta) Ticlopidine (Ticlid) Warfarin (Coumadin) As soon as you know about a planned surgery: 1. Tell your surgeon about the medicine you take to prevent blood clots. 2. Also, talk with the doctor who prescribes your medicine to prevent clots. He or she can tell you how to adjust your medicine around the time of your surgery. 3. If your surgery date is changed and you stopped taking your medicine to prevent clots, call your doctor. You may need to restart the medicine while you are waiting for your surgery to be rescheduled. What to do about your medicines before surgery Please call your doctor's office if you have any questions about your regular medicines. Some medicines need to be stopped for a time before your surgery to prevent problems. Use this list as a guide. If you are not sure which medicines you should stop before your surgery, ask your doctor to be sure. Follow the directions of your doctor. All herbal medicines should be stopped 14 days before surgery. Monamine oxidase inhibitors should be stopped 7 to 14 days before surgery. These include drugs such as Nardil (Phenelzine Sulfate), Parnate (Tranylcypromine Sulfate), Eldepryl (Seleqiline Hydrochloride). Glucophage (Metformin) should be stopped 48 hours before surgery. Do not take these kinds of medicines the morning of surgery: Metformin should be stopped 48 hours prior to surgery Insulin or oral diabetes medicines - Please check your blood sugar the morning of surgery if you have diabetes. Diuretics (water pills) PRINCESS Inhibitors for blood pressure Digoxin unless used for irregular heartbeat, such as atrial fibrillation Take these medicines the morning of surgery with a sip of water: All heart medicines All blood pressure medicine, except diuretics (water pills) and PRINCESS inhibitors All breathing medicines, including inhalers All anti-seizure medicine All heartburn or gastric reflux medicine, except antacids such as Maalox or Mylanta Pain medicine, prescribed to you by a doctor, if in severe pain Steroid medicine Antidepressant medicines, except monamine oxidase inhibitors such as Nardil (Phenelzine Sulfate), Parnate (Tranylcypromine Sulfate), and Eldepryl (Seleqiline Hydrochloride) After midnight and on the day of your surgery: Do not eat or drink anything. Do not chew gum or take breath mints. Do not smoke anything. Do brush your teeth and rinse your mouth, but do not swallow anything. What to Bring to the hospital A photo identification, such as a delivery truck driver's license Insurance card Co-pay for insurance if applicable A list of all medicines you are currently taking including the dose and times that you take them. Include any vitamins, over the counter and herbal products you take. You will be turning this list over to your nurse. Crutches or walker if needed. Dentures, glasses and hearing aids may be worn, just bring a case for them. An adult who will be able to take you home after the procedure since you will not be able to leave alone. You are required to have a responsible adult who can stay at the hospital while you are here, listen to discharge instructions, and stay with you for 24 hours after transporting you home. What to Leave at Home All valuables, cell phone, wallet, purse. Bring your co-pay if your insurance requires one. All jewelry such as watches, wedding bands and any form of piercing. Do not wear makeup, nail [place], contact lenses, perfume or cologne. If you develop any illness, such as a cold, sore throat, cough, or fever, before your surgery, call our office at [phone] and ask to speak with a nurse. Financial Obligation: Your insurance many require an authorization prior to the procedure. Our pre-cert office will be contacting your insurance to see if authorization is required. If you have questions about how much your insurance will pay, please contact your insurance directly. Please be prepared to pay your co-pay, co-insurance, or deductible on the day of your surgery. We request patients with insurance that is less than 100% coverage to pay a deposit prior to the procedure being performed. A outside medical sales representative from the [facility] will contact you to pre-register you for your services. If you have not received a call by two days prior to your procedure date, please call our Pre-Registration Department at [phone] or [phone]. By calling us in advance, your wait time will be reduced. Our trained representatives can assist you in discussing both your physician and hospital obligations. Are you a [employer] user? If yes, you can log on and complete a pre-registration questionnaire. Banquet Attendant: You are not eligible for Financial Assistance if you are entering the [facility] solely to seek medical treatment. We want to make sure all patients have access to quality healthcare services at [facility], and we are committed to working with you and your family to obtain appropriate financial assistance. We are here to help. Please let us know if you do not have health insurance or cannot pay your bill in full. We encourage you to contact our Office of Financial Counseling, where staff members are trained to assist you in determining whether you might qualify for an assistance program. Our financial counselors can help you complete applications for government-sponsored programs, describe other financial assistance programs that can help offset costs, or structure workable payment plans for your required medical treatment if you meet certain financial criteria. They can also assist you in explaining your options related to the Affordable Care Act. These options include helping you apply for: [place] Medicaid (if your income meets guidelines) The Affordable Care Act Insurance Exchange Program. Other federal/state assistance programs Or establish a payment plan Other Assistance: [facility] offers an additional sliding scale financial assistance based on Federal Poverty Guidelines. To help determine the appropriate assistance programs for you, you will need to provide details about your job, income, resources, insurance coverage, family size and other information. We realize some of these details may be of a sensitive nature, but it is necessary that you provide them to enable us to help you. We are committed to respecting you and your privacy during this process. If you are uninsured but do not qualify for Medicaid or other assistance programs, our Financial Counselors will be happy to discuss the Affordable Care Act Insurance Exchange programs. If you are interested in learning more about these programs, please contact the Financial Counseling Department at [phone] between 8 a.m. and 5 p.m. week. A financial counselor can assist you with the application process. You will be screened for all potential programs. If you appear to be eligible for Medicaid, you will be assisted through the application process. As a Medicaid recipient, your physician fees and facility fees could be covered. Services not covered by [facility] financial assistance program: Physician Fees Transportation fees Dental Services Medically unnecessary services Prescriptions Durable Medical Equipment We Are 100% Tobacco-Free At The [facility], we care about the health of our patients, visitors and staff. That s why all of our locations - inside and outside - are 100% tobacco-free. We understand that nicotine is addictive, and we regret the inconvenience to tobacco users. 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 documented in this encounter [facility] Evaluation note No assessment inform ation available [facility] Work Phone: Evaluation note Diagnosis Umbilical hernia without obstruction and without gangrene- Primary Abdominal wall bulge Abdominal or pelvic swelling, mass or lump, unspecified site Umbilical hernia without obstruction and without gangrene [facility] Diagnosis Umbilical hernia without obstruction and without gangrene [facility] Diagnosis Hematoma of right breast- Primary Pre-op examination Preop cardiovascular exam Pre-operative cardiovascular examination [facility] Diagnosis Hematoma of right breast- Primary Pre-op examination Preop cardiovascular exam Pre-operative cardiovascular examination documented in this encounter [facility] Summary Purpose Family History No Family History Records FoundNo Family History Records FoundNo Family History Records FoundNo Family History Records FoundNo Family History Records FoundNo Family History Records FoundNo Family History Records FoundNo Family History Records Found Advance Directives No Advanced Directives Records Found Advance Directive Response Recorded Date/ Time Living Will No July 12 3:30pm Power of Office Machine Installer No July 12, 2019 3:30pm Latest Code Status on File Code Status Date Activated Date Inactivated Comments Full Code 11/06/2022 10:37 AM Reason for Referral Specialty Diagnoses / Procedures Referred By Benja bauer Referred To Contact Physical Therapy Diagnoses Abdominal wall bulge Bre Brown, MANDARIN TEACHER-CARLOS [address] [place] [address] Referral ID Status Reason Start Date Expiration Date V isits Requested Visits Authorized [id number] New Request 10/10/2022 11/04/2023 1 1 Scheduling Instructions [facility] [address] [facility] [place] [address] Fax [facility] (Neck and Back Therapy) [address], [place] [phone] FAX [facility] [address] [place] [address] FAX Outpatient Rehabilitation Outpatient Care [place] [address] [phone] FAX [facility] [place] [address] [place] [address] FAX [facility] [address], [place] [address] FAX [facility] [address] [place], [place] [address] FAX Continued on next page Outpatient Rehabilitation Outpatient Care [address] [place] [address] FAX [facility] [address] [place] [address] FAX Specialty Diagnoses / Procedures Referred By Benja bauer Referred To Contact Procedures [facility] [place] Campbell SHAH MD [address] [facility] [place] [address] Referral ID Status Reason Start Date Expiration Date V isits Requested Visits Authorized [id number] New Request 11/06/2022 12/01/2023 1 1 Additional Source Comments INFORMATION SOURCE (unrecogn ized section and content) DATE CREATED AUTHOR 02/12/2020 [facility] DATE CREATED AUTHOR AUTHOR'S ORGANIZ ATION 05/13/2021 [facility] DATE CREATED AUTHOR AUTHOR'S ORGANIZ ATION 06/17/2022 [facility] [place] [facility] DATE CREATED AUTHOR AUTHOR'S ORGANIZ ATION 09/30/2023 [facility] DATE CREATED AUTHOR AUTHOR'S ORGANIZ ATION 02/01/2024 [facility] DATE CREATED AUTHOR AUTHOR'S ORGANIZ ATION 04/24/2024 [facility] DATE CREATED AUTHOR AUTHOR'S ORGANIZ ATION 01/16/2025 [facility] DATE CREATED AUTHOR AUTHOR'S ORGANIZ ATION 02/14/2025 [facility] Goals (unrecognized section and content) Goals may be documented in a n alternate section Reason for Visit (unrecogniz ed section and content) Reason Comments New Patient Umbilical hernia, Hx of abdominal surgery Specialty Diagnoses / Procedures Referred By Contantonette t Referred To Contact General Surgery Diagnoses Umbilical hernia without obstruction and without gangrene Hx of abdominal surgery Spike Wilhelm MD [address] [facility] [address] [place] [address] [facility] [address] [place] [address] Referral ID Status Reason Start Date Expiration Date V isits Requested Visits Authorized [id number] Pending Review 08/27/2022 09/21/2023 1 1 Specialty Diagnoses / Procedures Referred By Contac t Referred To Contact Diagnoses Umbilical hernia without obstruction and without gangrene Umbilical hernia without obstruction and without gangrene [K42.9] Procedures WA RPR AA HERNIA 1ST < 3 CM REDUCIBLE REPAIR HERNIA ABDOMINAL INITIAL REDUCIBLE LESS THAN 3 CM OPEN Nayeli Irvin MD [address] [facility] [address] [place] [address] [facility] [address] [place] [address] Referral ID Status Reason Start Date Expiration Date Visits Re quested Visits Authorized [id number] 1 1 Care Teams (unrecognized sec tion and content) Freezer Machine Operator Relationship Specialty Start Date End Date Sandy Orourke PA-C [address] [place] [id number] PCP - General Family Medicine 10/10/22 Freezer Machine Operator Relationship Specialty Start Date End Date Sandy Orourke PA-C [address] [place] [phone] PCP - General Family Medicine 10/10/22 Freezer Machine Operator Relationship Specialty Start Date End Date Sandy Orourke PA-C [address] [place] [address] PCP - General Physician Barge Captain 02/08/25 Freezer Machine Operator Relationship Specialty Start Date End Date Sandy Orourke PA-C [address] [place] [address] PCP - General Physician Barge Captain 02/08/25 Continuous Active and Recently Administ ered Medications (unrecognized section and content) Medication Order 11/04/2022 11/05/2022 11/06/2022 Lactated ringers IV solution Intravenous, at 50 mL/hr, CONTINUOUS, Starting on Fri11/06/22 at 1045, Until Fri11/06/22 at 1611, Pre-op/Pre-Proc 1039 ($$New Bag$$ - Provider: Samantha Contreras RN)1226 (Paused - Provider: Quentin Reynolds Jr., DIANNE-PRINT LINE INSPECTOR - Comment: Switch to gravity)1227 (Restarted - Provider: Quentin Reynolds Jr., DIANNE-PRINT LINE INSPECTOR) PRN Medication Order 11/04/2022 11/05/2022 11/06/2022 Acetaminophen (TYLENOL) tablet 650 mg 650 mg, Oral, EVERY 4 HOURS NEEDED, Starting on Fri11/06/22 at 1255, Until Fri11/06/22 at 1611, Mild Pain, Maximum dose of acetaminophen is 4000 mg from all sources in 24 hours., Post-op/Post-Proc ceFAZolin (ANCEF) 2 g in dextrose 100 mL premix IVPB (COMPLETED) 2 g, Intravenous, Administer over 30 Minutes, ULTRASONOGRAPHER TO PROCEDURE, 1 dose, Starting on Fri11/06/22 at 1037, Until Discontinued, Other, Surgical Prophylaxis, Initiate antibiotic administration 30-60 minutes prior to surgical incision and complete administration prior to surgical incision., Pre-op/Pre-Proc 1146 (Given - Provid er: Quentin Reynolds Jr., DIANNE-PRINT LINE INSPECTOR) fentaNYL Citrate (PF) (SUBLIMAZE) injection 25 mcg 25 mcg, Intravenous, Administer over 2 Minutes, EVERY 10 MINUTES NEEDED, Starting on Fri11/06/22 at 1221, Until Fri11/06/22 at 1611, Moderate Pain, 25 mcg iv q 10 min prn pain. keep rr>10 bpm. max cummulative dose 200 mcg, Recovery HYDROmorphone (DILAUDID) injection 0.2 mg(Linked Group 1) 0.2 mg, Intravenous, EVERY 5 MINUTES NEEDED, Starting on Fri11/06/22 at 1221, Until Fri11/06/22 at 1611, Moderate Pain, Severe Pain, Use as initial dose. Higher dose may be administered if lower dose did not result in adverse effects (RR<10, decrease in level of consciousness) and was previously documented as ineffective. May give a total of 4mg in PACU., Recovery HYDROmorphone (DILAUDID) injection 0.5 mg(Linked Group 1) 0.5 mg, Intravenous, EVERY 5 MINUTES NEEDED, Starting on Fri11/06/22 at 1221, Until Fri11/06/22 at 1611, Moderate Pain, Severe Pain, Higher dose may be administered if lower dose did not result in adverse effects (RR<10, decrease in level of consciousness) and was previously documented as ineffective. Decrease back to lower dose if patient has adverse effects, or no PRN used in previous 30 minutes. May give a total of 4mg in PACU ., Recovery HYDROmorphone (DILAUDID) injection 0.5 mg(Linked Group 2) 0.5 mg, Intravenous, EVERY 3 HOURS NEEDED, Starting on Fri11/06/22 at 1255, Until Fri11/06/22 at 1611, Severe Pain, Use as initial dose. Higher dose may be administered if lower dose was previously documented as ineffective and did not result in adverse effects (RR<10, decrease in level of consciousness)., Post-op/Post-Proc HYDROmorphone (DILAUDID) injection 1 mg(Linked Group 2) 1 mg, Intravenous, EVERY 3 HOURS NEEDED, Starting on Fri11/06/22 at 1255, Until Fri11/06/22 at 1611, Severe Pain, Higher dose may be administered if lower dose was previously documented as ineffective and did not result in adverse effects (RR<10, decrease in level of consciousness). Decrease back to lower dose if patient has adverse effects, or no PRN used in previous 12 hours., Post-op/Post-Proc Lidocaine-epinephrine 1%-1:[id number] injection (CANCELED) NEEDED, Starting on Fri11/06/22 at 1218, Until Fri11/06/22 at 1233, Intra-op/Intra-Proc 1218 (Given - Provid er: Nayeli Irvin MD) Ondansetron 4mg/2ml (ZOFRAN) injection 4 mg 4 mg, Intravenous, ONCE NEEDED, 1 dose, Starting on Fri11/06/22 at 1221, Until Fri11/06/22 at 1611, Nausea / Vomiting, FIRST line antiemetic, Do not administer within 6 hours of intra-operative dose., Recovery Ondansetron 4mg/2ml (ZOFRAN) injection 4 mg 4 mg, Intravenous, EVERY 4 HOURS NEEDED, Starting on Fri11/06/22 at 1255, Until Fri11/06/22 at 1611, Nausea / Vomiting, 1st Line Nausea / Vomiting, Post-op/Post-Proc oxyCODONE (ROXICODONE) tablet 5 mg(Linked Group 3) 5 mg, Oral, EVERY 4 HOURS NEEDED, Starting on Fri11/06/22 at 1221, Until Fri11/06/22 at 1611, Moderate Pain, Severe Pain, Use as initial dose. Higher dose may be administered if lower dose was previously documented as ineffective and did not result in adverse effects (RR<10, negative change in RASS of 2 or more)., Recovery 1318 (Given - Provid er: Sarah Gregg RN) oxyCODONE HCl (ROXICODONE) tablet 10 mg(Linked Group 3) 10 mg, Oral, EVERY 4 HOURS NEEDED, Starting on Fri11/06/22 at 1221, Until Fri11/06/22 at 1611, Moderate Pain, Severe Pain, Higher dose may be administered if lower dose was previously documented as ineffective and did not result in adverse effects (RR<10, negative change in RASS of 2 or more). Decrease back to lower dose if patient has adverse effects or no PRN use in previous 12 hours. Hold for sedation., Recovery 1318 (See Alternativ e - Provider: Sarah Gregg RN) oxyCODONE-acetaminophen (PERCOCET) 5-325 MG per tablet 1 tablet(Linked Group 4) 1 tablet, Oral, EVERY 4 HOURS NEEDED, Starting on Fri11/06/22 at 1255, Until Fri11/06/22 at 1611, Moderate Pain, Use as initial dose. Higher dose may be administered if lower dose was previously documented as ineffective and did not result in adverse effects (RR<10, decrease in level of consciousness)., Post-op/Post-Proc oxyCODONE-acetaminophen (PERCOCET) 5-325 MG per tablet 2 tablet(Linked Group 4) 2 tablet, Oral, EVERY 4 HOURS NEEDED, Starting on Fri11/06/22 at 1255, Until Fri11/06/22 at 1611, Moderate Pain, Higher dose may be administered if lower dose was previously documented as ineffective and did not result in adverse effects (RR<10, decrease in level of consciousness). Decrease back to lower dose if patient has adverse effects, or no PRN used in previous 12 hours., Post-op/Post-Proc Promethazine (PHENERGAN) injection 12.5 mg 12.5 mg, Intravenous, EVERY 6 HOURS NEEDED, Starting on Fri11/06/22 at 1255, Until Fri11/06/22 at 1611, Nausea / Vomiting, 2nd Line Nausea / Vomiting, Extravasation Risk. If given via IV route: dilute dose with 10mL normal saline and inject through a running IV or line over 5 minutes OR if no active IV or line is saline-dwelled dilute dose with 20mL normal saline and administer over 5 minutes. AVOID Intra-arterial administration; necrosis & gangrene have resulted. Hand, wrist or foot veins SHOULD BE AVOIDED., Post-op/Post-Proc Linked Groups Order Group 1: HYDROmorphone (DILAUDID) injection 0.2 mgJump to med 0.2 mg, Intravenous, EVERY 5 MINUTES NEEDED, Starting on Fri11/06/22 at 1221, Until Fri11/06/22 at 1611, Moderate Pain, Severe Pain
Use as initial dose. Higher dose may be administered if lower dose did not result in adverse effects (RR<10, decrease in level of consciousness) and was previously documented as ineffective. May give a total of 4mg in PACU.
Recovery Or HYDROmorphone (DILAUDID) injection 0.5 mgJump to med 0.5 mg, Intravenous, EVERY 5 MINUTES NEEDED, Starting on Fri11/06/22 at 1221, Until Fri11/06/22 at 1611, Moderate Pain, Severe Pain
Higher dose may be administered if lower dose did not result in adverse effects (RR<10, decrease in level of consciousness) and was previously documented as ineffective. Decrease back to lower dose if patient has adverse effects, or no PRN used in previous 30 minutes. May give a total of 4mg in PACU .
Recovery Group 2: HYDROmorphone (DILAUDID) injection 0.5 mgJump to med 0.5 mg, Intravenous, EVERY 3 HOURS NEEDED, Starting on Fri11/06/22 at 1255, Until Fri11/06/22 at 1611, Severe Pain
Use as initial dose. Higher dose may be administered if lower dose was previously documented as ineffective and did not result in adverse effects (RR<10, decrease in level of consciousness).
Post-op/Post-Proc Or HYDROmorphone (DILAUDID) injection 1 mgJump to med 1 mg, Intravenous, EVERY 3 HOURS NEEDED, Starting on Fri11/06/22 at 1255, Until Fri11/06/22 at 1611, Severe Pain
Higher dose may be administered if lower dose was previously documented as ineffective and did not result in adverse effects (RR<10, decrease in level of consciousness). Decrease back to lower dose if patient has adverse effects, or no PRN used in previous 12 hours.
Post-op/Post-Proc Group 3: oxyCODONE (ROXICODONE) tablet 5 mgJump to med 5 mg, Oral, EVERY 4 HOURS NEEDED, Starting on Fri11/06/22 at 1221, Until Fri11/06/22 at 1611, Moderate Pain, Severe Pain
Use as initial dose. Higher dose may be administered if lower dose was previously documented as ineffective and did not result in adverse effects (RR<10, negative change in RASS of 2 or more).
Recovery Or oxyCODONE HCl (ROXICODONE) tablet 10 mgJump to med 10 mg, Oral, EVERY 4 HOURS NEEDED, Starting on Fri11/06/22 at 1221, Until Fri11/06/22 at 1611, Moderate Pain, Severe Pain
Higher dose may be administered if lower dose was previously documented as ineffective and did not result in adverse effects (RR<10, negative change in RASS of 2 or more). Decrease back to lower dose if patient has adverse effects or no PRN use in previous 12 hours. Hold for sedation.
Recovery Group 4: oxyCODONE-acetaminophen (PERCOCET) 5-325 MG per tablet 1 tabletJump to med 1 tablet, Oral, EVERY 4 HOURS NEEDED, Starting on Fri11/06/22 at 1255, Until Fri11/06/22 at 1611, Moderate Pain
Use as initial dose. Higher dose may be administered if lower dose was previously documented as ineffective and did not result in adverse effects (RR<10, decrease in level of consciousness).
Post-op/Post-Proc Or oxyCODONE-acetaminophen (PERCOCET) 5-325 MG per tablet 2 tabletJump to med 2 tablet, Oral, EVERY 4 HOURS NEEDED, Starting on Fri11/06/22 at 1255, Until Fri11/06/22 at 1611, Moderate Pain
Higher dose may be administered if lower dose was previously documented as ineffective and did not result in adverse effects (RR<10, decrease in level of consciousness). Decrease back to lower dose if patient has adverse effects, or no PRN used in previous 12 hours.
Post-op/Post-Proc FOR RECORDS PERTAINING TO PATIENTS WHO ARE OR HAVE BEEN ENROLLED IN A CHEMICAL DEPENDENCY/SUBSTANCEABUSE PROGRAM, SOME INFORMATION MAY BE OMITTED. This clinical summary was aggregated from multiple sources. Caution should be exercised in using it in the provision of clinical care. This summary normalizes information from multiple sources, and as a consequence, information in this document may materially change the coding, format and clinical context of patient data. In addition, data may be omitted in some cases. CLINICAL DECISIONS SHOULD BE BASED ON THE PRIMARY CLINICAL RECORDS. [employer] provides no warranty or guarantee of the accuracy or completeness of information in this document.
[2025-02-17] MEDS: HYDROcodone Bitartrate/Apap 5/325 Tablet PO (23:53)
[2025-02-17 23:55] VITALS: BP 127/85; PULSE 75; RESP 16; TEMP 36.8; O2SAT 99
== END 2025-02-18 | disposition home or self-care (01) ==
PROVIDERS: Emergency Provider Emergency Medicine; PCP Family Medicine; Referring Provider Emergency Medicine; Visit Provider Emergency Medicine
DX: M25.511 Pain in right shoulder (principal); F17.200 Nicotine dependence, unspecified, uncomplicated
CPT/HCPCS: 72050; 73030; 99283

== ENCOUNTER → 2025-02-18 | Outpatient (CLI) | payer BC, SELFPAY ==
--- NOTE | 2025-02-18 13:13 | VDUE_ITS ---
Reason For Study Reason For Study: Pain RUE Right Proximal Left Proximal Right jugular vein is spontaneous, widely patent, Left subclavian vein is spontaneous, widely patent, phasic, with no intraluminal echogenicity noted. phasic, with no intraluminal echogenicity noted. Right subclavian vein is spontaneous, widely patent, phasic, with no intraluminal echogenicity noted. Right Lower Arm Right radial vein is compressible. Right ulnar vein is compressible. Right Arm Right axillary vein is spontaneous, patent, phasic, competent, compressible and demonstrates augmentation. Right brachial vein is compressible. Right cephalic vein is compressible. Right basilic vein is compressible. VL/Venous Duplex US, Unilateral Interpretation Summary Deep veins of the right upper extremity are patent and compressible segmentally . There is no evidence of deep vein thrombosis. The superficial veins of the right upper extremity, the basilic and cephalic veins, are patent and compressible. There is no evidence of right upper extremity superficial thrombo phlebitis involving the veins imaged. The left subclavian vein is patent. Ordering Physician: Semaj Odell Referring Physician: Sandy Orourke Performed By: Amelie Najera, BONY, RVT ???
== END | disposition home or self-care (01) ==
LOC: CVS 13:12
PROVIDERS: PCP Family Medicine; Referring Provider Emergency Medicine; Visit Provider Emergency Medicine
DX: M79.601 Pain in right arm (principal)
CPT/HCPCS: 93971